=== PATIENT | female | born 1960 | race Caucasian/White ===

== ENCOUNTER 2023-01-21 09:41 | Inpatient (IN) | payer MEDICARE, OTHER ==
[2023-01-21 09:57] LABS: Basophils # (A) 0.1 k/uL (0-0.2); Basophils % (A) 1 %; Eosinophils % (A) 0 %; HCT 31.7 % (34.0-46.0); HGB 10.4 gm/dL (11.4-16.0); Hypochromasia Slight; Lymphocytes # (A) 2.3 k/uL (1.0-4.8); Lymphocytes % (A) 19 %; MCH 31.9 pg (25.0-35.0); MCHC 32.7 g/dL (31.0-37.0); MCV 97.4 fL (80.0-100.0); Monocytes # (A) 0.7 k/uL (0-1.0); Monocytes % (A) 6 %; Neutrophils # (A) 8.5 k/uL (1.3-7.7); Neutrophils % (A) 73 %; Platelet Count 173 k/uL (150-450); RBC 3.26 m/uL (3.80-5.40); RDW 15.5 % (11.5-15.5); WBC 11.7 k/uL (3.8-10.6)
[2023-01-21] MEDS ORDERED: DOPamine DRIP 800 MG in DEXTROSE/WATER 1 250ML.BAG IV ONE (10:02)
[2023-01-21] MEDS: LORazepam 2 MG/ML INJ IV STA ×2 (10:04→10:17)
[2023-01-21 10:14] LABS: ALT 39 U/L (4-34); AST 71 U/L (14-36); African American GFR (CKD) 7 (>60 ml/min/1.73 sqM); Albumin 4.1 g/dL (3.5-5.0); Alkaline Phosphatase 104 U/L (38-126); Anion Gap 11 mmol/L; Blood Urea Nitrogen 54 mg/dL (7-17); Calcium 9.1 mg/dL (8.4-10.2); Carbon Dioxide 29 mmol/L (22-30); Chloride 94 mmol/L (98-107); Glucose 118 mg/dL (74-99); Non-African American GFR(CKD) 6 (>60 ml/min/1.73 sqM); Sodium 134 mmol/L (137-145); Total Bilirubin 0.7 mg/dL (0.2-1.3); Total Protein 6.8 g/dL (6.3-8.2)
[2023-01-21 10:25] LABS: Potassium 7.4 mmol/L (3.5-5.1)
--- NOTE | 2023-01-21 10:32 | ED ---
General Adult HPI - General Chief complaint: Recheck/Abnormal Lab/Rx Stated complaint: bradycardia Time Seen by Provider: 01/21/23 09:45 Source: patient, EMS, RN notes reviewed, old records reviewed Mode of arrival: EMS Limitations: no limitations - History of Present Illness Initial comments: This is a 62-year-old female presents emergency Department from [facility]. Patient is a dialysis patient and she was supposed to go to dialysis today but she was altered and in a little bit of distress. According to the ER doctor at [facility] patient arrived with a pulse of 20 oh pressure was low potassium ended up being over 8. Patient was put on dopamine and given some atropine and then eventually transcutaneously pace. Patient's heart rate when leaving [place] according to the ER doc was 70s and blood pressure was around 100 systolic. Patient was also given insulin and D50 as well as calcium. I asked him to give bicarbonate for the patient before the patient left. Patient is altered and not giving us any further history - Related Data Home Medications Medication Instructions Recorded Confirmed Albuterol Nebulized [Ventolin 2.5 mg INHALATION RT-Q6H PRN 01/21/23 01/21/23 Nebulized] Albuterol Sulfate [Albuterol 1 puff INHALATION RT-Q4H PRN 01/21/23 01/21/23 Sulfate Hfa] Atorvastatin Calcium 20 mg PO DAILY 01/21/23 01/21/23 Azithromycin [Zithromax Z Pack] See Taper PO DIRECTED 01/21/23 01/21/23 Benzonatate [Tessalon Perles] 100 - 200 mg PO TID PRN 01/21/23 01/21/23 Budesonide/Formoterol Fumarate 2 puff INHALATION RT-BID 01/21/23 01/21/23 [Symbicort 160-4.5 Mcg Inhaler] Bumetanide [BUMEX] 4 mg PO TID 01/21/23 01/21/23 Dicyclomine [Bentyl] 10 mg PO TID 01/21/23 01/21/23 Fluticasone Nasal [place] [Flonase 2 spray EA NOSTRIL DAILY 01/21/23 01/21/23 Nasal [place]] Gabapentin [Neurontin] 200 mg PO BID 01/21/23 01/21/23 Isosorbide Mononitrate ER [Imdur] 30 mg PO DAILY 01/21/23 01/21/23 Lidocaine-Prilocaine Cream [Emla 1 applic TOPICAL DIRECTED 01/21/23 01/21/23 Cream 2.5%/2.5%] Loperamide [Imodium] 4 mg PO QID PRN 01/21/23 01/21/23 Metoprolol Succinate (ER) [Toprol 50 mg PO DAILY 01/21/23 01/21/23 Xl] Midodrine HCl 10 mg PO TID 01/21/23 01/21/23 Montelukast [Singulair] 10 mg PO DAILY 01/21/23 01/21/23 Omeprazole [PriLOSEC] 20 mg PO AC-SUPPER 01/21/23 01/21/23 Ondansetron Odt [Zofran Odt] 4 mg PO Q8HR PRN 01/21/23 01/21/23 SILVER sulfADIAZINE Cream 1 applic TOPICAL BID 01/21/23 01/21/23 [Silvadene 1% Cream] Sevelamer Carbonate 1,600 - 2,400 mg PO DIRECTED 01/21/23 01/21/23 amLODIPine [Norvasc] 5 mg PO DAILY 01/21/23 01/21/23 amLODIPine [Norvasc] 10 mg PO DAILY 01/21/23 01/21/23 hydrALAZINE HCL 10 mg PO TID 01/21/23 01/21/23 lisinopriL [Zestril] 10 mg PO DAILY 01/21/23 01/21/23 Allergies Allergy/AdvReac Type Severity Reaction Status Date / Time erythromycin base Allergy Unknown Verified 01/21/23 11:17 Penicillins Allergy Unknown Verified 01/21/23 11:17 Sulfa (Sulfonamide Allergy Unknown Verified 01/21/23 11:17 Antibiotics) sulfacetamide Allergy Unknown Verified 01/21/23 11:17 Review of Systems ROS Statement: Those systems with pertinent positive or pertinent negative responses have been documented in the HPI. ROS Other: All systems not noted in ROS Statement are negative. Past Medical History Past Medical History: Heart Failure, COPD, CVA/TIA, Dialysis, GERD/Reflux, Thyroid Disorder History of Any Multi-Drug Resistant Organisms: Unobtainable Additional Past Surgical History / Comment(s): Dialysis cath placement Past Psychological History: No Psychological Hx Reported Smoking Status: Unknown if ever smoked Past Alcohol Use History: Unable to Obtain Past Drug Use History: Unable to Obtain General Exam - General Exam Comments Initial Comments: GENERAL: Patient is well-developed and well-nourished. Patient is nontoxic and well- hydrated and is in mild distress. Patient is agitated and only answering very basic commands ENT: Neck is soft and supple. No significant lymphadenopathy is noted. Oropharynx is clear. Moist mucous membranes. Neck has full range of motion without eliciting any pain. EYES: The sclera were anicteric and conjunctiva were pink and moist. Extraocular movements were intact and pupils were equal round and reactive to light. Eyelids were unremarkable. PULMONARY: Unlabored respirations. Good breath sounds bilaterally. No audible rales rhonchi or wheezing was noted. CARDIOVASCULAR: Once again off the transcutaneous pacer patient's heart rate was 44 bpm. ABDOMEN: Soft and nontender with normal bowel sounds. SKIN: Skin is clear with no lesions or rashes and otherwise unremarkable. NEUROLOGIC: Patient is alert and oriented 1. Cranial nerves II through XII are grossly intact. Motor and sensory are also intact. Normal speech, volume and content. Symmetrical smile. MUSCULOSKELETAL: Normal extremities with adequate strength and full range of motion. 2+ edema LYMPHATICS: No significant lymphadenopathy is noted PSYCHIATRIC: Unable to evaluate Limitations: no limitations Course Vital Signs 01/21/23 01/21/23 01/21/23 09:44 09:49 10:00 Temperature Pulse Rate 48 L 45 L 58 L Pulse Rate [ Block Engraver ] Respiratory 20 22 20 Rate Blood Pressure 96/76 86/61 Blood Pressure [Right Arm] O2 Sat by Pulse 86 L 86 L 96 Oximetry 01/21/23 01/21/23 01/21/23 10:10 10:20 10:55 Temperature Pulse Rate 80 60 Pulse Rate [ Block Engraver ] Respiratory 22 20 18 Rate Blood Pressure 112/99 93/64 136/60 Blood Pressure [Right Arm] O2 Sat by Pulse 96 94 L 92 L Oximetry 01/21/23 01/21/23 01/21/23 11:05 11:10 11:20 Temperature Pulse Rate 64 65 65 Pulse Rate [ Block Engraver ] Respiratory 18 24 24 Rate Blood Pressure 114/54 93/60 110/76 Blood Pressure [Right Arm] O2 Sat by Pulse 94 L 99 Oximetry 01/21/23 01/21/2301/21/23 11:30 11:42 11:57 Temperature Pulse Rate 65 63 75 Pulse Rate [ Block Engraver ] Respiratory 24 24 24 Rate Blood Pressure 92/54 102/64 109/52 Blood Pressure [Right Arm] O2 Sat by Pulse 98 97 99 Oximetry 01/21/23 01/21/23 01/21/23 12:03 12:08 12:11 Temperature Pulse Rate 66 84 87 Pulse Rate [ Block Engraver ] Respiratory 24 24 Rate Blood Pressure 120/64 96/74 Blood Pressure [Right Arm] O2 Sat by Pulse 100 99 Oximetry 01/21/23 01/21/23 01/21/23 12:19 12:21 12:37 Temperature Pulse Rate 69 68 63 Pulse Rate [ Block Engraver ] Respiratory 24 24 Rate Blood Pressure 99/79 101/53 Blood Pressure [Right Arm] O2 Sat by Pulse 97 97 Oximetry 01/21/23 01/21/23 01/21/23 13:11 13:25 13:42 Temperature 97.9 F Pulse Rate 80 90 Pulse Rate [ 54 L Block Engraver ] Respiratory 17 24 24 Rate Blood Pressure 122/71 131/59 Blood Pressure 116/59 [Right Arm] O2 Sat by Pulse 96 95 93 L Oximetry 01/21/23 01/21/23 01/21/23 13:56 14:17 14:31 Temperature Pulse Rate 73 64 77 Pulse Rate [ Block Engraver ] Respiratory 24 24 24 Rate Blood Pressure 123/77 109/68 132/66 Blood Pressure [Right Arm] O2 Sat by Pulse 97 100 100 Oximetry 01/21/23 01/21/23 01/21/23 15:01 15:21 16:25 Temperature Pulse Rate 70 85 66 Pulse Rate [ Block Engraver ] Respiratory 24 24 24 Rate Blood Pressure 130/65 112/58 119/65 Blood Pressure [Right Arm] O2 Sat by Pulse 100 97 Oximetry 01/21/23 01/21/23 01/21/23 16:31 19:29 19:47 Temperature Pulse Rate 63 61 80 Pulse Rate [ Block Engraver ] Respiratory 24 18 22 Rate Blood Pressure 106/49 117/56 117/56 Blood Pressure [Right Arm] O2 Sat by Pulse 100 98 93 L Oximetry 01/21/23 01/21/23 01/21/23 21:54 23:00 23:30 Temperature Pulse Rate 66 60 65 Pulse Rate [ Block Engraver ] Respiratory 18 18 18 Rate Blood Pressure 109/54 102/57 100/53 Blood Pressure [Right Arm] O2 Sat by Pulse 97 97 94 L Oximetry 01/22/23 01/22/23 01/22/23 00:30 01:37 01:40 Temperature Pulse Rate 60 72 61 Pulse Rate [ Block Engraver ] Respiratory 18 18 18 Rate Blood Pressure 94/53 129/93 120/61 Blood Pressure [Right Arm] O2 Sat by Pulse 93 L 97 96 Oximetry 01/22/23 01/22/23 01/22/23 03:02 04:11 08:03 Temperature Pulse Rate 60 60 86 Pulse Rate [ Block Engraver ] Respiratory 18 18 18 Rate Blood Pressure 122/67 114/53 Blood Pressure [Right Arm] O2 Sat by Pulse 97 92 L Oximetry 01/22/23 01/22/23 01/22/23 08:05 08:15 08:50 Temperature 97.8 F Pulse Rate 84 61 Pulse Rate [ Block Engraver ] Respiratory 18 20 Rate Blood Pressure 113/65 Blood Pressure [Right Arm] O2 Sat by Pulse 93 L 99 Oximetry 01/22/23 01/22/23 01/22/23 10:00 11:16 11:20 Temperature 97 F L 98.2 F Pulse Rate 85 48 L Pulse Rate [ 53 L Block Engraver ] Respiratory 20 14 Rate Blood Pressure 165/85 116/59 Blood Pressure [Right Arm] O2 Sat by Pulse 97 95 Oximetry Medical Decision Making - Medical Decision Making Was pt. sent in by a medical professional or institution (, [facility], GASOLINE LOCOMOTIVE CRANE OPERATOR, urgent care, hospital, or shelter...) When possible be specific @ -Patient was transferred to us from [facility] Did you speak to anyone other than the patient for history (EMS, parent, family, police, friend...)? What history was obtained from this source @ -Spoke with the ER doc to [facility] prior to transfer to get the history and the patient Did you review nursing and triage notes (agree or disagree)? Why? @ -I reviewed and agree with nursing and triage notes Were old charts reviewed (outside hosp., previous admission, EMS record, old EKG, old radiological studies, urgent care reports/EKG's, shelter records)? Report findings @ -I reviewed prior lab work and charts and radiological studies from [facility] Differential Diagnosis (chest pain, altered mental status, abdominal pain women, abdominal pain men, vaginal bleeding, weakness, fever, dyspnea, syncope, headache, dizziness, GI bleed, back pain, seizure, CVA, palpatations, mental health, musculoskeletal)? @ -Differential Altered Mental Status: Hypoglycemia, DKA, hypercapnia, ETOH, overdose, CO poisoning, trauma, myxedema coma, HTN encephalopathy, infection, encephalitis, psychosis, intercranial hemorrhage, hepatic encephalopathy, meningitis, CVA, this is not meant to be an all-inclusive list EKG interpreted by me (3pts min.). @ -As above X-rays interpreted by me (1pt min.). @ -She shows no acute abnormality CT interpreted by me (1pt min.). @ -None done U/S interpreted by me (1pt. min.). @ -None done What testing was considered but not performed or refused? (CT, X-rays, U/S, labs)? Why? @ -None What meds were considered but not given or refused? Why? @ -None Did you discuss the management of the patient with other professionals (professionals i.e. , PA, GASOLINE LOCOMOTIVE CRANE OPERATOR, lab, RT, psych nurse, social service technician, senior systems architect, teacher, antisubmarine weapons officer, outsole caser)? Give summary @ -Spoke with Dr. Armstrong and asked her to set up for dialysis on this patient upon arrival and they were ready to go one patient arrived. I spoke with Dr. villagran he agreed to admit the patient. Dr. Higgins was contacted and he agreed to take the patient in the ICU Was smoking cessation discussed for >3mins.? @ -No Was critical care preformed (if so, how long)? @ -35 minutes Were there social determinants of health that impacted care today? How? (Homelessness, low income, unemployed, alcoholism, drug addiction, transportation, low edu. Level, literacy, decrease access to med. care, usp, rehab)? @ -No Was there de-escalation of care discussed even if they declined (Discuss DNR or withdrawal of care, Hospice)? DNR status @ -No What co-morbidities impacted this encounter? (DM, HTN, Smoking, COPD, CAD, Cancer, CVA, ARF, Chemo, Hep., AIDS, mental health diagnosis, sleep apnea, morbid obesity)? @ -None Was patient admitted / discharged? Hospital course, mention meds given and route, prescriptions, significant lab abnormalities, going to OR and other pertinent info. @ -Patient needed dialysis was hyperkalemic. Patient had dialysis immediately upon arrival. I spoke with Dr. Armstrong she came down and saw the patient. I spoke with Dr. villagran he agreed to admit the patient. I spoke to Dr. Higgins and he will accept the patient in the ICU. Undiagnosed new problem with uncertain prognosis? @ -No Drug Therapy requiring intensive monitoring for toxicity (Heparin, Nitro, Insulin, Cardizem)? @ -No Were any procedures done? @ -No Diagnosis/symptom? @ -Hyperkalemia Acute, or Chronic, or Acute on Chronic? @ -Acute Uncomplicated (without systemic symptoms) or Complicated (systemic symptoms)? @ -Complicated Side effects of treatment? @ -No Exacerbation, Progression, or Severe Exacerbation? @ -No Poses a threat to life or bodily function? How? (Chest pain, [place], NM, pneumonia, PE, COPD, DKA, ARF, appy, cholecystitis, CVA, Diverticulitis, Homicidal, Suicidal, threat to staff... and all critical care pts) @ -Yes this could lead to an arrhythmia and Diagnosis/symptom? @ -Altered mental status Acute, or Chronic, or Acute on Chronic? @ -Acute Uncomplicated (without systemic symptoms) or Complicated (systemic symptoms)? @ -Complicated Side effects of treatment? @ -none Exacerbation, Progression, or Severe Exacerbation] @ -no Poses a threat to life or bodily function? @ -no Diagnosis/symptom? @ -Bradycardia Acute, or Chronic, or Acute on Chronic? @ -Acute Uncomplicated (without systemic symptoms) or Complicated (systemic symptoms)? @ -Complicated Side effects of treatment? @ -none Exacerbation, Progression, or Severe Exacerbation] @ -No Poses a threat to life or bodily function? @ -Yes this could lead to hypoperfusion and ambulatory dysfunction - Lab Data Result diagrams: 01/21/23 09:50 01/22/23 06:29 Lab Results 01/21/23 01/21/23 01/21/23 Range/Units 09:50 09:50 09:50 WBC 11.7 H (3.8-10.6) k/uL RBC 3.26 L (3.80-5.40) m/uL Hgb 10.4 L (11.4-16.0) gm/dL Hct 31.7 L (34.0-46.0) % MCV 97.4 (80.0-100.0) fL MCH 31.9 (25.0-35.0) pg MCHC 32.7 (31.0-37.0) g/dL RDW 15.5 (11.5-15.5) % Plt Count 173 (150-450) k/uL MPV 9.0 Neutrophils % 73 % Lymphocytes % 19 % Monocytes % 6 % Eosinophils % 0 % Basophils % 1 % Neutrophils # 8.5 H (1.3-7.7) k/uL Lymphocytes # 2.3 (1.0-4.8) k/uL Monocytes # 0.7 (0-1.0) k/uL Eosinophils # 0.0 (0-0.7) k/uL Basophils # 0.1 (0-0.2) k/uL Hypochromasia Slight Sample Site ABG pH (7.35-7.45) ABG pCO2 (35-45) mmHg ABG pO2 (83-108) mmHg ABG HCO3 (21-25) mmol/L ABG Total CO2 (19-24) mmol/L ABG O2 Saturation (94-97) % ABG Base Excess mmol/L Vignesh Test FiO2 % Sodium 134 L (137-145) mmol/L Potassium 7.4 H* (3.5-5.1) mmol/L Chloride 94 L (98-107) mmol/L Carbon Dioxide 29 (22-30) mmol/L Anion Gap 11 mmol/L BUN 54 H (7-17) mg/dL Creatinine 7.11 H* (0.52-1.04) mg/dL Est GFR (CKD-EPI)AfAm 7 (>60 ml/min/1.73 sqM) Est GFR (CKD-EPI)NonAf 6 (>60 ml/min/1.73 sqM) Glucose 118 H (74-99) mg/dL Calcium 9.1 (8.4-10.2) mg/dL Magnesium 4.0 H (1.6-2.3) mg/dL Total Bilirubin 0.7 (0.2-1.3) mg/dL AST 71 H (14-36) U/L ALT 39 H (4-34) U/L Alkaline Phosphatase 104 (38-126) U/L Total Protein 6.8 (6.3-8.2) g/dL Albumin 4.1 (3.5-5.0) g/dL Hep Bs Antigen Non-Reactive (Non-Reactive) Hep Bs Antibody Positive (Negative) Hep Bs Antibody, Quant >1000.0 mIU/mL 01/21/23 Range/Units 10:46 WBC (3.8-10.6) k/uL RBC (3.80-5.40) m/uL Hgb (11.4-16.0) gm/dL Hct (34.0-46.0) % MCV (80.0-100.0) fL MCH (25.0-35.0) pg MCHC (31.0-37.0) g/dL RDW (11.5-15.5) % Plt Count (150-450) k/uL MPV Neutrophils % % Lymphocytes % % Monocytes % % Eosinophils % % Basophils % % Neutrophils # (1.3-7.7) k/uL Lymphocytes # (1.0-4.8) k/uL Monocytes # (0-1.0) k/uL Eosinophils # (0-0.7) k/uL Basophils # (0-0.2) k/uL Hypochromasia Sample Site LRAD ABG pH 7.40 (7.35-7.45) ABG pCO2 44 (35-45) mmHg ABG pO2 129 H (83-108) mmHg ABG HCO3 28 H (21-25) mmol/L ABG Total CO2 29 H (19-24) mmol/L ABG O2 Saturation 98.4 H (94-97) % ABG Base Excess 2.9 mmol/L Vignesh Test Yes FiO2 100 % Sodium (137-145) mmol/L Potassium (3.5-5.1) mmol/L Chloride (98-107) mmol/L Carbon Dioxide (22-30) mmol/L Anion Gap mmol/L BUN (7-17) mg/dL Creatinine (0.52-1.04) mg/dL Est GFR (CKD-EPI)AfAm (>60 ml/min/1.73 sqM) Est GFR (CKD-EPI)NonAf (>60 ml/min/1.73 sqM) Glucose (74-99) mg/dL Calcium (8.4-10.2) mg/dL Magnesium (1.6-2.3) mg/dL Total Bilirubin (0.2-1.3) mg/dL AST (14-36) U/L ALT (4-34) U/L Alkaline Phosphatase (38-126) U/L Total Protein (6.3-8.2) g/dL Albumin (3.5-5.0) g/dL Hep Bs Antigen (Non-Reactive) Hep Bs Antibody (Negative) Hep Bs Antibody, Quant mIU/mL Critical Care Time Critical Care Time: Yes Total Critical Care Time: 35 Disposition Clinical Impression: Hyperkalemia, Renal failure, Altered mental status, Bradycardia Disposition: ADMITTED IP TO THIS HOSP
[2023-01-21 10:51] LABS: ABG Base Excess 2.9 mmol/L; ABG HCO3 28 mmol/L (21-25); ABG Oxygen Saturation 98.4 % (94-97); ABG PCO2 44 mmHg (35-45); ABG PO2 129 mmHg (83-108); ABG TCO2 29 mmol/L (19-24); Allen Test Performed? Yes
--- NOTE | 2023-01-21 11:04 | XR ---
EXAMINATION TYPE: XR chest 1V portable DATE OF EXAM: 01/21/2023 COMPARISON: NONE HISTORY: Shortness of breath. TECHNIQUE: Single frontal view of the chest is obtained. FINDINGS: There is a right-sided dual-lumen central venous catheter the catheter tip in the right atrium. The lungs are clear. The cardiac silhouette is moderately enlarged and the pulmonary vessels are within normal limits. IMPRESSION: Cardiomegaly with no acute cardiopulmonary findings otherwise seen.
[2023-01-21] MEDS ORDERED: NALOXONE 0.4 MG/ML 1 ML VIAL IV PRN (11:32)
[2023-01-21] MEDS ORDERED: IPRATROPIUM-ALBUTEROL 3 ML NEB INHALATION STA (11:55)
--- NOTE | 2023-01-21 13:11 | P.CNPUL ---
History of Present Illness Consult date: 01/21/23 Requesting physician: John Gaytan Reason for consult: other (Critical care management) Chief complaint: Altered mental status History of present illness: This is a 62-year-old female patient with a known history of chronic obstructive pulmonary disease, hypothyroidism, gastroesophageal reflux disease, CVA/TIA, congestive heart failure, end-stage renal disease on hemodialysis Saturday. She was on her way to dialysis but became altered and and a little distress and was brought to [facility] instead. In the ER she was found to have a pulse rate in the 20s low blood pressure and high potassium greater than 8. She was placed on dopamine and given some atropine and eventually transcutaneously paced. She was also treated with insulin, D50 on the bicarb and calcium. She was transferred here to our ER for further evaluation and treatment. White count 11.7. Hemoglobin 10.4. Platelets 173. Sodium 134. Potassium 7.4. Chloride 94. Bicarb 29. BUN 54. Creatinine 7.11. Glucose 118. Arterial blood gases on 100% nonrebreather mask revealed a PaO2 of 129, pCO2 44 and a pH of 7.40. She is seen today in consultation in the emergency department. She is somewhat altered. Restless. She is currently receiving urgent hemodialysis. Remains on dopamine at 9 mcg/kg/m. Heart rate in the 60s. Blood pressure 101/53 with a mean of 69. Saturations in the 90s. Chest x-ray reveals cardiomegaly but no acute cardiopulmonary process. Review of Systems ROS unobtainable: due to mental status Past Medical History Past Medical History: Heart Failure, COPD, CVA/TIA, Dialysis, GERD/Reflux, Thyroid Disorder History of Any Multi-Drug Resistant Organisms: Unobtainable Additional Past Surgical History / Comment(s): Dialysis cath placement Past Psychological History: No Psychological Hx Reported Smoking Status: Unknown if ever smoked Past Alcohol Use History: Unable to Obtain Past Drug Use History: Unable to Obtain Medications and Allergies Home Medications Medication Instructions Recorded Confirmed Type Albuterol Nebulized [Ventolin 2.5 mg INHALATION RT-Q6H PRN 01/21/23 01/21/23 History Nebulized] Albuterol Sulfate [Albuterol 1 puff INHALATION RT-Q4H PRN 01/21/23 01/21/23 History Sulfate Hfa] Atorvastatin Calcium 20 mg PO DAILY 01/21/23 01/21/23 History Azithromycin [Zithromax Z Pack] See Taper PO DIRECTED 01/21/23 01/21/23 History Benzonatate [Tessalon Perles] 100 - 200 mg PO TID PRN 01/21/23 01/21/23 History Budesonide/Formoterol Fumarate 2 puff INHALATION RT-BID 01/21/23 01/21/23 History [Symbicort 160-4.5 Mcg Inhaler] Bumetanide [BUMEX] 4 mg PO TID 01/21/23 01/21/23 History Dicyclomine [Bentyl] 10 mg PO TID 01/21/23 01/21/23 History Fluticasone Nasal [place] [Flonase 2 spray EA NOSTRIL DAILY 01/21/23 01/21/23 History Nasal [place]] Gabapentin [Neurontin] 200 mg PO BID 01/21/23 01/21/23 History Isosorbide Mononitrate ER [Imdur] 30 mg PO DAILY 01/21/23 01/21/23 History Lidocaine-Prilocaine Cream [Emla 1 applic TOPICAL DIRECTED 01/21/23 01/21/23 History Cream 2.5%/2.5%] Loperamide [Imodium] 4 mg PO QID PRN 01/21/23 01/21/23 History Metoprolol Succinate (ER) [Toprol 50 mg PO DAILY 01/21/23 01/21/23 History Xl] Midodrine HCl 10 mg PO TID 01/21/23 01/21/23 History Montelukast [Singulair] 10 mg PO DAILY 01/21/23 01/21/23 History Omeprazole [PriLOSEC] 20 mg PO AC-SUPPER 01/21/23 01/21/23 History Ondansetron Odt [Zofran Odt] 4 mg PO Q8HR PRN 01/21/23 01/21/23 History SILVER sulfADIAZINE Cream 1 applic TOPICAL BID 01/21/23 01/21/23 History [Silvadene 1% Cream] Sevelamer Carbonate 1,600 - 2,400 mg PO DIRECTED 01/21/23 01/21/23 History amLODIPine [Norvasc] 5 mg PO DAILY 01/21/23 01/21/23 History amLODIPine [Norvasc] 10 mg PO DAILY 01/21/23 01/21/23 History hydrALAZINE HCL 10 mg PO TID 01/21/23 01/21/23 History lisinopriL [Zestril] 10 mg PO DAILY 01/21/23 01/21/23 History Allergies Allergy/AdvReac Type Severity Reaction Status Date / Time erythromycin base Allergy Unknown Verified 01/21/23 11:17 Penicillins Allergy Unknown Verified 01/21/23 11:17 Sulfa (Sulfonamide Allergy Unknown Verified 01/21/23 11:17 Antibiotics) sulfacetamide Allergy Unknown Verified 01/21/23 11:17 Physical Exam Vitals: Vital Signs Pulse Resp BP Pulse Ox 01/21/23 12:37 63 24 101/53 97 01/21/23 12:21 68 24 99/79 97 01/21/23 12:19 69 01/21/23 12:11 87 24 96/74 99 01/21/23 12:08 84 01/21/23 12:03 66 24 120/64 100 01/21/23 11:57 75 24 109/52 99 01/21/23 11:42 63 24 102/64 97 01/21/23 11:30 65 24 92/54 98 01/21/23 11:20 65 24 110/76 01/21/23 11:10 65 24 93/60 99 01/21/23 11:05 64 18 114/54 94 L 01/21/23 10:55 60 18 136/60 92 L 01/21/23 10:20 80 20 93/64 94 L 01/21/23 10:10 22 112/99 96 01/21/23 10:00 58 L 20 86/61 96 01/21/23 09:49 45 L 22 86 L 01/21/23 09:44 48 L 20 96/76 86 L Intake and Output 01/20/23 01/21/23 01/21/23 22:59 06:59 14:59 Other: Weight 81 kg GENERAL: Patient is well-developed and well-nourished 62-year-old female patient. Patient is well-hydrated and is in mild distress. Patient is agitated and only answering very basic commands ENT: Neck is soft and supple. No significant lymphadenopathy is noted. Oropharynx is clear. Moist mucous membranes. Neck has full range of motion without eliciting any pain. EYES: The sclera were anicteric and conjunctiva were pink and moist. Extra ocular movements were intact and pupils were equal round and reactive to light. Eyelids were unremarkable. PULMONARY: Unlabored respirations. Good breath sounds bilaterally. No audible rales rhonchi or wheezing was noted. CARDIOVASCULAR: Currently off the transcutaneous pacer patient's heart rate was 63 bpm. ABDOMEN: Soft and nontender with normal bowel sounds. SKIN: Skin is clear with no lesions or rashes and otherwise unremarkable. NEUROLOGIC: Patient is alert and oriented 1. Cranial nerves II through XII are grossly intact. Motor and sensory are also intact. Normal speech, volume and content. Symmetrical smile. MUSCULOSKELETAL: Normal extremities with adequate strength and full range of motion. 2+ edema LYMPHATICS:No significant lymphadenopathy is noted PSYCHIATRIC: Unable to evaluate Results - Laboratory Findings CBC and BMP: 01/21/23 09:50 01/21/23 09:50 ABG ABG pH 7.40 (7.35-7.45) 01/21/23 10:46 ABG pCO2 44 mmHg (35-45) 01/21/23 10:46 ABG pO2 129 mmHg (83-108) H 01/21/23 10:46 ABG O2 Saturation 98.4 % (94-97) H 01/21/23 10:46 Abnormal lab findings: Abnormal Labs 01/21/23 01/21/23 01/21/23 09:50 09:50 10:46 WBC 11.7 H RBC 3.26 L Hgb 10.4 L Hct 31.7 L Neutrophils # 8.5 H ABG pO2 129 H ABG HCO3 28 H ABG Total CO2 29 H ABG O2 Saturation 98.4 H Sodium 134 L Potassium 7.4 H* Chloride 94 L BUN 54 H Creatinine 7.11 H* Glucose 118 H Magnesium 4.0 H AST 71 H ALT 39 H - Diagnostic Findings Chest x-ray: image reviewed Assessment and Plan Assessment: Altered mental status secondary to acute on chronic renal failure. Creatinine 7.11 Severe bradycardia secondary to hyperkalemia requiring transcutaneous pacing and dopamine infusion Hypotension secondary to above Hyperkalemia secondary to acute renal failure with potassium of 7.4 Mild transaminitis History of CVA/TIA History of hypertension History of congestive heart failure History of COPD Former smoker Plan: The patient was seen and evaluated Chest x-ray, labs and medications reviewed To be admitted to the intensive care unit Currently receiving urgent hemodialysis Continue to monitor electrolytes closely Titrate the FiO2 as tolerated We will continue to follow and make further recommendations based on her clinical status I have personally seen and examined the patient, performed a documentation and the assessment and plan as written. Number minutes spent on the visit: 20.
[2023-01-21] MEDS ORDERED: ALBUTEROL NEBULIZED 2.5 MG/3 ML INHALATION PRN (18:54)
[2023-01-21] MEDS ORDERED: ALBUTEROL HFA INHALER INHALATION PRN (18:54)
[2023-01-21] MEDS ORDERED: SEVELAMER 800 MG TAB PO PRN (19:04)
--- NOTE | 2023-01-21 19:21 | P.HPIM ---
History of Present Illness This is a pleasant 62 years old female with multiple medical problems Sent from [facility] to the emergency room for altered mental status. Patient was seen well in the emergency room, she was with altered mental status, she does not respond to verbal or tactile stimuli. Does not follow command. There is no asymmetry noted. However examination is limited by patient mental status.. Also got 1 dose of IV Ativan in the emergency room which made her more sleepy Patient is admitted on the stage renal disease on hemodialysis, she preferred with dialysis. Apparently a very saturday, saturday and saturday Admission her creatinine was 7.1, while at [facility] was 5.2, patient also has hyperkalemia with potassium 7.4 on admission. Patient is to get urgent hemodialysis in the emergency room. Blood pressure 112/58, heart rate 85, patient is mildly tachypneic. Marked leukocytosis with a 11.7. Chest x-ray showed pulmonary venous congestion with scattered interstitial edema. Repeat chest x-ray this facility showed cardiomegaly with no acute process. CT of the pressure with no acute intracranial process. Patient also on dopamine drip. Patient is in critical condition is going to be monitored the ICU currently. Review of Systems ROS unobtainable: due to mental status Past Medical History Past Medical History: Heart Failure, COPD, CVA/TIA, Dialysis, GERD/Reflux, Thyroid Disorder History of Any Multi-Drug Resistant Organisms: Unobtainable Additional Past Surgical History / Comment(s): Dialysis cath placement Past Psychological History: No Psychological Hx Reported Smoking Status: Unknown if ever smoked Past Alcohol Use History: Unable to Obtain Past Drug Use History: Unable to Obtain Medications and Allergies Home Medications Medication Instructions Recorded Confirmed Type Albuterol Nebulized [Ventolin 2.5 mg INHALATION RT-Q6H PRN 01/21/23 01/21/23 History Nebulized] Albuterol Sulfate [Albuterol 1 puff INHALATION RT-Q4H PRN 01/21/23 01/21/23 History Sulfate Hfa] Atorvastatin Calcium 20 mg PO DAILY 01/21/23 01/21/23 History Azithromycin [Zithromax Z Pack] See Taper PO DIRECTED 01/21/23 01/21/23 History Benzonatate [Tessalon Perles] 100 - 200 mg PO TID PRN 01/21/23 01/21/23 History Budesonide/Formoterol Fumarate 2 puff INHALATION RT-BID 01/21/23 01/21/23 History [Symbicort 160-4.5 Mcg Inhaler] Bumetanide [BUMEX] 4 mg PO TID 01/21/23 01/21/23 History Dicyclomine [Bentyl] 10 mg PO TID 01/21/23 01/21/23 History Fluticasone Nasal [place] [Flonase 2 spray EA NOSTRIL DAILY 01/21/23 01/21/23 History Nasal [place]] Gabapentin [Neurontin] 200 mg PO BID 01/21/23 01/21/23 History Isosorbide Mononitrate ER [Imdur] 30 mg PO DAILY 01/21/23 01/21/23 History Lidocaine-Prilocaine Cream [Emla 1 applic TOPICAL DIRECTED 01/21/23 01/21/23 History Cream 2.5%/2.5%] Loperamide [Imodium] 4 mg PO QID PRN 01/21/23 01/21/23 History Metoprolol Succinate (ER) [Toprol 50 mg PO DAILY 01/21/23 01/21/23 History Xl] Midodrine HCl 10 mg PO TID 01/21/23 01/21/23 History Montelukast [Singulair] 10 mg PO DAILY 01/21/23 01/21/23 History Omeprazole [PriLOSEC] 20 mg PO AC-SUPPER 01/21/23 01/21/23 History Ondansetron Odt [Zofran Odt] 4 mg PO Q8HR PRN 01/21/23 01/21/23 History SILVER sulfADIAZINE Cream 1 applic TOPICAL BID 01/21/23 01/21/23 History [Silvadene 1% Cream] Sevelamer Carbonate 1,600 - 2,400 mg PO DIRECTED 01/21/23 01/21/23 History amLODIPine [Norvasc] 5 mg PO DAILY 01/21/23 01/21/23 History amLODIPine [Norvasc] 10 mg PO DAILY 01/21/23 01/21/23 History hydrALAZINE HCL 10 mg PO TID 01/21/23 01/21/23 History lisinopriL [Zestril] 10 mg PO DAILY 01/21/23 01/21/23 History Allergies Allergy/AdvReac Type Severity Reaction Status Date / Time erythromycin base Allergy Unknown Verified 01/21/23 11:17 Penicillins Allergy Unknown Verified 01/21/23 11:17 Sulfa (Sulfonamide Allergy Unknown Verified 01/21/23 11:17 Antibiotics) sulfacetamide Allergy Unknown Verified 01/21/23 11:17 Physical Exam Vitals: Vital Signs Temp Pulse Pulse Resp BP BP Pulse Ox 01/21/23 14:17 64 24 109/68 100 01/21/23 13:56 73 24 123/77 97 01/21/23 13:42 90 24 131/59 93 L 01/21/23 13:25 80 24 122/71 95 01/21/23 13:11 96.7 F L 77 20 114/58 01/21/23 12:37 63 24 101/53 97 01/21/23 12:21 68 24 99/79 97 01/21/23 12:19 69 01/21/23 12:11 87 24 96/74 99 01/21/23 12:08 84 01/21/23 12:03 66 24 120/64 100 01/21/23 11:57 75 24 109/52 99 01/21/23 11:42 63 24 102/64 97 01/21/23 11:30 65 24 92/54 98 01/21/23 11:20 65 24 110/76 01/21/23 11:10 65 24 93/60 99 01/21/23 11:05 64 18 114/54 94 L 01/21/23 10:55 60 18 136/60 92 L 01/21/23 10:20 80 20 93/64 94 L 01/21/23 10:10 22 112/99 96 01/21/23 10:00 58 L 20 86/61 96 01/21/23 09:49 45 L 22 86 L 01/21/23 09:44 48 L 20 96/76 86 L Intake and Output 01/20/23 01/21/23 01/21/23 22:59 06:59 14:59 Intake Total 500 Output Total 2600 Balance -2100 Intake: Hemodialysis 500 Output: Hemodialysis 2600 Other: Weight 81 kg GENERAL: The patient is altered mental status, confused and nonverbal, mumbles, does not follow commands.. Obese HEENT: Pupils are round and equally reacting to light. EOMI. No scleral icterus. No conjunctival pallor. Normocephalic, atraumatic. No pharyngeal erythema. No thyromegaly. CARDIOVASCULAR: S1 and S2 present. No murmurs, rubs, or gallops. -PULMONARY: Chest is clear to auscultation, no wheezing , bilateral basilar crackles ABDOMEN: Soft, nontender, nondistended, normoactive bowel sounds. No palpable organomegaly. MUSCULOSKELETAL: No joint swelling or deformity. EXTREMITIES: No cyanosis, clubbing, or pedal edema. NEUROLOGICAL: Gross neurological examination did not reveal any focal deficits. SKIN: No rashes. no petechiae. Results CBC & Chem 7: 01/21/23 09:50 01/21/23 09:50 Labs: Abnormal Lab Results - Last 24 Hours (Table) 01/21/23 01/21/23 01/21/23 Range/Units 09:50 09:50 10:46 WBC 11.7 H (3.8-10.6) k/uL RBC 3.26 L (3.80-5.40) m/uL Hgb 10.4 L (11.4-16.0) gm/dL Hct 31.7 L (34.0-46.0) % Neutrophils # 8.5 H (1.3-7.7) k/uL ABG pO2 129 H (83-108) mmHg ABG HCO3 28 H (21-25) mmol/L ABG Total CO2 29 H (19-24) mmol/L ABG O2 Saturation 98.4 H (94-97) % Sodium 134 L (137-145) mmol/L Potassium 7.4 H* (3.5-5.1) mmol/L Chloride 94 L (98-107) mmol/L BUN 54 H (7-17) mg/dL Creatinine 7.11 H* (0.52-1.04) mg/dL Glucose 118 H (74-99) mg/dL Magnesium 4.0 H (1.6-2.3) mg/dL AST 71 H (14-36) U/L ALT 39 H (4-34) U/L Assessment and Plan Assessment: Altered mental status most likely to metabolic/toxic encephalopathy End-stage renal disease(Saturday and Saturday, presents with worsening creatinine and hyperkalemia Mild leukocytosis COPD, History of CVA/TIA History of hypothyroidism Plan: Patient already with urgent hemodialysis in the emergency room as per nephrology team on the case. Patient already been evaluated and will be monitored in critical care unit. Telemetry monitoring. Neuro check Labs and medication were reviewed.. Continue same treatment. Continue with symptomatic treatment. Resume home medication. Monitor labs and vitals. DVT and GI prophylaxis. Further recommendations as per clinical course of the patient DVT prophylaxis: Mechanical GI Prophylaxis: Pepcid Prognosis is guarded
--- NOTE | 2023-01-21 20:16 | P.NPCON ---
History of Present Illness - Reason for Consult end stage renal disease - History of Present Illness Patient is a 62 yr old female with ESRD, on HD on MWF schedule at [place]. Patient has been transferred from [facility] due to severe hyperkalemia. Patient was noted to have btadycardia and was treated for hyperkalemia with IV medications. Potassium was 8. Patient was started on dopamine infusion. Mentation has deteriorated since initial admission and enroute. S/p ativan for severe restlessness. Patient was emergently started on HD in the ER. Tolerating treatment well. Patient is seen on HD in the ER. No fever noted. CXR shows pulmonary vascular congestion. H/o volume overload and noncompliance with fluid restriction as out patient. Review of Systems as per HPI Past Medical History Past Medical History: Heart Failure, COPD, CVA/TIA, Dialysis, GERD/Reflux, Thyroid Disorder History of Any Multi-Drug Resistant Organisms: Unobtainable Additional Past Surgical History / Comment(s): Dialysis cath placement Past Psychological History: No Psychological Hx Reported Smoking Status: Unknown if ever smoked Past Alcohol Use History: Unable to Obtain Past Drug Use History: Unable to Obtain Medications and Allergies Home Medications Medication Instructions Recorded Confirmed Type Albuterol Nebulized [Ventolin 2.5 mg INHALATION RT-Q6H PRN 01/21/23 01/21/23 History Nebulized] Albuterol Sulfate [Albuterol 1 puff INHALATION RT-Q4H PRN 01/21/23 01/21/23 History Sulfate Hfa] Atorvastatin Calcium 20 mg PO DAILY 01/21/23 01/21/23 History Azithromycin [Zithromax Z Pack] See Taper PO DIRECTED 01/21/23 01/21/23 History Benzonatate [Tessalon Perles] 100 - 200 mg PO TID PRN 01/21/23 01/21/23 History Budesonide/Formoterol Fumarate 2 puff INHALATION RT-BID 01/21/23 01/21/23 History [Symbicort 160-4.5 Mcg Inhaler] Bumetanide [BUMEX] 4 mg PO TID 01/21/23 01/21/23 History Dicyclomine [Bentyl] 10 mg PO TID 01/21/23 01/21/23 History Fluticasone Nasal [place] [Flonase 2 spray EA NOSTRIL DAILY 01/21/23 01/21/23 History Nasal [place]] Gabapentin [Neurontin] 200 mg PO BID 01/21/23 01/21/23 History Isosorbide Mononitrate ER [Imdur] 30 mg PO DAILY 01/21/23 01/21/23 History Lidocaine-Prilocaine Cream [Emla 1 applic TOPICAL DIRECTED 01/21/23 01/21/23 History Cream 2.5%/2.5%] Loperamide [Imodium] 4 mg PO QID PRN 01/21/23 01/21/23 History Metoprolol Succinate (ER) [Toprol 50 mg PO DAILY 01/21/23 01/21/23 History Xl] Midodrine HCl 10 mg PO TID 01/21/23 01/21/23 History Montelukast [Singulair] 10 mg PO DAILY 01/21/23 01/21/23 History Omeprazole [PriLOSEC] 20 mg PO AC-SUPPER 01/21/23 01/21/23 History Ondansetron Odt [Zofran Odt] 4 mg PO Q8HR PRN 01/21/23 01/21/23 History SILVER sulfADIAZINE Cream 1 applic TOPICAL BID 01/21/23 01/21/23 History [Silvadene 1% Cream] Sevelamer Carbonate 1,600 - 2,400 mg PO DIRECTED 01/21/23 01/21/23 History amLODIPine [Norvasc] 5 mg PO DAILY 01/21/23 01/21/23 History amLODIPine [Norvasc] 10 mg PO DAILY 01/21/23 01/21/23 History hydrALAZINE HCL 10 mg PO TID 01/21/23 01/21/23 History lisinopriL [Zestril] 10 mg PO DAILY 01/21/23 01/21/23 History Allergies Allergy/AdvReac Type Severity Reaction Status Date / Time erythromycin base Allergy Unknown Verified 01/21/23 11:17 Penicillins Allergy Unknown Verified 01/21/23 11:17 Sulfa (Sulfonamide Allergy Unknown Verified 01/21/23 11:17 Antibiotics) sulfacetamide Allergy Unknown Verified 01/21/23 11:17 Physical Exam Vitals: Vital Signs Temp Pulse Pulse Resp BP BP Pulse Ox 01/21/23 19:47 80 22 117/56 93 L 01/21/23 19:29 61 18 117/56 98 01/21/23 16:31 63 24 106/49 100 01/21/23 16:25 66 24 119/65 97 01/21/23 15:21 85 24 112/58 01/21/23 15:01 70 24 130/65 100 01/21/23 14:31 77 24 132/66 100 01/21/23 14:17 64 24 109/68 100 01/21/23 13:56 73 24 123/77 97 01/21/23 13:42 90 24 131/59 93 L 01/21/23 13:25 80 24 122/71 95 01/21/23 13:11 96.7 F L 77 20 114/58 01/21/23 12:37 63 24 101/53 97 01/21/23 12:21 68 24 99/79 97 01/21/23 12:19 69 01/21/23 12:11 87 24 96/74 99 01/21/23 12:08 84 01/21/23 12:03 66 24 120/64 100 01/21/23 11:57 75 24 109/52 99 01/21/23 11:42 63 24 102/64 97 01/21/23 11:30 65 24 92/54 98 01/21/23 11:20 65 24 110/76 01/21/23 11:10 65 24 93/60 99 01/21/23 11:05 64 18 114/54 94 L 01/21/23 10:55 60 18 136/60 92 L 01/21/23 10:20 80 20 93/64 94 L 01/21/23 10:10 22 112/99 96 01/21/23 10:00 58 L 20 86/61 96 01/21/23 09:49 45 L 22 86 L 01/21/23 09:44 48 L 20 96/76 86 L Intake and Output 01/21/23 01/21/23 01/21/23 06:59 14:59 22:59 Intake Total 500 Output Total 2600 Balance -2100 Intake: Hemodialysis 500 Output: Hemodialysis 2600 Other: Weight 81 kg Patient is obtunded. Responds to painful stimui CVS S1 and S2 Lungs show decreased breath sounds at bases Abdomen is soft nontender. extremities show edema 2+ and chronic skin changes. [employer] exam shows patient only responding to painful stimuli. Results - Lab Results Most recent lab results ABG pH 7.40 (7.35-7.45) 01/21/23 10:46 ABG pCO2 44 mmHg (35-45) 01/21/23 10:46 ABG pO2 129 mmHg (83-108) H 01/21/23 10:46 ABG HCO3 28 mmol/L (21-25) H 01/21/23 10:46 ABG O2 Saturation 98.4 % (94-97) H 01/21/23 10:46 Calcium 9.1 mg/dL (8.4-10.2) 01/21/23 09:50 Magnesium 4.0 mg/dL (1.6-2.3) H 01/21/23 09:50 01/21/23 09:50 01/21/23 09:50 Assessment and Plan Assessment: 1. ESRD, on HD on MWF schedule. 2. Severe hyperkalemia associated with ESRD. 3. Bradycardia secondary to hyperkalemia. 4. Volume overload. 5. Mental status changes, r/o underlying infection/ sepsis 6. Hypotension associated with bradycardia, r/o sepsis 7. H/o CVA 8. CKD mineral bone disorder. Plan: Urgent HD today and repeat in am Repeat potassium 2 hrs after HD treatment. Repeat labs in am. Admit to ICU. D/c hydralazine. D/c dopamine after HD Thank you for the consultation. We will continue to follow the patient with you.
[2023-01-21] MEDS: SYMBICORT 160-4.5 MCG INHALER INHALATION SCH (20:40)
[2023-01-21] MEDS: DICYCLOMINE 10 MG CAP PO SCH (21:49)
[2023-01-21] MEDS: MIDODRINE 5 MG TAB PO SCH (21:49)
[2023-01-21] MEDS ORDERED: hydrALAZINE HCL 10 MG TAB PO SCH (22:00)
[2023-01-21 22:17] LABS: Hepatitis B Surface Antigen Non-Reactive (Non-Reactive)
[2023-01-22 00:24] LABS: Hepatitis B Surface AB- Quant >1000.0 mIU/mL
[2023-01-22] MEDS: ONDANSETRON ODT 4 MG TAB PO PRN ×3 (01:36→20:18)
[2023-01-22] MEDS ORDERED: ONDANSETRON 4 MG/2 ML VIAL IVP STA ×2 (04:17→04:20)
[2023-01-22 07:35] LABS: African American GFR (CKD) 13 (>60 ml/min/1.73 sqM); Anion Gap 8 mmol/L; Blood Urea Nitrogen 28 mg/dL (7-17); Calcium 8.1 mg/dL (8.4-10.2); Carbon Dioxide 27 mmol/L (22-30); Chloride 100 mmol/L (98-107); Glucose 91 mg/dL (74-99); Non-African American GFR(CKD) 11 (>60 ml/min/1.73 sqM); Sodium 135 mmol/L (137-145)
[2023-01-22 07:37] LABS: Potassium 5.6 mmol/L (3.5-5.1)
[2023-01-22] MEDS: SYMBICORT 160-4.5 MCG INHALER INHALATION SCH ×2 (08:03→19:59)
[2023-01-22 08:06] LABS: Hepatitis B Surface Antibody Positive (Negative)
[2023-01-22] MEDS: MIDODRINE 5 MG TAB PO SCH ×3 (08:56→20:17)
[2023-01-22] MEDS: DICYCLOMINE 10 MG CAP PO SCH ×4 (08:59→20:17)
[2023-01-22] MEDS ORDERED: amLODIPine 5 MG TAB PO SCH (09:00)
[2023-01-22] MEDS: SEVELAMER 800 MG TAB PO SCH ×3 (09:00→16:57)
[2023-01-22] MEDS ORDERED: amLODIPine 10 MG TAB PO SCH (09:00)
[2023-01-22] MEDS: MONTELUKAST 10 MG TAB PO SCH (09:07)
[2023-01-22] MEDS: ATORVASTATIN 20 MG TAB PO SCH (09:07)
[2023-01-22] MEDS: METOPROLOL SUCCINATE (ER) 50 MG TAB.ER.24H PO SCH (09:07)
[2023-01-22] MEDS: ISOSORBIDE MONONITRATE ER 30 MG TAB.ER.24H PO SCH (10:35)
--- NOTE | 2023-01-22 12:03 | P.PN ---
Subjective This is a pleasant 62 years old female with multiple medical problems Sent from [facility] to the emergency room for altered mental status. Patient was seen well in the emergency room, she was with altered mental status, she does not respond to verbal or tactile stimuli. Does not follow command. There is no asymmetry noted. However examination is limited by patient mental status.. Also got 1 dose of IV Ativan in the emergency room which made her more sleepy Patient is admitted on the stage renal disease on hemodialysis, she preferred with dialysis. Apparently a very saturday, saturday and saturday Admission her creatinine was 7.1, while at [facility] was 5.2, patient also has hyperkalemia with potassium 7.4 on admission. Patient is to get urgent hemodialysis in the emergency room. Blood pressure 112/58, heart rate 85, patient is mildly tachypneic. Marked leukocytosis with a 11.7. Chest x-ray showed pulmonary venous congestion with scattered interstitial edema. Repeat chest x-ray this facility showed cardiomegaly with no acute process. CT of the pressure with no acute intracranial process. Patient also on dopamine drip. Patient is in critical condition is going to be monitored the ICU currently. 01/22/2023 patient is awake alert today, she is now she is an [facility] and she knows the daytime and date and the name of the president, she follows commands and has insight She looks a little bit agitated and at bedtime today, she got bothered easily with frequent questioning. She is complaining of from headache described by the patient as 10/10 all over, nonspecific in character associated with vomiting (patient has been vomiting for the last 2-3 days as she describes) and dizziness. She describes dizziness as a room is spinning around her. She denies any other specific symptoms to me. Afebrile, vital signs stable Laps improvement with potassium down to 5.6 and creatinine down to 4.0. WBC 11.7 and hemoglobin 11.4 Chest x-ray showing pulmonary venous congestion with vascular interstitial edema Repeat chest x-ray is pending. I reviewed myself with no significant change from yesterday Objective - Vital Signs Vital signs: Vital Signs Temp 98.2 F 01/22/23 11:16 Pulse 53 L 01/22/23 11:20 Resp 14 01/22/23 11:16 BP 116/59 01/22/23 11:16 Pulse Ox 95 01/22/23 11:16 FiO2 Intake & Output 01/21/23 01/22/23 01/22/23 18:59 06:59 18:59 Intake Total 500 Output Total 2600 Balance -2100 Weight 81 kg Intake: Hemodialysis 500 Output: Hemodialysis 2600 - Exam -GENERAL: The patient is alert and oriented x3, anxious not in any acute distress. Well developed, well nourished. HEENT: Pupils are round and equally reacting to light. EOMI. No scleral icterus. No conjunctival pallor. Normocephalic, atraumatic. No pharyngeal erythema. No thyromegaly. CARDIOVASCULAR: S1 and S2 present. No murmurs, rubs, or gallops. PULMONARY: Chest is clear to auscultation, no wheezing , no crackles. ABDOMEN: Soft, nontender, nondistended, normoactive bowel sounds. No palpable organomegaly. MUSCULOSKELETAL: No joint swelling or deformity. EXTREMITIES: No cyanosis, clubbing, or pedal edema. NEUROLOGICAL: Gross neurological examination did not reveal any focal deficits. SKIN: No rashes. no petechiae. - Labs CBC & Chem 7: 01/21/23 09:50 01/22/23 06:29 Labs: Abnormal Lab Results - Last 24 Hours (Table) 01/22/23 Range/Units 06:29 Sodium 135 L (137-145) mmol/L Potassium 5.6 H (3.5-5.1) mmol/L BUN 28 H (7-17) mg/dL Creatinine 4.08 H (0.52-1.04) mg/dL Calcium 8.1 L (8.4-10.2) mg/dL Assessment and Plan Assessment: Altered mental status most likely to metabolic/toxic encephalopathy, improving headache with vertigo End-stage renal disease(Saturday and Saturday, presents with worsening creatinine and hyperkalemia Mild leukocytosis COPD, History of CVA/TIA History of hypothyroidism Plan: Order CT of the head. Neurology consult Patient is status post urgent hemodialysis in the emergency room as per nephrology team on the case. Creatinine and hyperkalemia improvement Patient was downgraded to select units Pulmonary/critical care team consult already on the case Telemetry monitoring. Neuro check Labs and medication were reviewed.. Continue same treatment. Continue with symptomatic treatment. Resume home medication. Monitor labs and vitals. DVT and GI prophylaxis. Further recommendations as per clinical course of the patient DVT prophylaxis: Mechanical GI Prophylaxis: Pepcid Prognosis is guarded
--- NOTE | 2023-01-22 12:08 | XR ---
EXAMINATION TYPE: XR chest 1V DATE OF EXAM: 01/22/2023 COMPARISON: 01/21/2023 HISTORY: Shortness of breath TECHNIQUE: Single frontal view of the chest is obtained. FINDINGS: There is no focal air space opacity, pleural effusion, or pneumothorax seen. The heart is enlarged and there is a dialysis catheter. Mild interstitial prominence. Surgical clips are seen adj acent to the left humerus. Diffuse osteopenia.. IMPRESSION: 1. Cardiomegaly correlate for chronic interstitial lung disease or mild venous congestion.
--- NOTE | 2023-01-22 12:17 | P.PN ---
Subjective Progress Note Date: 01/22/23 This is a 62-year-old female patient with a known history of chronic obstructive pulmonary disease, hypothyroidism, gastroesophageal reflux disease, CVA/TIA, congestive heart failure, end-stage renal disease on hemodialysis Saturday. She was on her way to dialysis but became altered and and a little distress and was brought to [facility] instead. In the ER she was found to have a pulse rate in the 20s low blood pressure and high potassium greater than 8. She was placed on dopamine and given some atropine and eventually transcutaneously paced. She was also treated with insulin, D50 on the bicarb and calcium. She was transferred here to our ER for further evaluation and treatment. White count 11.7. Hemoglobin 10.4. Platelets 173. Sodium 134. Potassium 7.4. Chloride 94. Bicarb 29. BUN 54. Creatinine 7.11. Glucose 118. Arterial blood gases on 100% nonrebreather mask revealed a PaO2 of 129, pCO2 44 and a pH of 7.40. She is seen today in consultation in the e mergency department. She is somewhat altered. Restless. She is currently receiving urgent hemodialysis. Remains on dopamine at 9 mcg/kg/m. Heart rate in the 60s. Blood pressure 101/53 with a mean of 69. Saturations in the 90s. Chest x-ray reveals cardiomegaly but no acute cardiopulmonary process. The patient is seen today 01/22/2023 in follow-up in the emergency department. She is arousable. She did receive hemodialysis yesterday with 2.6 L removed. Potassium had improved to 4.7. Currently 5.6. Sodium 135. Bicarb 27. BUN 28. Creatinine 4.08. Chest x-ray shows cardiomegaly with chronic interstitial lung disease. Versus mild venous congestion. She is continued on Symbicort, albuterol, Singulair. She remains afebrile. Hemodynamically stable. On oxygen at 2 L/m per nasal cannula. Objective - Vital Signs Vital signs: Vital Signs Temp 98.2 F 01/22/23 11:16 Pulse 53 L 01/22/23 11:20 Resp 14 01/22/23 11:16 BP 116/59 01/22/23 11:16 Pulse Ox 95 01/22/23 11:16 FiO2 Intake & Output 08/01/22/23 01/22/23 18:59 06:59 18:59 Intake Total 500 Output Total 2600 Balance -2100 Weight 81 kg Intake: Hemodialysis 500 Output: Hemodialysis 2600 - Exam GENERAL: This is a 62-year-old female patient. Arousable. On 3 L nasal cannula. ENT: Neck is soft and supple. No significant lymphadenopathy is noted. Oropharynx is clear. Moist mucous membranes. Neck has full range of motion without eliciting any pain. EYES: The sclera were anicteric and conjunctiva were pink and moist. Extraocular movements were intact and pupils were equal round and reactive to light. Eyelids were unremarkable. PULMONARY: Unlabored respirations. Good breath sounds bilaterally. Crackles in the bilateral bases. CARDIOVASCULAR: Regular S1 and S2, no gallops or rubs. ABDOMEN: Soft and nontender with normal bowel sounds. SKIN: Skin is clear with no lesions or rashes and otherwise unremarkable. NEUROLOGIC: Patient is alert and oriented 1. Cranial nerves II through XII are grossly intact. Motor and sensory are also intact. MUSCULOSKELETAL: Normal extremities with adequate strength and full range of motion. 2+ edema LYMPHATICS:No significant lymphadenopathy is noted PSYCHIATRIC: Unable to evaluate - Labs CBC & Chem 7: 01/21/23 09:50 01/22/23 06:29 Labs: Abnormal Lab Results - Last 24 Hours (Table) 01/22/23 Range/Units 06:29 Sodium 135 L (137-145) mmol/L Potassium 5.6 H (3.5-5.1) mmol/L BUN 28 H (7-17) mg/dL Creatinine 4.08 H (0.52-1.04) mg/dL Calcium 8.1 L (8.4-10.2) mg/dL Assessment and Plan Assessment: Altered mental status secondary to acute on chronic renal failure. Creatinine 7.11 status post hemodialysis on 01/21/2023 with 2.6 L removed. Current creatinine 4.08 Severe bradycardia secondary to hyperkalemia requiring transcutaneous pacing and dopamine infusion improved Hypotension secondary to above Hyperkalemia secondary to acute renal failure with potassium of 7.4. Postdialysis potassium improved to 4.7. Currently 5.6. Mild transaminitis History of CVA/TIA History of hypertension History of congestive heart failure History of COPD Former smoker Plan: The patient was seen and evaluated Chest x-ray, labs and medications reviewed Received urgent hemodialysis yesterday Continue to monitor electrolytes closely Titrate the FiO2 as tolerated We will continue to follow I have personally seen and examined the patient, performed a documentation and the assessment and plan as written. Number minutes spent on the visit: 10.
[2023-01-22] MEDS: FLUTICASONE 50MCG/SPRAY NASAL 16GM EA NOSTRIL SCH (12:41)
[2023-01-22] MEDS: ACETAMINOPHEN TAB 325 MG TAB PO PRN ×2 (12:54→20:17)
--- NOTE | 2023-01-22 13:12 | P.PN ---
Subjective Patient is seen for follow-up for end-stage renal disease. She is still in the ER. Patient tolerated hemodialysis well yesterday. UF of 2.6 L. Potassium is at 5.6 today. Patient is complaining of dizziness. She also has a headache. Mentation is back to normal. Patient is scheduled for hemodialysis again today. Objective - Vital Signs Vital signs: Vital Signs Temp 97.8 F 01/22/23 12:22 Pulse 58 L 01/22/23 12:22 Resp 20 01/22/23 12:22 BP 138/67 01/22/23 12:22 Pulse Ox 98 01/22/23 12:22 FiO2 Intake & Output 01/21/23 01/22/23 01/22/23 18:59 06:59 18:59 Intake Total 500 Output Total 2600 Balance -2100 Weight 81 kg Intake: Hemodialysis 500 Output: Hemodialysis 2600 - Exam Patient is awake, comfortable, no acute distress Hematoma on the top of the left side of the head Some bruising on the right side of the face noted which is improving from 2 weeks ago. Examination of the heart S1 and S2 Examination of the lungs bilateral breath sounds are heard Abdomen is soft nontender Examination lower extremity shows edema 2+ bilaterally with chronic skin changes [employer] exam grossly intact - Labs CBC & Chem 7: 01/21/23 09:50 01/22/23 06:29 Labs: Abnormal Lab Results - Last 24 Hours (Table) 01/22/23 Range/Units 06:29 Sodium 135 L (137-145) mmol/L Potassium 5.6 H (3.5-5.1) mmol/L BUN 28 H (7-17) mg/dL Creatinine 4.08 H (0.52-1.04) mg/dL Calcium 8.1 L (8.4-10.2) mg/dL Assessment and Plan Assessment: 1. ESRD, on HD on MWF schedule. 2. Severe hyperkalemia associated with ESRD. 3. Bradycardia secondary to hyperkalemia. 4. Volume overload. 5. Mental status changes, r/o underlying infection/ sepsis. Mentation currently back to normal 6. Hypotension associated with bradycardia, r/o sepsis 7. H/o CVA 8. CKD mineral bone disorder. 9. History of fall about 2 weeks ago with hematoma on the top of the head Plan: Repeat hemodialysis today No anticoagulation with hemodialysis Repeat CT of the brain given complaints of headache and dizziness Repeat labs in a.m. UF about 2 L today. Repeat hemodialysis in a.m. Continue with phosphate binders
--- NOTE | 2023-01-22 17:00 | CT ---
EXAMINATION TYPE: CT brain wo con CT DLP: 1203.4 mGycm, Automated exposure control for dose reduction was used. DATE OF EXAM: 01/22/2023 4:43 PM COMPARISON: None CLINICAL INDICATION:Female, 62 years old with history of has LEBRON Vertigo, ams TECHNIQUE: Brain: Axial CT images of the brain were obtained with coronal and sagittal reformats created and rev iewed. Contrast used: None. Oral contrast used: None. FINDINGS: Brain: Extra-axial spaces: No abnormal extra-axial fluid collections. Ventricular system: Within normal limits Cerebral parenchyma: No acute intraparenchymal hemorrhage or mass effect. The chery-white junction is well differentiated. Cerebellum: Unremarkable. Mass effect: No evidence of midline shift. Intracranial vasculature: unremarkable Soft tissues: Left frontal contusion measuring 2.9 x 3.4 cm. Calvarium/osseous structures: No depressed skull fracture. Paranasal sinuses and mastoid air cells: Mild scattered paranasal sinus disease. Visualized orbits: Orbital contents are intact. IMPRESSION: 1. No acute intracranial process. 2. Left frontal soft tissue contusion. No evidence of fracture.
[2023-01-23] MEDS: SYMBICORT 160-4.5 MCG INHALER INHALATION SCH ×2 (09:16→21:37)
[2023-01-23] MEDS: MIDODRINE 5 MG TAB PO SCH ×3 (09:19→20:17)
[2023-01-23] MEDS: METOPROLOL SUCCINATE (ER) 50 MG TAB.ER.24H PO SCH (09:20)
[2023-01-23] MEDS: ATORVASTATIN 20 MG TAB PO SCH (09:20)
[2023-01-23] MEDS: MONTELUKAST 10 MG TAB PO SCH (09:20)
[2023-01-23] MEDS: DICYCLOMINE 10 MG CAP PO SCH ×3 (09:20→20:16)
[2023-01-23] MEDS: FLUTICASONE 50MCG/SPRAY NASAL 16GM EA NOSTRIL SCH (09:21)
[2023-01-23] MEDS: SEVELAMER 800 MG TAB PO SCH ×4 (09:23→20:16)
--- NOTE | 2023-01-23 11:46 | P.PN ---
Subjective This is a pleasant 62 years old female with multiple medical problems Sent from [facility] to the emergency room for altered mental status. Patient was seen well in the emergency room, she was with altered mental status, she does not respond to verbal or tactile stimuli. Does not follow command. There is no asymmetry noted. However examination is limited by patient mental status.. Also got 1 dose of IV Ativan in the emergency room which made her more sleepy Patient is admitted on the stage renal disease on hemodialysis, she preferred with dialysis. Apparently a very saturday, saturday and saturday Admission her creatinine was 7.1, while at [facility] was 5.2, patient also has hyperkalemia with potassium 7.4 on admission. Patient is to get urgent hemodialysis in the emergency room. Blood pressure 112/58, heart rate 85, patient is mildly tachypneic. Marked leukocytosis with a 11.7. Chest x-ray showed pulmonary venous congestion with scattered interstitial edema. Repeat chest x-ray this facility showed cardiomegaly with no acute process. CT of the pressure with no acute intracranial process. Patient also on dopamine drip. Patient is in critical condition is going to be monitored the ICU currently. 01/22/2023 patient is awake alert today, she is now she is an [facility] and she knows the daytime and date and the name of the president, she follows commands and has insight She looks a little bit agitated and at bedtime today, she got bothered easily with frequent questioning. She is complaining of from headache described by the patient as 10/10 all over, nonspecific in character associated with vomiting (patient has been vomiting for the last 2-3 days as she describes) and dizziness. She describes dizziness as a room is spinning around her. She denies any other specific symptoms to me. Afebrile, vital signs stable Laps improvement with potassium down to 5.6 and creatinine down to 4.0. WBC 11.7 and hemoglobin 11.4 Chest x-ray showing pulmonary venous congestion with vascular interstitial edema Repeat chest x-ray is pending. I reviewed myself with no significant change from yesterday 01/23/2023 awake and alert today somewhat lethargic and somnolent but she keeps her eye opening and she answers questions appropriately and follow commands. She is going for another hemodialysis this morning. She still complaining of from dizziness and she states that the room is [facility] [place]. CT of the brain was negative for acute process. This morning she was bradycardic with heart rate wasn't for these we lowered her metoprolol 50 mg down to 12.5 mg with close monitoring. Patient also not eating well. Objective - Vital Signs Vital signs: Vital Signs Temp 98.4 F 01/23/23 04:00 Pulse 46 L 01/23/23 08:00 Resp 16 01/23/23 08:00 BP 152/76 01/23/23 08:00 Pulse Ox 93 L 01/23/23 04:00 FiO2 Intake & Output 01/22/23 01/23/23 01/23/23 18:59 06:59 18:59 Intake Total 300 120 Output Total 800 Balance -500 120 Weight 83 kg Intake: Oral 0 120 Hemodialysis 300 Output: Hemodialysis 800 Other: Voiding Method Bedside Commode Bedside Commode Bedside Commode # Voids 1 1 - Exam -GENERAL: The patient is alert and oriented x3, anxious not in any acute distress. Well developed, well nourished. HEENT: Pupils are round and equally reacting to light. EOMI. No scleral icterus. No conjunctival pallor. Normocephalic, atraumatic. No pharyngeal erythema. No thyromegaly. CARDIOVASCULAR: S1 and S2 present. No murmurs, rubs, or gallops. PULMONARY: Chest is clear to auscultation, no wheezing , no crackles. ABDOMEN: Soft, nontender, nondistended, normoactive bowel sounds. No palpable organomegaly. MUSCULOSKELETAL: No joint swelling or deformity. EXTREMITIES: No cyanosis, clubbing, or pedal edema. NEUROLOGICAL: Gross neurological examination did not reveal any focal deficits. SKIN: No rashes. no petechiae. - Labs CBC & Chem 7: 01/21/23 09:50 01/22/23 06:29 Assessment and Plan Assessment: Altered mental status most likely to metabolic/toxic encephalopathy, improving headache with vertigo End-stage renal disease(Saturday and Saturday, presents with worsening creatinine and hyperkalemia Mild leukocytosis COPD, History of CVA/TIA History of hypothyroidism Plan: There were dose of metoprolol down to (12.5 mg) monitor of the heart rate Neurology consult Another hemodialysis as per nephrology team on the case. Monitor Creatinine and hyperkalemia improvement Pulmonary/critical care team consult already on the case Telemetry monitoring. Neuro check Labs and medication were reviewed.. Continue same treatment. Continue with symptomatic treatment. Resume home medication. Monitor labs and vitals. DVT and GI prophylaxis. Further recommendations as per clinical course of the patient DVT prophylaxis: Mechanical GI Prophylaxis: Pepcid Prognosis is guarded
--- NOTE | 2023-01-23 11:48 | P.PN ---
Subjective Progress Note Date: 01/23/23 Principal diagnosis: Renal failure, hyperkalemia. This is a 62-year-old female patient with a known history of chronic obstructive pulmonary disease, hypothyroidism, gastroesophageal reflux disease, CVA/TIA, congestive heart failure, end-stage renal disease on hemodialysis Saturday. She was on her way to dialysis but became altered and and a little distress and was brought to [facility] instead. In the ER she was found to have a pulse rate in the 20s low blood pressure and high potassium greater than 8. She was placed on dopamine and given some atropine and eventually transcutaneously paced. She was also treated with insulin, D50 on the bicarb and calcium. She was transferred here to our ER for further evaluation and treatment. White count 11.7. Hemoglobin 10.4. Platelets 173. Sodium 134. Potassium 7.4. Chloride 94. Bicarb 29. BUN 54. Creatinine 7.11. Glucose 118. Arterial blood gases on 100% nonrebreather mask revealed a PaO2 of 129, pCO2 44 and a pH of 7.40. She is seen today in consultation in the emergency department. She is somewhat altered. Restless. She is currently receiving urgent hemodialysis. Remains on dopamine at 9 mcg/kg/m. Heart rate in the 60s. Blood pressure 101/53 with a mean of 69. Saturations in the 90s. Chest x-ray reveals cardiomegaly but no acute cardiopulmonary process. The patient is seen today 01/22/2023 in follow-up in the emergency department. She is arousable. She did receive hemodialysis yesterday with 2.6 L removed. Potassium had improved to 4.7. Currently 5.6. Sodium 135. Bicarb 27. BUN 28. Creatinine 4.08. Chest x-ray shows cardiomegaly with chronic interstitial lung disease. Versus mild venous congestion. She is continued on Symbicort, albuterol, Singulair. She remains afebrile. Hemodynamically stable. On oxygen at 2 L/m per nasal cannula. Progress note dated 01/23/2023. The patient is seen today in room 370. She is currently undergoing hemodialysi s. She's not receiving any IV fluids. She's currently on oxygen at 3 L by nasal cannula. She appears to be much more awake and alert today than she was yesterday. She was initially admitted from an outside hospital, for renal failure, and severe hyperkalemia. Her mental status is been poor, but is much better today. No new labs today as yet. Labs from yesterday show sodium 135, potassium 5.6, chlorides 100, CO2 27, BUN 28, creatinine 4.08. Brain CT showed no acute intracranial process. She does have a left frontal soft tissue contusion. Objective - Vital Signs Vital signs: Vital Signs Temp 98.4 F 01/23/23 04:00 Pulse 46 L 01/23/23 08:00 Resp 16 01/23/23 08:00 BP 152/76 01/23/23 08:00 Pulse Ox 93 L 01/23/23 04:00 FiO2 Intake & Output 01/22/23 01/23/23 01/23/23 18:59 06:59 18:59 Intake Total 300 120 Output Total 800 Balance -500 120 Weight 83 kg Intake: Oral 0 120 Hemodialysis 300 Output: Hemodialysis 800 Other: Voiding Method Bedside Commode Bedside Commode Bedside Commode # Voids 1 1 - Exam No acute distress, lethargic, but less so than the day before, and much more with it. Currently, she is on 3 L of oxygen. HEENT examination is grossly unremarkable. Neck supple. Full range of motion. No adenopathy thyromegaly or neck vein distention. Cardiovascular examination reveals regular rhythm rate. S1-S2 normal. No S3 or S4. No discernible murmur noted. Heart sounds are distant. Heart rate 50 bpm. Lungs reveal mostly clear breath sounds. Scattered rhonchi are noted. No crackles. No wheezes. Breath sounds are equal bilaterally. 3 L saturation is 95%. Abdomen soft bowel sounds are heard. No masses or tenderness. Extremities are intact. No cyanosis clubbing or edema. Skin is without rash or lesion. Neurologic examination is improved. - Labs CBC & Chem 7: 01/21/23 09:50 01/22/23 06:29 Assessment and Plan Assessment: Altered mental status secondary to acute on chronic renal failure. Creatinine 7.1, S/P hemodialysis on 01/21/2023 with 2.6 L removed. Severe bradycardia secondary to hyperkalemia requiring transcutaneous pacing and dopamine infusion improved. Hypotension secondary to above, resolved. Hyperkalemia secondary to acute renal failure with potassium of 7.4. Postdialysis potassium improved to 4.7. Mild transaminitis. History of CVA/TIA. History of hypertension. History of congestive heart failure. History of COPD. Former smoker. Plan: Plan dated 01/23/2023. The patient is currently undergoing hemodialysis. The patient is much more awake and alert. Labs, x-rays, and medications are reviewed. We will continue to follow the patient and make recommendations along the way. She was initially admitted with worsening renal failure, and hyperkalemia, with bradycardia. Most of that has improved. Prognosis is still guarded. Time with Patient: Less than 30
--- NOTE | 2023-01-23 13:03 | P.CNNES ---
History of Present Illness Consult date: 01/23/23 Requesting physician: John E Lucila Reason for Consult: vertigo, headache/vomiting History of Present Illness: A 62-year-old woman with history of end-stage renal disease on dialysis, congestive heart failure, hypothyroidism who is having the dizziness. Patient states that for the past up will days to week she's been having dizziness and she feels the room is spinning she been having vomiting episode but she said her dizziness happens when her blood pressure goes down. She stated that her blood pressure 1 down the side and she had a fall recently and she says she blacks out. She denies any history of seizures. She's been having multiple episode of hypotension according the patient. Currently she denies of any double vision. Any focal weakness. She feels her entire body is weak. She cannot describe the syncopal episode but states again that the CDs happen when her blood pressure goes down as a result she falls and she recently hurt her head. Court the patient nurse her heart rate was as low as 20s during this admission and she required a pacemaker that she is having a heart rate that goes in the 3 0s while she is sleeping. On presentation her blood pressure was 96/76 and the repeat was 86/61 which has improved. Some of the workup during this hospital visit consisted of: Heart rates upon presentation was in the 40s Initial potassium is 7.4 that improved to 4.7. Creatinine 7.11 improved to 4.08. AST 71 ALT of 39. TSH is 1.230 CT of the head is reported as no acute intracranial process. Left frontal soft tissue contusion. No evidence of fracture. I personally reviewed the CT of head and I agree with the report. Review of Systems Review of system: The 12 point system was reviewed and apparent positive and negative per HPI. Past Medical History Past Medical History: Heart Failure, COPD, CVA/TIA, Dialysis, GERD/Reflux, Thyroid Disorder History of Any Multi-Drug Resistant Organisms: Unobtainable Additional Past Surgical History / Comment(s): Dialysis cath placement Past Anesthesia/Blood Transfusion Reactions: No Reported Reaction Past Psychological History: No Psychological Hx Reported Smoking Status: Unknown if ever smoked Past Alcohol Use History: Unable to Obtain Past Drug Use History: Unable to Obtain Medications and Allergies Home Medications Medication Instructions Recorded Confirmed Type Albuterol Nebulized [Ventolin 2.5 mg INHALATION RT-Q6H PRN 01/21/23 01/21/23 History Nebulized] Albuterol Sulfate [Albuterol 1 puff INHALATION RT-Q4H PRN 01/21/23 01/21/23 History Sulfate Hfa] Atorvastatin Calcium 20 mg PO DAILY 01/21/23 01/21/23 History Azithromycin [Zithromax Z Pack] See Taper PO DIRECTED 01/21/23 01/21/23 History Benzonatate [Tessalon Perles] 100 - 200 mg PO TID PRN 01/21/23 01/21/23 History Budesonide/Formoterol Fumarate 2 puff INHALATION RT-BID 01/21/23 01/21/23 History [Symbicort 160-4.5 Mcg Inhaler] Bumetanide [BUMEX] 4 mg PO TID 01/21/23 01/21/23 History Dicyclomine [Bentyl] 10 mg PO TID 01/21/23 01/21/23 History Fluticasone Nasal [place] [Flonase 2 spray EA NOSTRIL DAILY 01/21/23 01/21/23 History Nasal [place]] Gabapentin [Neurontin] 200 mg PO BID 01/21/23 01/21/23 History Isosorbide Mononitrate ER [Imdur] 30 mg PO DAILY 01/21/23 01/21/23 History Lidocaine-Prilocaine Cream [Emla 1 applic TOPICAL DIRECTED 01/21/23 01/21/23 History Cream 2.5%/2.5%] Loperamide [Imodium] 4 mg PO QID PRN 01/21/23 01/21/23 History Metoprolol Succinate (ER) [Toprol 50 mg PO HS 01/21/23 01/22/23 History Xl] Midodrine HCl 10 mg PO TID 01/21/23 01/21/23 History Montelukast [Singulair] 10 mg PO DAILY 01/21/23 01/21/23 History Omeprazole [PriLOSEC] 20 mg PO AC-SUPPER 01/21/23 01/21/23 History Ondansetron Odt [Zofran Odt] 4 mg PO Q8HR PRN 01/21/23 01/21/23 History SILVER sulfADIAZINE Cream 1 applic TOPICAL BID 01/21/23 01/21/23 History [Silvadene 1% Cream] Sevelamer Carbonate 1,600 - 2,400 mg PO DIRECTED 01/21/23 01/21/23 History amLODIPine [Norvasc] 10 mg PO DAILY 01/21/23 01/21/23 History hydrALAZINE HCL 10 mg PO TID 01/21/23 01/21/23 History lisinopriL [Zestril] 10 mg PO DAILY 01/21/23 01/21/23 History Ascorbic Acid [Vitamin C] 500 mg PO DAILY 01/22/23 01/22/23 History Aspirin EC [Ecotrin Low Dose] 81 mg PO DAILY 01/22/23 01/22/23 History Bismuth Subsalicylate 525 - 1,050 mg PO TID PRN 01/22/23 01/22/23 History [Pepto-Bismol Ultra] Cetirizine HCl 10 mg PO DAILY 01/22/23 01/22/23 History Cholecalciferol (Vitamin D3) 125 mcg PO DAILY 01/22/23 01/22/23 History [Vitamin D3] Cranberry 15,000 Mg Tab 15,000 mg PO DAILY 01/22/23 01/22/23 History Magnesium 250 mg PO DAILY 01/22/23 01/22/23 History Melatonin/Pyridoxine HCl (B6) 1 tab PO HS PRN 01/22/23 01/22/23 History [Melatonin-Vit B6 5-10 mg Tab] Multivit-Min/FA/Lycopen/Lutein 1 tab PO DAILY 01/22/23 01/22/23 History [Centrum Silver Tablet] Potassium Gluconate 99 mg PO DAILY 01/22/23 01/22/23 History Propylene Glycol [Systane Complete] 1 drop BOTH EYES HS 01/22/23 01/22/23 History Super B Complex 1 tab PO DAILY 01/22/23 01/22/23 History Vitamin E (Dl,Tocopheryl Acet) 400 unit PO DAILY 01/22/23 01/22/23 History [Vitamin E (400 Iu = 180 mg)] Zinc Gluconate [Zinc] 50 mg PO DAILY 01/22/23 01/22/23 History Allergies Allergy/AdvReac Type Severity Reaction Status Date / Time erythromycin base Allergy Unknown Verified 01/21/23 11:17 Penicillins Allergy Unknown Verified 01/21/23 11:17 Sulfa (Sulfonamide Allergy Unknown Verified 01/21/23 11:17 Antibiotics) sulfacetamide Allergy Unknown Verified 01/21/23 11:17 Physical Examination - Vital Signs Vital Signs: Vital Signs Temp Pulse Resp BP Pulse Ox 01/23/23 12:00 52 L 16 133/67 01/23/23 08:00 46 L 16 152/76 01/23/23 04:00 98.4 F 49 L 16 149/74 93 L 01/23/23 01:18 48 L 16 01/23/23 00:00 98.5 F 48 L 16 144/74 94 L 01/22/23 20:00 60 16 01/22/23 19:30 88 L 01/22/23 16:01 98.6 F 49 L 16 108/48 01/22/23 15:07 97.6 F 51 L 20 93/52 96 01/22/23 14:00 58 L Intake and Output 01/22/23 01/23/23 01/23/23 22:59 06:59 14:59 Intake Total 420 Output Total 800 Balance -380 Intake: Oral 120 Hemodialysis 300 Output: Hemodialysis 800 Other: Voiding Method Bedside Commode Bedside Commode Bedside Commode # Voids 0 1 1 Weight 83 kg GENERAL: The patient is lying in bed and is not in acute distress. CARDIO: Edema in lowers. INTEGUMENTARY: Has erythematous skin rash that is rectangual in magallon region and states happens due to her CHF. NEUROLOGICAL: Higher mental function: The patient is awake, alert, oriented to self, place and time. Patient is following commands. No aphasia and no neglect. Cranial nerves: The pupils are round, equal and reactive to light. Has moderate ptosis of bilateral eye. EOM is limited is looking to right and left but felt slightly was able to do that but was able to look up and down. Facial sensation is normal to touch throughout. No facial weakness. Hearing is normal bilaterally to hand rub. Tongue is midline and moved [id number] without any difficulty. No dysarthria is noted. Shoulder shrug is normal bilaterally. Motor: The strength is limited in assessment individual muscle strength since has generalized pain but lifting all extremities upon lifting extremities and appears symmetrical. Normal tone and bulk. Cerebellum: Normal finger to nose n bilaterally. Sensation: Sensation is normal to touch throughout. Reflexes (right/left): Refused to be assessed. Plantars are mute bilaterally. Results - Laboratory Findings CBC and BMP: 01/21/23 09:50 01/22/23 06:29 Abnormal Lab Findings: Abnormal Labs 01/21/23 01/21/23 01/21/23 09:50 09:50 10:46 WBC 11.7 H RBC 3.26 L Hgb 10.4 L Hct 31.7 L Neutrophils # 8.5 H ABG pO2 129 H ABG HCO3 28 H ABG Total CO2 29 H ABG O2 Saturation 98.4 H Sodium 134 L Potassium 7.4 H* Chloride 94 L BUN 54 H Creatinine 7.11 H* Glucose 118 H Calcium Magnesium 4.0 H AST 71 H ALT 39 H 01/22/23 06:29 WBC RBC Hgb Hct Neutrophils # ABG pO2 ABG HCO3 ABG Total CO2 ABG O2 Saturation Sodium 135 L Potassium 5.6 H Chloride BUN 28 H Creatinine 4.08 H Glucose Calcium 8.1 L Magnesium AST ALT Assessment and Plan Assessment: This is a 62-year-old woman history of end-stage renal disease on dialysis, congestive heart failure who is having syncopal episode at home and she states the her episode happened upon her blood pressure dropping. As a result she had a fall and hit her head. She's complaining of the dizziness as well as was having vomiting and the vomiting is resolved. He is having generalized weakness. Upon presented to our hospital her systolic blood pressure was in the 80s. Acute Vertigo: Seems due to hypotensive episodes and possible bradycardia. Cannot rule out central cause especial on examination she had restriction of movement of lateral movement as well as ptosis. CT of the head is negative for any acute or subacute ischemia. Syncopal episodes likely due to her hypotensive episode. BradyCardia in 40's but per patient's nurse where as low as 20-30's. Hypotensive episodes as well as systolic in the 80s Upper anemia as high as 7.4 --resolved Generalized weakness Congestive heart failure End-stage renal disease on dialysis Plan: I ordered MRI of the brain to rule out any central cause contributing to her restriction of lateral mobility of the eyes as well as the ptosis of the eyes. I also ordered the acetylcholine receptor antibody to rule out any myasthenia gravis contributing to her ptosis. The acetylcholine receptor antibody usually takes a long time to come back For generalized weakness I ordered CPK, vitamin B-12, folate. I ordered orthostatic vitals, 2-D echo, carotid duplex that could be contributing to her syncopal episode. I also ordered a routine EEG and I doubt the syncopal episodes are due to seizure or epileptiform discharges and I feel it's mostly due to her hypotensive episode. PT and OT are consulted Patient was placed on midodrine 10 mg 1 tablet 3 times a day by primary team. Please avoid any further hypotensive episode. We'll defer the rest of the medical management to the primary team and other specialists Plan was discussed with the patient and as well as her nurse. Thank you for the consultation Time with Patient: Greater than 30
--- NOTE | 2023-01-23 13:35 | P.PN ---
Subjective Patient is seen for follow-up for end-stage renal disease. Patient is seen on hemodialysis. Tolerating treatment well. CT of the head was negative for any acute process. Soft tissue contusion on the left side noted. Objective - Vital Signs Vital signs: Vital Signs Temp 98.4 F 01/23/23 04:00 Pulse 52 L 01/23/23 12:00 Resp 16 01/23/23 12:00 BP 133/67 01/23/23 12:00 Pulse Ox 93 L 01/23/23 04:00 FiO2 Intake & Output 01/22/23 01/23/23 01/23/23 18:59 06:59 18:59 Intake Total 300 120 Output Total 800 Balance -500 120 Weight 83 kg Intake: Oral 0 120 Hemodialysis 300 Output: Hemodialysis 800 Other: Voiding Method Bedside Commode Bedside Commode Bedside Commode # Voids 1 1 - Exam Patient is awake, comfortable, no acute distress Soft tissues swelling on the top of the left side of the head Some bruising on the right side of the face noted which is improving from 2 weeks ago. Examination of the heart S1 and S2 Examination of the lungs bilateral breath sounds are heard Abdomen is soft nontender Examination lower extremity shows edema 2+ bilaterally with chronic skin changes LEAD INSTRUCTOR/FLIGHT ATTENDANT exam grossly intact - Labs CBC & Chem 7: 01/21/23 09:50 01/22/23 06:29 Assessment and Plan Assessment: 1. ESRD, on HD on MWF schedule. 2. Severe hyperkalemia associated with ESRD. 3. Bradycardia secondary to hyperkalemia. Potassium has decreased to 5.6 predialysis yesterday but patient remains bradycardic with heart rate at 32 b/m on dialysis. Metoprolol dose has been decreased. 4. Volume overload. 5. Mental status changes, r/o underlying infection/ sepsis. Mentation currently back to normal 6. Hypotension associated with bradycardia, r/o sepsis 7. H/o CVA 8. CKD mineral bone disorder. 9. History of fall about 2 weeks ago with hematoma on the top of the head Plan: Repeat hemodialysis today No anticoagulation with hemodialysis Agree with decreasing dose of metoprolol. I will discontinue it as heart rate was in the 30s during dialysis. Repeat labs in a.m. UF about 2 L today. Repeat hemodialysis in a.m. Continue with phosphate binders
[2023-01-23] MEDS: ISOSORBIDE MONONITRATE ER 30 MG TAB.ER.24H PO SCH (16:31)
[2023-01-23] MEDS: ACETAMINOPHEN TAB 325 MG TAB PO PRN (16:35)
--- NOTE | 2023-01-23 16:50 | EEG ---
ELECTROENCEPHALOGRAM REPORT CLINICAL HISTORY: This is a 62-year-old woman with recurrent syncopal episodes. The video EEG is obtained to evaluate for seizure and epileptiform activity. EEG TYPE: A routine 21-channel EEG with video using the 10/20 electrode placement system. DESCRIPTION: Wakefulness is only obtained. The background consists of [id number] voltage of 7 to 8 Hz activity. There is no physiological sleep architecture seen. There is no focal slowing. There is a generalized high-voltage semi-rhythmic to rhythmic 1.5 to 2.5 Hz delta activity with frontal predominanced lasting between 2 to 5 seconds, (GRDA, formerly known as FIRDA). INTERICTAL AND ICTAL: None. ACTIVATION PROCEDURE: Photic stimulation did not evoke a posterior driving response. There is no abnormality during the photic stimulation. Hyperventilation is not performed. CLINICAL INTERPRETATION: This is an abnormal routine EEG. The background slowing in addition with GRDA with frontal predominance (formerly known as FIRDA), is consisted [id number] encephalopathy, possible due to underlying toxic metabolic derangement versus cerebral dysfunction. There is no focal slowing, epileptiform discharge, or seizure on the EEG. Clinical correlation is recommended. MMODL / IJN: [id number] / MTDPhilip
--- NOTE | 2023-01-23 19:51 | US ---
EXAMINATION TYPE: US carotid duplex BILAT DATE OF EXAM: 01/23/2023 COMPARISON: CT 01/22/2023 CLINICAL INDICATION: Female, 62 years old with history of syncope; Syncope. TECHNIQUE: Carotid duplex ultrasound examination. Indirect Doppler criteria was utilized. FINDINGS: EXAM MEASUREMENTS: RIGHT: Peak Systolic Velocity (PSV) cm/sec ----- Right CCA: 125.9 ----- Right ICA: 219.8 ----- Right ECA: 146.3 ICA/CCA ratio: 1.7 RIGHT: End Diastole cm/sec ----- Right CCA: 29.4 ----- Right ICA: 47.9 ----- Right ECA: 2.6 LEFT: Peak Systolic Velocity (PSV) cm/sec ----- Left CCA: 125.9 ----- Left ICA: 180.5 ----- Left ECA: 117.7 ICA/CCA ratio: 1.4 LEFT: End Diastole cm/sec ----- Left CCA: 25.4 ----- Left ICA: 52.4 ----- Left ECA: 19.2 VERTEBRALS (direction of flow): Right Vertebral: Antegrade Left Vertebral: Antegrade Rhythm: Normal INSURANCE BUSINESS ANALYST NOTES: Plaque seen within bilateral bulbs, greater amount of plaque seen on the right trena e. Large focal plaque is within the carotid bulb on the right. Elevated velocities within right ICA, right ECA, left prox and mid CCA, and left ICA. Incidental finding: Hypoechoic nodule seen within left thyroid lobe at mid with calcifications: 1.1 x 0.8 x 0.8 cm. IMPRESSION: 1. Moderate approaching severe stenosis right internal carotid artery approaching 69%. 2. Moderate narrowing between 50 and 69% left internal carotid artery based on velocities. 3. Incidental note made of a 1 cm nodule in the left lobe thyroid. Consider dedicated thyroid ultraso und workup. Criteria for Assigning % of Stenosis / Diameter reduction (Estimation based on the indirect measurements of the internal carotid artery velocities (ICA PSV). 1. Normal (no stenosis)=ICA PSV < 125 cm/s: ratio < 2.0: ICA EDV<40 cm/s. 2. Less than 50% stenosis=ICA PSV < 125 cm/s: ratio < 2.0: ICA EDV<40 cm/s. 3. 50 to 69% stenosis=ICA PSV of 125 to 230 cm/s: ration 2.0 ? 4.0: ICA EDV 40-100 cm/s. 4. Greater than 70% stenosis to near occlusion= ICA PSV > 230 cm/s: ratio > 4.0: ICA EDV > 100 cm/s. 5. Near occlusion= ICA PSV velocities may be low or undetectable: variable ratio and ICA EDV. 6. Total occlusion=unable to detect flow.
[2023-01-23] MEDS: ONDANSETRON ODT 4 MG TAB PO PRN (20:16)
[2023-01-23] MEDS ORDERED: BUTALB/APAP/CAFF 50-325-40MG TAB PO STA (21:09)
[2023-01-24] MEDS: SYMBICORT 160-4.5 MCG INHALER INHALATION SCH ×2 (08:10→20:45)
[2023-01-24] MEDS: BUTALB/APAP/CAFF 50-325-40MG TAB PO PRN ×2 (08:51→20:24)
[2023-01-24] MEDS: DICYCLOMINE 10 MG CAP PO SCH ×3 (08:52→20:24)
[2023-01-24] MEDS: MIDODRINE 5 MG TAB PO SCH (08:52)
[2023-01-24] MEDS: ATORVASTATIN 20 MG TAB PO SCH (08:52)
[2023-01-24] MEDS: ISOSORBIDE MONONITRATE ER 30 MG TAB.ER.24H PO SCH (08:52)
[2023-01-24] MEDS: MONTELUKAST 10 MG TAB PO SCH (08:52)
[2023-01-24] MEDS: FLUTICASONE 50MCG/SPRAY NASAL 16GM EA NOSTRIL SCH (08:53)
[2023-01-24] MEDS ORDERED: METOPROLOL TARTRATE 12.5 MG TAB PO SCH (09:00)
[2023-01-24] MEDS ORDERED: HYDROcodone/APAP 5-325MG 1 EACH TAB PO STA (10:53)
--- NOTE | 2023-01-24 11:04 | MR ---
EXAMINATION TYPE: MR brain wo con DATE OF EXAM: 01/24/2023 COMPARISON: CT brain 01/22/2023 HISTORY: Vertigo TECHNIQUE: T1-weighted sagittal, T2, FLAIR, and diffusion axial, and T2 coronal coronal views of the brain are submitted. FINDINGS: There is no evidence of acute ischemia. There is mild generalized degenerative change. There is numerous focal areas of abnormal signal throu ghout the white matter bilaterally. There is no mass effect. There is a soft tissue hematoma overlying the left frontal bone. Craniocervical junction maintained. Sella turcica has a normal appearance. Nasal septal deviation. Very mild changes of chronic sinusitis. Orbits are symmetric. No cerebellopon ngoc angle mass. IMPRESSION: 1. No acute intracranial process. 2. Numerous bilateral focal areas of abnormal signal white matter are nonspecific and can be associat ed with hypertension, remote microvascular ischemic white matter disease or demyelinating correlate c linically. 3. Left frontal soft tissue subcutaneous hematoma stable.
[2023-01-24] MEDS: ONDANSETRON ODT 4 MG TAB PO PRN ×2 (11:15→20:24)
[2023-01-24] MEDS: MECLIZINE 25 MG TAB PO PRN ×2 (11:15→20:24)
[2023-01-24] MEDS: SEVELAMER 800 MG TAB PO SCH ×2 (11:16→16:55)
[2023-01-24 12:05] VITALS: BMI 32.1
--- NOTE | 2023-01-24 12:07 | CA ---
Transthoracic Echo Report Name: Lissa Gomez Age: 62 Gender: F : 1960 Exam Date: 01/24/2023 08:16 Exam Location: [facility] Ht (in): 60 Wt (lb): 182 Ordering Physician: Ernie Daniel MD Attending/Referring Phys: Plastic Panel Installer Burton Patricio Procedure CPT: Indications: Syncope Cardiac Hx: Technical Quality: Fair Contrast 1: Total Dose (mL): Contrast 2: Total Dose (mL): MEASUREMENTS (Male / Female) Normal Values 2D ECHO LV Diastolic Diameter PLAX 4.0 cm 4.2 - 5.9 / 3.9 - 5.3 cm LV Systolic Diameter PLAX 2.9 cm IVS Diastolic Thickness 1.0 cm 0.6 - 1.0 / 0.6 - 0.9 cm LVPW Diastolic Thickness 0.8 cm 0.6 - 1.0 / 0.6 - 0.9 cm LV Relative Wall Thickness 0.4 RV Internal Dim ED PLAX 3.0 cm LVOT Diameter 2.0 cm Aortic Root Diameter 2.6 cm LA Systolic Diameter LX 3.4 cm 3.0 - 4.0 / 2.7 - 3.8 cm LV Diastolic Volume MOD BP 59.4 cm??? 67 - 155 / 56 - 104 cm??? LV Systolic Volume MOD BP 27.1 cm??? - 58 / 19 - 49 cm??? LV Ejection Fraction MOD BP 54.3 % >= 55 % LV Cardiac Index MOD BP 810.5 cm???/min???m??? LV Diastolic Volume MOD 4C 60.8 cm??? LV Systolic Volume MOD 4C 30.8 cm??? LV Ejection Fraction MOD 4C 49.3 % LV Cardiac Index MOD 4C 754.4 cm???/min???m??? LV Diastolic Length 4C 7.2 cm LV Systolic Length 4C 6.3 cm LV Diastolic Volume MOD 2C 57.7 cm??? LV Systolic Volume MOD 2C 22.6 cm??? LV Ejection Fraction MOD 2C 60.8 % LV Cardiac Index MOD 2C 881.0 cm???/min???m??? LV Diastolic Length 2C 7.1 cm LV Systolic Length 2C 6.0 cm LA Volume 79.1 cm??? 18 - 58 / 22 - 52 cm??? DOPPLER AV Peak Velocity 202.9 cm/s AV Peak Gradient 16.5 mmHg AV Mean Velocity 135.8 cm/s AV Mean Gradient 8.8 mmHg AV Velocity Time Integral 52.6 cm LVOT Peak Velocity 185.1 cm/s LVOT Peak Gradient 13.7 mmHg AV Area Cont Eq pk 2.9 cm??? MV Peak Velocity 241.7 cm/s MV Peak Gradient 23.4 mmHg MV Mean Velocity 69.0 cm/s MV Mean Gradient 3.4 mmHg MV Velocity Time Integral 75.7 cm MR Peak Velocity 480.1 cm/s MR Peak Gradient 92.2 mmHg Mitral E Point Velocity 161.9 cm/s Mitral A Point Velocity 87.5 cm/s Mitral E to A Ratio 1.9 MV Deceleration Time 337.0 ms MV E' Velocity 9.0 cm/s Mitral E to MV E' Ratio 18.0 TR Peak Velocity 282.8 cm/s TR Peak Gradient 32.0 mmHg Right Ventricular Systolic Press 37.1 mmHg PV Peak Velocity 134.6 cm/s PV Peak Gradient 7.2 mmHg FINDINGS Left Ventricle Normal LV size and wall thickness.left ventricular ejection fraction is estimated at 50-55 %. Right Ventricle Normal right ventricular size. RVSP= 35mmhg. Right Atrium Normal right atrial size. Left Atrium Normal left atrial size. Mitral Valve Structurally normal mitral valve. Moderate MR. Aortic Valve Trileaflet aortic valve. Trace AI. Tricuspid Valve Structurally normal tricuspid valve. Mild TR. Pulmonic Valve Pulmonic valve not well visualized. Trace PI. Pericardium Normal pericardium. Aorta Normal size aortic root and proximal ascending aorta. CONCLUSIONS Normal LV function Moderate mitral regurgitation Previewed by: Dr. Mario Urias MD (Electronically Signed) Final Date: 24 January 2023 12:06
[2023-01-24 13:02] LABS: African American GFR (CKD) 18 (>60 ml/min/1.73 sqM); Anion Gap 6 mmol/L; Blood Urea Nitrogen 15 mg/dL (7-17); Calcium 8.5 mg/dL (8.4-10.2); Carbon Dioxide 29 mmol/L (22-30); Chloride 99 mmol/L (98-107); Glucose 93 mg/dL (74-99); Non-African American GFR(CKD) 16 (>60 ml/min/1.73 sqM); Potassium 3.4 mmol/L (3.5-5.1); Sodium 134 mmol/L (137-145)
--- NOTE | 2023-01-24 13:10 | P.PN ---
Subjective Progress Note Date: 01/24/23 Principal diagnosis: Renal failure, hyperkalemia. This is a 62-year-old female patient with a known history of chronic obstructive pulmonary disease, hypothyroidism, gastroesophageal reflux disease, CVA/TIA, congestive heart failure, end-stage renal disease on hemodialysis Saturday. She was on her way to dialysis but became altered and and a little distress and was brought to [facility] instead. In the ER she was found to have a pulse rate in the 20s low blood pressure and high potassium greater than 8. She was placed on dopamine and given some atropine and eventually transcutaneously paced. She was also treated with insulin, D50 on the bicarb and calcium. She was transferred here to our ER for further evaluation and treatment. White count 11.7. Hemoglobin 10.4. Platelets 173. Sodium 134. Potassium 7.4. Chloride 94. Bicarb 29. BUN 54. Creatinine 7.11. Glucose 118. Arterial blood gases on 100% nonrebreather mask revealed a PaO2 of 129, pCO2 44 and a pH of 7.40. She is seen today in consultation in the emergency department. She is somewhat altered. Restless. She is currently receiving urgent hemodialysis. Remains on dopamine at 9 mcg/kg/m. Heart rate in the 60s. Blood pressure 101/53 with a mean of 69. Saturations in the 90s. Chest x-ray reveals cardiomegaly but no acute cardiopulmonary process. The patient is seen today 01/22/2023 in follow-up in the emergency department. She is arousable. She did receive hemodialysis yesterday with 2.6 L removed. Potassium had improved to 4.7. Currently 5.6. Sodium 135. Bicarb 27. BUN 28. Creatinine 4.08. Chest x-ray shows cardiomegaly with chronic interstitial lung disease. Versus mild venous congestion. She is continued on Symbicort, albuterol, Singulair. She remains afebrile. Hemodynamically stable. On oxygen at 2 L/m per nasal cannula. Progress note dated 01/23/2023. The patient is seen today in room 370. She is currently undergoing hemodialysi s. She's not receiving any IV fluids. She's currently on oxygen at 3 L by nasal cannula. She appears to be much more awake and alert today than she was yesterday. She was initially admitted from an outside hospital, for renal failure, and severe hyperkalemia. Her mental status is been poor, but is much better today. No new labs today as yet. Labs from yesterday show sodium 135, potassium 5.6, chlorides 100, CO2 27, BUN 28, creatinine 4.08. Brain CT showed no acute intracranial process. She does have a left frontal soft tissue contusion. Progress note dated 01/24/2023. The patient is seen today in room 370. She is currently not undergoing hemodialysis. She continues on oxygen at 3 L. No IV fluids. Labs today include a sodium 134, potassium 3.4, chlorides 99, CO2 29, BUN 15, creatinine 3.04. TSH is normal. The patient is a bit more awake today than she has been over the last few days. Her mental status has improved, since she's had hemodialysis. Brain MRI showed no acute intracranial process. Objective - Vital Signs Vital signs: Vital Signs Temp 97.5 F L 01/24/23 04:00 Pulse 40 L 01/24/23 11:21 Resp 16 01/24/23 11:21 BP 172/72 01/24/23 11:21 Pulse Ox 88 L 01/24/23 08:00 FiO2 Intake & Output 01/23/23 01/24/23 01/24/23 18:59 06:59 18:59 Intake Total 500 0 250 Output Total 3075 Balance -2575 0 250 Weight 76.2 kg 76.2 kg Intake: Oral 0 250 Hemodialysis 500 Output: Urine 75 Hemodialysis 3000 Other: Voiding Method Bedside Commode Bedside Commode Bedside Commode # Voids 1 1 # Bowel Movements 1 - Exam No acute distress, lethargic, but less so than the day before, and much more with it. Currently, she is on 3 L of oxygen. HEENT examination is grossly unremarkable. Neck supple. Full range of motion. No adenopathy thyromegaly or neck vein distention. Cardiovascular examination reveals regular rhythm rate. S1-S2 normal. No S3 or S4. No discernible murmur noted. Heart sounds are distant. Heart rate 49 bpm. Lungs reveal mostly clear breath sounds. Scattered rhonchi are noted. No crackles. No wheezes. Breath sounds are equal bilaterally. 3 L saturation is 95%. Abdomen soft bowel sounds are heard. No masses or tenderness. Extremities are intact. No cyanosis clubbing or edema. Skin is without rash or lesion. Neurologic examination is improved. - Labs CBC & Chem 7: 01/21/23 09:50 01/24/23 11:56 Labs: Abnormal Lab Results - Last 24 Hours (Table) 01/23/23 01/24/23 Range/Units 10:36 11:56 Sodium 134 L (137-145) mmol/L Potassium 3.4 L (3.5-5.1) mmol/L Creatinine 3.04 H (0.52-1.04) mg/dL Vitamin B12 1075.0 H (200.0-944.0) pg/mL Assessment and Plan Assessment: Altered mental status secondary to acute on chronic renal failure. Creatinine 7.1, S/P hemodialysis on 01/21/2023 with 2.6 L removed. Severe bradycardia secondary to hyperkalemia requiring transcutaneous pacing and dopamine infusion improved. Hypotension secondary to above, resolved. Hyperkalemia secondary to acute renal failure with potassium of 7.4. Postdialysis potassium improved to 4.7. Mild transaminitis. History of CVA/TIA. History of hypertension. History of congestive heart failure. History of COPD. Former smoker. Plan: Plan dated 01/23/2023. The patient is currently undergoing hemodialysis. The patient is much more awake and alert. Labs, x-rays, and medications are reviewed. We will continue to follow the patient and make recommendations along the way. She was initially admitted with worsening renal failure, and hyperkalemia, with bradycardia. Most of that has improved. Prognosis is still guarded. Plan dated 01/24/2023. Currently, the patient appears to be doing reasonably well. The patient is on a couple liters of oxygen. No IV fluids. Her mental status has seen gradual improvement over the last few days. Labs, x-rays, and medications are reviewed. No additional recommendations are made. Patient overall prognosis remains guarded. She does remain bradycardic. Time with Patient: Less than 30
--- NOTE | 2023-01-24 14:51 | P.PN ---
Subjective Progress Note Date: 01/24/23 The patient seen at bedside and she feels about the same. Denies of any new neurological issues. She continues to have some dizziness. Denies of any focal weakness. She stated that she had old visual issues and had surgery and her eyes used to be crossed and much worse. Objective - Vital Signs Vital signs: Vital Signs Temp 97.5 F L 01/24/23 04:00 Pulse 40 L 01/24/23 13:46 Resp 16 01/24/23 11:21 BP 172/72 01/24/23 11:21 Pulse Ox 88 L 01/24/23 08:00 FiO2 Intake & Output 01/23/23 01/24/23 01/24/23 18:59 06:59 18:59 Intake Total 500 0 250 Output Total 3075 Balance -2575 0 250 Weight 76.2 kg 76.2 kg Intake: Oral 0 250 Hemodialysis 500 Output: Urine 75 Hemodialysis 3000 Other: Voiding Method Bedside Commode Bedside Commode Bedside Commode # Voids 1 1 1 # Bowel Movements 1 - Exam GENERAL: The patient is lying in bed and is not in acute distress. CARDIO: Edema in lowers. INTEGUMENTARY: Has erythematous skin rash that is rectangual in magallon region and states happens due to her CHF. NEUROLOGICAL: Higher mental function: The patient is awake, alert, oriented to self, place and time. Patient is following commands. No aphasia and no neglect. Cranial nerves: The pupils are round, equal and reactive to light. Has moderate ptosis of bilateral eye. EOM is limited with lateral gaze (worse (right lateral than left lateral gaze). No restriction looking up and down. rFacial sensation is normal to touch throughout. No facial weakness. Hearing is normal bilaterally to hand rub. Tongue is midline and moved [id number] without any difficulty. No dysarthria is noted. Shoulder shrug is normal bilaterally. Motor: The strength is limited in assessment individual muscle strength since has generalized pain but lifting all extremities upon lifting extremities and appears symmetrical. Normal tone and bulk. Cerebellum: Normal finger to nose n bilaterally. Sensation: Sensation is normal to touch throughout. Reflexes (right/left): Refused to be assessed. Plantars are mute bilaterally. Some of the workup during this hospital visit consisted of: Heart rates upon presentation was in the 40s Initial potassium is 7.4 that improved to 4.7. Creatinine 7.11 improved to 4.08--3.04 Vital B12 is 1075 TSH is a 1.230 CK levels 113. AST 71 ALT of 39. TSH is 1.230 CT of the head is reported as no acute intracranial process. Left frontal soft tissue contusion. No evidence of fracture. I personally reviewed the CT of head and I agree with the report. MRI of the brain without is reported as no acute intracranial process. Numerous bilateral focal area of abnormal signal white matter are nonspecific and can be an associate with hypertension, remote microvascular ischemic white matter disease or demyelinating the correlate clinically. Left frontal soft tissue purcell bcutaneous hematoma stable. I personally reviewed the MRI and I agree there is no acute or subacute ischemia. Regarding the FLAIR white matter hyperintensities I feel they're not specific Carotid duplex is reported as moderate approaching severe stenosis of right internal carotid artery approaching 69%. Moderate narrowing between 50-69% left ICA to carotid artery based on velocity. Incidental note made on 1 cm nodule in the left lobe thyroid. Consider dedicated thyroid ultrasound workup. - Labs CBC & Chem 7: 01/21/23 09:50 01/24/23 11:56 Labs: Abnormal Lab Results - Last 24 Hours (Table) 01/23/23 01/24/23 Range/Units 10:36 11:56 Sodium 134 L (137-145) mmol/L Potassium 3.4 L (3.5-5.1) mmol/L Creatinine 3.04 H (0.52-1.04) mg/dL Vitamin B12 1075.0 H (200.0-944.0) pg/mL Assessment and Plan Assessment: This is a 62-year-old woman history of end-stage renal disease on dialysis, congestive heart failure who is having syncopal episode at home and she states the her episode happened upon her blood pressure dropping. As a result she had a fall and hit her head. She's complaining of the dizziness as well as was having vomiting and the vomiting is resolved. He is having generalized weakness. Upon presented to our hospital her systolic blood pressure was in the 80s. Acute Vertigo: Seems due to hypotensive episodes and possible bradycardia. On MRI there is no acute or subacute ischemia. Carotid stenosis is right ICA of close to 69% while left is between 50-69% on carotid duplex. I doubt this is the culprit for the patient's vertigo. Syncopal episodes likely due to her hypotensive episode. EEG is negative for any seizure or any epileptiform discharges. Patient has bilateral ptosis as well as restriction movement of eyes on the lateral gaze more restriction look into the right and left and patient stated that she had I correction in the past I doubt this is a central cause and I think this is more ophthalmological related that seems old. BradyCardia in 40's but per patient's nurse where as low as 20-30's. Hypotensive episodes as well as systolic in the 80s hyperkalenia as high as 7.4 --resolved Generalized weakness Congestive heart failure End-stage renal disease on dialysis Plan: Patient has bilateral ptosis as well as restriction movement of eyes on the lateral gaze more restriction look into the right and left and patient stated that she had I correction in the past I doubt this is a central cause and I think this is more ophthalmological related that seems old. Acetylcholine receptor antibody is ordered and is pending. Commended the patient follow up with hot saw operator and neurologist for further evaluation. MRI the brain was negative for any acute or subacute ischemic stroke. Regarding the bilateral carotid stenosis between 50-69% I feel they're asymptomatic but consulted vascular surgery team for further input. Pending orthostatic vitals PT and OT are consulted Patient was placed on midodrine 10 mg 1 tablet 3 times a day by primary team. Please avoid any further hypotensive episode. We'll defer the rest of the medical management to the primary team and other specialists Plan was discussed with the patient. Otherwise no additional neurological workup. Time with Patient: Less than 30
--- NOTE | 2023-01-24 16:09 | P.GSCN ---
History of Present Illness Consult date: 01/24/23 Reason for Consult: Carotid stenosis Requesting physician: Ernie Daniel History of present illness: This is a 62-year-old female who presented to the emergency department for generalized weakness. She has a past medical history of heart failure, COPD, TIA, end-stage renal disease on dialysis, GERD, and thyroid disorder. Patient states she has been weak, having episodes of dizziness where the room is been spinning, she has drops in her blood pressure and heart rate. She states she's had these symptoms for several weeks. She had a fall 3 weeks ago where she hit her head and left frontal contusion. Patient denies any one-sided weakness, states that she did have some visual loss and she hit her head but that returned rather quickly. She denies any difficulty with her speech, no visual changes, or ipsilateral weakness. She states she is just generally weak both upper and lower extremities. She denies any previous history of stroke. Neurology was consulted for vertigo and headache. Carotid duplex was ordered and reported near 69% stenosis of the right ICA and 50-69% stenosis of the left ICA. Vascul ar surgery was consulted for carotid stenosis. Patient currently denies any chest pain, shortness of breath, abdominal pain, fevers or chills. She still states she just feels overall weak. Review of Systems A 14 point review systems was completed all pertinent positives and negatives as stated in the HPI. Past Medical History Past Medical History: Heart Failure, COPD, CVA/TIA, Dialysis, GERD/Reflux, Thyroid Disorder History of Any Multi-Drug Resistant Organisms: Unobtainable Additional Past Surgical History / Comment(s): Dialysis cath placement Past Anesthesia/Blood Transfusion Reactions: No Reported Reaction Past Psychological History: No Psychological Hx Reported Smoking Status: Unknown if ever smoked Past Alcohol Use History: Unable to Obtain Past Drug Use History: Unable to Obtain Medications and Allergies Home Medications Medication Instructions Recorded Confirmed Type Albuterol Nebulized [Ventolin 2.5 mg INHALATION RT-Q6H PRN 01/21/23 01/21/23 History Nebulized] Albuterol Sulfate [Albuterol 1 puff INHALATION RT-Q4H PRN 01/21/23 01/21/23 History Sulfate Hfa] Atorvastatin Calcium 20 mg PO DAILY 01/21/23 01/21/23 History Azithromycin [Zithromax Z Pack] See Taper PO DIRECTED 01/21/23 01/21/23 History Benzonatate [Tessalon Perles] 100 - 200 mg PO TID PRN 01/21/23 01/21/23 History Budesonide/Formoterol Fumarate 2 puff INHALATION RT-BID 01/21/23 01/21/23 History [Symbicort 160-4.5 Mcg Inhaler] Bumetanide [BUMEX] 4 mg PO TID 01/21/23 01/21/23 History Dicyclomine [Bentyl] 10 mg PO TID 01/21/23 01/21/23 History Fluticasone Nasal Winter [Flonase 2 spray EA NOSTRIL DAILY 01/21/23 01/21/23 History Nasal Winter] Gabapentin [Neurontin] 200 mg PO BID 01/21/23 01/21/23 History Isosorbide Mononitrate ER [Imdur] 30 mg PO DAILY 01/21/23 01/21/23 History Lidocaine-Prilocaine Cream [Emla 1 applic TOPICAL DIRECTED 01/21/23 01/21/23 History Cream 2.5%/2.5%] Loperamide [Imodium] 4 mg PO QID PRN 01/21/23 01/21/23 History Metoprolol Succinate (ER) [Toprol 50 mg PO HS 01/21/23 01/22/23 History Xl] Midodrine HCl 10 mg PO TID 01/21/23 01/21/23 History Montelukast [Singulair] 10 mg PO DAILY 01/21/23 01/21/23 History Omeprazole [PriLOSEC] 20 mg PO AC-SUPPER 01/21/23 01/21/23 History Ondansetron Odt [Zofran Odt] 4 mg PO Q8HR PRN 01/21/23 01/21/23 History SILVER sulfADIAZINE Cream 1 applic TOPICAL BID 01/21/23 01/21/23 History [Silvadene 1% Cream] Sevelamer Carbonate 1,600 - 2,400 mg PO DIRECTED 01/21/23 01/21/23 History amLODIPine [Norvasc] 10 mg PO DAILY 01/21/23 01/21/23 History hydrALAZINE HCL 10 mg PO TID 01/21/23 01/21/23 History lisinopriL [Zestril] 10 mg PO DAILY 01/21/23 01/21/23 History Ascorbic Acid [Vitamin C] 500 mg PO DAILY 01/22/23 01/22/23 History Aspirin EC [Ecotrin Low Dose] 81 mg PO DAILY 01/22/23 01/22/23 History Bismuth Subsalicylate 525 - 1,050 mg PO TID PRN 01/22/23 01/22/23 History [Pepto-Bismol Ultra] Cetirizine HCl 10 mg PO DAILY 01/22/23 01/22/23 History Cholecalciferol (Vitamin D3) 125 mcg PO DAILY 01/22/23 01/22/23 History [Vitamin D3] Cranberry 15,000 Mg Tab 15,000 mg PO DAILY 01/22/23 01/22/23 History Magnesium 250 mg PO DAILY 01/22/23 01/22/23 History Melatonin/Pyridoxine HCl (B6) 1 tab PO HS PRN 01/22/23 01/22/23 History [Melatonin-Vit B6 5-10 mg Tab] Multivit-Min/FA/Lycopen/Lutein 1 tab PO DAILY 01/22/23 01/22/23 History [Centrum Silver Tablet] Potassium Gluconate 99 mg PO DAILY 01/22/23 01/22/23 History Propylene Glycol [Systane Complete] 1 drop BOTH EYES HS 01/22/23 01/22/23 History Super B Complex 1 tab PO DAILY 01/22/23 01/22/23 History Vitamin E (Dl,Tocopheryl Acet) 400 unit PO DAILY 01/22/23 01/22/23 History [Vitamin E (400 Iu = 180 mg)] Zinc Gluconate [Zinc] 50 mg PO DAILY 01/22/23 01/22/23 History Allergies Allergy/AdvReac Type Severity Reaction Status Date / Time erythromycin base Allergy Unknown Verified 01/21/23 11:17 Penicillins Allergy Unknown Verified 01/21/23 11:17 Sulfa (Sulfonamide Allergy Unknown Verified 01/21/23 11:17 Antibiotics) sulfacetamide Allergy Unknown Verified 01/21/23 11:17 Surgical - Exam Vital Signs Pulse Resp BP Pulse Ox 48 L 20 96/76 86 L 01/21/23 09:44 01/21/23 09:44 01/21/23 09:44 01/21/23 09:44 General appearance: The patient is alert, oriented, appears in no acute distress. HET: Head is normocephalic and atraumatic. Pupils are equal and reactive. Neck: Supple. Heart: Regular. Lungs: Equal expansion, normal respiratory effort. Abdomen: Soft, nontender, nondistended. Extremities: Normal skin color and turgor. Neurological: Alert and oriented 3. Patient has generalized upper and lower extremity weakness. Patient has no noted focal deficits. Results - Labs 01/21/23 09:50 01/24/23 11:56 Abnormal Lab Results - Last 24 Hours (Table) 01/23/23 01/24/23 Range/Units 10:36 11:56 Sodium 134 L (137-145) mmol/L Potassium 3.4 L (3.5-5.1) mmol/L Creatinine 3.04 H (0.52-1.04) mg/dL Vitamin B12 1075.0 H (200.0-944.0) pg/mL Diabetes panel 01/24/23 Range/Units 11:56 Sodium 134 L (137-145) mmol/L Potassium 3.4 L (3.5-5.1) mmol/L Chloride 99 (98-107) mmol/L Carbon Dioxide 29 (22-30) mmol/L BUN 15 (7-17) mg/dL Creatinine 3.04 H (0.52-1.04) mg/dL Glucose 93 (74-99) mg/dL Calcium 8.5 (8.4-10.2) mg/dL Calcium panel 01/24/23 Range/Units 11:56 Calcium 8.5 (8.4-10.2) mg/dL Pituitary panel 01/24/23 Range/Units 11:56 Sodium 134 L (137-145) mmol/L Potassium 3.4 L (3.5-5.1) mmol/L Chloride 99 (98-107) mmol/L Carbon Dioxide 29 (22-30) mmol/L BUN 15 (7-17) mg/dL Creatinine 3.04 H (0.52-1.04) mg/dL Glucose 93 (74-99) mg/dL Calcium 8.5 (8.4-10.2) mg/dL Adrenal panel 01/24/23 Range/Units 11:56 Sodium 134 L (137-145) mmol/L Potassium 3.4 L (3.5-5.1) mmol/L Chloride 99 (98-107) mmol/L Carbon Dioxide 29 (22-30) mmol/L BUN 15 (7-17) mg/dL Creatinine 3.04 H (0.52-1.04) mg/dL Glucose 93 (74-99) mg/dL Calcium 8.5 (8.4-10.2) mg/dL - Imaging Comments: Carotid Doppler: Moderate approaching severe stenosis right internal carotid artery approaching 69%. Moderate narrowing between 50 and 69% left internal carotid artery based on velocities. Incidental note made of a 1 cm nodule in the left lobe thyroid. Consider dedicated thyroid ultrasound workup. Right ICA PSV 219.8, ICA/CCA ratio 1.7 Left PSV ICA 180.5, ICA/CCA ratio 1.4 Brain MRI No acute intracranial process. Numerous bilateral focal areas of abnormal signal white matter are nonspecific and can be associated with hypertension, remote microvascular ischemic white matter disease or demyelinating correlate clinically. Left frontal soft tissues of cutaneous hematoma stable CT brain without contrast No acute intracranial process. Left frontal soft tissue contusion. No evidence of fracture Echocardiogram Normal LV function. EF 50-55%. Moderate mitral regurgitation. EEG Abnormal routine EEG background slowing in addition with GERD A with frontal predominance formally known as upright JET MAN, consists of mild to moderate encephalopathy, possibly due to underlying toxic metabolic derangement versus ce rebral dysfunction. There is no focal slowing, eliptoform discharge or seizure on the EEG Assessment and Plan Assessment: 1. Asymptomatic carotid bilateral stenosis 2. Vertigo 3. Generalized Weakness 4. Bradycardia 5. Hypotensive events now resolved 6. History of end-stage renal disease on hemodialysis 7. COPD Plan: 1. Continue symptomatic and supportive care 2. Recommend CT angiogram head and neck, this can be done as an outpatient and patient prefers that 3. Continue atorvastatin 4. Recommend outpatient follow-up with vascular surgery for carotid surveillance 5. No indication at this time for vascular surgical intervention 6. Continue with recommendations from neurology Thank you for this consultation, we will sign off at this time. The impression and plan of care has been dictated as directed. I performed a history and examination of this patient, discussed the same with the dictator. I agree with the dictator's note ,documented as a scribe. Any additional findings or plans will be noted.
--- NOTE | 2023-01-24 19:37 | P.PN ---
Subjective This is a pleasant 62 years old female with multiple medical problems Sent from [facility] to the emergency room for altered mental status. Patient was seen well in the emergency room, she was with altered mental status, she does not respond to verbal or tactile stimuli. Does not follow command. There is no asymmetry noted. However examination is limited by patient mental status.. Also got 1 dose of IV Ativan in the emergency room which made her more sleepy Patient is admitted on the stage renal disease on hemodialysis, she preferred with dialysis. Apparently a very saturday, saturday and saturday Admission her creatinine was 7.1, while at [facility] was 5.2, patient also has hyperkalemia with potassium 7.4 on admission. Patient is to get urgent hemodialysis in the emergency room. Blood pressure 112/58, heart rate 85, patient is mildly tachypneic. Marked leukocytosis with a 11.7. Chest x-ray showed pulmonary venous congestion with scattered interstitial edema. Repeat chest x-ray this facility showed cardiomegaly with no acute process. CT of the pressure with no acute intracranial process. Patient also on dopamine drip. Patient is in critical condition is going to be monitored the ICU currently. 01/22/2023 patient is awake alert today, she is now she is an [facility] and she knows the daytime and date and the name of the president, she follows commands and has insight She looks a little bit agitated and at bedtime today, she got bothered easily with frequent questioning. She is complaining of from headache described by the patient as 10/10 all over, nonspecific in character associated with vomiting (patient has been vomiting for the last 2-3 days as she describes) and dizziness. She describes dizziness as a room is spinning around her. She denies any other specific symptoms to me. Afebrile, vital signs stable Laps improvement with potassium down to 5.6 and creatinine down to 4.0. WBC 11.7 and hemoglobin 11.4 Chest x-ray showing pulmonary venous congestion with vascular interstitial edema Repeat chest x-ray is pending. I reviewed myself with no significant change from yesterday 01/23/2023 awake and alert today somewhat lethargic and somnolent but she keeps her eye opening and she answers questions appropriately and follow commands. She is going for another hemodialysis this morning. She still complaining of from dizziness and she states that the room is [facility]. CT of the brain was negative for acute process. This morning she was bradycardic with heart rate wasn't for these we lowered her metoprolol 50 mg down to 12.5 mg with close monitoring. Patient also not eating well. 01/24/2023 She does not look very fatigued or tired although she stays in bed most of the time. She still complaining from vertigo and headache therefore one-time dose of Clio is tried as well as meclizine to assess any improvement. MRI of the brain was negative for acute process (MRI of the brain showing no acute intracranial process but numerous bilateral focal areas of abnormal signal white matter are nonspecific and can be associated with hypertension, remote microvasc ular ischemic white matter disease or demyelinating) She has some evidence of right carotid artery stenosis about 69%, vascular surgery recommended no inpatient surgical intervention but outpatient CTA of the head and neck and the site of the case. Echocardiogram showing ejection fraction of 50-55% and moderate mitral regurgitation however patient remains bradycardic and currently she is not on be ta ira (at home she was on 50 mg at bedtime which was discontinued) we will continue monitor tomorrow and if no improvement in heart rate then may consider further steps. TSH is normal Patient still able to eat well, she still complaining from nausea and vomiting, she complains from vague abdominal pain and generalized tenderness but abdomen soft and symptoms of mild, because she is still not able to eat we will order CT of the abdomen and pelvis without contrast with close monitoring Hemodialysis per Nephrology Active Medications Generic Name Dose Route Start Last Admin Trade Name Freq PRN Reason Stop Dose Admin Acetaminophen/Butalbital/Caffeine 1 each 01/23/23 21:09 01/24/23 08:51 Butalb/Apap/Caff 50-325-40mg Tab PO 1 each Q4HR PRN Administration Headache Albuterol Sulfate 2.5 mg 01/21/23 18:54 01/22/23 08:03 Albuterol Nebulized 2.5 Mg/3 Ml INHALATION 2.5 mg RT-Q6H PRN Administration Shortness Of Breath Atorvastatin Calcium 20 mg 01/22/23 09:00 01/24/23 08:52 Atorvastatin 20 Mg Tab PO 20 mg DAILY MADY Administration Benzonatate 200 mg 01/21/23 18:54 Benzonatate 100 Mg Cap PO TID PRN Cough Budesonide/Formoterol Fumarate 2 puff 01/21/23 20:00 01/24/23 08:10 Symbicort 160-4.5 Mcg Inhaler INHALATION 2 puff RT-BID MADY Administration Dicyclomine HCl 10 mg 01/21/23 22:00 01/24/23 16:54 Dicyclomine 10 Mg Cap PO 10 mg TID MADY Administration Fluticasone Propionate 2 spray 01/22/23 09:00 01/24/23 08:53 Fluticasone 50mcg/Lanagan Nasal 16gm EA NOSTRIL 2 spray DAILY MADY Administration Iopamidol 30 ml 01/24/23 18:04 Iopamidol Contrast (Oral Use) Vial PO 01/25/23 18:[address] Scan Isosorbide Mononitrate 30 mg 01/22/23 09:00 01/24/23 08:52 Isosorbide Mononitrate Er 30 Mg Tab.Er.24h PO 30 mg DAILY MADY Administration Meclizine HCl 25 mg 01/24/23 10:53 01/24/23 11:15 Meclizine 25 Mg Tab PO 25 mg QID PRN Administration Vertigo Montelukast Sodium 10 mg 01/22/23 09:00 01/24/23 08:52 Montelukast 10 Mg Tab PO 10 mg DAILY MADY Administration Naloxone HCl 0.2 mg 01/21/23 11:32 Naloxone 0.4 Mg/Ml 1 Ml Vial IV Q2M PRN Opioid Reversal Ondansetron HCl 4 mg 01/21/23 18:54 01/24/23 11:15 Ondansetron Odt 4 Mg Tab PO 4 mg Q8HR PRN Administration Nausea Sevelamer Carbonate 2,400 mg 01/22/23 07:30 01/24/23 16:55 Sevelamer 800 Mg Tab PO 2,400 mg TID-W/MEALS MADY Administration Sevelamer Carbonate 1,600 mg 01/21/23 19:04 Sevelamer 800 Mg Tab PO TID PRN SNACKS Objective - Vital Signs Vital signs: Vital Signs Temp 97.5 F L 01/24/23 04:00 Pulse 40 L 01/24/23 13:46 Resp 16 01/24/23 11:21 BP 172/72 01/24/23 11:21 Pulse Ox 88 L 01/24/23 08:00 FiO2 Intake & Output 01/23/23 01/24/23 01/24/23 18:59 06:59 18:59 Intake Total 500 0 250 Output Total 3075 Balance -2575 0 250 Weight 76.2 kg 76.2 kg Intake: Oral 0 250 Hemodialysis 500 Output: Urine 75 Hemodialysis 3000 Other: Voiding Method Bedside Commode Bedside Commode Bedside Commode # Voids 1 1 1 # Bowel Movements 1 - Exam -GENERAL: The patient is alert and oriented x3, anxious not in any acute distress. Well developed, well nourished. HEENT: Pupils are round and equally reacting to light. EOMI. No scleral icterus. No conjunctival pallor. Normocephalic, atraumatic. No pharyngeal erythema. No thyromegaly. CARDIOVASCULAR: S1 and S2 present. No murmurs, rubs, or gallops. PULMONARY: Chest is clear to auscultation, no wheezing , no crackles. ABDOMEN: Soft, nontender, nondistended, normoactive bowel sounds. No palpable organomegaly. MUSCULOSKELETAL: No joint swelling or deformity. EXTREMITIES: No cyanosis, clubbing, or pedal edema. NEUROLOGICAL: Gross neurological examination did not reveal any focal deficits. SKIN: No rashes. no petechiae. - Labs CBC & Chem 7: 01/21/23 09:50 01/24/23 11:56 Labs: Abnormal Lab Results - Last 24 Hours (Table) 01/23/23 01/24/23 Range/Units 10:36 11:56 Sodium 134 L (137-145) mmol/L Potassium 3.4 L (3.5-5.1) mmol/L Creatinine 3.04 H (0.52-1.04) mg/dL Vitamin B12 1075.0 H (200.0-944.0) pg/mL Assessment and Plan Assessment: Altered mental status most likely to metabolic/toxic encephalopathy, improving headache with vertigo End-stage renal disease(Saturday and Saturday, presents with worsening creatinine and hyperkalemia Mild leukocytosis COPD, History of CVA/TIA History of hypothyroidism Plan: Monitored heart rate. Metoprolol on hold Neurology consult. MRI of the brain is negative for acute process. Symptomatic treatment of vertigo Continue with hemodialysis as per nephrology team on the case. Monitor Creatinine and hyperkalemia improvement Pulmonary/critical care team consult already on the case Vascular surgery recommend outpatient CTA of the head and neck Telemetry Follow-up CT of the abdomen and pelvis Labs and medication were reviewed.. Continue same treatment. Continue with symptomatic treatment. Resume home medication. Monitor labs and vitals. DVT and GI prophylaxis. Further recommendations as per clinical course of the patient DVT prophylaxis: Mechanical GI Prophylaxis: Pepcid Prognosis is guarded
[2023-01-24] MEDS: IOPAMIDOL CONTRAST (ORAL USE) VIAL PO PRN ×2 (20:24→21:18)
[2023-01-25] MEDS: ONDANSETRON ODT 4 MG TAB PO PRN (04:53)
[2023-01-25] MEDS: SEVELAMER 800 MG TAB PO SCH ×3 (06:32→15:34)
[2023-01-25] MEDS: SYMBICORT 160-4.5 MCG INHALER INHALATION SCH ×2 (08:09→20:47)
[2023-01-25] MEDS: DICYCLOMINE 10 MG CAP PO SCH ×3 (08:35→22:03)
[2023-01-25] MEDS: FLUTICASONE 50MCG/SPRAY NASAL 16GM EA NOSTRIL SCH (08:35)
[2023-01-25] MEDS: ATORVASTATIN 20 MG TAB PO SCH (08:35)
[2023-01-25] MEDS: MONTELUKAST 10 MG TAB PO SCH (08:35)
[2023-01-25] MEDS: BUTALB/APAP/CAFF 50-325-40MG TAB PO PRN ×2 (08:42→15:34)
[2023-01-25] MEDS: MECLIZINE 25 MG TAB PO PRN ×3 (08:43→22:03)
--- NOTE | 2023-01-25 09:34 | CT ---
EXAMINATION TYPE: CT abdomen pelvis wo con DATE OF EXAM: 01/24/2023 COMPARISON: None INDICATION: n/v DLP: 648.6 mGycm, Automated exposure control for dose reduction was used. CONTRAST: 0 mL of Isovue 300. Study performed with Oral Contrast TECHNIQUE: Axial images were obtained from above the diaphragm to the pubic rami in the axial plane a t 5 mm thick sections. Reconstructed images are reviewed on the computer in the coronal plane. FINDINGS: Limited CT sections are obtained the lung bases. Small bilateral pleural effusions are present. Some streak atelectasis at the bilateral lung bases, greater on the left.. CT ABDOMEN: Liver: Normal Spleen: Normal Pancreas: Normal Adrenal glands: The adrenal glands are normal. Gallbladder: Normal Kidneys: No masses are evident. No hydronephrosis is present. Cortical renal cysts on the posterior left kidney measuring 1.1 cm. Small cortical renal cyst is within the posterior superior right kidne y. A larger exophytic cyst in the posterior lateral right mid kidney measuring 1.9 cm. Kidneys appear somewhat small and may be atrophic. No renal stones are evident. Aorta: Vascular calcification is within the aorta. Inferior vena cava: Normal. CT PELVIS: Loops of bowel within the abdomen and pelvis are normal. There are loops of bowel which are incom pletely distended or lack oral contrast limiting their evaluation. Appendix: Not identified. No dilated tubular structure or inflammatory changes evident. Urinary bladder: Normal. Genitourinary structures: Uterus appears normal. Adnexa are within normal limits. There may be a smal l 1.3 cm cyst on the right ovary. This could be followed with ultrasound. Osseous structures: No suspicious lytic or sclerotic lesions. Generative disc changes present L5-S1. Appears be a hemangioma in the left L1 vertebral body. IMPRESSIONS: 1. Small bilateral pleural effusions with mild atelectasis. 2. Small bilateral kidneys. Correlate for renal insufficiency. Cortical renal cysts are present bilat erally. 3. Small 1.3 cm right ovarian cyst. This can be followed with ultrasound.
--- NOTE | 2023-01-25 10:38 | P.PN ---
Subjective Progress Note Date: 01/25/23 Principal diagnosis: Carotid stenosis Patient seen and examined today as a follow-up. We are asked to see patient for asymptomatic carotid stenosis. Patient was L any acute changes. No new focal deficits. Objective - Vital Signs Vital signs: Vital Signs Temp 97.4 F L 01/25/23 03:26 Pulse 71 01/25/23 03:26 Resp 20 01/25/23 03:26 BP 179/81 01/25/23 03:26 Pulse Ox 99 01/25/23 03:26 FiO2 Intake & Output 01/24/23 01/25/23 01/25/23 18:59 06:59 18:59 Intake Total 250 720 Balance 250 720 Weight 76.2 kg 76.4 kg Intake: Oral 250 720 Other: Voiding Method Bedside Commode Bedside Commode # Voids 1 1 # Bowel Movements 1 - Exam General appearance: The patient is alert, oriented, appears in no acute d istress. HET: Head is normocephalic and atraumatic. Pupils are equal and reactive. Neck: Supple. Heart: Regular. Lungs: Equal expansion, normal respiratory effort. Abdomen: Soft, nontender, nondistended. Extremities: Normal skin color and turgor. Neurological: Alert and oriented 3. Patient has generalized upper and lower extremity weakness. Patient has no noted focal deficits. - Labs CBC & Chem 7: 01/21/23 09:50 01/24/23 11:56 Labs: Abnormal Lab Results - Last 24 Hours (Table) 01/24/23 01/24/23 Range/Units 11:56 11:56 Sodium 134 L (137-145) mmol/L Potassium 3.4 L (3.5-5.1) mmol/L Creatinine 3.04 H (0.52-1.04) mg/dL Folate 40.00 H (4.40-31.00) ng/mL Assessment and Plan Assessment: 1. Asymptomatic bilateral carotid stenosis 2. Vertigo 3. Generalized Weakness 4. Bradycardia 5. Hypotensive events now resolved 6. History of end-stage renal disease on hemodialysis 7. COPD Plan: 1. Continue symptomatic and supportive care 2. Recommend CT angiogram head and neck, this can be done as an outpatient and patient prefers that 3. Continue atorvastatin 4. Recommend outpatient follow-up with vascular surgery for carotid surveillance 5. No indication at this time for vascular surgical intervention 6. Continue with recommendations from neurology Thank you for this consultation, we will sign off at this time. The impression and plan of care has been dictated as directed. Dr. Cassidy I performed a history and examination of this patient, discussed the same with the dictator. I agree with the dictator's note ,documented as a scribe. Any additional findings or plans will be noted.
--- NOTE | 2023-01-25 11:50 | P.PN ---
Subjective Progress Note Date: 01/25/23 Principal diagnosis: Renal failure, hyperkalemia. This is a 62-year-old female patient with a known history of chronic obstructive pulmonary disease, hypothyroidism, gastroesophageal reflux disease, CVA/TIA, congestive heart failure, end-stage renal disease on hemodialysis Saturday. She was on her way to dialysis but became altered and and a little distress and was brought to [facility] instead. In the ER she was found to have a pulse rate in the 20s low blood pressure and high potassium greater than 8. She was placed on dopamine and given some atropine and eventually transcutaneously paced. She was also treated with insulin, D50 on the bicarb and calcium. She was transferred here to our ER for further evaluation and treatment. White count 11.7. Hemoglobin 10.4. Platelets 173. Sodium 134. Potassium 7.4. Chloride 94. Bicarb 29. BUN 54. Creatinine 7.11. Glucose 118. Arterial blood gases on 100% nonrebreather mask revealed a PaO2 of 129, pCO2 44 and a pH of 7.40. She is seen today in consultation in the emergency department. She is somewhat altered. Restless. She is currently receiving urgent hemodialysis. Remains on dopamine at 9 mcg/kg/m. Heart rate in the 60s. Blood pressure 101/53 with a mean of 69. Saturations in the 90s. Chest x-ray reveals cardiomegaly but no acute cardiopulmonary process. The patient is seen today 01/22/2023 in follow-up in the emergency department. She is arousable. She did receive hemodialysis yesterday with 2.6 L removed. Potassium had improved to 4.7. Currently 5.6. Sodium 135. Bicarb 27. BUN 28. Creatinine 4.08. Chest x-ray shows cardiomegaly with chronic interstitial lung disease. Versus mild venous congestion. She is continued on Symbicort, albuterol, Singulair. She remains afebrile. Hemodynamically stable. On oxygen at 2 L/m per nasal cannula. Progress note dated 01/23/2023. The patient is seen today in room 370. She is currently undergoing hemodialysi s. She's not receiving any IV fluids. She's currently on oxygen at 3 L by nasal cannula. She appears to be much more awake and alert today than she was yesterday. She was initially admitted from an outside hospital, for renal failure, and severe hyperkalemia. Her mental status is been poor, but is much better today. No new labs today as yet. Labs from yesterday show sodium 135, potassium 5.6, chlorides 100, CO2 27, BUN 28, creatinine 4.08. Brain CT showed no acute intracranial process. She does have a left frontal soft tissue contusion. Progress note dated 01/24/2023. The patient is seen today in room 370. She is currently not undergoing hemodialysis. She continues on oxygen at 3 L. No IV fluids. Labs today include a sodium 134, potassium 3.4, chlorides 99, CO2 29, BUN 15, creatinine 3.04. TSH is normal. The patient is a bit more awake today than she has been over the last few days. Her mental status has improved, since she's had hemodialysis. Brain MRI showed no acute intracranial process. Progress note dated 01/25/2023. 62-year-old female who looks much older than her stated age, is seen today in room 370. She is scheduled to have hemodialysis today. The patient is currently on O2 at 2 L. No IV fluids. She was initially admitted with a diagnosis of hyperkalemia, and bradycardia. No new labs today as yet. Labs from yesterday include a sodium 134, potassium 3.4, chlorides 99, CO2 29, and a BUN and creatinine of 15 and 3.04 respectively. Computed tomography scan of the abdomen and pelvis shows small bilateral pleural effusions, bilateral kidneys, and 1.3 cm right ovarian cyst. Objective - Vital Signs Vital signs: Vital Signs Temp 97.4 F L 01/25/23 03:26 Pulse 58 L 01/25/23 08:00 Resp 16 01/25/23 08:00 BP 167/76 01/25/23 08:00 Pulse Ox 94 L 01/25/23 08:00 FiO2 Intake & Output 01/24/23 01/25/23 01/25/23 18:59 06:59 18:59 Intake Total 250 720 240 Output Total 100 Balance 250 720 140 Weight 76.2 kg 76.4 kg Intake: Oral 250 720 240 Output: Urine 100 Other: Voiding Method Bedside Commode Bedside Commode Bedside Commode # Voids 1 1 # Bowel Movements 1 1 - Exam No acute distress, lethargic, but less so than the day before, and much more with it. Currently, she is on 2 L of oxygen. HEENT examination is grossly unremarkable. Neck supple. Full range of motion. No adenopathy thyromegaly or neck vein distention. Cardiovascular examination reveals regular rhythm rate. S1-S2 normal. No S3 or S4. No discernible murmur noted. Heart sounds are distant. Heart rate 58 bpm. Lungs reveal mostly clear breath sounds. Scattered rhonchi are noted. No crackles. No wheezes. Breath sounds are equal bilaterally. 2 L saturation is 99%. Abdomen soft bowel sounds are heard. No masses or tenderness. Extremities are intact. No cyanosis clubbing or edema. Skin is without rash or lesion. Neurologic examination is improved. - Labs CBC & Chem 7: 01/21/23 09:50 01/24/23 11:56 Labs: Abnormal Lab Results - Last 24 Hours (Table) 01/24/23 01/24/23 Range/Units 11:56 11:56 Sodium 134 L (137-145) mmol/L Potassium 3.4 L (3.5-5.1) mmol/L Creatinine 3.04 H (0.52-1.04) mg/dL Folate 40.00 H (4.40-31.00) ng/mL Assessment and Plan Assessment: Altered mental status secondary to acute on chronic renal failure. Creatinine 7.1, S/P hemodialysis on 01/21/2023 with 2.6 L removed. Severe bradycardia secondary to hyperkalemia requiring transcutaneous pacing and dopamine infusion improved. Hypotension secondary to above, resolved. Hyperkalemia secondary to acute renal failure with potassium of 7.4. Postdialysis potassium improved to 4.7. Mild transaminitis. History of CVA/TIA. History of hypertension. History of congestive heart failure. History of COPD. Former smoker. Plan: Plan dated 01/23/2023. The patient is currently undergoing hemodialysis. The patient is much more awake and alert. Labs, x-rays, and medications are reviewed. We will continue to follow the patient and make recommendations along the way. She was initially admitted with worsening renal failure, and hyperkalemia, with bradycardia. Most of that has improved. Prognosis is still guarded. Plan dated 01/24/2023. Currently, the patient appears to be doing reasonably well. The patient is on a couple liters of oxygen. No IV fluids. Her mental status has seen gradual improvement over the last few days. Labs, x-rays, and medications are reviewed. No additional recommendations are made. Patient overall prognosis remains guarded. She does remain bradycardic. Plan dated 01/25/2023. The patient is seen today in room 370. She is on 2 L. Saturations are excellent. She is having hemodialysis again today. The patient is not receiving any IV fluids. Her potassium is in the normal range. Labs, x-rays, and medications are all reviewed. Prognosis is guarded. We will continue to follow the patient and make recommendations. Time with Patient: Less than 30
[2023-01-25] MEDS: ISOSORBIDE MONONITRATE ER 30 MG TAB.ER.24H PO SCH (12:10)
--- NOTE | 2023-01-25 12:14 | P.PN ---
Subjective This is a pleasant 62 years old female with multiple medical problems Sent from [facility] to the emergency room for altered mental status. Patient was seen well in the emergency room, she was with altered mental status, she does not respond to verbal or tactile stimuli. Does not follow command. There is no asymmetry noted. However examination is limited by patient mental status.. Also got 1 dose of IV Ativan in the emergency room which made her more sleepy Patient is admitted on the stage renal disease on hemodialysis, she preferred with dialysis. Apparently a very saturday, saturday and saturday Admission her creatinine was 7.1, while at [facility] was 5.2, patient also has hyperkalemia with potassium 7.4 on admission. Patient is to get urgent hemodialysis in the emergency room. Blood pressure 112/58, heart rate 85, patient is mildly tachypneic. Marked leukocytosis with a 11.7. Chest x-ray showed pulmonary venous congestion with scattered interstitial edema. Repeat chest x-ray this facility showed cardiomegaly with no acute process. CT of the pressure with no acute intracranial process. Patient also on dopamine drip. Patient is in critical condition is going to be monitored the ICU currently. 01/22/2023 patient is awake alert today, she is now she is an [facility] and she knows the daytime and date and the name of the president, she follows commands and has insight She looks a little bit agitated and at bedtime today, she got bothered easily with frequent questioning. She is complaining of from headache described by the patient as 10/10 all over, nonspecific in character associated with vomiting (patient has been vomiting for the last 2-3 days as she describes) and dizziness. She describes dizziness as a room is spinning around her. She denies any other specific symptoms to me. Afebrile, vital signs stable Laps improvement with potassium down to 5.6 and creatinine down to 4.0. WBC 11.7 and hemoglobin 11.4 Chest x-ray showing pulmonary venous congestion with vascular interstitial edema Repeat chest x-ray is pending. I reviewed myself with no significant change from yesterday 01/23/2023 awake and alert today somewhat lethargic and somnolent but she keeps her eye opening and she answers questions appropriately and follow commands. She is going for another hemodialysis this morning. She still complaining of from dizziness and she states that the room is [facility]. CT of the brain was negative for acute process. This morning she was bradycardic with heart rate wasn't for these we lowered her metoprolol 50 mg down to 12.5 mg with close monitoring. Patient also not eating well. 01/24/2023 She does not look very fatigued or tired although she stays in bed most of the time. She still complaining from vertigo and headache therefore one-time dose of [place] is tried as well as meclizine to assess any improvement. MRI of the brain was negative for acute process (MRI of the brain showing no acute intracranial process but numerous bilateral focal areas of abnormal signal white matter are nonspecific and can be associated with hypertension, remote microvasc ular ischemic white matter disease or demyelinating) She has some evidence of right carotid artery stenosis about 69%, vascular surgery recommended no inpatient surgical intervention but outpatient CTA of the head and neck and the site of the case. Echocardiogram showing ejection fraction of 50-55% and moderate mitral regurgitation however patient remains bradycardic and currently she is not on be [place] (at home she was on 50 mg at bedtime which was discontinued) we will continue monitor tomorrow and if no improvement in heart rate then may consider further steps. TSH is normal Patient still able to eat well, she still complaining from nausea and vomiting, she complains from vague abdominal pain and generalized tenderness but abdomen soft and symptoms of mild, because she is still not able to eat we will order CT of the abdomen and pelvis without contrast with close monitoring Hemodialysis per Nephrology 01/25/2023 Patient initially came in with altered mental status, next a she woke up with headache and vertigo and been complaining for the last few days, today looks better, she did not complain from headache. Besides MRI of the brain came back negative for acute process as above. However patient started having complaining of from abdominal pain and she was not eating well last couple days, we'll obtain CT of the abdomen and pelvis which was negative for acute process, patient today she is able to eat well, she still complaining of from some abdominal discomfort however she saw me this been going on for months. Patient also reports black stool, or donuts check hemoglobin today. She continue with hemodialysis She has evidence of carotid artery stenosis however vascular surgery recommended outpatient CTA and outpatient follow-up with vascular surgery team she was bradycardic with heart rate improved today 71,58 and 66 Objective - Vital Signs Vital signs: Vital Signs Temp 97.4 F L 01/25/23 03:26 Pulse 58 L 01/25/23 08:00 Resp 16 01/25/23 08:00 BP 167/76 01/25/23 08:00 Pulse Ox 94 L 01/25/23 08:00 FiO2 Intake & Output 01/24/23 01/25/23 01/25/23 18:59 06:59 18:59 Intake Total 250 720 240 Output Total 100 Balance 250 720 140 Weight 76.2 kg 76.4 kg Intake: Oral 250 720 240 Output: Urine 100 Other: Voiding Method Bedside Commode Bedside Commode Bedside Commode # Voids 1 1 # Bowel Movements 1 1 - Exam -GENERAL: The patient is alert and oriented x3, anxious not in any acute distress. Well developed, well nourished. HEENT: Pupils are round and equally reacting to light. EOMI. No scleral icterus. No conjunctival pallor. Normocephalic, atraumatic. No pharyngeal erythema. No thyromegaly. CARDIOVASCULAR: S1 and S2 present. No murmurs, rubs, or gallops. PULMONARY: Chest is clear to auscultation, no wheezing , no crackles. ABDOMEN: Soft, nontender, nondistended, normoactive bowel sounds. No palpable organomegaly. MUSCULOSKELETAL: No joint swelling or deformity. EXTREMITIES: No cyanosis, clubbing, or pedal edema. NEUROLOGICAL: Gross neurological examination did not reveal any focal deficits. SKIN: No rashes. no petechiae. - Labs CBC & Chem 7: 01/21/23 09:50 01/24/23 11:56 Labs: Abnormal Lab Results - Last 24 Hours (Table) 01/24/23 01/24/23 Range/Units 11:56 11:56 Sodium 134 L (137-145) mmol/L Potassium 3.4 L (3.5-5.1) mmol/L Creatinine 3.04 H (0.52-1.04) mg/dL Folate 40.00 H (4.40-31.00) ng/mL Assessment and Plan Assessment: Altered mental status most likely to metabolic/toxic encephalopathy, improving headache with vertigo, improving Abdominal pain, chronic. CT of the abdomen and pelvis was unremarkable for acute appendicitis. End-stage renal disease(Saturday and Saturday, presents with worsening creatinine and hyperkalemia Mild leukocytosis COPD, History of CVA/TIA History of hypothyroidism Plan: Monitored heart rate. Metoprolol on hold Neurology consult. MRI of the brain is negative for acute process. Symptomatic treatment of vertigo Continue with hemodialysis as per nephrology team on the case. Monitor Creatinine and hyperkalemia improvement Pulmonary/critical care team consult already on the case Vascular surgery recommend outpatient CTA of the head and neck Telemetry Follow-up CT of the abdomen and pelvis Labs and medication were reviewed.. Continue same treatment. Continue with symptomatic treatment. Resume home medication. Monitor labs and vitals. DVT and GI prophylaxis. Further recommendations as per clinical course of the patient DVT prophylaxis: Mechanical GI Prophylaxis: Pepcid Prognosis is guarded
[2023-01-25 13:45] LABS: HCT 26.9 % (34.0-46.0); MCH 32.5 pg (25.0-35.0); MCHC 33.6 g/dL (31.0-37.0); MCV 96.5 fL (80.0-100.0); Mean Platelet Volume 8.8; Platelet Count 150 k/uL (150-450); RBC 2.79 m/uL (3.80-5.40); RDW 15.4 % (11.5-15.5); WBC 6.3 k/uL (3.8-10.6)
[2023-01-25] MEDS: GABAPENTIN 100 MG CAP PO SCH ×2 (15:35→22:03)
--- NOTE | 2023-01-25 17:39 | P.PN ---
Subjective Progress Note Date: 01/25/23 The patient continues to have diplopia. Objective - Vital Signs Vital signs: Vital Signs Temp 98 F 01/25/23 13:33 Pulse 73 01/25/23 15:38 Resp 16 01/25/23 15:38 BP 179/97 01/25/23 15:38 Pulse Ox 94 L 01/25/23 12:00 FiO2 Intake & Output 01/24/23 01/25/23 01/25/23 18:59 06:59 18:59 Intake Total 250 720 660 Output Total 2400 Balance 250 720 -1740 Weight 76.2 kg 76.4 kg Intake: Oral 250 720 360 Hemodialysis 300 Output: Urine 100 Hemodialysis 2300 Other: Voiding Method Bedside Commode Bedside Commode Bedside Commode # Voids 1 1 # Bowel Movements 1 1 - Exam GENERAL: The patient is lying in bed and is not in acute distress. CARDIO: Edema in lowers. INTEGUMENTARY: Has erythematous skin rash that is rectangual in [place] region and states happens due to her CHF. NEUROLOGICAL: Higher mental function: The patient is awake, alert, oriented to self, place and time. Patient is following commands. No aphasia and no neglect. Cranial nerves: The pupils are round, equal and reactive to light. Has moderate ptosis of bilateral eye. EOM is limited with lateral gaze (worse (right lateral than left lateral gaze). No restriction looking up and down. rFacial sensation is normal to touch throughout. No facial weakness. Hearing is normal bilaterally to hand rub. Tongue is midline and moved [id number] without any difficulty. No dysarthria is noted. Shoulder shrug is normal bilaterally. Motor: The strength is limited in assessment individual muscle strength since has generalized pain but lifting all extremities upon lifting extremities and appears symmetrical. Normal tone and bulk. Cerebellum: Normal finger to nose n bilaterally. Sensation: Sensation is normal to touch throughout. Reflexes (right/left): Refused to be assessed. Plantars are mute bilaterally. Some of the workup during this hospital visit consisted of: Heart rates upon presentation was in the 40s Initial potassium is 7.4 that improved to 4.7. Creatinine 7.11 improved to 4.08--3.04 Vital B12 is 1075 TSH is a 1.230 CK levels 113. AST 71 ALT of 39. TSH is 1.230 CT of the head is reported as no acute intracranial process. Left frontal soft tissue contusion. No evidence of fracture. I personally reviewed the CT of head and I agree with the report. MRI of the brain without is reported as no acute intracranial process. Numerous bilateral focal area of abnormal signal white matter are nonspecific and can be an associate with hypertension, remote microvascular ischemic white matter disease or demyelinating the correlate clinically. Left frontal soft tissue subcutaneous hematoma stable. I personally reviewed the MRI and I agree there is no acute or subacute ischemia. Regarding the FLAIR white matter hyperintensities I feel they're not specific Carotid duplex is reported as moderate approaching severe stenosis of right internal carotid artery approaching 69%. Moderate narrowing between 50-69% left ICA to carotid artery based on velocity. Incidental note made on 1 cm nodule in the left lobe thyroid. Consider dedicated thyroid ultrasound workup. - Labs CBC & Chem 7: 01/25/23 13:25 01/24/23 11:56 Labs: Abnormal Lab Results - Last 24 Hours (Table) 01/25/23 Range/Units 13:25 RBC 2.79 L (3.80-5.40) m/uL Hgb 9.0 L (11.4-16.0) gm/dL Hct 26.9 L (34.0-46.0) % Assessment and Plan Assessment: This is a 62-year-old woman history of end-stage renal disease on dialysis, congestive heart failure who is having syncopal episode at home and she states the her episode happened upon her blood pressure dropping. As a result she had a fall and hit her head. She's complaining of the dizziness as well as was having vomiting and the vomiting is resolved. He is having generalized weakness. Upon presented to our hospital her systolic blood pressure was in the 80s. Acute Vertigo: Seems due to hypotensive episodes and possible bradycardia. On MRI there is no acute or subacute ischemia. Carotid stenosis is right ICA of close to 69% while left is between 50-69% on carotid duplex. I doubt this is the culprit for the patient's vertigo. Syncopal episodes likely due to her hypotensive episode. EEG is negative for any seizure or any epileptiform discharges. Patient has bilateral ptosis as well as restriction movement of eyes on the late ral gaze more restriction look into the right and left and patient stated that she had I correction in the past I doubt this is a central cause and I think this is more ophthalmological related that seems old. Today she does she not recall having surgery of eyes. BradyCardia in 40's but per patient's nurse where as low as 20-30's. Hypotensive episodes as well as systolic in the 80s hyperkalenia as high as 7.4 --resolved Generalized weakness Congestive heart failure End-stage renal disease on dialysis Plan: Patient has bilateral ptosis as well as restriction movement of eyes on the lateral gaze more restriction look into the right and left and patient stated that she had I correction in the past I doubt this is a central cause and I think this is more ophthalmological related that seems old. Acetylcholine receptor antibody is ordered and is pending. Recommend the patient follow up with agriculture instructor and neurologist for further evaluation. MRI the brain was negative for any acute or subacute ischemic stroke. Regarding the bilateral carotid stenosis between 50-69% I feel they're asymptomatic but consulted vascular surgery team for further input. They recommended symptomatic and supportive care, outpatient follow-up. Pending orthostatic vitals PT and OT are consulted Patient was placed on midodrine 10 mg 1 tablet 3 times a day by primary team. Please avoid any further hypotensive episode. We'll defer the rest of the medical management to the primary team and other specialists Plan was discussed with the patient. Dr. Gross will start neurology service tomorrow. Time with Patient: Less than 30
--- NOTE | 2023-01-26 00:27 | P.PN ---
Subjective Patient is seen for follow-up for end-stage renal disease. Patient is seen on hemodialysis. Tolerating treatment well. CT of the head was negative for any acute process. Soft tissue contusion on the left side noted. C/o headache. Objective - Vital Signs Vital signs: Vital Signs Temp 98 F 01/25/23 13:33 Pulse 73 01/25/23 15:38 Resp 16 01/25/23 15:38 BP 179/97 01/25/23 15:38 Pulse Ox 94 L 01/25/23 12:00 FiO2 Intake & Output 01/25/23 01/25/23 01/26/23 06:59 18:59 06:59 Intake Total 720 660 Output Total 2400 Balance 720 -1740 Weight 76.4 kg Intake: Oral 720 360 Hemodialysis 300 Output: Urine 100 Hemodialysis 2300 Other: Voiding Method Bedside Commode Bedside Commode # Voids 1 3 # Bowel Movements 1 1 - Exam Patient is awake, comfortable, no acute distress Soft tissues swelling on the top of the left side of the head Some bruising on the right side of the face noted which is improving from 2 weeks ago. Examination of the heart S1 and S2 Examination of the lungs bilateral breath sounds are heard Abdomen is soft nontender Examination lower extremity shows edema 2+ bilaterally with chronic skin changes GAGGERMAN exam grossly intact - Labs CBC & Chem 7: 01/25/23 13:25 01/24/23 11:56 Labs: Abnormal Lab Results - Last 24 Hours (Table) 01/25/23 Range/Units 13:25 RBC 2.79 L (3.80-5.40) m/uL Hgb 9.0 L (11.4-16.0) gm/dL Hct 26.9 L (34.0-46.0) % Assessment and Plan Assessment: 1. ESRD, on HD on MWF schedule. 2. Severe hyperkalemia associated with ESRD. 3. Bradycardia secondary to hyperkalemia. Improved. Metoprolol dose has been decreased. 4. Volume overload. 5. Mental status changes, r/o underlying infection/ sepsis. Mentation currently back to normal 6. Hypotension associated with bradycardia, r/o sepsis 7. H/o CVA 8. CKD mineral bone disorder. 9. History of fall about 2 weeks ago with hematoma/ contusion on the top of the head Plan: No anticoagulation with hemodialysis Continue off of betablockers. Repeat labs in a.m. Repeat hemodialysis in a.m. Continue with phosphate binders
--- NOTE | 2023-01-26 00:29 | P.PN ---
Subjective Patient is seen for follow-up for end-stage renal disease. Patient is seen on hemodialysis. Tolerating treatment well. CT of the head was negative for any acute process. Soft tissue contusion on the left side noted. C/o headache and left earache. Scheduled for HD today. Objective - Vital Signs Vital signs: Vital Signs Temp 98 F 01/25/23 13:33 Pulse 73 01/25/23 15:38 Resp 16 01/25/23 15:38 BP 179/97 01/25/23 15:38 Pulse Ox 94 L 01/25/23 12:00 FiO2 Intake & Output 01/25/23 01/25/23 01/26/23 06:59 18:59 06:59 Intake Total 720 660 Output Total 2400 Balance 720 -1740 Weight 76.4 kg Intake: Oral 720 360 Hemodialysis 300 Output: Urine 100 Hemodialysis 2300 Other: Voiding Method Bedside Commode Bedside Commode # Voids 1 3 # Bowel Movements 1 1 - Exam Patient is awake, comfortable, no acute distress Soft tissues swelling on the top of the left side of the head Some bruising on the right side of the face noted which is improving from 2 weeks ago. Examination of the heart S1 and S2 Examination of the lungs bilateral breath sounds are heard Abdomen is soft nontender Examination lower extremity shows edema 2+ bilaterally with chronic skin changes TYPE CUTTER exam grossly intact - Labs CBC & Chem 7: 01/25/23 13:25 01/24/23 11:56 Labs: Abnormal Lab Results - Last 24 Hours (Table) 01/25/23 Range/Units 13:25 RBC 2.79 L (3.80-5.40) m/uL Hgb 9.0 L (11.4-16.0) gm/dL Hct 26.9 L (34.0-46.0) % Assessment and Plan Assessment: 1. ESRD, on HD on MWF schedule. 2. Severe hyperkalemia associated with ESRD. 3. Bradycardia secondary to hyperkalemia. Improved. Metoprolol dose has been decreased. 4. Volume overload. 5. Mental status changes, r/o underlying infection/ sepsis. Mentation currently back to normal 6. Hypotension associated with bradycardia, r/o sepsis 7. H/o CVA 8. CKD mineral bone disorder. 9. History of fall about 2 weeks ago with hematoma/ contusion on the top of the head Plan: HD today. Continue off of betablockers. Repeat labs in a.m. UF about 2L today Continue with phosphate binders
[2023-01-26] MEDS: ONDANSETRON ODT 4 MG TAB PO PRN ×3 (02:16→20:17)
[2023-01-26] MEDS: BUTALB/APAP/CAFF 50-325-40MG TAB PO PRN ×3 (04:53→20:16)
[2023-01-26] MEDS: SEVELAMER 800 MG TAB PO SCH ×3 (06:50→17:10)
[2023-01-26] MEDS: DICYCLOMINE 10 MG CAP PO SCH ×3 (08:02→20:17)
[2023-01-26] MEDS: MONTELUKAST 10 MG TAB PO SCH (08:02)
[2023-01-26] MEDS: ATORVASTATIN 20 MG TAB PO SCH (08:02)
[2023-01-26] MEDS: MECLIZINE 25 MG TAB PO PRN ×2 (08:02→20:17)
[2023-01-26] MEDS: ISOSORBIDE MONONITRATE ER 30 MG TAB.ER.24H PO SCH (08:02)
[2023-01-26] MEDS: GABAPENTIN 100 MG CAP PO SCH ×2 (08:02→20:18)
[2023-01-26] MEDS: FLUTICASONE 50MCG/SPRAY NASAL 16GM EA NOSTRIL SCH (08:03)
[2023-01-26] MEDS: SYMBICORT 160-4.5 MCG INHALER INHALATION SCH ×2 (08:30→19:57)
--- NOTE | 2023-01-26 10:07 | P.GSCN ---
History of Present Illness Consult date: 01/26/23 Reason for Consult: Anemia History of present illness: This is a 62-year-old female who was Hospital for multiple medical problems. Patient noted to be anemic. Her he will was 9.0. Patient denies any obvious source of GI bleed. Past Medical History Past Medical History: Heart Failure, COPD, CVA/TIA, Dialysis, GERD/Reflux, Thyroid Disorder History of Any Multi-Drug Resistant Organisms: Unobtainable Additional Past Surgical History / Comment(s): Dialysis cath placement Past Anesthesia/Blood Transfusion Reactions: No Reported Reaction Past Psychological History: No Psychological Hx Reported Smoking Status: Unknown if ever smoked Past Alcohol Use History: Unable to Obtain Past Drug Use History: Unable to Obtain Medications and Allergies Home Medications Medication Instructions Recorded Confirmed Type Albuterol Nebulized [Ventolin 2.5 mg INHALATION RT-Q6H PRN 01/21/23 01/21/23 History Nebulized] Albuterol Sulfate [Albuterol 1 puff INHALATION RT-Q4H PRN 01/21/23 01/21/23 History Sulfate Hfa] Atorvastatin Calcium 20 mg PO DAILY 01/21/23 01/21/23 History Azithromycin [Zithromax Z Pack] See Taper PO DIRECTED 01/21/23 01/21/23 History Benzonatate [Tessalon Perles] 100 - 200 mg PO TID PRN 01/21/23 01/21/23 History Budesonide/Formoterol Fumarate 2 puff INHALATION RT-BID 01/21/23 01/21/23 History [Symbicort 160-4.5 Mcg Inhaler] Bumetanide [BUMEX] 4 mg PO TID 01/21/23 01/21/23 History Dicyclomine [Bentyl] 10 mg PO TID 01/21/23 01/21/23 History Fluticasone Nasal [place] [Flonase 2 spray EA NOSTRIL DAILY 01/21/23 01/21/23 History Nasal [place]] Gabapentin [Neurontin] 200 mg PO BID 01/21/23 01/21/23 History Isosorbide Mononitrate ER [Imdur] 30 mg PO DAILY 01/21/23 01/21/23 History Lidocaine-Prilocaine Cream [Emla 1 applic TOPICAL DIRECTED 01/21/23 01/21/23 History Cream 2.5%/2.5%] Loperamide [Imodium] 4 mg PO QID PRN 01/21/23 01/21/23 History Metoprolol Succinate (ER) [Toprol 50 mg PO HS 01/21/23 01/22/23 History Xl] Midodrine HCl 10 mg PO TID 01/21/23 01/21/23 History Montelukast [Singulair] 10 mg PO DAILY 01/21/23 01/21/23 History Omeprazole [PriLOSEC] 20 mg PO AC-SUPPER 01/21/23 01/21/23 History Ondansetron Odt [Zofran Odt] 4 mg PO Q8HR PRN 01/21/23 01/21/23 History SILVER sulfADIAZINE Cream 1 applic TOPICAL BID 01/21/23 01/21/23 History [Silvadene 1% Cream] Sevelamer Carbonate 1,600 - 2,400 mg PO DIRECTED 01/21/23 01/21/23 History amLODIPine [Norvasc] 10 mg PO DAILY 01/21/23 01/21/23 History hydrALAZINE HCL 10 mg PO TID 01/21/23 01/21/23 History lisinopriL [Zestril] 10 mg PO DAILY 01/21/23 01/21/23 History Ascorbic Acid [Vitamin C] 500 mg PO DAILY 01/22/23 01/22/23 History Aspirin EC [Ecotrin Low Dose] 81 mg PO DAILY 01/22/23 01/22/23 History Bismuth Subsalicylate 525 - 1,050 mg PO TID PRN 01/22/23 01/22/23 History [Pepto-Bismol Ultra] Cetirizine HCl 10 mg PO DAILY 01/22/23 01/22/23 History Cholecalciferol (Vitamin D3) 125 mcg PO DAILY 01/22/23 01/22/23 History [Vitamin D3] Cranberry 15,000 Mg Tab 15,000 mg PO DAILY 01/22/23 01/22/23 History Magnesium 250 mg PO DAILY 01/22/23 01/22/23 History Melatonin/Pyridoxine HCl (B6) 1 tab PO HS PRN 01/22/23 01/22/23 History [Melatonin-Vit B6 5-10 mg Tab] Multivit-Min/FA/Lycopen/Lutein 1 tab PO DAILY 01/22/23 01/22/23 History [Centrum Silver Tablet] Potassium Gluconate 99 mg PO DAILY 01/22/23 01/22/23 History Propylene Glycol [Systane Complete] 1 drop BOTH EYES HS 01/22/23 01/22/23 History Super B Complex 1 tab PO DAILY 01/22/23 01/22/23 History Vitamin E (Dl,Tocopheryl Acet) 400 unit PO DAILY 01/22/23 01/22/23 History [Vitamin E (400 Iu = 180 mg)] Zinc Gluconate [Zinc] 50 mg PO DAILY 01/22/23 01/22/23 History Allergies Allergy/AdvReac Type Severity Reaction Status Date / Time erythromycin base Allergy Unknown Verified 01/21/23 11:17 Penicillins Allergy Unknown Verified 01/21/23 11:17 Sulfa (Sulfonamide Allergy Unknown Verified 01/21/23 11:17 Antibiotics) sulfacetamide Allergy Unknown Verified 01/21/23 11:17 Surgical - Exam Vital Signs Pulse Resp BP Pulse Ox 48 L 20 96/76 86 L 01/21/23 09:44 01/21/23 09:44 01/21/23 09:44 01/21/23 09:44 - General well developed, well nourished, no distress - Eyes PERRL - ENT normal pinna, normal nares - Neck no masses - Respiratory normal expansion - Abdomen Abdomen: soft, non tender Results - Labs 01/25/23 13:25 01/24/23 11:56 Abnormal Lab Results - Last 24 Hours (Table) 01/25/23 Range/Units 13:25 RBC 2.79 L (3.80-5.40) m/uL Hgb 9.0 L (11.4-16.0) gm/dL Hct 26.9 L (34.0-46.0) % Assessment and Plan Assessment: Anemia. Patient will undergo endoscopic evaluation.
[2023-01-26] MEDS ORDERED: PEG 3350 (236 GM/BTL) + LYTES 4,000 ML BOTTLE PO ONE (10:08)
--- NOTE | 2023-01-26 11:27 | P.PN ---
Subjective Progress Note Date: 01/26/23 Principal diagnosis: Renal failure, hyperkalemia. This is a 62-year-old female patient with a known history of chronic obstructive pulmonary disease, hypothyroidism, gastroesophageal reflux disease, CVA/TIA, congestive heart failure, end-stage renal disease on hemodialysis Saturday. She was on her way to dialysis but became altered and and a little distress and was brought to [facility] instead. In the ER she was found to have a pulse rate in the 20s low blood pressure and high potassium greater than 8. She was placed on dopamine and given some atropine and eventually transcutaneously paced. She was also treated with insulin, D50 on the bicarb and calcium. She was transferred here to our ER for further evaluation and treatment. White count 11.7. Hemoglobin 10.4. Platelets 173. Sodium 134. Potassium 7.4. Chloride 94. Bicarb 29. BUN 54. Creatinine 7.11. Glucose 118. Arterial blood gases on 100% nonrebreather mask revealed a PaO2 of 129, pCO2 44 and a pH of 7.40. She is seen today in consultation in the emergency department. She is somewhat altered. Restless. She is currently receiving urgent hemodialysis. Remains on dopamine at 9 mcg/kg/m. Heart rate in the 60s. Blood pressure 101/53 with a mean of 69. Saturations in the 90s. Chest x-ray reveals cardiomegaly but no acute cardiopulmonary process. The patient is seen today 01/22/2023 in follow-up in the emergency department. She is arousable. She did receive hemodialysis yesterday with 2.6 L removed. Potassium had improved to 4.7. Currently 5.6. Sodium 135. Bicarb 27. BUN 28. Creatinine 4.08. Chest x-ray shows cardiomegaly with chronic interstitial lung disease. Versus mild venous congestion. She is continued on Symbicort, albuterol, Singulair. She remains afebrile. Hemodynamically stable. On oxygen at 2 L/m per nasal cannula. Progress note dated 01/23/2023. The patient is seen today in room 370. She is currently undergoing hemodialysi s. She's not receiving any IV fluids. She's currently on oxygen at 3 L by nasal cannula. She appears to be much more awake and alert today than she was yesterday. She was initially admitted from an outside hospital, for renal failure, and severe hyperkalemia. Her mental status is been poor, but is much better today. No new labs today as yet. Labs from yesterday show sodium 135, potassium 5.6, chlorides 100, CO2 27, BUN 28, creatinine 4.08. Brain CT showed no acute intracranial process. She does have a left frontal soft tissue contusion. Progress note dated 01/24/2023. The patient is seen today in room 370. She is currently not undergoing hemodialysis. She continues on oxygen at 3 L. No IV fluids. Labs today include a sodium 134, potassium 3.4, chlorides 99, CO2 29, BUN 15, creatinine 3.04. TSH is normal. The patient is a bit more awake today than she has been over the last few days. Her mental status has improved, since she's had hemodialysis. Brain MRI showed no acute intracranial process. Progress note dated 01/25/2023. 62-year-old female who looks much older than her stated age, is seen today in room 370. She is scheduled to have hemodialysis today. The patient is currently on O2 at 2 L. No IV fluids. She was initially admitted with a diagnosis of hyperkalemia, and bradycardia. No new labs today as yet. Labs from yesterday include a sodium 134, potassium 3.4, chlorides 99, CO2 29, and a BUN and creatinine of 15 and 3.04 respectively. Computed tomography scan of the abdomen and pelvis shows small bilateral pleural effusions, bilateral kidneys, and 1.3 cm right ovarian cyst. Progress note dated 01/26/2023. 62-year-old female seen today in room 370. She is resting comfortably. She's on room air. No IV fluids. Her dialysis days are Saturday/Saturday/Saturday. Clinically, her respiratory status is stable. After today, we will see the pat ient only as needed. She has no complaints today, denies any shortness of breath, or difficulty breathing. She was initially admitted with mental status changes, hyperkalemia, and bradycardia. No new labs today. Objective - Vital Signs Vital signs: Vital Signs Temp 98.2 F 01/26/23 07:54 Pulse 64 01/26/23 11:06 Resp 16 01/26/23 11:06 BP 142/70 01/26/23 11:06 Pulse Ox 95 01/26/23 11:06 FiO2 Intake & Output 01/25/23 01/26/23 01/26/23 18:59 06:59 18:59 Intake Total 660 360 Output Total 2400 Balance -1740 360 Weight 73.6 kg Intake: Oral 360 360 Hemodialysis 300 Output: Urine 100 Hemodialysis 2300 Other: Voiding Method Bedside Commode Bedside Commode Bedside Commode # Voids 3 1 # Bowel Movements 1 - Exam No acute distress, lethargic, but less so than the day before, and much more with it. Currently, on room air. HEENT examination is grossly unremarkable. Neck supple. Full range of motion. No adenopathy thyromegaly or neck vein distention. Cardiovascular examination reveals regular rhythm rate. S1-S2 normal. No S3 or S4. No discernible murmur noted. Heart sounds are distant. Heart rate 64 bpm. Lungs reveal mostly clear breath sounds. Scattered rhonchi are noted. No crackles. No wheezes. Breath sounds are equal bilaterally. Room air saturat ion is 95%. Abdomen soft bowel sounds are heard. No masses or tenderness. Extremities are intact. No cyanosis clubbing or edema. Skin is without rash or lesion. Neurologic examination is improved. - Labs CBC & Chem 7: 01/25/23 13:25 01/24/23 11:56 Labs: Abnormal Lab Results - Last 24 Hours (Table) 01/25/23 Range/Units 13:25 RBC 2.79 L (3.80-5.40) m/uL Hgb 9.0 L (11.4-16.0) gm/dL Hct 26.9 L (34.0-46.0) % Assessment and Plan Assessment: Altered mental status secondary to acute on chronic renal failure. Creatinine 7.1, S/P hemodialysis on 01/21/2023 with 2.6 L removed. Severe bradycardia secondary to hyperkalemia requiring transcutaneous pacing and dopamine infusion improved. Hypotension secondary to above, resolved. Hyperkalemia secondary to acute renal failure with potassium of 7.4. Postdialysis potassium improved to 4.7. Mild transaminitis. History of CVA/TIA. History of hypertension. History of congestive heart failure. History of COPD. Former smoker. Plan: Plan dated 01/23/2023. The patient is currently undergoing hemodialysis. The patient is much more awake and alert. Labs, x-rays, and medications are reviewed. We will continue to follow the patient and make recommendations along the way. She was initially admitted with worsening renal failure, and hyperkalemia, with bradycardia. Most of that has improved. Prognosis is still guarded. Plan dated 01/24/2023. Currently, the patient appears to be doing reasonably well. The patient is on a couple liters of oxygen. No IV fluids. Her mental status has seen gradual improvement over the last few days. Labs, x-rays, and medications are reviewed. No additional recommendations are made. Patient overall prognosis remains guarded. She does remain bradycardic. Plan dated 01/25/2023. The patient is seen today in room 370. She is on 2 L. Saturations are excellent. She is having hemodialysis again today. The patient is not receiving any IV fluids. Her potassium is in the normal range. Labs, x-rays, and medications are all reviewed. Prognosis is guarded. We will continue to follow the patient and make recommendations. Plan dated 01/26/2023. The patient is seen today in room 370. Clinically, she is the best he's been since he been here in the hospital. She's not receiving any IV fluids. Labs, x-rays, medications are reviewed. Her dialysis days are Saturday/Saturday/Saturday. She was initially admitted with mental status changes, hyperkalemia, and bradycardia. Prognosis is guarded. Moving forward, we will see her as needed. Time with Patient: Less than 30
--- NOTE | 2023-01-26 11:42 | P.PN ---
Subjective Patient is seen in follow-up for her incisional disease. She is maintained on hemodialysis on Saturday schedule. No problems with dialysis yesterday. Sitting up in bed. No active complaints. Vital signs are stable. General: No acute distress. HEENT: Head exam is unremarkable. LUNGS: No audible rhonchi or wheezes. HEART: Rate and Rhythm are regular. ABDOMEN: Nontender. EXTREMITITES: No edema. Objective - Vital Signs Vital signs: Vital Signs Temp 98.2 F 01/26/23 07:54 Pulse 64 01/26/23 11:06 Resp 16 01/26/23 11:06 BP 142/70 01/26/23 11:06 Pulse Ox 95 01/26/23 11:06 FiO2 Intake & Output 01/25/23 01/26/23 01/26/23 18:59 06:59 18:59 Intake Total 660 360 Output Total 2400 Balance -1740 360 Weight 73.6 kg Intake: Oral 360 360 Hemodialysis 300 Output: Urine 100 Hemodialysis 2300 Other: Voiding Method Bedside Commode Bedside Commode Bedside Commode # Voids 3 1 # Bowel Movements 1 - Labs CBC & Chem 7: 01/25/23 13:25 01/24/23 11:56 Labs: Abnormal Lab Results - Last 24 Hours (Table) 01/25/23 Range/Units 13:25 RBC 2.79 L (3.80-5.40) m/uL Hgb 9.0 L (11.4-16.0) gm/dL Hct 26.9 L (34.0-46.0) % Assessment and Plan Plan: Assessment: 1. End-stage renal disease maintained on hemodialysis on Saturday schedule. 2. Severe hyperkalemia secondary to end-stage renal disease. Improved postdialysis. 3. Bradycardia secondary to hyperkalemia. Metoprolol discontinued. Improved. 4. Volume overload. Improving ultrafiltration. 5. History of CVA. 6. Chronic kidney disease mineral bone disease maintained on Renvela. 7. Anemia of chronic kidney disease. Rule out iron deficiency. Also being seen by surgery with possible endoscopy this admission. Plan: Hemodialysis Saturday. Check iron studies.
[2023-01-26 11:47] LABS: African American GFR (CKD) 20 (>60 ml/min/1.73 sqM); Anion Gap 9 mmol/L; Blood Urea Nitrogen 14 mg/dL (7-17); Calcium 8.8 mg/dL (8.4-10.2); Carbon Dioxide 29 mmol/L (22-30); Chloride 95 mmol/L (98-107); Glucose 114 mg/dL (74-99); Non-African American GFR(CKD) 17 (>60 ml/min/1.73 sqM); Potassium 3.6 mmol/L (3.5-5.1); Sodium 133 mmol/L (137-145)
[2023-01-26 11:51] LABS: Basophils % (A) 0 %; Eosinophils # (A) 0.3 k/uL (0-0.7); Eosinophils % (A) 5 %; HCT 30.9 % (34.0-46.0); Hypochromasia Slight; Lymphocytes % (A) 19 %; MCH 31.7 pg (25.0-35.0); MCHC 32.2 g/dL (31.0-37.0); MCV 98.2 fL (80.0-100.0); Mean Platelet Volume 10.5; Monocytes # (A) 0.4 k/uL (0-1.0); Monocytes % (A) 8 %; Neutrophils # (A) 3.4 k/uL (1.3-7.7); Neutrophils % (A) 67 %; Platelet Count 166 k/uL (150-450); RBC 3.15 m/uL (3.80-5.40); RDW 15.2 % (11.5-15.5)
--- NOTE | 2023-01-26 15:14 | P.PN ---
Subjective Progress Note Date: 01/26/23 62 years old female with multiple medical problems Sent from [facility] to the emergency room for altered mental status. Patient was seen well in the emergency room, she was with altered mental status, she does not respond to verbal or tactile stimuli. Does not follow command. There is no asymmetry noted. However examination is limited by patient mental status.. Also got 1 dose of IV Ativan in the emergency room which made her more sleepy Patient is admitted on the stage renal disease on hemodialysis, she preferred with dialysis. Apparently a very saturday, saturday and saturday Admission her creatinine was 7.1, while at [facility] was 5.2, patient also has hyperkalemia with potassium 7.4 on admission. Patient is to get urgent hemodialysis in the emergency room. Blood pressure 112/58, heart rate 85, patient is mildly tachypneic. Marked leukocytosis with a 11.7. Chest x-ray showed pulmonary venous congestion with scattered interstitial edema. Repeat chest x-ray this facility showed cardiomegaly with no acute process. CT of the pressure with no acute intracranial process. Patient also on dopamine drip. Patient is in critical condition is going to be monitored the ICU currently. 01/22/2023 patient is awake alert today, she is now she is an [facility] and she knows the daytime and date and the name of the president, she follows commands and has insight She looks a little bit agitated and at bedtime today, she got bothered easily with frequent questioning. She is complaining of from headache described by the patient as 10/10 all over, nonspecific in character associated with vomiting (patient has been vomiting for the last 2-3 days as she describes) and dizziness. She describes dizziness as a room is spinning around her. She denies any other specific symptoms to me. Afebrile, vital signs stable Laps improvement with potassium down to 5.6 and creatinine down to 4.0. WBC 11.7 and hemoglobin 11.4 Chest x-ray showing pulmonary venous congestion with vascular interstitial edema Repeat chest x-ray is pending. I reviewed myself with no significant change from yesterday 01/23/2023 awake and alert today somewhat lethargic and somnolent but she keeps her eye opening and she answers questions appropriately and follow commands. She is going for another hemodialysis this morning. She still complaining of from dizziness and she states that the room is spinning. CT of the brain was negative for acute process. This morning she was bradycardic with heart rate wasn't for these we lowered her metoprolol 50 mg down to 12.5 mg with close monitoring. Patient also not eating well. 01/24/2023 She does not look very fatigued or tired although she stays in bed most of the time. She still complaining from vertigo and headache therefore one-time dose of [place] is tried as well as meclizine to assess any improvement. MRI of the brain was negative for acute process (MRI of the brain showing no acute intracranial process but numerous bilateral focal areas of abnormal signal white matter are nonspecific and can be associated with hypertension, remote microvascular ischemic white matter disease or demyelinating) She has some evidence of right carotid artery stenosis about 69%, vascular surgery recommended no inpatient surgical intervention but outpatient CTA of the head and neck and the site of the case. Echocardiogram showing ejection fraction of 50-55% and moderate mitral regurgitation however patient remains bradycardic and currently she is not on beta ira (at home she was on 50 mg at bedtime which was discontinued) we wi ll continue monitor tomorrow and if no improvement in heart rate then may consider further steps. TSH is normal Patient still able to eat well, she still complaining from nausea and vomiting, she complains from vague abdominal pain and generalized tenderness but abdomen soft and symptoms of mild, because she is still not able to eat we will order CT of the abdomen and pelvis without contrast with close monitoring Hemodialysis per Nephrology 01/25/2023 Patient initially came in with altered mental status, next a she woke up with headache and vertigo and been complaining for the last few days, today looks better, she did not complain from headache. Besides MRI of the brain came back negative for acute process as above. However patient started having complaining of from abdominal pain and she was not eating well last couple days, we'll obtain CT of the abdomen and pelvis which was negative for acute process, patient today she is able to eat well, she still complaining of from some abdominal discomfort however she saw me this been going on for months. Patient also reports black stool, or donuts check hemoglobin today. She continue with hemodialysis She has evidence of carotid artery stenosis however vascular surgery recommended outpatient CTA and outpatient follow-up with vascular surgery team she was bradycardic with heart rate improved today 71,58 and 66 01/26/2023 Patient seen and evaluated bedside. Patient is sleeping easily arousable goes b ack to sleep. Per nursing staff patient has been alert and oriented. She did eat breakfast. Blood work shows improved potassium levels. Blood glucose 114. Stool C. diff negative Objective - Vital Signs Vital signs: Vital Signs Temp 98.2 F 01/26/23 07:54 Pulse 64 01/26/23 13:24 Resp 16 01/26/23 11:06 BP 142/70 01/26/23 11:06 Pulse Ox 95 01/26/23 11:06 FiO2 Intake & Output 01/25/23 01/26/23 01/26/23 18:59 06:59 18:59 Intake Total 660 600 Output Total 2400 Balance -1740 600 Weight 73.6 kg Intake: Oral 360 600 Hemodialysis 300 Output: Urine 100 Hemodialysis 2300 Other: Voiding Method Bedside Commode Bedside Commode Bedside Commode # Voids 3 1 # Bowel Movements 1 - Exam -GENERAL: The patient is sleeping, lethargic easily arousable. HEENT: Pupils are round and equally reacting to light. CARDIOVASCULAR: S1 and S2 present. No murmurs, rubs, or gallops. Dialysis catheter in place, lower extremity edema noted PULMONARY: Chest is clear to auscultation, no wheezing , no crackles. ABDOMEN: Soft, nontender, nondistended, normoactive bowel sounds. No palpable organomegaly. MUSCULOSKELETAL: No joint swelling or deformity. NEUROLOGICAL: Logical exam limited - Labs CBC & Chem 7: 01/26/23 09:04 01/26/23 09:04 Labs: Abnormal Lab Results - Last 24 Hours (Table) 01/26/23 01/26/23 Range/Units 09:04 09:04 RBC 3.15 L (3.80-5.40) m/uL Hgb 10.0 L (11.4-16.0) gm/dL Hct 30.9 L (34.0-46.0) % Sodium 133 L (137-145) mmol/L Chloride 95 L (98-107) mmol/L Creatinine 2.85 H (0.52-1.04) mg/dL Glucose 114 H (74-99) mg/dL Assessment and Plan Assessment: Assessment: Acute metabolic/toxic encephalopathy, improving Severe bradycardia secondary to electrolyte abnormalities requiring transcutaneous pacing and obesity. Effusion headache with vertigo, improving Carotid artery stenosis Abdominal pain, chronic. CT of the abdomen and pelvis was unremarkable for acute appendicitis. End-stage renal disease(Saturday and Saturday, presents with worsening creatinine and hyperkalemia COPD, History of CVA/TIA History of hypothyroidism Plan: * Consult obtained from vascular surgery, general surgery, nephrology, neurology * Neurology consult. MRI of the brain is negative for acute process. Symptomatic treatment of vertigo * Continue with hemodialysis as per nephrology team on the case. Monitor Creatinine and hyperkalemia improvement * Pulmonary/critical care team consult already on the case * Vascular surgery recommend outpatient CTA of the head and neck * Continue to hold metoprolol 60 to bradycardia
--- NOTE | 2023-01-26 17:37 | P.PN ---
Subjective Progress Note Date: 01/26/23 Patient was initially seen by Dr. Ernie aDniel. Please refer to his note for details. Patient is a 62-year-old female with vertigo, ptosis of both eyes. MRI of the brain is negative. She had eye surgery in the past. Patient has generalized weakness. Patient states that every time she turns her head, gets worse. When she is laying down, room spins. She is complaining of sharp pain in the ears bilaterally, left more than right. She states that she has history of ear infections in the past. Telemetry monitoring showing sinus rhythm, with sinus bradycardia, some PVCs and PACs. Some of the workup during this hospital visit consisted of: Heart rates upon presentation was in the 40s Initial potassium is 7.4 that improved to 4.7. Creatinine 7.11 improved to 4.08--3.04 Vital B12 is 1075 TSH is a 1.230 CK levels 113. AST 71 ALT of 39. TSH is 1.230 CT of the head is reported as no acute intracranial process. Left frontal soft tissue contusion. No evidence of fracture. I personally reviewed the CT of head and I agree with the report. MRI of the brain without is reported as no acute intracranial process. Numerous bilateral focal area of abnormal signal white matter are nonspecific and can be an associate with hypertension, remote microvascular ischemic white matter disease or demyelinating the correlate clinically. Left frontal soft tissue subcutaneous hematoma stable. I personally reviewed the MRI and I agree there is no acute or subacute ischemia. Regarding the FLAIR white matter hyperintensities I feel they're not specific Carotid duplex is reported as moderate approaching severe stenosis of right internal carotid artery approaching 69%. Moderate narrowing between 50-69% left ICA to carotid artery based on velocity. Incidental note made on 1 cm nodule in the left lobe thyroid. Consider dedicated thyroid ultrasound workup. Objective - Vital Signs Vital signs: Vital Signs Temp 98.4 F 01/26/23 15:11 Pulse 62 01/26/23 15:11 Resp 16 01/26/23 15:11 BP 163/77 01/26/23 15:11 Pulse Ox 99 01/26/23 15:11 FiO2 Intake & Output 01/25/23 01/26/23 01/26/23 18:59 06:59 18:59 Intake Total 660 600 Output Total 2400 Balance -1740 600 Weight 73.6 kg Intake: Oral 360 600 Hemodialysis 300 Output: Urine 100 Hemodialysis 2300 Other: Voiding Method Bedside Commode Bedside Commode Bedside Commode # Voids 3 1 # Bowel Movements 1 - Exam Patient is alert and awake, in no distress. Speech is completely clear with no aphasia or dysarthria. She knows it is January and the year is 23 and that she is in [facility]. Cranial nerves are significant for significant Exopthalmos bilaterally. Patient appears to have some significant bilateral ophthalmoplegia. Pupils are equal, round and reacting, face is symmetric. On muscle strength testing, patient was giving extremely decreased effort. Her deltoids were 3+4-, biceps 4 to 4-, triceps 4-, hip flexion 4-, ankle dorsiflexion 5-. The strength was fluctuating it appears and was improving with endurance and repeated instructions. It took almost 10 attempts before patient was able to give effort of 5-for the ankles otherwise it was only 3+. Reflexes are 1+ to 2+. Sensations are equal. - Labs CBC & Chem 7: 01/29/23 08:00 01/29/23 08:00 Labs: Abnormal Lab Results - Last 24 Hours (Table) 01/26/23 01/26/23 Range/Units 09:04 09:04 RBC 3.15 L (3.80-5.40) m/uL Hgb 10.0 L (11.4-16.0) gm/dL Hct 30.9 L (34.0-46.0) % Sodium 133 L (137-145) mmol/L Chloride 95 L (98-107) mmol/L Creatinine 2.85 H (0.52-1.04) mg/dL Glucose 114 H (74-99) mg/dL Assessment and Plan Assessment: This is a 62-year-old woman history of end-stage renal disease on dialysis, congestive heart failure who is having syncopal episode at home and she states the her episode happened upon her blood pressure dropping. As a result she had a fall and hit her head. She's complaining of the dizziness as well as was having vomiting and the vomiting is resolved. He is having generalized weakness. Upon presented to our hospital her systolic blood pressure was in the 80s. Acute Vertigo: Seems due to hypotensive episodes and possible bradycardia. On MRI there is no acute or subacute ischemia. Carotid stenosis is right ICA of close to 69% while left is between 50-69% on carotid duplex. I doubt this is the culprit for the patient's vertigo. Syncopal episodes likely due to her hypotensive episode. EEG is negative for any seizure or any epileptiform discharges. Patient has bilateral ptosis as well as restriction movement of eyes on the lateral gaze more restriction look into the right and left and patient stated that she had eye correction in the past, doubt this is a central cause and appears it is more ophthalmological related that seems old. BradyCardia in 40's but per patient's nurse where as low as 20-30's. Hypotensive episodes as well as systolic in the 80s hyperkalenia as high as 7.4 --resolved Generalized weakness Congestive heart failure End-stage renal disease on dialysis Plan: Patient has bilateral exopthalmos, ptosis as well as some ophthalmoparesis. Acetylcholine receptor antibody is ordered and is pending. Recommend the patient follow up with direct support worker and neurologist for further evaluation. Thyroid functions are normal. MRI the brain was negative for any acute or subacute ischemic stroke. Regarding the bilateral carotid stenosis between 50-69%, vascular surgery has seen the patient, recommending symptomatic and supportive care. Recommend CT angiogram of head and neck which can be done as outpatient. Continue Lipitor. They recommended patient to follow up in the office for carotid surveillance. No indication at this time for vascular surgical intervention. Pending orthostatic vitals PT and OT are consulted Patient was placed on midodrine 10 mg 1 tablet 3 times a day by primary team. Please avoid any further hypotensive episode. We'll defer the rest of the medical management to the primary team and other specialists
[2023-01-27] MEDS: BENZONATATE 100 MG CAP PO PRN ×2 (02:46→15:10)
[2023-01-27] MEDS: SEVELAMER 800 MG TAB PO SCH ×3 (06:44→17:12)
[2023-01-27] MEDS: GABAPENTIN 100 MG CAP PO SCH ×2 (07:55→22:31)
[2023-01-27] MEDS: ATORVASTATIN 20 MG TAB PO SCH (07:55)
[2023-01-27] MEDS: FLUTICASONE 50MCG/SPRAY NASAL 16GM EA NOSTRIL SCH (07:55)
[2023-01-27] MEDS: DICYCLOMINE 10 MG CAP PO SCH ×3 (07:55→22:31)
[2023-01-27] MEDS: ISOSORBIDE MONONITRATE ER 30 MG TAB.ER.24H PO SCH (07:55)
[2023-01-27] MEDS: MONTELUKAST 10 MG TAB PO SCH (07:55)
[2023-01-27] MEDS ORDERED: PEG 3350 (236 GM/BTL) + LYTES 4,000 ML BOTTLE PO ONE (08:08)
[2023-01-27 10:01] LABS: Iron 63 UG/DL (50-170); Total Iron Binding Capacity 280 UG/DL (228-460)
--- NOTE | 2023-01-27 10:48 | P.PN ---
Subjective Patient is seen in follow-up for end-stage renal She is maintained on hemodialysis on Saturday schedule. Sitting up in bed. No active complaints. Scheduled for endoscopy tomorrow. Vital signs are stable. General: No acute distress. HEENT: Head exam is unremarkable. LUNGS: No audible rhonchi or wheezes. HEART: Rate and Rhythm are regular. ABDOMEN: Nontender. EXTREMITITES: Trace edema. Objective - Vital Signs Vital signs: Vital Signs Temp 98.0 F 01/27/23 07:52 Pulse 71 01/27/23 07:52 Resp 16 01/27/23 07:52 BP 164/87 01/27/23 07:52 Pulse Ox 98 01/27/23 07:52 FiO2 Intake & Output 01/26/23 01/27/23 01/27/23 18:59 06:59 18:59 Intake Total 960 120 Balance 960 120 Weight 65.4 kg Intake: Oral 960 120 Other: Voiding Method Bedside Commode Bedside Commode Bedside Commode # Voids 1 1 # Bowel Movements 1 - Labs CBC & Chem 7: 01/26/23 09:04 01/26/23 09:04 Labs: Abnormal Lab Results - Last 24 Hours (Table) 01/26/23 01/26/23 Range/Units 09:04 09:04 RBC 3.15 L (3.80-5.40) m/uL Hgb 10.0 L (11.4-16.0) gm/dL Hct 30.9 L (34.0-46.0) % Sodium 133 L (137-145) mmol/L Chloride 95 L (98-107) mmol/L Creatinine 2.85 H (0.52-1.04) mg/dL Glucose 114 H (74-99) mg/dL Transferrin 200.0 L (204.0-354.0) mg/dL Ferritin 1809.0 H (10.0-291.0) ng/mL Assessment and Plan Plan: Assessment: 1. End-stage renal disease maintained on hemodialysis on Saturday schedule. 2. Severe hyperkalemia secondary to end-stage renal disease. Improved postdialysis. 3. Bradycardia secondary to hyperkalemia. Metoprolol discontinued. Improved. 4. Volume overload. Improving ultrafiltration. 5. History of CVA. 6. Chronic kidney disease mineral bone disease maintained on Renvela. 7. Anemia of chronic kidney disease. High ferritin noted. Endoscopy tomorrow. Plan: Hemodialysis Saturday. Add Cheryl.
[2023-01-27] MEDS ORDERED: DARBEPOETIN ALFA 40 MCG/0.4 ML SYRINGE SQ SCH (11:00)
[2023-01-27] MEDS: SYMBICORT 160-4.5 MCG INHALER INHALATION SCH ×2 (11:15→19:53)
[2023-01-27] MEDS: MECLIZINE 25 MG TAB PO PRN (11:40)
[2023-01-27] MEDS: BUTALB/APAP/CAFF 50-325-40MG TAB PO PRN (11:40)
[2023-01-27] MEDS: ONDANSETRON ODT 4 MG TAB PO PRN (11:40)
[2023-01-27] MEDS: hydrALAZINE HCL 50 MG TAB PO SCH ×3 (11:40→22:31)
--- NOTE | 2023-01-27 12:38 | P.PN ---
Subjective Progress Note Date: 01/27/23 62 years old female with multiple medical problems Sent from [facility] to the emergency room for altered mental status. Patient was seen well in the emergency room, she was with altered mental status, she does not respond to verbal or tactile stimuli. Does not follow command. There is no asymmetry noted. However examination is limited by patient mental status.. Also got 1 dose of IV Ativan in the emergency room which made her more sleepy Patient is admitted on the stage renal disease on hemodialysis, she preferred with dialysis. Apparently a very saturday, saturday and saturday Admission her creatinine was 7.1, while at [facility] was 5.2, patient also has hyperkalemia with potassium 7.4 on admission. Patient is to get urgent hemodialysis in the emergency room. Blood pressure 112/58, heart rate 85, patient is mildly tachypneic. Marked leukocytosis with a 11.7. Chest x-ray showed pulmonary venous congestion with scattered interstitial edema. Repeat chest x-ray this facility showed cardiomegaly with no acute process. CT of the pressure with no acute intracranial process. Patient also on dopamine drip. Patient is in critical condition is going to be monitored the ICU currently. 01/22/2023 patient is awake alert today, she is now she is an [facility] and she knows the daytime and date and the name of the president, she follows commands and has insight She looks a little bit agitated and at bedtime today, she got bothered easily with frequent questioning. She is complaining of from headache described by the patient as 10/10 all over, nonspecific in character associated with vomiting (patient has been vomiting for the last 2-3 days as she describes) and dizziness. She describes dizziness as a room is spinning around her. She denies any other specific symptoms to me. Afebrile, vital signs stable Laps improvement with potassium down to 5.6 and creatinine down to 4.0. WBC 11.7 and hemoglobin 11.4 Chest x-ray showing pulmonary venous congestion with vascular interstitial edema Repeat chest x-ray is pending. I reviewed myself with no significant change from yesterday 01/23/2023 awake and alert today somewhat lethargic and somnolent but she keeps her eye opening and she answers questions appropriately and follow commands. She is going for another hemodialysis this morning. She still complaining of from dizziness and she states that the room is spinning. CT of the brain was negative for acute process. This morning she was bradycardic with heart rate wasn't for these we lowered her metoprolol 50 mg down to 12.5 mg with close monitoring. Patient also not eating well. 01/24/2023 She does not look very fatigued or tired although she stays in bed most of the time. She still complaining from vertigo and headache therefore one-time dose of Sod is tried as well as meclizine to assess any improvement. MRI of the brain was negative for acute process (MRI of the brain showing no acute intracranial process but numerous bilateral focal areas of abnormal signal white matter are nonspecific and can be associated with hypertension, remote microvascular ischemic white matter disease or demyelinating) She has some evidence of right carotid artery stenosis about 69%, vascular surgery recommended no inpatient surgical intervention but outpatient CTA of the head and neck and the site of the case. Echocardiogram showing ejection fraction of 50-55% and moderate mitral regurgitation however patient remains bradycardic and currently she is not on beta ira (at home she was on 50 mg at bedtime which was discontinued) we wi ll continue monitor tomorrow and if no improvement in heart rate then may consider further steps. TSH is normal Patient still able to eat well, she still complaining from nausea and vomiting, she complains from vague abdominal pain and generalized tenderness but abdomen soft and symptoms of mild, because she is still not able to eat we will order CT of the abdomen and pelvis without contrast with close monitoring Hemodialysis per Nephrology 01/25/2023 Patient initially came in with altered mental status, next a she woke up with headache and vertigo and been complaining for the last few days, today looks better, she did not complain from headache. Besides MRI of the brain came back negative for acute process as above. However patient started having complaining of from abdominal pain and she was not eating well last couple days, we'll obtain CT of the abdomen and pelvis which was negative for acute process, patient today she is able to eat well, she still complaining of from some abdominal discomfort however she saw me this been going on for months. Patient also reports black stool, or donuts check hemoglobin today. She continue with hemodialysis She has evidence of carotid artery stenosis however vascular surgery recommended outpatient CTA and outpatient follow-up with vascular surgery team she was bradycardic with heart rate improved today 71,58 and 66 01/26/2023 Patient seen and evaluated bedside. Patient is sleeping easily arousable goes back to sleep. Per nursing staff patient has been alert and oriented. She did eat breakfast. Blood work shows improved potassium levels. Blood glucose 114. Stool C. diff negative 01/27/2023 patient seen and evaluated bedside. Mentation has improved. Patient easily arousable. Planning gastrointestinal workup general surgery following Objective - Vital Signs Vital signs: Vital Signs Temp 98.0 F 01/27/23 07:52 Pulse 74 01/27/23 11:31 Resp 16 01/27/23 11:31 BP 174/86 01/27/23 11:31 Pulse Ox 97 01/27/23 11:31 FiO2 Intake & Output 01/26/23 01/27/23 01/27/23 18:59 06:59 18:59 Intake Total 960 120 Balance 960 120 Weight 65.4 kg Intake: Oral 960 120 Other: Voiding Method Bedside Commode Bedside Commode Bedside Commode # Voids 1 1 # Bowel Movements 1 - Exam -GENERAL: The patient is sleeping, easily arousable does follow commands HEENT: Pupils are round and equally reacting to light. CARDIOVASCULAR: S1 and S2 present. No murmurs, rubs, or gallops. Dialysis catheter in place, lower extremity edema noted PULMONARY: Chest is clear to auscultation, no wheezing , no crackles. ABDOMEN: Soft, nontender, nondistended, normoactive bowel sounds. No palpable organomegaly. MUSCULOSKELETAL: No joint swelling or deformity. NEUROLOGICAL: Exam limited secondary to waxing and waning mentation - Labs CBC & Chem 7: 01/26/23 09:04 01/26/23 09:04 Labs: Abnormal Lab Results - Last 24 Hours (Table) 01/26/23 Range/Units 09:04 Transferrin 200.0 L (204.0-354.0) mg/dL Ferritin 1809.0 H (10.0-291.0) ng/mL Assessment and Plan Assessment: Assessment: Acute metabolic/toxic encephalopathy, improving Severe bradycardia secondary to electrolyte abnormalities requiring transcutaneous pacing and obesity. Effusion headache with vertigo, improving Carotid artery stenosis Abdominal pain, chronic. CT of the abdomen and pelvis was unremarkable for acute appendicitis. End-stage renal disease(Saturday and Saturday, presents with worsening creatinine and hyperkalemia Bilateral ptosis COPD, History of CVA/TIA History of hypothyroidism Plan: * Consult obtained from vascular surgery, general surgery, nephrology, neurology * Neurology consult. MRI of the brain is negative for acute process. Symptomatic treatment of vertigo * Continue with hemodialysis as per nephrology team on the case. Monitor for electrolyte abnormality * In regards to bilateral ptosis illicit alcohol or receptor antibody ordered and pending. Patient seen by cardiology recommended ophthalmology follow up outpatient * Pulmonary/critical care team consult already on the case * Vascular surgery recommend outpatient CTA of the head and neck * Continue to hold metoprolol 60 to bradycardia
--- NOTE | 2023-01-27 14:11 | P.PN ---
Progress Note - Text Progress Note Date: 01/27/23 Patient is stable. Her hemoglobin is 10.0. She is currently doing her bowel prep. On exam vital signs are stable. Abdomen soft. Patiently sent for EGD and colonoscopy in the a.m.
[2023-01-27] MEDS ORDERED: LEVOFLOXACIN 500 MG TAB PO SCH (15:00)
[2023-01-27] MEDS: guaiFENesin 600 MG TABLET.ER PO SCH (15:10)
[2023-01-27 16:50] LABS: HCT 29.4 % (34.0-46.0); HGB 9.7 gm/dL (11.4-16.0); Hypochromasia Slight; MCH 32.1 pg (25.0-35.0); MCV 97.2 fL (80.0-100.0); Mean Platelet Volume 8.3; Platelet Count 172 k/uL (150-450); RBC 3.02 m/uL (3.80-5.40); RDW 15.4 % (11.5-15.5); WBC 4.9 k/uL (3.8-10.6)
[2023-01-27 17:57] LABS: African American GFR (CKD) 13 (>60 ml/min/1.73 sqM); Anion Gap 11 mmol/L; Blood Urea Nitrogen 26 mg/dL (7-17); Calcium 8.8 mg/dL (8.4-10.2); Carbon Dioxide 26 mmol/L (22-30); Chloride 94 mmol/L (98-107); Glucose 86 mg/dL (74-99); Magnesium 2.3 mg/dL (1.6-2.3); Non-African American GFR(CKD) 11 (>60 ml/min/1.73 sqM); Potassium 4.8 mmol/L (3.5-5.1); Sodium 131 mmol/L (137-145)
[2023-01-28] MEDS: CARBAMIDE PEROXIDE 6.5% DROPS 15 ML BTL BOTH EARS SCH ×3 (06:13→21:56)
[2023-01-28] MEDS: guaiFENesin 600 MG TABLET.ER PO SCH ×3 (06:13→21:56)
[2023-01-28] MEDS: SEVELAMER 800 MG TAB PO SCH ×3 (06:39→18:37)
[2023-01-28] MEDS: DICYCLOMINE 10 MG CAP PO SCH ×3 (08:12→21:56)
[2023-01-28] MEDS: ATORVASTATIN 20 MG TAB PO SCH (08:12)
[2023-01-28] MEDS: MONTELUKAST 10 MG TAB PO SCH (08:12)
[2023-01-28] MEDS: hydrALAZINE HCL 50 MG TAB PO SCH ×3 (08:13→21:56)
[2023-01-28] MEDS: ISOSORBIDE MONONITRATE ER 30 MG TAB.ER.24H PO SCH (08:13)
[2023-01-28 09:24] LABS: HCT 28.4 % (34.0-46.0); HGB 9.4 gm/dL (11.4-16.0); MCH 32.2 pg (25.0-35.0); MCHC 33.3 g/dL (31.0-37.0); MCV 96.8 fL (80.0-100.0); Mean Platelet Volume 8.6; Platelet Count 139 k/uL (150-450); RBC 2.93 m/uL (3.80-5.40); RDW 15.5 % (11.5-15.5); WBC 4.4 k/uL (3.8-10.6)
[2023-01-28 09:47] LABS: African American GFR (CKD) 12 (>60 ml/min/1.73 sqM); Blood Urea Nitrogen 27 mg/dL (7-17); Carbon Dioxide 25 mmol/L (22-30); Glucose 80 mg/dL (74-99); Non-African American GFR(CKD) 10 (>60 ml/min/1.73 sqM)
[2023-01-28] MEDS: SYMBICORT 160-4.5 MCG INHALER INHALATION SCH ×2 (09:56→20:00)
[2023-01-28 10:03] LABS: Anion Gap 8 mmol/L; Chloride 97 mmol/L (98-107); Potassium 5.5 mmol/L (3.5-5.1); Sodium 130 mmol/L (137-145)
[2023-01-28] MEDS ORDERED: GLUCAGON 1 MG/ML VIAL ONE (10:17)
[2023-01-28] MEDS ORDERED: PROPOFOL 10 MG/ML 20 ML VIAL IV ONE (10:17)
[2023-01-28] MEDS ORDERED: LIDOCAINE 2% INJ 20 MG/ML (2 ML VIAL) ONE (10:17)
[2023-01-28] MEDS ORDERED: IV FLUID CONTINUATION 1,000 ML IV ONE (10:20)
--- NOTE | 2023-01-28 10:43 | P.OP ---
Date of Procedure: 01/28/23 Preoperative Diagnosis: Anemia Postoperative Diagnosis: Antral gastritis Normal colon Procedure(s) Performed: EGD Colonoscopy Anesthesia: MAC Surgeon: Keron Almonte Pathology: other (Antrum) Condition: stable Disposition: PACU Description of Procedure: The patient's placed on the endoscopy table in the lateral position. She received IV sedation. The gastroscope placed oropharynx passed in the esophagus and stomach. Scope was then placed through the pylorus. First and second portion of the duodenum appeared normal. Scope was then brought back the antrum this was mildly inflamed. A biopsies performed. Scope was unretroflexed and remainder the stomach appeared normal. The GE junction was at 47 is. The distal esophagus appeared normal. The proximal esophagus. Scope withdrawn for patient. Next digital rectal exam was performed. This revealed no abnormalities. Flexible colonoscope was then placed patient anus and passed throughout the entire colon. There is a large amount liquid stool the right colon which limited the view of the mucosa. There was no abnormalities seen. The visualized ascending colon, transverse colon appeared normal. The descending and sigmoid colon appeared normal. Scope back the rectum and this appeared normal. Scope withdrawn for patient. There is no evidence of any active GI bleed. Resume the patient may have had bleeding from gastritis.
[2023-01-28] MEDS: GABAPENTIN 100 MG CAP PO SCH ×2 (11:33→21:55)
[2023-01-28] MEDS: FLUTICASONE 50MCG/SPRAY NASAL 16GM EA NOSTRIL SCH (11:33)
--- NOTE | 2023-01-28 13:42 | P.PN ---
Subjective Patient is seen in follow-up for end-stage renal She is maintained on hemodialysis on Saturday schedule. Resting in bed. He underwent EGD and colonoscopy this morning that showed antral gastritis. Vital signs are stable. General: No acute distress. HEENT: Head exam is unremarkable. LUNGS: No audible rhonchi or wheezes. HEART: Rate and Rhythm are regular. ABDOMEN: Nontender. EXTREMITITES: Trace edema. Objective - Vital Signs Vital signs: Vital Signs Temp 98.3 F 01/28/23 11:56 Pulse 71 01/28/23 12:03 Resp 16 01/28/23 12:03 BP 171/90 01/28/23 11:56 Pulse Ox 96 01/28/23 11:56 FiO2 Intake & Output 01/27/23 01/28/23 01/28/23 18:59 06:59 18:59 Intake Total 120 280 Balance 120 280 Weight 71.5 kg Intake: IV 100 Oral 120 180 Other: Voiding Method Bedside Commode Bedside Commode Bedside Commode # Voids 3 # Bowel Movements 6 1 - Labs CBC & Chem 7: 01/28/23 08:37 01/28/23 08:37 Labs: Abnormal Lab Results - Last 24 Hours (Table) 01/27/23 01/27/23 01/28/23 Range/Units 15:44 15:44 08:37 RBC 3.02 L 2.93 L (3.80-5.40) m/uL Hgb 9.7 L 9.4 L (11.4-16.0) gm/dL Hct 29.4 L 28.4 L (34.0-46.0) % Plt Count 139 L (150-450) k/uL Sodium 131 L (137-145) mmol/L Potassium (3.5-5.1) mmol/L Chloride 94 L (98-107) mmol/L BUN 26 H (7-17) mg/dL Creatinine 4.12 H (0.52-1.04) mg/dL 01/28/23 Range/Units 08:37 RBC (3.80-5.40) m/uL Hgb (11.4-16.0) gm/dL Hct (34.0-46.0) % Plt Count (150-450) k/uL Sodium 130 L (137-145) mmol/L Potassium 5.5 H (3.5-5.1) mmol/L Chloride 97 L (98-107) mmol/L BUN 27 H (7-17) mg/dL Creatinine 4.32 H (0.52-1.04) mg/dL Assessment and Plan Plan: Assessment: 1. End-stage renal disease maintained on hemodialysis on Saturday schedule. 2. Severe hyperkalemia secondary to end-stage renal disease. Improved postdialysis. 3. Bradycardia secondary to hyperkalemia. Metoprolol discontinued. Improved. 4. Volume overload. Improving ultrafiltration. 5. History of CVA. 6. Chronic kidney disease mineral bone disease maintained on Renvela. 7. Anemia of chronic kidney disease. High ferritin noted. EGD showed antral gastritis. Colonoscopy normal. On Aranesp. 8. Hyponatremia secondary to chronic kidney disease. Plan: Hemodialysis today. Check phosphorus level.
--- NOTE | 2023-01-28 13:53 | P.PN ---
Subjective Progress Note Date: 01/28/23 CHIEF COMPLAINT: Anemia HISTORY OF PRESENT ILLNESS: Patient status post EGD and colonoscopy that demonstrated antral gastritis and normal colonoscopy. No evidence of active bleeding. Presumed patient may have had bleeding from gastritis. Hgb stable at 9.4 PHYSICAL EXAM: VITAL SIGNS: Reviewed. ABDOMEN: Soft. ASSESSMENT: 1. Gastritis 2. Anemia PLAN: -Continue to observe -Continue diet -Add Protonix daily Physician [employer] note has been reviewed by physician. Signing provider agrees with the documented findings, assessment, and plan of care. Objective - Vital Signs Vital signs: Vital Signs Temp 98.3 F 01/28/23 11:56 Pulse 71 01/28/23 11:56 Resp 16 01/28/23 11:56 BP 171/90 01/28/23 11:56 Pulse Ox 96 01/28/23 11:56 FiO2 Intake & Output 01/27/23 01/28/23 01/28/23 18:59 06:59 18:59 Intake Total 120 100 Balance 120 100 Weight 71.5 kg Intake: IV 100 Oral 120 Other: Voiding Method Bedside Commode Bedside Commode Bedside Commode # Voids 3 # Bowel Movements 6 - Labs CBC & Chem 7: 01/28/23 08:37 01/28/23 08:37 Labs: Abnormal Lab Results - Last 24 Hours (Table) 01/27/23 01/27/23 01/28/23 Range/Units 15:44 15:44 08:37 RBC 3.02 L 2.93 L (3.80-5.40) m/uL Hgb 9.7 L 9.4 L (11.4-16.0) gm/dL Hct 29.4 L 28.4 L (34.0-46.0) % Plt Count 139 L (150-450) k/uL Sodium 131 L (137-145) mmol/L Potassium (3.5-5.1) mmol/L Chloride 94 L (98-107) mmol/L BUN 26 H (7-17) mg/dL Creatinine 4.12 H (0.52-1.04) mg/dL 01/28/23 Range/Units 08:37 RBC (3.80-5.40) m/uL Hgb (11.4-16.0) gm/dL Hct (34.0-46.0) % Plt Count (150-450) k/uL Sodium 130 L (137-145) mmol/L Potassium 5.5 H (3.5-5.1) mmol/L Chloride 97 L (98-107) mmol/L BUN 27 H (7-17) mg/dL Creatinine 4.32 H (0.52-1.04) mg/dL
[2023-01-28] MEDS: PANTOPRAZOLE 40 MG TABLET PO SCH (18:36)
[2023-01-28] MEDS: BUTALB/APAP/CAFF 50-325-40MG TAB PO PRN (18:38)
--- NOTE | 2023-01-28 19:57 | P.PN ---
Progress Note - Text Progress Note Date: 01/28/23 Hospital course: 62 years old female with multiple medical problems Sent from [facility] to the emergency room for altered mental status. Patient was seen well in the emergency room, she was with altered mental status, she does not respond to verbal or tactile stimuli. Does not follow command. There is no asymmetry noted. However examination is limited by patient mental status.. Also got 1 dose of IV Ativan in the emergency room which made her more sleepy Patient is admitted on the stage renal disease on hemodialysis, she preferred with dialysis. Apparently a very saturday, saturday and saturday Admission her creatinine was 7.1, while at [facility] was 5.2, patient al so has hyperkalemia with potassium 7.4 on admission. Patient is to get urgent hemodialysis in the emergency room. Blood pressure 112/58, heart rate 85, patient is mildly tachypneic. Marked leukocytosis with a 11.7. Chest x-ray showed pulmonary venous congestion with scattered interstitial edema. Repeat chest x-ray this facility showed cardiomegaly with no acute process. CT of the pressure with no acute intracranial process. Patient also on dopamine drip. Patient is in critical condition is going to be monitored the ICU currently. 01/22/2023 patient is awake alert today, she is now she is an [facility] and she knows the daytime and date and the name of the president, she follows commands and has insight She looks a little bit agitated and at bedtime today, she got bothered easily with frequent questioning. She is complaining of from headache described by the patient as 10/10 all over, nonspecific in character associated with vomiting (patient has been vomiting for the last 2-3 days as she describes) and dizziness. She describes dizziness as a room is spinning around her. She denies any other specific symptoms to me. Afebrile, vital signs stable Laps improvement with potassium down to 5.6 and creatinine down to 4.0. WBC 11.7 and hemoglobin 11.4 Chest x-ray showing pulmonary venous congestion with vascular interstitial edema Repeat chest x-ray is pending. I reviewed myself with no significant change from yesterday 01/23/2023 awake and alert today somewhat lethargic and somnolent but she keeps her eye opening and she answers questions appropriately and follow commands. She is going for another hemodialysis this morning. She still complaining of from dizziness and she states that the room is spinning. CT of the brain was negative for acute process. This morning she was bradycardic with heart rate wasn't for these we lowered her metoprolol 50 mg down to 12.5 mg with close monitoring. Patient also not eating well. 01/24/2023 She does not look very fatigued or tired although she stays in bed most of the time. She still complaining from vertigo and headache therefore one-time dose of [place] is tried as well as meclizine to assess any improvement. MRI of the brain was negative for acute process (MRI of the brain showing no acute intracranial process but numerous bilateral focal areas of abnormal signal white matter are nonspecific and can be associated with hypertension, remote microvascular ischemic white matter disease or demyelinating) She has some evidence of right carotid artery stenosis about 69%, vascular surgery recommended no inpatient surgical intervention but outpatient CTA of the head and neck and the site of the case. Echocardiogram showing ejection fraction of 50-55% and moderate mitral regurgitation however patient remains bradycardic and currently she is not on beta ira (at home she was on 50 mg at bedtime which was discontinued) we will continue monitor tomorrow and if no improvement in heart rate then may consider further steps. TSH is normal Patient still able to eat well, she still complaining from nausea and vomiting, she complains from vague abdominal pain and generalized tenderness but abdomen soft and symptoms of mild, because she is still not able to eat we will order CT of the abdomen and pelvis without contrast with close monitoring Hemodialysis per Nephrology 01/25/2023 Patient initially came in with altered mental status, next a she woke up with headache and vertigo and been complaining for the last few days, today looks better, she did not complain from headache. Besides MRI of the brain came back negative for acute process as above. However patient started having complaining of from abdominal pain and she was not eating well last couple days, we'll obtain CT of the abdomen and pelvis which was negative for acute process, patient today she is able to eat well, she still complaining of from some abdominal discomfort however she saw me this been going on for months. Patient also reports black stool, or donuts check hemoglobin today. She continue with hemodialysis She has evidence of carotid artery stenosis however vascular surgery recommended outpatient CTA and outpatient follow-up with vascular surgery team she was bradycardic with heart rate improved today 71,58 and 66 01/26/2023 Patient seen and evaluated bedside. Patient is sleeping easily arousable goes back to sleep. Per nursing staff patient has been alert and oriented. She did eat breakfast. Blood work shows improved potassium levels. Blood glucose 114. Stool C. diff negative 01/27/2023 patient seen and evaluated bedside. Mentation has improved. Patient easily arousable. Planning gastrointestinal workup general surgery following 01/28/2023: I assumed care of the patient today. Oral intake good. Hemodialysis today. Has chronic dry wounds on bilateral lower extremity. More localized. Underwent EGD colonoscopy by Dr. Almonte today. Some gastritis. Colonoscopy unremarkable. No evidence of GI bleed. 9 for patient to go to [facility]. Active Medications Acetaminophen/Butalbital/Caffeine (Butalb/Apap/Caff 50-325-40mg Tab) 1 each PO Q4HR PRN PRN Reason: Headache Last Admin: 01/28/23 18:38 Dose: 1 each Albuterol Sulfate (Albuterol Nebulized 2.5 Mg/3 Ml) 2.5 mg INHALATION RT-Q6H PRN PRN Reason: Shortness Of Breath Last Admin: 01/22/23 08:03 Dose: 2.5 mg Atorvastatin Calcium (Atorvastatin 20 Mg Tab) 20 mg PO DAILY [facility] Last Admin: 01/28/23 08:12 Dose: 20 mg Benzonatate (Benzonatate 100 Mg Cap) 200 mg PO TID PRN PRN Reason: Cough Last Admin: 01/27/23 15:10 Dose: 200 mg Budesonide/Formoterol Fumarate (Symbicort 160-4.5 Mcg Inhaler) 2 puff INHALATION RT-BID [facility] Last Admin: 01/28/23 09:56 Dose: Not Given Carbamide Perox/Anhydrous Glycerin (Carbamide Peroxide 6.5% Drops 15 Ml Btl) 5 drops BOTH EARS BID [facility] Last Admin: 01/28/23 11:33 Dose: 5 drops Darbepoetin Ervin (Darbepoetin Ervin 40 Mcg/0.4 Ml Syringe) 40 mcg SQ Q7D [facility] Last Admin: 01/27/23 11:39 Dose: 40 mcg Dicyclomine HCl (Dicyclomine 10 Mg Cap) 10 mg PO TID [facility] Last Admin: 01/28/23 18:36 Dose: 10 mg Fluticasone Propionate (Fluticasone 50mcg/[place] Nasal 16gm) 2 spray EA NOSTRIL DAILY [facility] Last Admin: 01/28/23 11:33 Dose: 2 spray Gabapentin (Gabapentin 100 Mg Cap) 200 mg PO BID [facility] Last Admin: 01/28/23 11:33 Dose: 200 mg Guaifenesin (Guaifenesin 600 Mg Tablet.Er) 600 mg PO Q12HR [facility] Last Admin: 01/28/23 08:12 Dose: 600 mg Hydralazine HCl (Hydralazine Hcl 50 Mg Tab) 50 mg PO TID [facility] Last Admin: 01/28/23 18:36 Dose: 50 mg Isosorbide Mononitrate (Isosorbide Mononitrate Er 30 Mg Tab.Er.24h) 30 mg PO DAILY [facility] Last Admin: 01/28/23 08:13 Dose: 30 mg Levofloxacin (Levofloxacin 250 Mg Tab) 250 mg PO Q48H [facility] Meclizine HCl (Meclizine 25 Mg Tab) 25 mg PO QID PRN PRN Reason: Vertigo Last Admin: 01/27/23 11:40 Dose: 25 mg Montelukast Sodium (Montelukast 10 Mg Tab) 10 mg PO DAILY [facility] Last Admin: 01/28/23 08:12 Dose: 10 mg Naloxone HCl (Naloxone 0.4 Mg/Ml 1 Ml Vial) 0.2 mg IV Q2M PRN PRN Reason: Opioid Reversal Ondansetron HCl (Ondansetron Odt 4 Mg Tab) 4 mg PO Q8HR PRN PRN Reason: Nausea Last Admin: 01/27/23 11:40 Dose: 4 mg Pantoprazole Sodium (Pantoprazole 40 Mg Tablet) 40 mg PO AC-BRKFST [facility] Last Admin: 01/28/23 18:36 Dose: 40 mg Sevelamer Carbonate (Sevelamer 800 Mg Tab) 2,400 mg PO TID-W/MEALS [facility] Last Admin: 01/28/23 18:37 Dose: 2,400 mg Sevelamer Carbonate (Sevelamer 800 Mg Tab) 1,600 mg PO TID PRN PRN Reason: SNACKS On examination: VITAL SIGNS: [88.3, 71, 16, 171/90, 96% room air] GENERAL APPEARANCE: Propped up in bed, eating lunch HEENT: Normal external appearance of nose and ear. Oral cavity normal EYES: Pupils equal. Conjunctiva normal. NECK: JVD not raised. Mass not palpable. RESPIRATORY: Respiratory effort normal. Lungs clear to auscultation. CARDIOVASCULAR: First and second sounds normal. No edema. ABDOMEN: Soft. Liver and spleen not palpable. No tenderness. No mass palpable. PSYCHIATRY: Answering simple questions INVESTIGATIONS, reviewed in the clinical context: January 28: White count 4.4 hemoglobin 9.4 platelets 139 sodium 1:30 potassium 5.5 BUN [address] abdomen pelvis: Small bilateral kidneys. Brain MRI: Numerous bilateral focal areas of abnormal signal white matters nonspecific. Left frontal soft tissue subcutaneous hematoma stable. 2-D echocardiogram: EF 50-55%. Moderate MR. Carotid Doppler: Moderate approaching severe stenosis right internal carotid artery 69%. 50-69% left internal carotid artery. Left thyroid nodule 1 cm. EEG: No epileptiform activity. Evidence of encephalopathy. Assessment and plan: -Acute metabolic/toxic encephalopathy, improved -Acute vertigo initially felt to be from hypotension -Severe bradycardia secondary to electrolyte abnormalities/hyperkalemia requiring transcutaneous pacing and obesity. -Chronic kidney disease minimal bone disease On Renvela -Anemia of chronic kidney disease. EGD showed antral gastritis. Colonoscopy normal. On Aranesp -Gastritis PPI -Carotid artery stenosis: Moderate approaching severe stenosis right internal carotid artery 69%. 50-69% left internal carotid artery. Follow-up with Dr. Cassidy vascular -Abdominal pain, chronic. CT of the abdomen and pelvis was unremarkable -Severe hyperkalemia secondary to renal failure. Improved with dialysis . -End-stage renal disease(Saturday and Saturday, Continue scheduled hemodialysis -Bilateral ptosis as well as distraction movement of the eyes on lateral gaze. More so on the right. Seen by neurology. For outpatient follow-up with neurology and ophthalmology. -COPD, Symbicort. Albuterol when necessary. Soraya Discussed with patient. Hopefully discharge to [facility] tomorrow.
[2023-01-29] MEDS: BENZONATATE 100 MG CAP PO PRN ×2 (00:22→09:03)
[2023-01-29] MEDS: BUTALB/APAP/CAFF 50-325-40MG TAB PO PRN ×2 (00:22→09:03)
[2023-01-29] MEDS: ONDANSETRON ODT 4 MG TAB PO PRN ×2 (00:25→15:00)
[2023-01-29] MEDS: PANTOPRAZOLE 40 MG TABLET PO SCH (06:37)
[2023-01-29] MEDS: SEVELAMER 800 MG TAB PO SCH ×2 (06:37→11:28)
[2023-01-29] MEDS: SYMBICORT 160-4.5 MCG INHALER INHALATION SCH (08:06)
[2023-01-29 08:53] LABS: HCT 31.5 % (34.0-46.0); HGB 10.3 gm/dL (11.4-16.0); MCH 31.5 pg (25.0-35.0); MCHC 32.7 g/dL (31.0-37.0); MCV 96.3 fL (80.0-100.0); Platelet Count 140 k/uL (150-450); RBC 3.27 m/uL (3.80-5.40); RDW 15.6 % (11.5-15.5)
[2023-01-29] MEDS ORDERED: LEVOFLOXACIN 250 MG TAB PO SCH (09:00)
[2023-01-29] MEDS: DICYCLOMINE 10 MG CAP PO SCH ×2 (09:03→15:00)
[2023-01-29] MEDS: ATORVASTATIN 20 MG TAB PO SCH (09:03)
[2023-01-29] MEDS: MONTELUKAST 10 MG TAB PO SCH (09:03)
[2023-01-29] MEDS: GABAPENTIN 100 MG CAP PO SCH (09:03)
[2023-01-29] MEDS: hydrALAZINE HCL 50 MG TAB PO SCH ×2 (09:03→15:00)
[2023-01-29] MEDS: ISOSORBIDE MONONITRATE ER 30 MG TAB.ER.24H PO SCH (09:03)
[2023-01-29] MEDS: guaiFENesin 600 MG TABLET.ER PO SCH (09:03)
[2023-01-29] MEDS: FLUTICASONE 50MCG/SPRAY NASAL 16GM EA NOSTRIL SCH (09:04)
[2023-01-29] MEDS: CARBAMIDE PEROXIDE 6.5% DROPS 15 ML BTL BOTH EARS SCH (09:04)
[2023-01-29 09:05] LABS: African American GFR (CKD) 19 (>60 ml/min/1.73 sqM); Anion Gap 12 mmol/L; Blood Urea Nitrogen 17 mg/dL (7-17); Calcium 9.2 mg/dL (8.4-10.2); Carbon Dioxide 29 mmol/L (22-30); Chloride 90 mmol/L (98-107); Glucose 113 mg/dL (74-99); Non-African American GFR(CKD) 17 (>60 ml/min/1.73 sqM); Potassium 4.2 mmol/L (3.5-5.1); Sodium 131 mmol/L (137-145)
--- NOTE | 2023-01-29 10:21 | P.PN ---
Subjective Progress Note Date: 01/28/23 01/28/2023: Patient was seen for a follow-up. Patient is getting hemodialysis. Patient believes that her vertigo was related to inner ear infection. Patient appears much more alert and awake. She however has more myoclonic twitching of her face. Also myoclonic jerking of outstretched hands. 01/26/2023: Patient was initially seen by Dr. Ernie Daniel. Please refer to his note for details. Patient is a 62-year-old female with vertigo, ptosis of both eyes. MRI of the brain is negative. She had eye surgery in the past. Patient has generalized weakness. Patient states that every time she turns her head, gets worse. When she is laying down, room spins. She is complaining of sharp pain in the ears bilaterally, left more than right. She states that she has history of ear infections in the past. Telemetry monitoring showing sinus rhythm, with sinus bradycardia, some PVCs and PACs. Some of the workup during this hospital visit consisted of: Heart rates upon presentation was in the 40s Initial potassium is 7.4 that improved to 4.7. Creatinine 7.11 improved to 4.08--3.04 Vital B12 is 1075 TSH is a 1.230 CK levels 113. AST 71 ALT of 39. TSH is 1.230 CT of the head is reported as no acute intracranial process. Left frontal soft tissue contusion. No evidence of fracture. I personally reviewed the CT of head and I agree with the report. MRI of the brain without is reported as no acute intracranial process. Numerous bilateral focal area of abnormal signal white matter are nonspecific and can be an associate with hypertension, remote microvascular ischemic white matter disease or demyelinating the correlate clinically. Left frontal soft tissue subcutaneous hematoma stable. I personally reviewed the MRI and I agree there is no acute or subacute ischemia. Regarding the FLAIR white matter hyperintensities I feel they're not specific Carotid duplex is reported as moderate approaching severe stenosis of right internal carotid artery approaching 69%. Moderate narrowing between 50-69% left ICA to carotid artery based on velocity. Incidental note made on 1 cm nodule in the left lobe thyroid. Consider dedicated thyroid ultrasound workup. Objective - Vital Signs Vital signs: Vital Signs Temp 96.7 F L 01/29/23 08:00 Pulse 85 01/29/23 08:00 Resp 16 01/29/23 08:00 BP 174/91 01/29/23 08:00 Pulse Ox 97 01/29/23 08:00 FiO2 Intake & Output 01/28/23 01/29/23 01/29/23 18:59 06:59 18:59 Intake Total 280 1000 Output Total 3000 Balance 280 -2000 Weight 73.5 kg Intake: IV 100 Oral 180 500 Hemodialysis 500 Output: Hemodialysis 3000 Other: Voiding Method Bedside Commode Bedside Commode # Voids 2 1 # Bowel Movements 1 1 - Exam Patient is alert and awake, in no distress. Speech is completely clear with no aphasia or dysarthria. She knows it is January and the year is and that she is in [facility]. Cranial nerves are significant for significant Exopthalmos bilaterally. Patient appears to have some significant bilateral ophthalmoplegia. Pupils are equal, round and reacting, face is symmetric. She has less ptosis today. Patient is having some myoclonic twitching of her facial region. On muscle strength testing, patient was giving extremely decreased effort. Her deltoids were 3+4-, biceps 4 to 4-, triceps 4-, hip flexion 4-, ankle dorsiflexion 5-. The strength was fluctuating it appears and was improving with endurance and repeated instructions. It took almost 10 attempts before patient was able to give effort of 5-for the ankles otherwise it was only 3+. Patient has moderate myoclonic jerks of outstretched hands. Reflexes are 1+ to 2+. Sensations are equal. - Labs CBC & Chem 7: 01/29/23 08:00 01/29/23 08:00 Labs: Abnormal Lab Results - Last 24 Hours (Table) 01/28/23 01/29/23 01/29/23 Range/Units 08:37 08:00 08:00 RBC 3.27 L (3.80-5.40) m/uL Hgb 10.3 L (11.4-16.0) gm/dL Hct 31.5 L (34.0-46.0) % RDW 15.6 H (11.5-15.5) % Plt Count 140 L (150-450) k/uL Sodium 131 L (137-145) mmol/L Chloride 90 L (98-107) mmol/L Creatinine 2.92 H (0.52-1.04) mg/dL Glucose 113 H (74-99) mg/dL Phosphorus 2.4 L (2.5-4.5) mg/dL Assessment and Plan Assessment: This is a 62-year-old woman history of end-stage renal disease on dialysis, congestive heart failure who is having syncopal episode at home and she states the her episode happened upon her blood pressure dropping. As a result she had a fall and hit her head. She's complaining of the dizziness as well as was having vomiting and the vomiting is resolved. He is having generalized weakness. Upon presented to our hospital her systolic blood pressure was in the 80s. Acute Vertigo: Seems due to hypotensive episodes and possible bradycardia. On MRI there is no acute or subacute ischemia. Carotid stenosis is right ICA of close to 69% while left is between 50-69% on carotid duplex. I doubt this is the culprit for the patient's vertigo. Syncopal episodes likely due to her hypotensive episode. EEG is negative for any seizure or any epileptiform discharges. Patient has bilateral ptosis as well as restriction movement of eyes on the lateral gaze more restriction look into the right and left and patient stated that she had eye correction in the past, doubt this is a central cause and appears it is more ophthalmological related that seems old. BradyCardia in 40's but per patient's nurse where as low as 20-30's. Hypotensive episodes as well as systolic in the 80s hyperkalenia as high as 7.4 --resolved Generalized weakness Congestive heart failure End-stage renal disease on dialysis Plan: Patient has bilateral exopthalmos, ptosis as well as some ophthalmoparesis. Acetylcholine receptor antibody is ordered and is pending. Recommend the patient follow up with soup mixer and neurologist for further evaluation. Thyroid functions are normal. Patient appears to have more myoclonic twitching of her facial region and extremities. Patient currently on gabapentin 200 mg twice a day, which is not a very high-dose for renal failure patient. Rule out any other infectious source or metabolic dysfunction leading to increased myoclonic jerks. IM to address. MRI the brain was negative for any acute or subacute ischemic stroke. Regarding the bilateral carotid stenosis between 50-69%, vascular surgery has seen the patient, recommending symptomatic and supportive care. Recommend CT angiogram of head and neck which can be done as outpatient. Continue Lipitor. They recommended patient to follow up in the office for carotid surveillance. No indication at this time for vascular surgical intervention. Pending orthostatic vitals PT and OT are consulted Patient was placed on midodrine 10 mg 1 tablet 3 times a day by primary team. Please avoid any further hypotensive episode. We'll defer the rest of the medical management to the primary team and other specialists
[2023-01-29 12:13] VITALS: BP 119/69; PULSE 68; RESP 17; TEMP 98
--- NOTE | 2023-01-29 12:19 | P.PN ---
Subjective Patient is seen in follow-up for end-stage renal disease. She is maintained on hemodialysis on Saturday schedule. Resting in bed. Underwent EGD and colonoscopy 01/28/2023 that showed antral gastritis. Tolerated 3 L ultrafiltration yesterday. Vital signs are stable. General: No acute distress. HEENT: Head exam is unremarkable. LUNGS: No audible rhonchi or wheezes. HEART: Rate and Rhythm are regular. ABDOMEN: Nontender. EXTREMITITES: Trace edema. Objective - Vital Signs Vital signs: Vital Signs Temp 98 F 01/29/23 12:00 Pulse 68 01/29/23 12:00 Resp 17 01/29/23 12:00 BP 119/69 01/29/23 12:00 Pulse Ox 93 L 01/29/23 12:00 FiO2 Intake & Output 01/28/23 01/29/23 01/29/23 18:59 06:59 18:59 Intake Total 280 1000 240 Output Total 3000 Balance 280 -2000 240 Weight 73.5 kg Intake: IV 100 Oral 180 500 240 Hemodialysis 500 Output: Hemodialysis 3000 Other: Voiding Method Bedside Commode Bedside Commode # Voids 2 1 1 # Bowel Movements 1 1 - Labs CBC & Chem 7: 01/29/23 08:00 01/29/23 08:00 Labs: Abnormal Lab Results - Last 24 Hours (Table) 01/28/23 01/29/23 01/29/23 Range/Units 08:37 08:00 08:00 RBC 3.27 L (3.80-5.40) m/uL Hgb 10.3 L (11.4-16.0) gm/dL Hct 31.5 L (34.0-46.0) % RDW 15.6 H (11.5-15.5) % Plt Count 140 L (150-450) k/uL Sodium 131 L (137-145) mmol/L Chloride 90 L (98-107) mmol/L Creatinine 2.92 H (0.52-1.04) mg/dL Glucose 113 H (74-99) mg/dL Phosphorus 2.4 L (2.5-4.5) mg/dL Assessment and Plan Plan: Assessment: 1. End-stage renal disease maintained on hemodialysis on Saturday schedule. 2. Severe hyperkalemia secondary to end-stage renal disease. Improved postdialysis. 3. Bradycardia secondary to hyperkalemia. Metoprolol discontinued. Improved. 4. Volume overload. Improved with ultrafiltration. 5. History of CVA. 6. Chronic kidney disease mineral bone disease maintained on Renvela. 7. Anemia of chronic kidney disease. High ferritin noted. EGD showed antral gastritis. Colonoscopy normal. On Aranesp. 8. Hyponatremia secondary to chronic kidney disease. Plan: Hemodialysis tomorrow. Stop Renvela as phosphorus was low at 2.4 dated 01/28/2023.
--- NOTE | 2023-01-29 13:21 | P.DS ---
Providers Date of admission: 01/21/23 11:32 Expected date of discharge: 01/29/23 Attending physician: Monroe Morocho Consults: 01/21/23 11:32 Consult Physician Stat Consulting Provider: Michael Daniel Consult Reason/Comments: Hyperkalemia, altered mental status Do you want consulting provider notified?: Yes Consult Physician Urgent Consulting Provider: Elvia Armstrong Consult Reason/Comments: Renal failure Do you want consulting provider notified?: Yes 01/22/23 11:53 Consult Physician Routine Consulting Provider: Ernie Daniel Consult Reason/Comments: vertigo and headache/vomiting Do you want consulting provider notified?: Yes 01/24/23 10:46 Consult Physician Routine Consulting Provider: Delaney Cassidy Consult Reason/Comments: carotid stenosis Do you want consulting provider notified?: Yes 01/25/23 21:53 Consult Physician Routine Consulting Provider: Keron Almonte Consult Reason/Comments: anemia Do you want consulting provider notified?: Yes, Notify in am Primary care physician: Stated None Hospital Course: Hospital course: 62 years old female with multiple medical problems Sent from [facility] to the emergency room for altered mental status. Patient was seen well in the emergency room, she was with altered mental status, she does not respond to verbal or tactile stimuli. Does not follow command. There is no asymmetry noted. However examination is limited by patient mental status.. Also got 1 dose of IV Ativan in the emergency room which made her more sleepy Patient is admitted on the stage renal disease on hemodialysis, she preferred with dialysis. Apparently a very saturday, saturday and saturday Admission her creatinine was 7.1, while at [facility] was 5.2, patient also has hyperkalemia with potassium 7.4 on admission. Patient is to get urgent hemodialysis in the emergency room. Blood pressure 112/58, heart rate 85, patient is mildly tachypneic. Marked leukocytosis with a 11.7. Chest x-ray showed pulmonary venous congestion with scattered interstitial edema. Repeat chest x-ray this facility showed cardiomegaly with no acute process. CT of the pressure with no acute intracranial process. Patient also on dopamine drip. Patient is in critical condition is going to be monitored the ICU currently. 01/22/2023 patient is awake alert today, she is now she is an [facility] and she knows the daytime and date and the name of the president, she follows commands and has insight She looks a little bit agitated and at bedtime today, she got bothered easily with frequent questioning. She is complaining of from headache described by the patient as 10/10 all over, nonspecific in character associated with vomiting (patient has been vomiting for the last 2-3 days as she describes) and dizziness. She describes dizziness as a room is spinning around her. She denies any other specific symptoms to me. Afebrile, vital signs stable Laps improvement with potassium down to 5.6 and creatinine down to 4.0. WBC 11.7 and hemoglobin 11.4 Chest x-ray showing pulmonary venous congestion with vascular interstitial edema Repeat chest x-ray is pending. I reviewed myself with no significant change from yesterday 01/23/2023 awake and alert today somewhat lethargic and somnolent but she keeps her eye opening and she answers questions appropriately and follow commands. She is going for another hemodialysis this morning. She still complaining of from dizziness and she states that the room is spinning. CT of the brain was negative for acute process. This morning she was bradycardic with heart rate wasn't for these we lowered her metoprolol 50 mg down to 12.5 mg with close monitoring. Patient also not eating well. 01/24/2023 She does not look very fatigued or tired although she stays in bed most of the time. She still complaining from vertigo and headache therefore one-time dose of [place] is tried as well as meclizine to assess any improvement. MRI of the brain was negative for acute process (MRI of the brain showing no acute intracranial process but numerous bilateral focal areas of abnormal signal white matter are nonspecific and can be associated with hypertension, remote micro vascular ischemic white matter disease or demyelinating) She has some evidence of right carotid artery stenosis about 69%, vascular surgery recommended no inpatient surgical intervention but outpatient CTA of the head and neck and the site of the case. Echocardiogram showing ejection fraction of 50-55% and moderate mitral regurgitation however patient remains bradycardic and currently she is not on beta ira (at home she was on 50 mg at bedtime which was discontinued) we will continue monitor tomorrow and if no improvement in heart rate then may consider further steps. TSH is normal Patient still able to eat well, she still complaining from nausea and vomiting, she complains from vague abdominal pain and generalized tenderness but abdomen soft and symptoms of mild, because she is still not able to eat we will order CT of the abdomen and pelvis without contrast with close monitoring Hemodialysis per Nephrology 01/25/2023 Patient initially came in with altered mental status, next a she woke up with headache and vertigo and been complaining for the last few days, today looks better, she did not complain from headache. Besides MRI of the brain came back negative for acute process as above. However patient started having complaining of from abdominal pain and she was not eating well last couple days, we'll obtain CT of the abdomen and pelvis which was negative for acute process, patient today she is able to eat well, she still complaining of from some abdominal discomfort however she saw me this been going on for months. Patient also reports black stool, or donuts check hemoglobin today. She continue with hemodialysis She has evidence of carotid artery stenosis however vascular surgery recommended outpatient CTA and outpatient follow-up with vascular surgery team she was bradycardic with heart rate improved today 71,58 and 66 01/26/2023 Patient seen and evaluated bedside. Patient is sleeping easily arousable goes back to sleep. Per nursing staff patient has been alert and oriented. She did eat breakfast. Blood work shows improved potassium levels. Blood glucose 114. Stool C. diff negative 01/27/2023 patient seen and evaluated bedside. Mentation has improved. Patient easily arousable. Planning gastrointestinal workup general surgery following 01/28/2023: I assumed care of the patient today. Oral intake good. Hemodialysis today. Has chronic dry wounds on bilateral lower extremity. More localized. Underwent EGD colonoscopy by Dr. Almonte today. Some gastritis. Colonoscopy unremarkable. No evidence of GI bleed. 9 for patient to go to [facility] bed. January 29: Comfortable. Eating well. Medications reviewed. Discussed with patient. Discussed with nurse and director of social media marketing. Discharged to F. Questions answered Discussion and discharge planning more than 35 minutes On examination: VITAL SIGNS: 98, 68, 17, 11 9 x 69, 93% room air GENERAL APPEARANCE: Propped up in bed, eating HEENT: Normal external appearance of nose and ear. Oral cavity normal EYES: Pupils equal. Conjunctiva normal. NECK: JVD not raised. Mass not palpable. RESPIRATORY: Respiratory effort normal. Lungs clear to auscultation. CARDIOVASCULAR: First and second sounds normal. No edema. ABDOMEN: Soft. Liver and spleen not palpable. No tenderness. No mass palpable. PSYCHIATRY: Answering simple questions INVESTIGATIONS, reviewed in the clinical context: January 29: White count 5 units globin 10.3 potassium 4.2 crit and 2.9 to January 28: White count 4.4 hemoglobin 9.4 platelets 139 sodium 1:30 potassium 5.5 BUN [address] abdomen pelvis: Small bilateral kidneys. Brain MRI: Numerous bilateral focal areas of abnormal signal white matters nonspecific. Left frontal soft tissue subcutaneous hematoma stable. 2-D echocardiogram: EF 50-55%. Moderate MR. Carotid Doppler: Moderate approaching severe stenosis right internal carotid artery 69%. 50-69% left internal carotid artery. Left thyroid nodule 1 cm. EEG: No epileptiform activity. Evidence of encephalopathy. Transferrin 200 ferritin 06/17/2008 TIBC 28T percent saturation 22.5 iron 57 Assessment and plan: -Acute metabolic/toxic encephalopathy, improved -Acute vertigo initially felt to be from hypotension -Severe bradycardia secondary to electrolyte abnormalities/hyperkalemia requiring transcutaneous pacing -Chronic kidney disease minimal bone disease On Renvela -Anemia of chronic kidney disease. EGD showed antral gastritis. Colonoscopy normal. On Aranesp -Gastritis PPI -Carotid artery stenosis: Moderate approaching severe stenosis right internal carotid artery 69%. 50-69% left internal carotid artery. Follow-up with Dr. Cassidy vascular -Abdominal pain, chronic. CT of the abdomen and pelvis was unremarkable Eating well. -Severe hyperkalemia secondary to renal failure. Improved with dialysis . -End-stage renal disease(Saturday and Saturday, Continue scheduled hemodialysis -Bilateral ptosis as well as distraction movement of the eyes on lateral gaze. More so on the right. Seen by neurology. For outpatient follow-up with neurology and ophthalmology. -COPD, Symbicort. Albuterol when necessary. Singulair -Full code Disposition: Rehab at [facility]. Plan - Discharge Summary Discharge Rx Participant: No New Discharge Prescriptions: New hydrALAZINE HCL [Apresoline] 50 mg PO TID tab Continue SILVER sulfADIAZINE Cream [Silvadene 1% Cream] 1 applic TOPICAL BID Montelukast [Singulair] 10 mg PO DAILY Dicyclomine [Bentyl] 10 mg PO TID Atorvastatin Calcium 20 mg PO DAILY Fluticasone Nasal [place] [Flonase Nasal [place]] 2 spray EA NOSTRIL DAILY Loperamide [Imodium] 4 mg PO QID PRN PRN Reason: Diarrhea Budesonide/Formoterol Fumarate [Symbicort 160-4.5 Mcg Inhaler] 2 puff INHALATION RT-BID Ondansetron Odt [Zofran ODT] 4 mg PO Q8HR PRN PRN Reason: Nausea Cholecalciferol (Vitamin D3) [Vitamin D3 (125 MCG = 5,000 IU)] 125 mcg PO DAILY Super B Complex 1 tab PO DAILY Ascorbic Acid [Vitamin C] 500 mg PO DAILY Vitamin E (Dl,Tocopheryl Acet) [Vitamin E (400 Iu = 180 mg)] 400 unit PO DAILY Cranberry 15,000 Mg Tab 15,000 mg PO DAILY Albuterol Nebulized [Ventolin Nebulized] 2.5 mg INHALATION RT-Q6H PRN PRN Reason: Shortness Of Breath Albuterol Sulfate [Albuterol Sulfate Hfa] 1 puff INHALATION RT-Q4H PRN PRN Reason: Shortness Of Breath Omeprazole [PriLOSEC] 20 mg PO AC-SUPPER Isosorbide Mononitrate ER [Imdur] 30 mg PO DAILY Metoprolol Succinate (ER) [Toprol XL] 50 mg PO HS Benzonatate [Tessalon Perles] 100 - 200 mg PO TID PRN PRN Reason: Cough Propylene Glycol [Systane Complete] 1 drop BOTH EYES HS Aspirin EC [Ecotrin Low Dose] 81 mg PO DAILY Bismuth Subsalicylate [Pepto-Bismol Ultra] 525 - 1,050 mg PO TID PRN PRN Reason: Gi Upset Melatonin/Pyridoxine HCl (B6) [Melatonin-Vit B6 5-10 mg Tab] 1 tab PO HS PRN PRN Reason: SLEEP Multivit-Min/FA/Lycopen/Lutein [Centrum Silver Tablet] 1 tab PO DAILY Changed Gabapentin [Neurontin] 100 mg PO BID #6 cap Sevelamer Carbonate 2,400 mg PO TID #0 Discontinued Lidocaine-Prilocaine Cream [Emla Cream 2.5%/2.5%] 1 applic TOPICAL DIRECTED amLODIPine [Norvasc] 10 mg PO DAILY Midodrine HCl 10 mg PO TID Cetirizine HCl 10 mg PO DAILY Zinc Gluconate [Zinc] 50 mg PO DAILY Magnesium 250 mg PO DAILY lisinopriL [Zestril] 10 mg PO DAILY hydrALAZINE HCL 10 mg PO TID Bumetanide [BUMEX] 4 mg PO TID Azithromycin [Zithromax Z Pack] See Taper PO DIRECTED Potassium Gluconate 99 mg PO DAILY Discharge Medication List Albuterol Nebulized [Ventolin Nebulized] 2.5 mg INHALATION RT-Q6H PRN 01/21/23 [History] Albuterol Sulfate [Albuterol Sulfate Hfa] 1 puff INHALATION RT-Q4H PRN 01/21/23 [History] Atorvastatin Calcium 20 mg PO DAILY 01/21/23 [History] Benzonatate [Tessalon Perles] 100 - 200 mg PO TID PRN 01/21/23 [History] Budesonide/Formoterol Fumarate [Symbicort 160-4.5 Mcg Inhaler] 2 puff INHALATION RT-BID 01/21/23 [History] Dicyclomine [Bentyl] 10 mg PO TID 01/21/23 [History] Fluticasone Nasal [place] [Flonase Nasal [place]] 2 spray EA NOSTRIL DAILY 01/21/23 [History] Isosorbide Mononitrate ER [Imdur] 30 mg PO DAILY 01/21/23 [History] Loperamide [Imodium] 4 mg PO QID PRN 01/21/23 [History] Metoprolol Succinate (ER) [Toprol XL] 50 mg PO HS 01/21/23 [History] Montelukast [Singulair] 10 mg PO DAILY 01/21/23 [History] Omeprazole [PriLOSEC] 20 mg PO AC-SUPPER 01/21/23 [History] Ondansetron Odt [Zofran ODT] 4 mg PO Q8HR PRN 01/21/23 [History] SILVER sulfADIAZINE Cream [Silvadene 1% Cream] 1 applic TOPICAL BID 01/21/23 [History] Ascorbic Acid [Vitamin C] 500 mg PO DAILY 01/22/23 [History] Aspirin EC [Ecotrin Low Dose] 81 mg PO DAILY 01/22/23 [History] Bismuth Subsalicylate [Pepto-Bismol Ultra] 525 - 1,050 mg PO TID PRN 01/22/23 [History] Cholecalciferol (Vitamin D3) [Vitamin D3 (125 MCG = 5,000 IU)] 125 mcg PO DAILY 01/22/23 [History] Cranberry 15,000 Mg Tab 15,000 mg PO DAILY 01/22/23 [History] Melatonin/Pyridoxine HCl (B6) [Melatonin-Vit B6 5-10 mg Tab] 1 tab PO HS PRN 01/22/23 [History] Multivit-Min/FA/Lycopen/Lutein [Centrum Silver Tablet] 1 tab PO DAILY 01/22/23 [History] Propylene Glycol [Systane Complete] 1 drop BOTH EYES HS 01/22/23 [History] Super B Complex 1 tab PO DAILY 01/22/23 [History] Vitamin E (Dl,Tocopheryl Acet) [Vitamin E (400 Iu = 180 mg)] 400 unit PO DAILY 01/22/23 [History] Gabapentin [Neurontin] 100 mg PO BID #6 cap 01/29/23 [Rx] Sevelamer Carbonate 2,400 mg PO TID #0 01/29/23 [Rx] hydrALAZINE HCL [Apresoline] 50 mg PO TID tab 01/29/23 [Rx] Follow up Appointment(s)/Referral(s): Eligio Jorge MD [REFERRING] [facility] Delaney Cassidy DO [STAFF PHYSICIAN] - 2 Weeks (We recommend outpatient CT an giogram of the head and neck to assess for carotid and intracranial vascular disease) None,Stated [Primary Care Provider] - 1-2 days Activity/Diet/Wound Care/Special Instructions: Discharge to [facility] Bed for rehab at [facility] on 01/29/23 Wheelchair Van to transport patient at 3:15PM on 01/29/23
--- NOTE | 2023-01-29 13:53 | P.PN ---
Subjective Progress Note Date: 01/29/23 CHIEF COMPLAINT: Anemia HISTORY OF PRESENT ILLNESS: Patient status post EGD and colonoscopy that demonstrated antral gastritis and normal colonoscopy. No evidence of active bleeding. Presumed patient may have had bleeding from gastritis. Patient tolerating diet. She's had no further bleeding. She denies any abdominal pain. She does report loose stools, which is chronic for her. She is on Bentyl. Hemoglobin is up from 9.4-10.3 PHYSICAL EXAM: VITAL SIGNS: Reviewed. ABDOMEN: Soft. ASSESSMENT: 1. Gastritis 2. Anemia status post EGD revealing antral gastritis PLAN: -Patient can be discharged surgical standpoint -Continue Protonix 40 mg daily Physician Butadiene Converter Utility Operator note has been reviewed by physician. Signing provider agrees with the documented findings, assessment, and plan of care. Objective - Vital Signs Vital signs: Vital Signs Temp 98 F 01/29/23 12:00 Pulse 68 01/29/23 12:00 Resp 17 01/29/23 12:00 BP 119/69 01/29/23 12:00 Pulse Ox 93 L 01/29/23 12:00 FiO2 Intake & Output 01/28/23 01/29/23 01/29/23 18:59 06:59 18:59 Intake Total 280 1000 240 Output Total 3000 Balance 280 -2000 240 Weight 73.5 kg Intake: IV 100 Oral 180 500 240 Hemodialysis 500 Output: Hemodialysis 3000 Other: Voiding Method Bedside Commode Bedside Commode # Voids 2 1 1 # Bowel Movements 1 1 - Labs CBC & Chem 7: 01/29/23 08:00 01/29/23 08:00 Labs: Abnormal Lab Results - Last 24 Hours (Table) 01/28/23 01/29/23 01/29/23 Range/Units 08:37 08:00 08:00 RBC 3.27 L (3.80-5.40) m/uL Hgb 10.3 L (11.4-16.0) gm/dL Hct 31.5 L (34.0-46.0) % RDW 15.6 H (11.5-15.5) % Plt Count 140 L (150-450) k/uL Sodium 131 L (137-145) mmol/L Chloride 90 L (98-107) mmol/L Creatinine 2.92 H (0.52-1.04) mg/dL Glucose 113 H (74-99) mg/dL Phosphorus 2.4 L (2.5-4.5) mg/dL
== END 2023-01-29 15:44 | disposition home or self-care (01) | DRG 682 ==
LOC: EC 09:41 → 2SICU 11:32 → 3SCARD 01-22 00:51
PROVIDERS: ADMIT Hospitalist; ATTEND Hospitalist
PROC: 5A1D70Z Performance of Urinary Filtration, Intermittent, Less than 6 Hours Per Day (ICD-10-PCS; principal; 2023-01-21)
PROC: 0DJD8ZZ Inspection of Lower Intestinal Tract, Via Natural or Artificial Opening Endoscopic (ICD-10-PCS; 2023-01-28 08:20)
PROC: 0DB78ZX Excision of Stomach, Pylorus, Via Natural or Artificial Opening Endoscopic, Diagnostic (ICD-10-PCS; 2023-01-28 08:20)
DX: N17.9 Acute kidney failure, unspecified (principal); G92.8 Other toxic encephalopathy; I13.2 Hypertensive heart and chronic kidney disease with heart failure and with stage 5 chronic kidney disease, or end stage renal disease; J84.9 Interstitial pulmonary disease, unspecified; E87.1 Hypo-osmolality and hyponatremia; E87.5 Hyperkalemia; N18.6 End stage renal disease; K21.9 Gastro-esophageal reflux disease without esophagitis; D63.1 Anemia in chronic kidney disease; R45.1 Restlessness and agitation; H02.403 Unspecified ptosis of bilateral eyelids; J44.9 Chronic obstructive pulmonary disease, unspecified; E03.9 Hypothyroidism, unspecified; G25.3 Myoclonus; G89.29 Other chronic pain; I95.9 Hypotension, unspecified; I34.0 Nonrheumatic mitral (valve) insufficiency; I49.3 Ventricular premature depolarization; I50.9 Heart failure, unspecified; I65.23 Occlusion and stenosis of bilateral carotid arteries; Z28.21 Immunization not carried out because of patient refusal; Z99.2 Dependence on renal dialysis; K29.70 Gastritis, unspecified, without bleeding; E83.9 Disorder of mineral metabolism, unspecified; Z91.81 History of falling; Z79.51 Long term (current) use of inhaled steroids; Z79.82 Long term (current) use of aspirin; Z79.899 Other long term (current) drug therapy; Z86.73 Personal history of transient ischemic attack (TIA), and cerebral infarction without residual deficits; Z91.119 Patient's noncompliance with dietary regimen due to unspecified reason; Z88.1 Allergy status to other antibiotic agents; Z88.0 Allergy status to penicillin; Z88.2 Allergy status to sulfonamides
CPT/HCPCS: 36415; 36600; 43239; 45378; 70450; 70551; 71045; 74176; 80048; 80053; 82550; 82607; 82728; 82746; 82805; 83519; 83540; 83550; 83735; 84100; 84132; 84443; 85025; 85027; 86706; 87324; 87340; 88305; 90935; 93005; 93306; 93880; 94640; 94760; 95816; 96365; 96366; 96375; 96376; 99291

== ENCOUNTER 2023-04-01 07:30 | Inpatient (IN) | payer MEDICARE, OTHER ==
--- NOTE | 2023-04-01 07:59 | ED ---
General Adult HPI - General Chief complaint: Syncope Stated complaint: Syncope Time Seen by Provider: 04/01/23 07:32 Source: patient, EMS, RN notes reviewed Mode of arrival: EMS Limitations: no limitations - History of Present Illness Initial comments: Patient is a pleasant 62-year-old female presenting to the emergency Department with near syncopal episode. Episode occurred prior to arrival. Patient was going to dialysis. Patient was tired and fell to the floor. No loss of consciousness. No syncope. Patient is somewhat a poor historian and states nothing is bothering her. Patient denies any injury. - Related Data Home Medications Medication Instructions Recorded Confirmed Albuterol Nebulized [Ventolin 2.5 mg INHALATION RT-Q6H PRN 01/21/23 01/21/23 Nebulized] Albuterol Sulfate [Albuterol 1 puff INHALATION RT-Q4H PRN 01/21/23 01/21/23 Sulfate Hfa] Atorvastatin Calcium 20 mg PO DAILY 01/21/23 01/21/23 Benzonatate [Tessalon Perles] 100 - 200 mg PO TID PRN 01/21/23 01/21/23 Budesonide/Formoterol Fumarate 2 puff INHALATION RT-BID 01/21/23 01/21/23 [Symbicort 160-4.5 Mcg Inhaler] Dicyclomine [Bentyl] 10 mg PO TID 01/21/23 01/21/23 Fluticasone Nasal [place] [Flonase 2 spray EA NOSTRIL DAILY 01/21/23 01/21/23 Nasal [place]] Isosorbide Mononitrate ER [Imdur] 30 mg PO DAILY 01/21/23 01/21/23 Loperamide [Imodium] 4 mg PO QID PRN 01/21/23 01/21/23 Metoprolol Succinate (ER) [Toprol 50 mg PO HS 01/21/23 01/22/23 XL] Montelukast [Singulair] 10 mg PO DAILY 01/21/23 01/21/23 Omeprazole [PriLOSEC] 20 mg PO AC-SUPPER 01/21/23 01/21/23 Ondansetron Odt [Zofran ODT] 4 mg PO Q8HR PRN 01/21/23 01/21/23 SILVER sulfADIAZINE Cream 1 applic TOPICAL BID 01/21/23 01/21/23 [Silvadene 1% Cream] Ascorbic Acid [Vitamin C] 500 mg PO DAILY 01/22/23 01/22/23 Aspirin EC [Ecotrin Low Dose] 81 mg PO DAILY 01/22/23 01/22/23 Bismuth Subsalicylate 525 - 1,050 mg PO TID PRN 01/22/23 01/22/23 [Pepto-Bismol Ultra] Cholecalciferol (Vitamin D3) 125 mcg PO DAILY 01/22/23 01/22/23 [Vitamin D3 (125 MCG = 5,000 IU)] Cranberry 15,000 Mg Tab 15,000 mg PO DAILY 01/22/23 01/22/23 Melatonin/Pyridoxine HCl (B6) 1 tab PO HS PRN 01/22/23 01/22/23 [Melatonin-Vit B6 5-10 mg Tab] Multivit-Min/FA/Lycopen/Lutein 1 tab PO DAILY 01/22/23 01/22/23 [Centrum Silver Tablet] Propylene Glycol [Systane Complete] 1 drop BOTH EYES HS 01/22/23 01/22/23 Super B Complex 1 tab PO DAILY 01/22/23 01/22/23 Vitamin E (Dl,Tocopheryl Acet) 400 unit PO DAILY 01/22/23 01/22/23 [Vitamin E (400 Iu = 180 mg)] Previous Rx's Medication Instructions Recorded Gabapentin [Neurontin] 100 mg PO BID #6 cap 01/29/23 Pantoprazole Sodium [Protonix] 40 mg PO DAILY #30 tab 01/29/23 Sevelamer Carbonate 2,400 mg PO TID #0 01/29/23 hydrALAZINE HCL [Apresoline] 50 mg PO TID tab 01/29/23 Allergies Allergy/AdvReac Type Severity Reaction Status Date / Time erythromycin base Allergy Unknown Verified 04/01/23 10:47 furosemide [From Lasix] Allergy Unknown Verified 04/01/23 10:47 green tea Allergy Unknown Verified 04/01/23 10:47 Penicillins Allergy Unknown Verified 04/01/23 10:47 strawberry Allergy Unknown Verified 04/01/23 10:47 Sulfa (Sulfonamide Allergy Unknown Verified 04/01/23 10:47 Antibiotics) sulfacetamide Allergy Unknown Verified 04/01/23 10:47 Review of Systems ROS Statement: Those systems with pertinent positive or pertinent negative responses have been documented in the HPI. ROS Other: All systems not noted in ROS Statement are negative. Constitutional: Denies: fever Eyes: Denies: eye pain ENT: Denies: ear pain Respiratory: Denies: dyspnea Cardiovascular: Denies: chest pain Gastrointestinal: Denies: abdominal pain Neurological: Denies: headache, weakness, confusion Past Medical History Past Medical History: Heart Failure, COPD, CVA/TIA, Dialysis, GERD/Reflux, Thyroid Disorder History of Any Multi-Drug Resistant Organisms: Unobtainable Additional Past Surgical History / Comment(s): Dialysis cath placement Past Anesthesia/Blood Transfusion Reactions: No Reported Reaction Past Psychological History: No Psychological Hx Reported Smoking Status: Unknown if ever smoked Past Alcohol Use History: Unable to Obtain Past Drug Use History: Unable to Obtain General Exam Limitations: no limitations General appearance: in no apparent distress, other (Drowsy but arousable to voice) Head exam: Present: normocephalic Eye exam: Present: normal appearance, PERRL, EOMI ENT exam: Present: other (Lips appear dry) Neck exam: Present: normal inspection. Absent: tenderness, meningismus Respiratory exam: Present: normal lung sounds bilaterally Cardiovascular Exam: Present: regular rate, normal rhythm GI/Abdominal exam: Present: soft. Absent: tenderness Extremities exam: Present: full ROM, pedal edema. Absent: tenderness Neurological exam: Present: oriented X3, CN II-XII intact. Absent: motor sensory deficit Expanded Neurological exam: Present: protecting the airway Patient oriented to: Present: person, place, time Motor strength exam: RUE: 5, LUE: 5, RLE: 5, LLE: 5 Eye Response: (3) open to voice Motor Response: (6) obeys commands Verbal Response: (5) oriented Psychiatric exam: Present: normal affect, normal mood Skin exam: Present: normal color Course Vital Signs 04/01/23 04/01/23 07:35 09:14 Temperature 97.8 F Pulse Rate 60 52 L Respiratory 16 14 Rate Blood Pressure 129/67 135/61 O2 Sat by Pulse 100 100 Oximetry EKG Findings - EKG Results: EKG: interpreted by ERMD, sinus rhythm, normal axis, normal QRS, normal ST/T EKG shows: bradycardia Medical Decision Making - Medical Decision Making Was pt. sent in by a medical professional or institution (Dr., PA, [employer], urgent care, hospital, or group home...) When possible be specific @ -No Did you speak to anyone other than the patient for history (EMS, parent, family, police, friend...)? What history was obtained from this source @ -No Did you review nursing and triage notes (agree or disagree)? Why? @ -I reviewed and agree with nursing and triage notes Were old charts reviewed (outside hosp., previous admission, EMS record, old EKG, old radiological studies, urgent care reports/EKG's, group home records)? Report findings @ -No old charts were reviewed Differential Diagnosis (chest pain, altered mental status, abdominal pain women, abdominal pain men, vaginal bleeding, weakness, fever, dyspnea, syncope, headache, dizziness, GI bleed, back pain, seizure, CVA, palpatations, mental health, musculoskeletal)? @ -Differential Altered Mental Status: Hypoglycemia, DKA, hypercapnia, ETOH, overdose, CO poisoning, trauma, myxedema coma, HTN encephalopathy, infection, encephalitis, psychosis, intercranial hemorrhage, hepatic encephalopathy, meningitis, CVA, this is not meant to be an all-inclusive list EKG interpreted by me (3pts min.). @ -As above X-rays interpreted by me (1pt min.). @ -Chest x-ray does show some cardiomegaly and fluid retention CT interpreted by me (1pt min.). @ -None done U/S interpreted by me (1pt. min.). @ -None done What testing was considered but not performed or refused? (CT, X-rays, U/S, labs)? Why? @ -None What meds were considered but not given or refused? Why? @ -None Did you discuss the management of the patient with other professionals (kenisha hollandfessionalolman i.e. JUSTYNA Arango, [employer], lab, RT, psych nurse, social media coordinator, paint factory worker, teacher, chief sustainability officer, shelter case manager)? Give summary @ -Case was discussed with Dr. Morocho, who will admit, Dr. Almodovar. Case also discussed with Dr. Armstrong who will consult and have patient undergo dialysis Was smoking cessation discussed for >3mins.? @ -No Was critical care preformed (if so, how long)? @ -33 minutes critical care time Were there social determinants of health that impacted care today? How? (Homelessness, low income, unemployed, alcoholism, drug addiction, transportation, low edu. Level, literacy, decrease access to med. care, longterm, rehab)? @ -No Was there de-escalation of care discussed even if they declined (Discuss DNR or withdrawal of care, Hospice)? DNR status @ -No What co-morbidities impacted this encounter? (DM, HTN, Smoking, COPD, CAD, Cancer, CVA, ARF, Chemo, Hep., AIDS, mental health diagnosis, sleep apnea, morbid obesity)? @ -None Was patient admitted / discharged? Hospital course, mention meds given and route, prescriptions, significant lab abnormalities, going to OR and other pertinent info. @ -Patient reevaluated. Patient updated. Patient presents with fluid overload state. Patient will need urgent dialysis. Patient also with hyperkalemia. Patient given several medications for hyperkalemia. Undiagnosed new problem with uncertain prognosis? @ -No Drug Therapy requiring intensive monitoring for toxicity (Heparin, Nitro, Insulin, Cardizem)? @ -No Were any procedures done? @ -No Diagnosis/symptom? @ -Hyperkalemia, pulmonary edema Acute, or Chronic, or Acute on Chronic? @ -Acute, acute Uncomplicated (without systemic symptoms) or Complicated (systemic symptoms)? @ -default Side effects of treatment? @ -No Exacerbation, Progression, or Severe Exacerbation? @ -No Poses a threat to life or bodily function? How? (Chest pain, [place], [place], pneumonia, PE, COPD, DKA, ARF, appy, cholecystitis, CVA, Diverticulitis, Homicidal, Suicidal, threat to staff... and all critical care pts) @ -Hyperkalemia has high threat potential for life and cardiac function and as well as other. - Lab Data Result diagrams: 04/01/23 09:54 04/01/23 08:03 Lab Results 04/01/23 04/01/23 04/01/23 Range/Units 08:03 08:03 08:03 WBC (3.8-10.6) k/uL RBC (3.80-5.40) m/uL Hgb (11.4-16.0) gm/dL Hct (34.0-46.0) % MCV (80.0-100.0) fL MCH (25.0-35.0) pg MCHC (31.0-37.0) g/dL RDW (11.5-15.5) % Plt Count (150-450) k/uL MPV Neutrophils % % Lymphocytes % % Monocytes % % Eosinophils % % Basophils % % Neutrophils # (1.3-7.7) k/uL Lymphocytes # (1.0-4.8) k/uL Monocytes # (0-1.0) k/uL Eosinophils # (0-0.7) k/uL Basophils # (0-0.2) k/uL Hypochromasia Poikilocytosis Anisocytosis Macrocytosis PT 12.5 (10.0-12.5) sec INR 1.2 H (<1.2) APTT 22.8 (22.0-30.0) sec Sodium 131 L (137-145) mmol/L Potassium 7.3 H* (3.5-5.1) mmol/L Chloride 92 L (98-107) mmol/L Carbon Dioxide 22 (22-30) mmol/L Anion Gap 17 mmol/L BUN 43 H (7-17) mg/dL Creatinine 6.41 H (0.52-1.04) mg/dL Est GFR (CKD-EPI)AfAm 7 (>60 ml/min/1.73 sqM) Est GFR (CKD-EPI)NonAf 6 (>60 ml/min/1.73 sqM) Glucose 83 (74-99) mg/dL Calcium 9.0 (8.4-10.2) mg/dL Magnesium 3.2 H (1.6-2.3) mg/dL Total Bilirubin 0.8 (0.2-1.3) mg/dL AST 25 (14-36) U/L ALT 19 (4-34) U/L Alkaline Phosphatase 105 (38-126) U/L Troponin I <0.012 (0.000-0.034) ng/mL NT-Pro-B Natriuret Pep pg/mL Total Protein 5.9 L (6.3-8.2) g/dL Albumin 4.0 (3.5-5.0) g/dL TSH 1.050 (0.465-4.680) mIU/L Free T4 1.20 (0.78-2.19) ng/dL Free T3 pg/mL 3.7 (2.8-5.3) pg/ml 04/01/23 04/01/23 Range/Units 08:03 09:54 WBC 13.2 H (3.8-10.6) k/uL RBC 3.28 L (3.80-5.40) m/uL Hgb 10.5 L (11.4-16.0) gm/dL Hct 31.6 L (34.0-46.0) % MCV 96.3 (80.0-100.0) fL MCH 32.1 (25.0-35.0) pg MCHC 33.3 (31.0-37.0) g/dL RDW 17.2 H (11.5-15.5) % Plt Count 111 L (150-450) k/uL MPV 10.2 Neutrophils % 84 % Lymphocytes % 9 % Monocytes % 4 % Eosinophils % 2 % Basophils % 0 % Neutrophils # 11.1 H (1.3-7.7) k/uL Lymphocytes # 1.2 (1.0-4.8) k/uL Monocytes # 0.6 (0-1.0) k/uL Eosinophils # 0.2 (0-0.7) k/uL Basophils # 0.0 (0-0.2) k/uL Hypochromasia Slight Poikilocytosis Slight Anisocytosis Slight Macrocytosis Slight PT (10.0-12.5) sec INR (<1.2) APTT (22.0-30.0) sec Sodium (137-145) mmol/L Potassium (3.5-5.1) mmol/L Chloride (98-107) mmol/L Carbon Dioxide (22-30) mmol/L Anion Gap mmol/L BUN (7-17) mg/dL Creatinine (0.52-1.04) mg/dL Est GFR (CKD-EPI)AfAm (>60 ml/min/1.73 sqM) Est GFR (CKD-EPI)NonAf (>60 ml/min/1.73 sqM) Glucose (74-99) mg/dL Calcium (8.4-10.2) mg/dL Magnesium (1.6-2.3) mg/dL Total Bilirubin (0.2-1.3) mg/dL AST (14-36) U/L ALT (4-34) U/L Alkaline Phosphatase (38-126) U/L Troponin I (0.000-0.034) ng/mL NT-Pro-B Natriuret Pep 2360 pg/mL Total Protein (6.3-8.2) g/dL Albumin (3.5-5.0) g/dL TSH (0.465-4.680) mIU/L Free T4 (0.78-2.19) ng/dL Free T3 pg/mL (2.8-5.3) pg/ml Critical Care Time Critical Care Time: Yes Total Critical Care Time: 33 Disposition Clinical Impression: Hyperkalemia, Pulmonary edema Disposition: ADMITTED IP TO THIS [facility] Condition: Serious Is patient prescribed a controlled substance at d/c from ED?: No Referrals: Andrez Almodovar MD [Primary Care Provider] - 1-2 days Time of Disposition: 11:20
--- NOTE | 2023-04-01 09:42 | CT ---
EXAMINATION TYPE: CT brain wo con CT DLP: 1130.1 mGycm, Automated exposure control for dose reduction was used. DATE OF EXAM: 04/01/2023 9:35 AM COMPARISON: Prior CT Brain from 01/22/2023 . CLINICAL INDICATION:Female, 62 years old with history of syncope, ams, syncope TECHNIQUE: Brain: Multiple axial CT images of the brain were obtained without IV contrast. Coronal and sagittal reformats reviewed. FINDINGS: Motion degraded examination. Brain: Extra-axial spaces: No abnormal extra-axial fluid collections. Ventricular system: Within normal limits Cerebral parenchyma: Cerebral atrophy. No acute intraparenchymal hemorrhage or mass effect. The chery -white junction is well differentiated. Scattered hypoattenuating areas are seen within the white mat ter. Cerebellum: Unremarkable. Mass effect: No evidence of midline shift. Intracranial vasculature: Atherosclerotic calcifications of the intracranial vessels. Soft tissues: Normal. Calvarium/osseous structures: No depressed skull fracture. Paranasal sinuses and mastoid air cells: Clear Visualized orbits: Orbital contents are intact. IMPRESSION: 1. No acute intracranial process. 2. Nonspecific white matter changes, likely secondary to chronic small vessel ischemic disease.
[2023-04-01 09:51] LABS: ALT 19 U/L (4-34); AST 25 U/L (14-36); African American GFR (CKD) 7 (>60 ml/min/1.73 sqM); Alkaline Phosphatase 105 U/L (38-126); Anion Gap 17 mmol/L; Blood Urea Nitrogen 43 mg/dL (7-17); Carbon Dioxide 22 mmol/L (22-30); Chloride 92 mmol/L (98-107); Glucose 83 mg/dL (74-99); Magnesium 3.2 mg/dL (1.6-2.3); Non-African American GFR(CKD) 6 (>60 ml/min/1.73 sqM); Sodium 131 mmol/L (137-145); Total Bilirubin 0.8 mg/dL (0.2-1.3); Total Protein 5.9 g/dL (6.3-8.2)
--- NOTE | 2023-04-01 09:52 | XR ---
EXAMINATION TYPE: XR chest 2V DATE OF EXAM: 04/01/2023 9:41 AM COMPARISON: Chest radiographs from 01/22/2023 TECHNIQUE: XR chest 2V Frontal and lateral views of the chest. CLINICAL INDICATION:Female, 62 years old with history of syncope; FINDINGS: Patient is rotated which was evaluation. Lungs/Pleura: There is no evidence of pleural effusion, focal consolidation, or pneumothorax. Pulmonary vascularity: Mild pulmonary vascular congestion. Heart/mediastinum: Cardiomediastinal silhouette is enlarged and stable. Musculoskeletal: No acute osseous pathology. Degenerative changes of the thoracic spine with increase d thoracic kyphosis. Other findings: None Lines/Tubes: Right IJ dialysis catheter with distal tip terminating in the right atrium. IMPRESSION: Cardiomegaly and mild pulmonary vascular congestion. Correlate for congestive heart failure/volume ov erload.
[2023-04-01 10:16] LABS: Potassium 7.3 mmol/L (3.5-5.1)
[2023-04-01 10:28] LABS: INR 1.2 (<1.2); Partial Thromboplastin Time 22.8 sec (22.0-30.0); Prothrombin Time 12.5 sec (10.0-12.5)
[2023-04-01 10:32] LABS: Anisocytosis Slight; Basophils % (A) 0 %; Eosinophils # (A) 0.2 k/uL (0-0.7); Eosinophils % (A) 2 %; HCT 31.6 % (34.0-46.0); HGB 10.5 gm/dL (11.4-16.0); Hypochromasia Slight; Lymphocytes # (A) 1.2 k/uL (1.0-4.8); Lymphocytes % (A) 9 %; MCH 32.1 pg (25.0-35.0); MCHC 33.3 g/dL (31.0-37.0); MCV 96.3 fL (80.0-100.0); Macrocytosis Slight; Mean Platelet Volume 10.2; Monocytes # (A) 0.6 k/uL (0-1.0); Monocytes % (A) 4 %; Neutrophils # (A) 11.1 k/uL (1.3-7.7); Neutrophils % (A) 84 %; Platelet Count 111 k/uL (150-450); Poikilocytosis Slight; RBC 3.28 m/uL (3.80-5.40); RDW 17.2 % (11.5-15.5); WBC 13.2 k/uL (3.8-10.6)
[2023-04-01] MEDS ORDERED: ALBUTEROL NEB (CONC) 2.5 MG/0.5 ML INHALATION ONE (10:41)
[2023-04-01] MEDS ORDERED: INSULIN REGULAR 100 UNIT/ML VIAL (IV) IV ONE (10:41)
[2023-04-01] MEDS ORDERED: CALCIUM GLUCONATE IN NACL 1 GM in SALINE 1 100ML.BAG IVPB ONE (10:41)
[2023-04-01] MEDS ORDERED: SODIUM BICARB 8.4% 50 ML SYR (1 MEQ/ML) IV ONE (10:41)
[2023-04-01] MEDS ORDERED: DEXTROSE 50% SYRINGE 50 ML IVP ONE (10:41)
[2023-04-01] MEDS ORDERED: SODIUM ZIRCONIUM CYCLOSILICATE 10 GM PACKET PO ONE (10:41)
[2023-04-01] MEDS ORDERED: NALOXONE 0.4 MG/ML 1 ML VIAL IV PRN (11:21)
[2023-04-01] MEDS ORDERED: ONDANSETRON ODT 4 MG TAB PO PRN (13:28)
[2023-04-01] MEDS ORDERED: [UNRECOGNIZED DRUG - OTHER] PO PRN (13:28)
[2023-04-01] MEDS ORDERED: LOPERAMIDE 2 MG CAP PO PRN (13:28)
[2023-04-01] MEDS ORDERED: PYRIDOXINE PO PRN (13:28)
[2023-04-01] MEDS ORDERED: MELATONIN PO PRN (13:28)
--- NOTE | 2023-04-01 14:42 | P.HPIM ---
History of Present Illness H&P Date: 04/01/23 Chief Complaint: Near-syncope 62-year-old patient, follows with Dr. Almodovar. Patient has known end-stage kidney disease on hemodialysis Saturday and Saturday. Patient is rather lethargic. Unable to give a full history. Presented to the ER with near-syncopal episode. This happened while patient is going to dialysis. Patient felt tired and fell to the floor. Patient keeps dozing off while giving the history. Review of systems cannot be obtained as patient lethargic Past medical history to include: Chronic kidney disease minimal bone disease, anemia of chronic kidney disease, gastritis, carotid artery stenosis, on hemodialysis Saturday rest and Saturday COPD Social history: Patient lethargic unable to obtain Physical examination: VITAL SIGNS: 97.8, 62, 18, 122/53, 100% room air GENERAL: BMI 35, laying in bed lethargic does open her eyes then dozes off. EYES: [Pupils equal. Conjunctiva pale l. HEENT: External appearance of nose and ears normal, oral cavity grossly normal. NECK: JVD unable to assess; masses not palpable. HEART: First and second heart sounds are normal; no edema. LUNGS: Respiratory rate normal; decreased breath sounds. ABDOMEN: Soft, nontender, liver spleen not palpable, no masses palpable. PSYCH: [Lethargic. Able to answer questions l. MUSCULOSKELETAL:No Clubbing/cyanosis;muscles-grossly intact NEUROLOGICAL: Cranial nerves grossly intact; no facial asymmetry, does move all limbs. Pathology report arousable. LYMPHATICS: No lymph nodes palpable in the axilla and neck INVESTIGATIONS, reviewed in the clinical context: April 01: White count 13.2 hemoglobin 10.5 platelets 111 sodium 131 potassium 7.3 BUN 43 creatinine 6.41. Potassium 5.9 TSH 1.0 EKG tracing personally reviewed by me-normal sinus rhythm. Peak T waves. CT brain: Chronic changes Recent investigations [January 2023] CT abdomen pelvis: Small bilateral kidneys. Brain MRI: Numerous bilateral focal areas of abnormal signal white matters nonspecific. Left frontal soft tissue subcutaneous hematoma stable. 2-D echocardiogram: EF 50-55%. Moderate MR. Carotid Doppler: Moderate approaching severe stenosis right internal carotid artery 69%. 50-69% left internal carotid artery. Left thyroid nodule 1 cm. EEG: No epileptiform activity. Evidence of encephalopathy. Transferrin 200 ferritin 06/17/2008 TIBC 28T percent saturation 22.5 iron 57 Assessment and plan: -Acute metabolic encephalopathy with delirium, probably multifactorial. Patient is due for dialysis today. Also on Neurontin the setting of renal failure. For now we'll hold off Bentyl, Neurontin, Claritin,-which could all be contributing. -Chronic kidney disease minimal bone disease On Renvela -Anemia of chronic kidney disease. -Gastritis PPI -Carotid artery stenosis: Moderate approaching severe stenosis right internal carotid artery 69%. 50-69% left internal carotid artery. Follow-up with Dr. Ange gaitan -Severe hyperkalemia secondary to renal failure. Received cocktail for the same. For dialysis today. . -End-stage renal disease(Saturday and Saturday, Nephrology consulted for hemodialysis today. . -COPD, Symbicort. Albuterol when necessary. Singulair -Full code For hemodialysis today. Telemetry. Hold Bentyl Neurontin Claritin. Other medications resumed. Nephrology consulted. Past Medical History Past Medical History: Heart Failure, COPD, CVA/TIA, Dialysis, GERD/Reflux, Thyroid Disorder History of Any Multi-Drug Resistant Organisms: Unobtainable Additional Past Surgical History / Comment(s): Dialysis cath placement Past Anesthesia/Blood Transfusion Reactions: No Reported Reaction Past Psychological History: No Psychological Hx Reported Smoking Status: Unknown if ever smoked Past Alcohol Use History: Unable to Obtain Past Drug Use History: Unable to Obtain Medications and Allergies Home Medications Medication Instructions Recorded Confirmed Type Albuterol Sulfate [Albuterol 1 puff INHALATION RT-Q4H PRN 01/21/23 04/01/23 History Sulfate Hfa] Atorvastatin Calcium 20 mg PO DAILY 01/21/23 04/01/23 History Benzonatate [Tessalon Perles] 100 - 200 mg PO TID PRN 01/21/23 04/01/23 History Budesonide/Formoterol Fumarate 2 puff INHALATION RT-BID 01/21/23 04/01/23 History [Symbicort 160-4.5 Mcg Inhaler] Dicyclomine [Bentyl] 10 mg PO TID 01/21/23 04/01/23 History Fluticasone Nasal [place] [Flonase 2 spray EA NOSTRIL DAILY 01/21/23 04/01/23 History Nasal [place]] Isosorbide Mononitrate ER [Imdur] 30 mg PO DAILY 01/21/23 04/01/23 History Loperamide [Imodium] 4 mg PO QID PRN 01/21/23 04/01/23 History Metoprolol Succinate (ER) [Toprol 50 mg PO HS 01/21/23 04/01/23 History XL] Montelukast [Singulair] 10 mg PO DAILY 01/21/23 04/01/23 History Omeprazole [PriLOSEC] 20 mg PO AC-SUPPER 01/21/23 04/01/23 History Ondansetron Odt [Zofran ODT] 4 mg PO Q8HR PRN 01/21/23 04/01/23 History SILVER sulfADIAZINE Cream 1 applic TOPICAL BID 01/21/23 04/01/23 History [Silvadene 1% Cream] Ascorbic Acid [Vitamin C] 500 mg PO DAILY 01/22/23 04/01/23 History Aspirin EC [Ecotrin Low Dose] 81 mg PO DAILY 01/22/23 04/01/23 History Bismuth Subsalicylate 525 - 1,050 mg PO TID PRN 01/22/23 04/01/23 History [Pepto-Bismol Ultra] Cholecalciferol (Vitamin D3) 125 mcg PO DAILY 01/22/23 04/01/23 History [Vitamin D3 (125 MCG = 5,000 IU)] Cranberry 15,000 Mg Tab 15,000 mg PO DAILY 01/22/23 04/01/23 History Melatonin/Pyridoxine HCl (B6) 1 tab PO HS PRN 01/22/23 04/01/23 History [Melatonin-Vit B6 5-10 mg Tab] Multivit-Min/FA/Lycopen/Lutein 1 tab PO DAILY 01/22/23 04/01/23 History [Centrum Silver Tablet] Propylene Glycol [Systane Complete] 1 drop BOTH EYES HS 01/22/23 04/01/23 History Super B Complex 1 tab PO DAILY 01/22/23 04/01/23 History Vitamin E (Dl,Tocopheryl Acet) 400 unit PO DAILY 01/22/23 04/01/23 History [Vitamin E (400 Iu = 180 mg)] Bumetanide [BUMEX] 4 mg PO BID 04/01/23 04/01/23 History Gabapentin [Neurontin] 200 mg PO BID 04/01/23 04/01/23 History Loratadine [Claritin] 10 mg PO DAILY 04/01/23 04/01/23 History Midodrine [ProAmatine] 10 mg PO DIRECTED PRN 04/01/23 04/01/23 History Patiromer Calcium Sorbitex 1 packet PO DAILY 04/01/23 04/01/23 History [Velt[place]] Sevelamer Carbonate 1,600 mg PO QID 04/01/23 04/01/23 History amLODIPine [Norvasc] 10 mg PO DAILY 04/01/23 04/01/23 History hydrALAZINE HCL [Apresoline] 50 mg PO DIRECTED 04/01/23 04/01/23 History Allergies Allergy/AdvReac Type Severity Reaction Status Date / Time erythromycin base Allergy Unknown Verified 04/01/23 10:47 furosemide [From Lasix] Allergy Unknown Verified 04/01/23 10:47 green tea Allergy Unknown Verified 04/01/23 10:47 Penicillins Allergy Unknown Verified 04/01/23 10:47 strawberry Allergy Unknown Verified 04/01/23 10:47 Sulfa (Sulfonamide Allergy Unknown Verified 04/01/23 10:47 Antibiotics) sulfacetamide Allergy Unknown Verified 04/01/23 10:47 Physical Exam Vitals: Vital Signs Temp Pulse Resp BP Pulse Ox 04/01/23 11:44 61 04/01/23 11:27 62 18 122/53 100 04/01/23 11:21 62 04/01/23 09:14 52 L 14 135/61 100 04/01/23 07:35 97.8 F 60 16 129/67 100 Intake and Output 03/31/23 04/01/23 04/01/23 22:59 06:59 14:59 Other: Weight 83.915 kg Results CBC & Chem 7: 04/01/23 09:54 04/01/23 13:22 Labs: Abnormal Lab Results - Last 24 Hours (Table) 04/01/23 04/01/23 04/01/23 Range/Units 08:03 08:03 09:54 WBC 13.2 H (3.8-10.6) k/uL RBC 3.28 L (3.80-5.40) m/uL Hgb 10.5 L (11.4-16.0) gm/dL Hct 31.6 L (34.0-46.0) % RDW 17.2 H (11.5-15.5) % Plt Count 111 L (150-450) k/uL Neutrophils # 11.1 H (1.3-7.7) k/uL INR 1.2 H (<1.2) Sodium 131 L (137-145) mmol/L Potassium 7.3 H* (3.5-5.1) mmol/L Chloride 92 L (98-107) mmol/L BUN 43 H (7-17) mg/dL Creatinine 6.41 H (0.52-1.04) mg/dL Magnesium 3.2 H (1.6-2.3) mg/dL Total Protein 5.9 L (6.3-8.2) g/dL 04/01/23 Range/Units 13:22 WBC (3.8-10.6) k/uL RBC (3.80-5.40) m/uL Hgb (11.4-16.0) gm/dL Hct (34.0-46.0) % RDW (11.5-15.5) % Plt Count (150-450) k/uL Neutrophils # (1.3-7.7) k/uL INR (<1.2) Sodium (137-145) mmol/L Potassium 5.9 H (3.5-5.1) mmol/L Chloride (98-107) mmol/L BUN (7-17) mg/dL Creatinine (0.52-1.04) mg/dL Magnesium (1.6-2.3) mg/dL Total Protein (6.3-8.2) g/dL
[2023-04-01] MEDS: BUMETANIDE 1 MG TAB PO SCH ×2 (15:23→20:42)
[2023-04-01] MEDS: NON FORMULARY DRUG (Patiromer Calcium Sorbitex [Veltassa] 8.4 GM Packet) PO SCH (15:23)
[2023-04-01] MEDS: ISOSORBIDE MONONITRATE ER 30 MG TAB.ER.24H PO SCH (17:00)
[2023-04-01] MEDS: PANTOPRAZOLE 40 MG TABLET PO SCH (17:00)
[2023-04-01] MEDS: ATORVASTATIN 20 MG TAB PO SCH (17:00)
[2023-04-01] MEDS: SEVELAMER 800 MG TAB PO SCH (17:00)
[2023-04-01] MEDS: amLODIPine 10 MG TAB PO SCH (17:00)
[2023-04-01] MEDS: ASPIRIN 81 MG PO SCH (17:00)
[2023-04-01] MEDS: ARTIFICIAL TEARS-HYPROMELLOSE DROPS 15 ML BTL BOTH EYES SCH (20:42)
[2023-04-01] MEDS: METOPROLOL SUCCINATE (ER) 50 MG TAB.ER.24H PO SCH (20:43)
[2023-04-01] MEDS: SYMBICORT 160-4.5 MCG INHALER INHALATION SCH (21:39)
[2023-04-01] MEDS: ALBUTEROL HFA INHALER INHALATION PRN (21:41)
[2023-04-01 23:33] LABS: Hepatitis B Surface Antigen Nonreactive
[2023-04-02] MEDS: SEVELAMER 800 MG TAB PO SCH ×3 (08:06→16:51)
[2023-04-02 09:32] LABS: Anisocytosis Slight; Basophils % (A) 0 %; Eosinophils # (A) 0.2 k/uL (0-0.7); Eosinophils % (A) 2 %; HCT 30.4 % (34.0-46.0); Lymphocytes # (A) 1.2 k/uL (1.0-4.8); Lymphocytes % (A) 13 %; MCH 31.9 pg (25.0-35.0); MCHC 32.8 g/dL (31.0-37.0); MCV 97.2 fL (80.0-100.0); Macrocytosis Slight; Mean Platelet Volume 9.5; Monocytes # (A) 0.7 k/uL (0-1.0); Monocytes % (A) 7 %; Neutrophils # (A) 6.9 k/uL (1.3-7.7); Neutrophils % (A) 76 %; Platelet Count 129 k/uL (150-450); RBC 3.12 m/uL (3.80-5.40); RDW 16.4 % (11.5-15.5); WBC 9.1 k/uL (3.8-10.6)
[2023-04-02 09:39] LABS: ALT 15 U/L (4-34); AST 22 U/L (14-36); African American GFR (CKD) 11 (>60 ml/min/1.73 sqM); Albumin 3.3 g/dL (3.5-5.0); Alkaline Phosphatase 87 U/L (38-126); Anion Gap 11 mmol/L; Blood Urea Nitrogen 29 mg/dL (7-17); Calcium 8.5 mg/dL (8.4-10.2); Carbon Dioxide 26 mmol/L (22-30); Chloride 98 mmol/L (98-107); Glucose 89 mg/dL (74-99); Magnesium 2.5 mg/dL (1.6-2.3); Non-African American GFR(CKD) 10 (>60 ml/min/1.73 sqM); Phosphorus 4.8 mg/dL (2.5-4.5); Potassium 5.3 mmol/L (3.5-5.1); Sodium 135 mmol/L (137-145); Total Bilirubin 0.6 mg/dL (0.2-1.3); Total Protein 5.5 g/dL (6.3-8.2)
[2023-04-02] MEDS: ASCORBIC ACID 500 MG TAB PO SCH ×2 (10:16→10:22)
[2023-04-02] MEDS: ASPIRIN 81 MG PO SCH ×2 (10:19→10:24)
[2023-04-02] MEDS: MONTELUKAST 10 MG TAB PO SCH ×2 (10:20→10:21)
[2023-04-02] MEDS: amLODIPine 10 MG TAB PO SCH (10:20)
[2023-04-02] MEDS: ISOSORBIDE MONONITRATE ER 30 MG TAB.ER.24H PO SCH (10:22)
[2023-04-02] MEDS: BUMETANIDE 1 MG TAB PO SCH ×2 (10:25→20:23)
[2023-04-02] MEDS: SYMBICORT 160-4.5 MCG INHALER INHALATION SCH ×2 (10:37→21:06)
[2023-04-02] MEDS: ACETAMINOPHEN TAB 500 MG TAB PO PRN ×2 (10:42→22:15)
[2023-04-02] MEDS: NON FORMULARY DRUG (Patiromer Calcium Sorbitex [Veltassa] 8.4 GM Packet) PO SCH (10:47)
[2023-04-02] MEDS: ATORVASTATIN 20 MG TAB PO SCH (10:54)
--- NOTE | 2023-04-02 11:38 | P.NPCON ---
History of Present Illness - Reason for Consult end stage renal disease - History of Present Illness Patient is a 62-year-old female with end-stage renal disease on hemodialysis on a Saturday schedule. Patient was admitted to the hospital yesterday after she fell at home while coming to hemodialysis. Patient stated that she felt weak. It is unclear as to what her blood pressure was at that time. No hypotension documented in the hospital records here. Potassium was elevated at 7.3 and chest x-ray showed volume overload. Patient was dialyzed yesterday with UF of 3L. Patient states she is feeling better. Complaining of pain in the legs. No history of fever chills nausea vomiting or abdominal pain or diarrhea. Review of Systems As per HPI Past Medical History Past Medical History: Heart Failure, COPD, CVA/TIA, Dialysis, GERD/Reflux, Thyroid Disorder Additional Past Medical History / Comment(s): CKD, endometriosis, History of Any Multi-Drug Resistant Organisms: Unobtainable Additional Past Surgical History / Comment(s): Dialysis cath placement Past Anesthesia/Blood Transfusion Reactions: No Reported Reaction Past Psychological History: No Psychological Hx Reported Smoking Status: Unknown if ever smoked Past Alcohol Use History: Unable to Obtain Past Drug Use History: Unable to Obtain Medications and Allergies Home Medications Medication Instructions Recorded Confirmed Type Albuterol Sulfate [Albuterol 1 puff INHALATION RT-Q4H PRN 01/21/23 04/01/23 History Sulfate Hfa] Atorvastatin Calcium 20 mg PO DAILY 01/21/23 04/01/23 History Benzonatate [Tessalon Perles] 100 - 200 mg PO TID PRN 01/21/23 04/01/23 History Budesonide/Formoterol Fumarate 2 puff INHALATION RT-BID 01/21/23 04/01/23 History [Symbicort 160-4.5 Mcg Inhaler] Dicyclomine [Bentyl] 10 mg PO TID 01/21/23 04/01/23 History Fluticasone Nasal [place] [Flonase 2 spray EA NOSTRIL DAILY 01/21/23 04/01/23 History Nasal [place]] Isosorbide Mononitrate ER [Imdur] 30 mg PO DAILY 01/21/23 04/01/23 History Loperamide [Imodium] 4 mg PO QID PRN 01/21/23 04/01/23 History Metoprolol Succinate (ER) [Toprol 50 mg PO HS 01/21/23 04/01/23 History XL] Montelukast [Singulair] 10 mg PO DAILY 01/21/23 04/01/23 History Omeprazole [PriLOSEC] 20 mg PO AC-SUPPER 01/21/23 04/01/23 History Ondansetron Odt [Zofran ODT] 4 mg PO Q8HR PRN 01/21/23 04/01/23 History SILVER sulfADIAZINE Cream 1 applic TOPICAL BID 01/21/23 04/01/23 History [Silvadene 1% Cream] Ascorbic Acid [Vitamin C] 500 mg PO DAILY 01/22/23 04/01/23 History Aspirin EC [Ecotrin Low Dose] 81 mg PO DAILY 01/22/23 04/01/23 History Bismuth Subsalicylate 525 - 1,050 mg PO TID PRN 01/22/23 04/01/23 History [Pepto-Bismol Ultra] Cholecalciferol (Vitamin D3) 125 mcg PO DAILY 01/22/23 04/01/23 History [Vitamin D3 (125 MCG = 5,000 IU)] Cranberry 15,000 Mg Tab 15,000 mg PO DAILY 01/22/23 04/01/23 History Melatonin/Pyridoxine HCl (B6) 1 tab PO HS PRN 01/22/23 04/01/23 History [Melatonin-Vit B6 5-10 mg Tab] Multivit-Min/FA/Lycopen/Lutein 1 tab PO DAILY 01/22/23 04/01/23 History [Centrum Silver Tablet] Propylene Glycol [Systane Complete] 1 drop BOTH EYES HS 01/22/23 04/01/23 History Super B Complex 1 tab PO DAILY 01/22/23 04/01/23 History Vitamin E (Dl,Tocopheryl Acet) 400 unit PO DAILY 01/22/23 04/01/23 History [Vitamin E (400 Iu = 180 mg)] Bumetanide [BUMEX] 4 mg PO BID 04/01/23 04/01/23 History Gabapentin [Neurontin] 200 mg PO BID 04/01/23 04/01/23 History Loratadine [Claritin] 10 mg PO DAILY 04/01/23 04/01/23 History Midodrine [ProAmatine] 10 mg PO DIRECTED PRN 04/01/23 04/01/23 History Patiromer Calcium Sorbitex 1 packet PO DAILY 04/01/23 04/01/23 History [Veltassa] Sevelamer Carbonate 1,600 mg PO QID 04/01/23 04/01/23 History amLODIPine [Norvasc] 10 mg PO DAILY 04/01/23 04/01/23 History hydrALAZINE HCL [Apresoline] 50 mg PO DIRECTED 04/01/23 04/01/23 History Allergies Allergy/AdvReac Type Severity Reaction Status Date / Time erythromycin base Allergy Unknown Verified 04/01/23 10:47 furosemide [From Lasix] Allergy Unknown Verified 04/01/23 10:47 green tea Allergy Unknown Verified 04/01/23 10:47 Penicillins Allergy Unknown Verified 04/01/23 10:47 strawberry Allergy Unknown Verified 04/01/23 10:47 Sulfa (Sulfonamide Allergy Unknown Verified 04/01/23 10:47 Antibiotics) sulfacetamide Allergy Unknown Verified 04/01/23 10:47 Physical Exam Vitals: Vital Signs Temp Pulse Pulse Resp BP BP Pulse Ox 04/02/23 11:30 98.2 F 65 18 99/59 94 L 04/02/23 08:00 98.3 F 72 17 119/65 94 L 04/02/23 04:00 98.3 F 67 17 102/66 97 04/01/23 23:09 98.4 F 71 17 100/64 98 04/01/23 20:20 98.4 F 79 18 119/71 98 04/01/23 18:36 98.3 F 67 17 127/67 97 04/01/23 18:26 98.3 F 67 18 127/67 97 04/01/23 17:57 97.6 F 75 20 110/55 97 04/01/23 17:12 97.1 F L 58 L 16 138/90 04/01/23 16:59 63 18 138/83 95 04/01/23 15:09 50 L 18 116/60 04/01/23 11:44 61 Intake and Output 04/01/23 04/02/23 04/02/23 22:59 06:59 14:59 Intake Total 410 118 Output Total 3400 100 500 Balance -2990 -100 -382 Intake: IV 10 0.9 10 Oral 118 Hemodialysis 400 Output: Urine 400 100 500 Hemodialysis 3000 Other: Voiding Method Toilet # Voids 1 1 # Bowel Movements 1 1 Weight 74.5 kg 78.5 kg Patient is awake, comfortable, alert oriented 3 No acute distress Examination of the heart S1 and S2 Examination of the lungs bilateral breath sounds are heard Abdomen is soft nontender Examination of lower extremities shows 1+ edema bilaterally LUMBER BUYER exam grossly intact Results - Lab Results Most recent lab results Calcium 8.5 mg/dL (8.4-10.2) 04/02/23 08:40 Phosphorus 4.8 mg/dL (2.5-4.5) H 04/02/23 08:40 Magnesium 2.5 mg/dL (1.6-2.3) H 04/02/23 08:40 04/02/23 08:40 04/02/23 08:40 Assessment and Plan Assessment: 1. End-stage renal disease on hemodialysis on a Saturday schedule 2. Volume overload currently improved 3. Hyperkalemia with history of chronic hyperkalemia maintained on Veltassa as outpatient 4. CK D mineral bone disorder 5. Status post fall, near syncope Plan: Hemodialysis in a.m. May need to restart Neurontin at a lower dose as patient is complaining of significant pain in the legs Continue with veltassa as outpatient
[2023-04-02] MEDS: GABAPENTIN 100 MG CAP PO SCH ×2 (12:13→20:23)
--- NOTE | 2023-04-02 13:17 | P.PN ---
Progress Note - Text Progress Note Date: 04/02/23 Chief Complaint: Near-syncope 62-year-old patient, follows with Dr. Almodovar. Patient has known end-stage kidney disease on hemodialysis Saturday and Saturday. Patient is rather lethargic. Unable to give a full history. Presented to the ER with near-syncopal episode. This happened while patient is going to dialysis. Patient felt tired and fell to the floor. Patient keeps dozing off while giving the history. April 02: Patient tired but not delirious anymore. Was hemodialyzed yesterday. Complaining of lower extremity pain. We'll start Neurontin at half the dose at 100 mg twice a day. John wrap lower extremity. Patient will be dialyzed tomorrow. We'll see how patient does at least for 24 hours. Being followed by nephrology. Eating well. Active Medications Acetaminophen (Acetaminophen Tab 500 Mg Tab) 500 mg PO Q6HR PRN PRN Reason: Fever and/ or Pain Last Admin: 04/02/23 10:42 Dose: 500 mg Albuterol Sulfate (Albuterol Hfa Inhaler) 1 puff INHALATION RT-Q4H PRN PRN Reason: Shortness Of Breath Last Admin: 04/01/23 21:41 Dose: 1 puff Amlodipine Besylate (Amlodipine 10 Mg Tab) 10 mg PO DAILY [facility] Last Admin: 04/02/23 10:20 Dose: 10 mg Artificial Tears (Artificial Tears-Hypromellose Drops 15 Ml Btl) 1 drops BOTH EYES HS [facility] Last Admin: 04/01/23 20:42 Dose: 1 drops Ascorbic Acid (Ascorbic Acid 500 Mg Tab) 500 mg PO DAILY [facility] Last Admin: 04/02/23 10:22 Dose: 500 mg Aspirin (Aspirin 81 Mg) 81 mg PO DAILY [facility] Last Admin: 04/02/23 10:24 Dose: 81 mg Atorvastatin Calcium (Atorvastatin 20 Mg Tab) 20 mg PO DAILY [facility] Last Admin: 04/02/23 10:54 Dose: Not Given Budesonide/Formoterol Fumarate (Symbicort 160-4.5 Mcg Inhaler) 2 puff INHALATION RT-BID [facility] Last Admin: 04/02/23 10:37 Dose: Not Given Bumetanide (Bumetanide 1 Mg Tab) 4 mg PO BID [facility] Last Admin: 04/02/23 10:25 Dose: 4 mg Gabapentin (Gabapentin 100 Mg Cap) 100 mg PO BID [facility] Last Admin: 04/02/23 12:13 Dose: 100 mg Isosorbide Mononitrate (Isosorbide Mononitrate Er 30 Mg Tab.Er.24h) 30 mg PO DAILY [facility] Last Admin: 04/02/23 10:22 Dose: 30 mg Loperamide HCl (Loperamide 2 Mg Cap) 4 mg PO QID PRN PRN Reason: Diarrhea Metoprolol Succinate (Metoprolol Succinate (Er) 50 Mg Tab.Er.24h) 50 mg PO HS [facility] Last Admin: 04/01/23 20:43 Dose: 50 mg Montelukast Sodium (Montelukast 10 Mg Tab) 10 mg PO DAILY [facility] Last Admin: 04/02/23 10:21 Dose: 10 mg Naloxone HCl (Naloxone 0.4 Mg/Ml 1 Ml Vial) 0.2 mg IV Q2M PRN PRN Reason: Opioid Reversal Non-Formulary Medication (Melatonin/Pyridoxine Hcl (B6) [Melatonin-Vit B6 5-10 Mg Tab]) 1 tab PO HS PRN PRN Reason: SLEEP Non-Formulary Medication (Patiromer Calcium Sorbitex [Veltassa]) 1 packet PO DAILY [facility] Last Admin: 04/02/23 10:47 Dose: Not Given Ondansetron HCl (Ondansetron Odt 4 Mg Tab) 4 mg PO Q8HR PRN PRN Reason: Nausea Pantoprazole Sodium (Pantoprazole 40 Mg Tablet) 40 mg PO AC-SUPPER [facility] Last Admin: 04/01/23 17:00 Dose: 40 mg Sevelamer Carbonate (Sevelamer 800 Mg Tab) 1,600 mg PO TID-W/MEALS [facility] Last Admin: 04/02/23 12:13 Dose: 1,600 mg Silver Sulfadiazine (Silver Sulfadiazine 1% Cream 25 Gm Tube) 1 applic TOPICAL BID [facility] Last Admin: 04/02/23 10:49 Dose: 1 applic Past medical history to include: Chronic kidney disease minimal bone disease, anemia of chronic kidney disease, gastritis, carotid artery stenosis, on hemodialysis Saturday rest and Saturday COPD Social history: Patient lethargic unable to obtain Physical examination: VITAL SIGNS: 98.2, 65, 18, 99/59, 95% room air GENERAL: Laying in bed, tired but able to answer questions EYES: [Pupils equal. Conjunctiva pale . HEENT: External appearance of nose and ears normal, oral cavity grossly normal. NECK: JVD unable to assess; masses not palpable. HEART: First and second heart sounds are normal; no edema. LUNGS: Respiratory rate normal; decreased breath sounds. ABDOMEN: Soft, nontender, liver spleen not palpable, no masses palpable. PSYCH: Answering questions appropriately. MUSCULOSKELETAL:No Clubbing/cyanosis;muscles-grossly intact NEUROLOGICAL: Cranial nerves grossly intact; no facial asymmetry, moving all 4 limbs INVESTIGATIONS, reviewed in the clinical context: Hepatitis B surface antigen: Nonreactive hepatitis B surface antibody A. Quantitative 1000 April 02: White count 9.1 hemoglobin 10 platelets 1295.3 BUN 29 creatinine 4.46 magnesium 2.5 April 01: White count 13.2 hemoglobin 10.5 platelets 111 sodium 131 potassium 7.3 BUN 43 creatinine 6.41. Potassium 5.9 TSH 1.0 EKG tracing personally reviewed by me-normal sinus rhythm. Peak T waves. CT brain: Chronic changes Recent investigations [January 2023] CT abdomen pelvis: Small bilateral kidneys. Brain MRI: Numerous bilateral focal areas of abnormal signal white matters nonspecific. Left frontal soft tissue subcutaneous hematoma stable. 2-D echocardiogram: EF 50-55%. Moderate MR. Carotid Doppler: Moderate approaching severe stenosis right internal carotid artery 69%. 50-69% left internal carotid artery. Left thyroid nodule 1 cm. EEG: No epileptiform activity. Evidence of encephalopathy. Transferrin 200 ferritin 06/17/2008 TIBC 28T percent saturation 22.5 iron 57 Assessment and plan: -Acute metabolic encephalopathy with delirium, probably multifactorial.: Better Better with dialysis For now we'll hold off Bentyl, , Claritin,-which could all be contributing. Neurontin to be resumed at a smaller dose -Chronic kidney disease minimal bone disease On Renvela -Anemia of chronic kidney disease. -Gastritis PPI -Carotid artery stenosis: Moderate approaching severe stenosis right internal carotid artery 69%. 50-69% left internal carotid artery. Follow-up with Dr. Ange gaitan -Severe hyperkalemia secondary to renal failure. Received cocktail for the same. For dialysis today. . -End-stage renal disease(Saturday and Saturday, Nephrology consulted for hemodialysis today. -Peripheral neuropathy Because of renal failure started Neurontin on half the dose. 100 mg twice a day . -COPD, Symbicort. Albuterol when necessary. Singulair -Full code We'll see how patient does today. Neurontin being treated resumed at half the dose. John wrap lower extremity. Hemodialysis tomorrow. Probably discharge if doing well.
--- NOTE | 2023-04-02 15:13 | US ---
EXAMINATION TYPE: US venous doppler duplex LE DATE OF EXAM: 04/02/2023 2:17 PM COMPARISON: NONE CLINICAL INDICATION: Female, 62 years old with history of Pain in L. leg, erythema; Pain SIDE PERFORMED: Bilateral TECHNIQUE: The lower extremity deep venous system is examined utilizing real time linear array sonog davis with graded compression, doppler sonography and color-flow sonography. VESSELS IMAGED: Common Femoral Vein Deep Femoral Vein Greater Saphenous Vein * Femoral Vein Popliteal Vein Small Saphenous Vein * Proximal Calf Veins (* superficial vessels) Right Leg: Negative for DVT Left Leg: Negative for DVT IMPRESSION: Grayscale, color doppler, spectral doppler imaging performed of the deep veins of the lo wer extremities. There is normal flow, compressibility, vascular waveforms.
[2023-04-02] MEDS: PANTOPRAZOLE 40 MG TABLET PO SCH (16:51)
[2023-04-02] MEDS: METOPROLOL SUCCINATE (ER) 50 MG TAB.ER.24H PO SCH (20:23)
[2023-04-02] MEDS: ALBUTEROL HFA INHALER INHALATION PRN (21:06)
[2023-04-02] MEDS: ARTIFICIAL TEARS-HYPROMELLOSE DROPS 15 ML BTL BOTH EYES SCH (21:11)
[2023-04-03] MEDS: SEVELAMER 800 MG TAB PO SCH ×2 (06:46→12:20)
[2023-04-03] MEDS: BUMETANIDE 1 MG TAB PO SCH (07:50)
[2023-04-03] MEDS: ISOSORBIDE MONONITRATE ER 30 MG TAB.ER.24H PO SCH (07:51)
[2023-04-03] MEDS: ATORVASTATIN 20 MG TAB PO SCH (07:51)
[2023-04-03] MEDS: amLODIPine 10 MG TAB PO SCH (07:51)
[2023-04-03] MEDS: GABAPENTIN 100 MG CAP PO SCH (07:51)
[2023-04-03] MEDS: SYMBICORT 160-4.5 MCG INHALER INHALATION SCH (09:23)
[2023-04-03] MEDS: ALBUTEROL HFA INHALER INHALATION PRN (09:23)
[2023-04-03] MEDS: NON FORMULARY DRUG (Patiromer Calcium Sorbitex [Veltassa] 8.4 GM Packet) PO SCH (11:08)
[2023-04-03 11:24] VITALS: PULSE 63
[2023-04-03 12:26] VITALS: BP 156/74; RESP 18; TEMP 98
--- NOTE | 2023-04-03 20:22 | P.DS ---
Providers Date of admission: 04/01/23 11:21 Expected date of discharge: 04/03/23 Attending physician: Monroe Morocho Consults: 04/01/23 11:21 Consult Physician Urgent Consulting Provider: Elvia Armstrong Consult Reason/Comments: Hyperkalemia, CRF Do you want consulting provider notified?: Already Contacted Primary care physician: Andrez Almodovar [facility] Course: Chief Complaint: Near-syncope 62-year-old patient, follows with Dr. Almodovar. Patient has known end-stage kidney disease on hemodialysis Saturday and Saturday. Patient is rather lethargic. Unable to give a full history. Presented to the ER with near-syncopal episode. This happened while patient is going to dialysis. Patient felt tired and fell to the floor. Patient keeps dozing off while giving the history. April 02: Patient tired but not delirious anymore. Was hemodialyzed yesterday. Complaining of lower extremity pain. We'll start Neurontin at half the dose at 100 mg twice a day. John wrap lower extremity. Patient will be dialyzed tomorrow. We'll see how patient does at least for 24 hours. Being followed by nephrology. Eating well. April 03: Doing well. On extreme pain well controlled. Getting dialyzed today. Discussed with patient. Past medical history to include: Chronic kidney disease minimal bone disease, anemia of chronic kidney disease, gastritis, carotid artery stenosis, on hemodialysis Saturday rest and Saturday COPD Social history: Patient lethargic unable to obtain Physical examination: VITAL SIGNS: 98, 63, 16, 1:30/70, 98% room air GENERAL: Laying in bed, comfortable EYES: [Pupils equal. Conjunctiva pale . HEENT: External appearance of nose and ears normal, oral cavity grossly normal. NECK: JVD unable to assess; masses not palpable. HEART: First and second heart sounds are normal; no edema. LUNGS: Respiratory rate normal; decreased breath sounds. ABDOMEN: Soft, nontender, liver spleen not palpable, no masses palpable. PSYCH: AO 3, mood affect normal MUSCULOSKELETAL:No Clubbing/cyanosis;muscles-grossly intact NEUROLOGICAL: Cranial nerves grossly intact; no facial asymmetry, moving all 4 limbs INVESTIGATIONS, reviewed in the clinical context: Hepatitis B surface antigen: Nonreactive hepatitis B surface antibody A. Quantitative 1000 April 02: White count 9.1 hemoglobin 10 platelets 1295.3 BUN 29 creatinine 4.46 magnesium 2.5 April 01: White count 13.2 hemoglobin 10.5 platelets 111 sodium 131 potassium 7.3 BUN 43 creatinine 6.41. Potassium 5.9 TSH 1.0 EKG tracing personally reviewed by me-normal sinus rhythm. Peak T waves. CT brain: Chronic changes Recent investigations [January 2023] CT abdomen pelvis: Small bilateral kidneys. Brain MRI: Numerous bilateral focal areas of abnormal signal white matters nonspecific. Left frontal soft tissue subcutaneous hematoma stable. 2-D echocardiogram: EF 50-55%. Moderate MR. Carotid Doppler: Moderate approaching severe stenosis right internal carotid a rtery 69%. 50-69% left internal carotid artery. Left thyroid nodule 1 cm. EEG: No epileptiform activity. Evidence of encephalopathy. Transferrin 200 ferritin 06/17/2008 TIBC 28T percent saturation 22.5 iron 57 Assessment and plan: -Acute metabolic encephalopathy with delirium, probably multifactorial.: Improved Better with dialysis Bentyl changed to when necessary. Claritin discontinued. Neurontin to be resumed at a half to dose -Chronic kidney disease minimal bone disease On Renvela -Anemia of chronic kidney disease. -Gastritis PPI -Carotid artery stenosis: Moderate approaching severe stenosis right internal carotid artery 69%. 50-69% left internal carotid artery. Follow-up with Dr. Ange gaitan -Severe hyperkalemia secondary to renal failure. Received cocktail for the same. For dialysis today. . -End-stage renal disease(Saturday and Saturday, Nephrology following -Peripheral neuropathy Because of renal failure started Neurontin on half the dose. 100 mg twice a day . -COPD, Symbicort. Albuterol when necessary. Singulair -Full code Disposition: Home Plan - Discharge Summary New Discharge Prescriptions: Continue SILVER sulfADIAZINE Cream [Silvadene 1% Cream] 1 applic TOPICAL BID Montelukast [Singulair] 10 mg PO DAILY Atorvastatin Calcium 20 mg PO DAILY Fluticasone Nasal [place] [Flonase Nasal [place]] 2 spray EA NOSTRIL DAILY Loperamide [Imodium] 4 mg PO QID PRN PRN Reason: Diarrhea Budesonide/Formoterol Fumarate [Symbicort 160-4.5 Mcg Inhaler] 2 puff INHALATION RT-BID Ondansetron Odt [Zofran ODT] 4 mg PO Q8HR PRN PRN Reason: Nausea Cholecalciferol (Vitamin D3) [Vitamin D3 (125 MCG = 5,000 IU)] 125 mcg PO DAILY Super B Complex 1 tab PO DAILY Ascorbic Acid [Vitamin C] 500 mg PO DAILY Vitamin E (Dl,Tocopheryl Acet) [Vitamin E (400 Iu = 180 mg)] 400 unit PO DAILY Cranberry 15,000 Mg Tab 15,000 mg PO DAILY Midodrine [ProAmatine] 10 mg PO DIRECTED PRN PRN Reason: during dialysis amLODIPine [Norvasc] 10 mg PO DAILY Sevelamer Carbonate 1,600 mg PO QID Albuterol Sulfate [Albuterol Sulfate Hfa] 1 puff INHALATION RT-Q4H PRN PRN Reason: Shortness Of Breath Omeprazole [PriLOSEC] 20 mg PO AC-SUPPER Isosorbide Mononitrate ER [Imdur] 30 mg PO DAILY Metoprolol Succinate (ER) [Toprol XL] 50 mg PO HS Benzonatate [Tessalon Perles] 100 - 200 mg PO TID PRN PRN Reason: Cough Propylene Glycol [Systane Complete] 1 drop BOTH EYES HS Aspirin EC [Ecotrin Low Dose] 81 mg PO DAILY Bismuth Subsalicylate [Pepto-Bismol Ultra] 525 - 1,050 mg PO TID PRN PRN Reason: Gi Upset Melatonin/Pyridoxine HCl (B6) [Melatonin-Vit B6 5-10 mg Tab] 1 tab PO HS PRN PRN Reason: SLEEP Multivit-Min/FA/Lycopen/Lutein [Centrum Silver Tablet] 1 tab PO DAILY Bumetanide [BUMEX] 4 mg PO BID Patiromer Calcium Sorbitex [Veltassa] 1 packet PO DAILY hydrALAZINE HCL [Apresoline] 50 mg PO DIRECTED Changed Gabapentin [Neurontin] 200 mg PO HS #0 Dicyclomine [Bentyl] 10 mg PO TID PRN #0 PRN Reason: Spasms Discontinued Loratadine [Claritin] 10 mg PO DAILY Discharge Medication List Albuterol Sulfate [Albuterol Sulfate Hfa] 1 puff INHALATION RT-Q4H PRN 01/21/23 [History] Atorvastatin Calcium 20 mg PO DAILY 01/21/23 [History] Benzonatate [Tessalon Perles] 100 - 200 mg PO TID PRN 01/21/23 [History] Budesonide/Formoterol Fumarate [Symbicort 160-4.5 Mcg Inhaler] 2 puff INHALATION RT-BID 01/21/23 [History] Fluticasone Nasal [place] [Flonase Nasal [place]] 2 spray EA NOSTRIL DAILY 01/21/23 [History] Isosorbide Mononitrate ER [Imdur] 30 mg PO DAILY 01/21/23 [History] Loperamide [Imodium] 4 mg PO QID PRN 01/21/23 [History] Metoprolol Succinate (ER) [Toprol XL] 50 mg PO HS 01/21/23 [History] Montelukast [Singulair] 10 mg PO DAILY 01/21/23 [History] Omeprazole [PriLOSEC] 20 mg PO AC-SUPPER 01/21/23 [History] Ondansetron Odt [Zofran ODT] 4 mg PO Q8HR PRN 01/21/23 [History] SILVER sulfADIAZINE Cream [Silvadene 1% Cream] 1 applic TOPICAL BID 01/21/23 [History] Ascorbic Acid [Vitamin C] 500 mg PO DAILY 01/22/23 [History] Aspirin EC [Ecotrin Low Dose] 81 mg PO DAILY 01/22/23 [History] Bismuth Subsalicylate [Pepto-Bismol Ultra] 525 - 1,050 mg PO TID PRN 01/22/23 [History] Cholecalciferol (Vitamin D3) [Vitamin D3 (125 MCG = 5,000 IU)] 125 mcg PO DAILY 01/22/23 [History] Cranberry 15,000 Mg Tab 15,000 mg PO DAILY 01/22/23 [History] Melatonin/Pyridoxine HCl (B6) [Melatonin-Vit B6 5-10 mg Tab] 1 tab PO HS PRN 01/22/23 [History] Multivit-Min/FA/Lycopen/Lutein [Centrum Silver Tablet] 1 tab PO DAILY 01/22/23 [History] Propylene Glycol [Systane Complete] 1 drop BOTH EYES HS 01/22/23 [History] Super B Complex 1 tab PO DAILY 01/22/23 [History] Vitamin E (Dl,Tocopheryl Acet) [Vitamin E (400 Iu = 180 mg)] 400 unit PO DAILY 01/22/23 [History] Bumetanide [BUMEX] 4 mg PO BID 04/01/23 [History] Midodrine [ProAmatine] 10 mg PO DIRECTED PRN 04/01/23 [History] Patiromer Calcium Sorbitex [Veltassa] 1 packet PO DAILY 04/01/23 [History] Sevelamer Carbonate 1,600 mg PO QID 04/01/23 [History] amLODIPine [Norvasc] 10 mg PO DAILY 04/01/23 [History] hydrALAZINE HCL [Apresoline] 50 mg PO DIRECTED 04/01/23 [History] Dicyclomine [Bentyl] 10 mg PO TID PRN #0 04/03/23 [Rx] Gabapentin [Neurontin] 200 mg PO HS #0 04/03/23 [Rx] Follow up Appointment(s)/Referral(s): [facility] [NON-STAFF] - Andrez Almodovar MD [Primary Care Provider] - 1-2 days (Unable to get through at this time. Please call to schedule appointment) Patient Instructions/Handouts: Hyperkalemia (DC) Activity/Diet/Wound Care/Special Instructions: no new prescriptions Discharge Disposition: TRANSFER TO SNF/ECF
--- NOTE | 2023-04-03 21:13 | P.PN ---
Subjective Patient is seen for f/u for ESRD. Currently seen on HD. Tolerating treatment well. Objective - Vital Signs Vital signs: Vital Signs Temp 98.0 F 04/03/23 12:06 Pulse 63 04/03/23 11:17 Resp 18 04/03/23 12:06 BP 156/74 04/03/23 12:06 Pulse Ox 98 04/03/23 11:17 FiO2 21 04/03/23 09:24 Intake & Output 04/03/23 04/03/23 04/04/23 06:59 18:59 06:59 Intake Total 540 Output Total 1150 4050 Balance -1150 -3510 Weight 75.3 kg Intake: Oral 240 Hemodialysis 300 Output: Urine 1150 550 Hemodialysis 3500 Other: Voiding Method Toilet Toilet # Voids 1 - Exam Awke, comfortable alert and oriented x3 No edema noted. ASSURANCE ENGINEER xam grossly intact - Labs CBC & Chem 7: 04/02/23 08:40 04/02/23 08:40 Assessment and Plan Assessment: 1. End-stage renal disease on hemodialysis on a Saturday schedule 2. Volume overload currently improved 3. Hyperkalemia with history of chronic hyperkalemia maintained on Veltassa as outpatient 4. CK D mineral bone disorder 5. Status post fall, near syncope Plan: OK to discharge patient post discharge. Continue with veltassa as outpatient
== END 2023-04-03 14:26 | disposition home health service (06) | DRG 70 ==
LOC: EC 07:30 → 3SCARD 11:21
PROVIDERS: ADMIT Hospitalist; ATTEND Hospitalist
PROC: 5A1D70Z Performance of Urinary Filtration, Intermittent, Less than 6 Hours Per Day (ICD-10-PCS; principal; 2023-04-01)
DX: G93.41 Metabolic encephalopathy (principal); N18.6 End stage renal disease; I13.2 Hypertensive heart and chronic kidney disease with heart failure and with stage 5 chronic kidney disease, or end stage renal disease; F05 Delirium due to known physiological condition; E83.9 Disorder of mineral metabolism, unspecified; D63.1 Anemia in chronic kidney disease; I50.9 Heart failure, unspecified; J44.9 Chronic obstructive pulmonary disease, unspecified; Z99.2 Dependence on renal dialysis; I65.21 Occlusion and stenosis of right carotid artery; E87.5 Hyperkalemia; G62.9 Polyneuropathy, unspecified; K29.70 Gastritis, unspecified, without bleeding; K21.9 Gastro-esophageal reflux disease without esophagitis; Z79.82 Long term (current) use of aspirin; Z79.51 Long term (current) use of inhaled steroids; Z79.899 Other long term (current) drug therapy; Z88.1 Allergy status to other antibiotic agents; Z88.0 Allergy status to penicillin; Z88.2 Allergy status to sulfonamides; Z88.8 Allergy status to other drugs, medicaments and biological substances; W18.30XA Fall on same level, unspecified, initial encounter; Y92.009 Unspecified place in unspecified non-institutional (private) residence as the place of occurrence of the external cause
CPT/HCPCS: 36415; 70450; 71046; 80053; 83735; 83880; 84100; 84132; 84439; 84443; 84481; 84484; 85025; 85610; 85730; 86706; 87340; 90935; 93005; 93970; 94640; 94760; 96365; 96375; 99291

== ENCOUNTER 2024-03-18 14:15 | Inpatient (IN) | payer MEDICARE, OTHER ==
[2024-03-18] MEDS ORDERED: NALOXONE 0.4 MG/ML 1 ML VIAL IV PRN (15:14)
--- NOTE | 2024-03-18 15:14 | ED ---
General Adult HPI - General Chief complaint: Recheck/Abnormal Lab/Rx Stated complaint: lethargy Time Seen by Provider: 03/18/24 14:23 Source: patient, RN notes reviewed, old records reviewed Mode of arrival: EMS - History of Present Illness Initial comments: 63-year-old female presenting from [facility] for altered mental status, concern for UTI. Patient was given antibiotics and transferred for further evaluation and treatment. Patient is lethargic but arousable and able to answer simple questions. She denies headache. Denies chest or abdominal pain. Denies fever. Denies nausea. Patient is on dialysis but continues to make urine and was diagnosed with urinary tract infection. - Related Data Home Medications Medication Instructions Recorded Confirmed Albuterol Sulfate [Albuterol 1 puff INHALATION RT-Q4H PRN 01/21/23 04/01/23 Sulfate Hfa] Atorvastatin Calcium 20 mg PO DAILY 01/21/23 04/01/23 Benzonatate [Tessalon Perles] 100 - 200 mg PO TID PRN 01/21/23 04/01/23 Budesonide/Formoterol Fumarate 2 puff INHALATION RT-BID 01/21/23 04/01/23 [Symbicort 160-4.5 Mcg Inhaler] Fluticasone Nasal [place] [Flonase 2 spray EA NOSTRIL DAILY 01/21/23 04/01/23 Nasal [place]] Isosorbide Mononitrate ER [Imdur] 30 mg PO DAILY 01/21/23 04/01/23 Loperamide [Imodium] 4 mg PO QID PRN 01/21/23 04/01/23 Metoprolol Succinate (ER) [Toprol 50 mg PO HS 01/21/23 04/01/23 XL] Montelukast [Singulair] 10 mg PO DAILY 01/21/23 04/01/23 Omeprazole [PriLOSEC] 20 mg PO AC-SUPPER 01/21/23 04/01/23 Ondansetron Odt [Zofran ODT] 4 mg PO Q8HR PRN 01/21/23 04/01/23 SILVER sulfADIAZINE Cream 1 applic TOPICAL BID 01/21/23 04/01/23 [Silvadene 1% Cream] Ascorbic Acid [Vitamin C] 500 mg PO DAILY 01/22/23 04/01/23 Aspirin EC [Ecotrin Low Dose] 81 mg PO DAILY 01/22/23 04/01/23 Bismuth Subsalicylate 525 - 1,050 mg PO TID PRN 01/22/23 04/01/23 [Pepto-Bismol Ultra] Cholecalciferol (Vitamin D3) 125 mcg PO DAILY 01/22/23 04/01/23 [Vitamin D3 (125 MCG = 5,000 IU)] Cranberry 15,000 Mg Tab 15,000 mg PO DAILY 01/22/23 04/01/23 Melatonin/Pyridoxine HCl (B6) 1 tab PO HS PRN 01/22/23 04/01/23 [Melatonin-Vit B6 5-10 mg Tab] Multivit-Min/FA/Lycopen/Lutein 1 tab PO DAILY 01/22/23 04/01/23 [Centrum Silver Tablet] Propylene Glycol [Systane Complete] 1 drop BOTH EYES HS 01/22/23 04/01/23 Super B Complex 1 tab PO DAILY 01/22/23 04/01/23 Vitamin E (Dl,Tocopheryl Acet) 400 unit PO DAILY 01/22/23 04/01/23 [Vitamin E (400 Iu = 180 mg)] Bumetanide [BUMEX] 4 mg PO BID 04/01/23 04/01/23 Midodrine [ProAmatine] 10 mg PO DIRECTED PRN 04/01/23 04/01/23 Patiromer Calcium Sorbitex 1 packet PO DAILY 04/01/23 04/01/23 [Veltassa] Sevelamer Carbonate 1,600 mg PO QID 04/01/23 04/01/23 amLODIPine [Norvasc] 10 mg PO DAILY 04/01/23 04/01/23 hydrALAZINE HCL [Apresoline] 50 mg PO DIRECTED 04/01/23 04/01/23 Previous Rx's Medication Instructions Recorded Dicyclomine [Bentyl] 10 mg PO TID PRN #0 04/03/23 Gabapentin [Neurontin] 200 mg PO HS #0 04/03/23 Allergies Allergy/AdvReac Type Severity Reaction Status Date / Time erythromycin base Allergy Unknown Verified 03/18/24 14:33 furosemide [From Lasix] Allergy Unknown Verified 03/18/24 14:33 green tea Allergy Unknown Verified 03/18/24 14:33 Penicillins Allergy Unknown Verified 03/18/24 14:33 Sulfa (Sulfonamide Allergy Unknown Verified 03/18/24 14:33 Antibiotics) sulfacetamide Allergy Unknown Verified 03/18/24 14:33 Review of Systems ROS Statement: Those systems with pertinent positive or pertinent negative responses have been documented in the HPI. ROS Other: All systems not noted in ROS Statement are negative. Past Medical History Past Medical History: Heart Failure, COPD, CVA/TIA, Dialysis, GERD/Reflux, Thyr oid Disorder Additional Past Medical History / Comment(s): CKD, endometriosis, History of Any Multi-Drug Resistant Organisms: Unobtainable Additional Past Surgical History / Comment(s): Dialysis cath placement Past Anesthesia/Blood Transfusion Reactions: No Reported Reaction Past Psychological History: No Psychological Hx Reported Smoking Status: Unknown if ever smoked Past Alcohol Use History: Unable to Obtain Past Drug Use History: Unable to Obtain General Exam General appearance: in no apparent distress, lethargic Head exam: Present: atraumatic, normocephalic Eye exam: Present: normal appearance, PERRL Respiratory exam: Present: decreased breath sounds. Absent: respiratory distress Cardiovascular Exam: Present: regular rate, normal rhythm GI/Abdominal exam: Present: soft. Absent: distended, tenderness, guarding Extremities exam: Present: pedal edema, other ( bilateral lower extremity cellulitis) Neurological exam: Present: alert. Absent: motor sensory deficit Skin exam: Present: warm, dry, intact Course Vital Signs 03/18/24 14:21 Temperature 97.6 F Pulse Rate 84 Respiratory 20 Rate Blood Pressure 112/60 O2 Sat by Pulse 93 L Oximetry Medical Decision Making - Medical Decision Making Was pt. sent in by a medical professional or institution (, PA, RIG BUILDER HELPER, urgent care, hospital, or detention...) When possible be specific @ -[Transfer from [facility] Did you speak to anyone other than the patient for history (EMS, parent, family, police, friend...)? What history was obtained from this source @ -No Did you review nursing and triage notes (agree or disagree)? Why? @ -I reviewed and agree with nursing and triage notes Were old charts reviewed (outside hosp., previous admission, EMS record, old EKG, old radiological studies, urgent care reports/EKG's, detention records)? Report findings @ -No old charts were reviewed Differential Weakness: Hypoglycemia, shock, sepsis, hyponatremia, anemia, infection, KS, ETOH, adverse medicine reaction, overdose, stroke, this is not meant to be an all-inclusive list. EKG interpreted by me (3pts min.). @ -As above X-rays interpreted by me (1pt min.). @ -None done CT interpreted by me (1pt min.). @ -None done U/S interpreted by me (1pt. min.). @ -None done What testing was considered but not performed or refused? (CT, X-rays, U/S, labs)? Why? @ -None What meds were considered but not given or refused? Why? @ -None Did you discuss the management of the patient with other professionals (professionals i.e. , PA, RIG BUILDER HELPER, lab, RT, psych nurse, mental health social worker, a r collections rep, teacher, aoc plans intelligence officer, corrections caseworker)? Give summary @ -[Dr. Morocho Was smoking cessation discussed for >3mins.? @ -No Was critical care preformed (if so, how long)? @ -No Were there social determinants of health that impacted care today? How? (Homelessness, low income, unemployed, alcoholism, drug addiction, transportation, low edu. Level, literacy, decrease access to med. care, fci, rehab)? @ -No Was there de-escalation of care discussed even if they declined (Discuss DNR or withdrawal of care, Hospice)? DNR status @ -No What co-morbidities impacted this encounter? (DM, HTN, Smoking, COPD, CAD, Cancer, CVA, ARF, Chemo, Hep., AIDS, mental health diagnosis, sleep apnea, morbid obesity)? @ -End-stage renal disease Was patient admitted / discharged? Hospital course, mention meds given and route, prescriptions, significant lab abnormalities, going to OR and other pertinent info. @ -63-year-old female transfer from [facility] end-stage renal disease, UTI, lethargy. Patient received chest x-ray, CT brain, laboratory testing. Patient is lethargic but arousable. Vital signs are stable. Repeat laboratory testing including CBC, CMP and venous blood gas have been ordered these results are pending. The patient will be admitted to Dr. Morocho who is aware with nephrology on consult. Antibiotics will be continued Undiagnosed new problem with uncertain prognosis? @ -No Drug Therapy requiring intensive monitoring for toxicity (Heparin, Nitro, Insu dejah, Cardizem)? @ -No Were any procedures done? @ -No Diagnosis/symptom? @ -Altered Mental status, UTI, end-stage renal disease Acute, or Chronic, or Acute on Chronic? @ -acute Uncomplicated (without systemic symptoms) or Complicated (systemic symptoms)? @ -Default Side effects of treatment? @ -No Exacerbation, Progression, or Severe Exacerbation? @ -No Poses a threat to life or bodily function? How? (Chest pain, [place], KS, pneumonia, PE, COPD, DKA, ARF, appy, cholecystitis, CVA, Diverticulitis, Homicidal, Suicidal, threat to staff... and all critical care pts) @ -yes, delirium, sepsis Disposition Clinical Impression: Altered mental status, Renal failure, UTI (urinary tract infection) Disposition: ADMITTED IP TO THIS [facility] Condition: Stable Is patient prescribed a controlled substance at d/c from ED?: No Referrals: Andrez Almodovar MD [Primary Care Provider] - 1-2 days Time of Disposition: 15:19
[2024-03-18 15:32] LABS: VBG PH 7.59 (7.31-7.41)
[2024-03-18 15:48] LABS: Anisocytosis Slight; Basophils % (A) 0 %; Eosinophils # (A) 0.1 k/uL (0-0.7); Eosinophils % (A) 1 %; HCT 25.3 % (34.0-46.0); HGB 8.1 gm/dL (11.4-16.0); Lymphocytes # (A) 0.6 k/uL (1.0-4.8); Lymphocytes % (A) 5 %; MCH 29.8 pg (25.0-35.0); MCV 92.9 fL (80.0-100.0); Mean Platelet Volume 7.7; Monocytes # (A) 0.7 k/uL (0-1.0); Monocytes % (A) 5 %; Neutrophils % (A) 87 %; Platelet Count 166 k/uL (150-450); RBC 2.72 m/uL (3.80-5.40); RDW 17.7 % (11.5-15.5); WBC 12.7 k/uL (3.8-10.6)
[2024-03-18 16:09] LABS: ALT 17 U/L (4-34); AST 22 U/L (14-36); African American GFR (CKD) 18 (>60 ml/min/1.73 sqM); Albumin 3.7 g/dL (3.5-5.0); Alkaline Phosphatase 120 U/L (38-126); Anion Gap 5 mmol/L; Blood Urea Nitrogen 24 mg/dL (7-17); Calcium 8.8 mg/dL (8.4-10.2); Carbon Dioxide 31 mmol/L (22-30); Chloride 100 mmol/L (98-107); Glucose 91 mg/dL (74-99); Non-African American GFR(CKD) 16 (>60 ml/min/1.73 sqM); Sodium 136 mmol/L (137-145); Total Bilirubin 0.7 mg/dL (0.2-1.3); Total Protein 5.8 g/dL (6.3-8.2)
[2024-03-18] MEDS ORDERED: ALBUTEROL NEBULIZED 2.5 MG/3 ML INHALATION PRN (18:00)
[2024-03-18] MEDS ORDERED: LOPERAMIDE 2 MG CAP PO PRN (18:00)
[2024-03-18] MEDS ORDERED: MIDODRINE 5 MG TAB PO SCH (18:00)
[2024-03-18] MEDS ORDERED: BUMETANIDE 1 MG TAB PO PRN (18:00)
[2024-03-18] MEDS: GABAPENTIN 100 MG CAP PO SCH (18:47)
[2024-03-18 19:42] LABS: Appearance,Urine Turbid (Clear); Bilirubin,Urine Negative (Negative); Blood,Urine Moderate (Negative); Color,Urine Yellow; Glucose,Urine (UA) Negative (Negative); Ketones,Urine Negative (Negative); Leukocyte Esterase,Urine Large (Negative); Nitrite,Urine Negative (Negative); PH, Urine 7.5 (5.0-8.0); Protein,Urine 2+ (Negative); RBC,Urine >182 /hpf (0-5); Squamous Epithelial Cell,Urine 6 /hpf (0-4); Urobilinogen,Urine <2.0 mg/dL (<2.0); WBC,Urine >182 /hpf (0-5)
[2024-03-18] MEDS: ACETAMINOPHEN TAB 325 MG TAB PO PRN (20:52)
[2024-03-18] MEDS: METOPROLOL SUCCINATE (ER) 25 MG TAB.ER.24H PO SCH (20:53)
[2024-03-18] MEDS: amLODIPine 5 MG TAB PO SCH (20:53)
[2024-03-18] MEDS: DICYCLOMINE 10 MG CAP PO SCH (20:54)
[2024-03-18] MEDS: ARTIFICIAL TEARS-HYPROMELLOSE DROPS 15 ML BTL BOTH EYES SCH (20:54)
[2024-03-18] MEDS ORDERED: MELATONIN 5 MG TABLET PO PRN (21:00)
--- NOTE | 2024-03-18 21:10 | P.HPIM ---
History of Present Illness H&P Date: 03/18/24 Chief Complaint: Lethargic Pleasant 63-year-old patient, follows with Dr. Calvin Gamze known end-stage kidney disease on hemodialysis Saturday and Saturday. Chronic medical conditions include mineral bone disease, anemia of chronic kidney disease, severe osteoarthritis with chronic pain, uses a walker Patient went for a scheduled dialysis. She was found to be somewhat lethargic but alert self. Sent down to [facility]. Patient is found to have severe UTI. Patient is complaining of fever and chills for few days. Also dysuria urinary frequency and urgency. Did receive a dose of ceftriaxone there. Then transferred here because of hemodialysis. Review of systems: GEN.: Fever chills EYES: [None] HEENT: [None] NECK: [None] RESPIRATORY: [None] CARDIOVASCULAR: [None] GASTROINTESTINAL: [None] GENITOURINARY: [Urinary symptoms] MUSCULOSKELETAL: [Multiple joint pains] LYMPHATICS: [None] HEMATOLOGICAL: [None] PSYCHIATRY: [None] NEUROLOGICAL: [Uses a walker] Past medical history to include: Chronic kidney disease minimal bone disease, anemia of chronic kidney disease, gastritis, carotid artery stenosis, end-stage kidney disease on hemodialysis Saturday t and Saturday COPD, osteoarthritis Social history: Lives alone. Uses a walker. Denies alcohol and smoking. Physical examination: VITAL SIGNS: 97.6, 84, 20, 112 x 60, 93% on 2 L GENERAL: BMI 32.9, reclining in the bed lethargic but able to answer questions. Right upper chest wall dialysis catheter EYES: [Pupils equal. Conjunctiva pale . HEENT: External appearance of nose and ears normal, oral cavity grossly normal. NECK: JVD unable to assess; masses not palpable. HEART: First and second heart sounds are normal; no edema. LUNGS: Respiratory rate normal; decreased breath sounds. ABDOMEN: Soft, nontender, liver spleen not palpable, no masses palpable. PSYCH: A bit lethargic but able to answer questions. To slowly. MUSCULOSKELETAL:No Clubbing/cyanosis;muscles-grossly intact. OA NEUROLOGICAL: Cranial nerves grossly intact; no facial asymmetry, moving all 4 limbs INVESTIGATIONS, reviewed in the clinical context: March 18, 2024: White count 12.7 hemoglobin 8.1 platelets 166 sodium 136 potassium 4 BUN 24 creatinine 2.99 Lab work from [facility]: EKG tracing personally reviewed by me-normal sinus rhythm Chest x-ray film-mild pulmonary edema reported CT scan of the brain: Negative UA: Urine leukoesterase positive White count 15.5 hemoglobin 9.5 platelets 165 sodium 138 BUN 19.5 creatinine 2.87 Assessment and plan: -Acute metabolic encephalopathy with delirium, from underlying UTI with cystitis Received 1 dose of ceftriaxone at [facility]. Continue with the same -Acute UTI with cystitis IV ceftriaxone. Culture pending -Chronic kidney disease minimal bone disease Sevelamer -Anemia of chronic kidney disease. Follow labs -Gastritis PPI -Essential hypertension with end-stage kidney disease Amlodipine 5 mg twice daily, Toprol XL -Hyperlipidemia Lipitor -Carotid artery stenosis: Moderate approaching severe stenosis right internal carotid artery 69%. 50-69% left internal carotid artery. Follow-up with Dr. Cassidy vascular Aspirin. Lipitor. . -End-stage renal disease(Saturday and Saturday, Right subclavian-dialysis access -Peripheral neuropathy Neurontin -Primary osteoarthritis, multiple joints Pain medications as needed . -COPD, Symbicort. Albuterol when necessary. Singulair -Chronic hypoxic respiratory failure underlying COPD Has home oxygen -Full code Consult nephrology. Discussed with patient. Given the complexity and severity of patient's condition expect the patient to be in the hospital at least for 2 overnights Past Medical History Past Medical History: Heart Failure, COPD, CVA/TIA, Dialysis, GERD/Reflux, Hyperlipidemia, Hypertension, Osteoarthritis (OA), Skin Disorder, Syncope, Thyroid Disorder Additional Past Medical History / Comment(s): CKD, endometriosis, gastritis, carotid artery stenosis, Hemodialysis for 7.5 years, shingles-recurrent History of Any Multi-Drug Resistant Organisms: MRSA Date of last positivie culture/infection: unk MDRO Source:: left arm Past Surgical History: Uterine Ablation Additional Past Surgical History / Comment(s): Dialysis cath placement right subclavian, old fistula left arm- not in use, Past Anesthesia/Blood Transfusion Reactions: No Reported Reaction Past Psychological History: No Psychological Hx Reported Smoking Status: Unknown if ever smoked Past Alcohol Use History: None Reported Past Drug Use History: None Reported - Past Family History Father Family Medical History: Diabetes Mellitus Mother Family Medical History: Cancer, Congestive Heart Failure (CHF) Additional Family Medical History / Comment(s): thyroid CA, Medications and Allergies Home Medications Medication Instructions Recorded Confirmed Type Albuterol Sulfate [Albuterol 1 puff INHALATION RT-Q4H PRN 01/21/23 03/18/24 History Sulfate Hfa] Atorvastatin Calcium 20 mg PO DAILY 01/21/23 03/18/24 History Fluticasone Nasal [place] [Flonase 2 spray EA NOSTRIL DAILY 01/21/23 03/18/24 History Nasal [place]] Isosorbide Mononitrate ER [Imdur] 30 mg PO DAILY 01/21/23 03/18/24 History Loperamide [Imodium] 4 mg PO QID PRN 01/21/23 03/18/24 History Metoprolol Succinate (ER) [Toprol 25 mg PO BID 01/21/23 03/18/24 History XL] Montelukast [Singulair] 10 mg PO DAILY 01/21/23 03/18/24 History Omeprazole [PriLOSEC] 20 mg PO AC-SUPPER 01/21/23 03/18/24 History Ascorbic Acid [Vitamin C] 500 mg PO DAILY 01/22/23 03/18/24 History Aspirin EC [Ecotrin Low Dose] 81 mg PO DAILY 01/22/23 03/18/24 History Bismuth Subsalicylate 525 - 1,050 mg PO TID PRN 01/22/23 03/18/24 History [Pepto-Bismol Ultra] Cholecalciferol (Vitamin D3) 125 mcg PO DAILY 01/22/23 03/18/24 History [Vitamin D3 (125 MCG = 5,000 IU)] Cranberry 15,000 Mg Tab 15,000 mg PO DAILY 01/22/23 03/18/24 History Multivit-Min/FA/Lycopen/Lutein 1 tab PO DAILY 01/22/23 03/18/24 History [Centrum Silver Tablet] Propylene Glycol [Systane Complete] 1 drop BOTH EYES HS 01/22/23 03/18/24 History Super B Complex 1 tab PO DAILY 01/22/23 03/18/24 History Vitamin E (Dl,Tocopheryl Acet) 400 unit PO DAILY 01/22/23 03/18/24 History [Vitamin E (400 Iu = 180 mg)] Bumetanide [BUMEX] 2 mg PO Q4H PRN 04/01/23 03/18/24 History Midodrine [ProAmatine] 1 dose PO DIRECTED 04/01/23 04/01/23 History Sevelamer Carbonate 1 dose PO DIRECTED 04/01/23 04/01/23 History amLODIPine [Norvasc] 5 mg PO BID 04/01/23 03/18/24 History Cephalexin [Keflex] 500 mg PO Q12HR 03/18/24 03/18/24 History Cinacalcet [Sensipar] 30 mg PO DIRECTED 03/18/24 03/18/24 History DULoxetine HCL [Cymbalta] 30 mg PO DAILY 03/18/24 03/18/24 History Dicyclomine [Bentyl] 10 mg PO TID 03/18/24 03/18/24 History Gabapentin [Neurontin] 100 mg PO QID 03/18/24 03/18/24 History Ketoconazole 2% Shampoo [Nizoral] 1 applic TOPICAL WEEKLY 03/18/24 03/18/24 History Melatonin [Melatonin ER] 5 - 10 mg PO HS PRN 03/18/24 03/18/24 History Metoprolol Succinate (ER) [Toprol 50 mg PO DAILY 03/18/24 03/18/24 History XL] Allergies Allergy/AdvReac Type Severity Reaction Status Date / Time erythromycin base Allergy Rash/Hives Verified 03/18/24 16:53 furosemide [From Lasix] Allergy Unknown Verified 03/18/24 16:53 green tea Allergy Unknown Verified 03/18/24 16:53 Penicillins Allergy Rash/Hives Verified 03/18/24 16:53 Sulfa (Sulfonamide Allergy Anaphylaxis Verified 03/18/24 16:53 Antibiotics) sulfacetamide Allergy Unknown Verified 03/18/24 16:53 Physical Exam Vitals: Vital Signs Temp Pulse Pulse Resp BP BP Pulse Ox 03/18/24 18:30 99.3 F 91 18 116/69 97 03/18/24 16:09 88 18 110/68 95 03/18/24 14:21 97.6 F 84 20 112/60 93 L Intake and Output 03/18/24 03/18/24 03/18/24 06:59 14:59 22:59 Output Total 25 Balance -25 Output: Stool 25 Other: Weight 77.111 kg 79 kg Results CBC & Chem 7: 03/18/24 15:23 03/18/24 15:23 Labs: Abnormal Lab Results - Last 24 Hours (Table) 03/18/24 03/18/24 03/18/24 Range/Units 15:23 15:23 15:23 WBC 12.7 H (3.8-10.6) k/uL RBC 2.72 L (3.80-5.40) m/uL Hgb 8.1 L (11.4-16.0) gm/dL Hct 25.3 L (34.0-46.0) % RDW 17.7 H (11.5-15.5) % Neutrophils # 11.0 H (1.3-7.7) k/uL Lymphocytes # 0.6 L (1.0-4.8) k/uL VBG pH 7.59 H (7.31-7.41) VBG pCO2 31 L (37-51) mmHg VBG HCO3 29 H (24-28) mmol/L Sodium 136 L (137-145) mmol/L Carbon Dioxide 31 H (22-30) mmol/L BUN 24 H (7-17) mg/dL Creatinine 2.99 H (0.52-1.04) mg/dL Total Protein 5.8 L (6.3-8.2) g/dL Urine Appearance (Clear) Urine Protein (Negative) Urine Blood (Negative) Ur Leukocyte Esterase (Negative) Urine RBC (0-5) /hpf Urine WBC (0-5) /hpf Ur Squamous Epith Cells (0-4) /hpf 03/18/24 Range/Units 19:05 WBC (3.8-10.6) k/uL RBC (3.80-5.40) m/uL Hgb (11.4-16.0) gm/dL Hct (34.0-46.0) % RDW (11.5-15.5) % Neutrophils # (1.3-7.7) k/uL Lymphocytes # (1.0-4.8) k/uL VBG pH (7.31-7.41) VBG pCO2 (37-51) mmHg VBG HCO3 (24-28) mmol/L Sodium (137-145) mmol/L Carbon Dioxide (22-30) mmol/L BUN (7-17) mg/dL Creatinine (0.52-1.04) mg/dL Total Protein (6.3-8.2) g/dL Urine Appearance Turbid H (Clear) Urine Protein 2+ H (Negative) Urine Blood Moderate H (Negative) Ur Leukocyte Esterase Large H (Negative) Urine RBC >182 H (0-5) /hpf Urine WBC >182 H (0-5) /hpf Ur Squamous Epith Cells 6 H (0-4) /hpf Thrombosis Risk Factor Assmnt - Choose All That Apply Each Factor Represents 1 point: Abnormal pulmonary function (COPD), Obesity (BMI >25), Swollen legs (current) Each Risk Factor Represents 2 Points: Age 61-74 years Thrombosis Risk Factor Assessment Total Risk Factor Score: 5 Thrombosis Risk Factor Assessment Level: High Risk
[2024-03-18] MEDS: ENOXAPARIN 40 MG/0.4 ML SYRINGE SQ SCH (23:35)
[2024-03-19] MEDS: MONTELUKAST 10 MG TAB PO SCH (08:44)
[2024-03-19] MEDS: CHOLECALCIFEROL 125 MCG (5000 IU) TABLET PO SCH (08:44)
[2024-03-19] MEDS: ISOSORBIDE MONONITRATE ER 30 MG TAB.ER.24H PO SCH (08:44)
[2024-03-19] MEDS: MULTIVITAMINS, THERA 1 EACH TAB PO SCH (08:44)
[2024-03-19] MEDS: VITAMIN E (DL,TOCOPHERYL ACET) 400 UNIT (180 MG) CAP PO SCH (08:44)
[2024-03-19] MEDS: ASCORBIC ACID 500 MG TAB PO SCH (08:44)
[2024-03-19] MEDS: DULoxetine HCL 30 MG CAPSULE.DR PO SCH (08:44)
[2024-03-19] MEDS: ATORVASTATIN 20 MG TAB PO SCH (08:44)
[2024-03-19] MEDS: ASPIRIN 81 MG PO SCH (08:44)
[2024-03-19] MEDS: CINACALCET 30 MG TAB PO SCH (08:44)
[2024-03-19] MEDS: FLUTICASONE NASAL 50MCG/SPRAY 16GM BTL EA NOSTRIL SCH (08:45)
[2024-03-19] MEDS ORDERED: NON FORMULARY DRUG (Super B Complex 1 TAB) PO SCH (09:00)
--- NOTE | 2024-03-19 10:55 | P.NPCON ---
History of Present Illness - Reason for Consult end stage renal disease - History of Present Illness Reason for consultation: End-stage renal disease History of present illness: Patient is a 63-year-old female seen in renal consultation for end-stage renal disease. She is maintained on hemodialysis on Saturday schedule. Patient came to the hospital yesterday from the dialysis unit due to somnolence. Patient was noted to be more lethargic and was sent to the hospital. Patient is currently awake and alert. She does admit to a cough with yellow phlegm. She has a permacath for her dialysis access. Denies any fever or chills. Patient states she does make little urine. Denies history of diabetes. She is also noted to have a UTI and is currently receiving IV antibiotics. Denies vomiting or diarrhea. Echocardiogram from January 2023 showed moderate mitral regurgitation. Vital signs are stable. General: No acute distress. HEENT: Head exam is unremarkable. On nasal cannula. LUNGS: No audible rhonchi or wheezes. HEART: Rate and Rhythm are regular. ABDOMEN: Nontender. EXTREMITITES: 1+ edema. Lower extremities tender to touch. Past Medical History Past Medical History: Heart Failure, COPD, CVA/TIA, Dialysis, GERD/Reflux, Hyperlipidemia, Hypertension, Osteoarthritis (OA), Skin Disorder, Syncope, Thyroid Disorder Additional Past Medical History / Comment(s): CKD, endometriosis, gastritis, carotid artery stenosis, Hemodialysis for 7.5 years, shingles-recurrent History of Any Multi-Drug Resistant Organisms: MRSA Date of last positivie culture/infection: unk MDRO Source:: left arm Past Surgical History: Uterine Ablation Additional Past Surgical History / Comment(s): Dialysis cath placement right subclavian, old fistula left arm- not in use, Past Anesthesia/Blood Transfusion Reactions: No Reported Reaction Past Psychological History: No Psychological Hx Reported Smoking Status: Unknown if ever smoked Past Alcohol Use History: None Reported Past Drug Use History: None Reported - Past Family History Father Family Medical History: Diabetes Mellitus Mother Family Medical History: Cancer, Congestive Heart Failure (CHF) Additional Family Medical History / Comment(s): thyroid CA, Medications and Allergies Home Medications Medication Instructions Recorded Confirmed Type Albuterol Sulfate [Albuterol 1 puff INHALATION RT-Q4H PRN 01/21/23 03/18/24 History Sulfate Hfa] Atorvastatin Calcium 20 mg PO DAILY 01/21/23 03/18/24 History Fluticasone Nasal [place] [Flonase 2 spray EA NOSTRIL DAILY 01/21/23 03/18/24 History Nasal [place]] Isosorbide Mononitrate ER [Imdur] 30 mg PO DAILY 01/21/23 03/18/24 History Loperamide [Imodium] 4 mg PO QID PRN 01/21/23 03/18/24 History Metoprolol Succinate (ER) [Toprol 25 mg PO BID 01/21/23 03/18/24 History XL] Montelukast [Singulair] 10 mg PO DAILY 01/21/23 03/18/24 History Omeprazole [PriLOSEC] 20 mg PO AC-SUPPER 01/21/23 03/18/24 History Ascorbic Acid [Vitamin C] 500 mg PO DAILY 01/22/23 03/18/24 History Aspirin EC [Ecotrin Low Dose] 81 mg PO DAILY 01/22/23 03/18/24 History Bismuth Subsalicylate 525 - 1,050 mg PO TID PRN 01/22/23 03/18/24 History [Pepto-Bismol Ultra] Cholecalciferol (Vitamin D3) 125 mcg PO DAILY 01/22/23 03/18/24 History [Vitamin D3 (125 MCG = 5,000 IU)] Cranberry 15,000 Mg Tab 15,000 mg PO DAILY 01/22/23 03/18/24 History Multivit-Min/FA/Lycopen/Lutein 1 tab PO DAILY 01/22/23 03/18/24 History [Centrum Silver Tablet] Propylene Glycol [Systane Complete] 1 drop BOTH EYES HS 01/22/23 03/18/24 History Super B Complex 1 tab PO DAILY 01/22/23 03/18/24 History Vitamin E (Dl,Tocopheryl Acet) 400 unit PO DAILY 01/22/23 03/18/24 History [Vitamin E (400 Iu = 180 mg)] Bumetanide [BUMEX] 2 mg PO Q4H PRN 04/01/23 03/18/24 History Midodrine [ProAmatine] 5 mg PO TID 04/01/23 03/19/24 History Sevelamer Carbonate 1,600 mg PO TID-W/MEALS 04/01/23 03/19/24 History amLODIPine [Norvasc] 5 mg PO BID 04/01/23 03/18/24 History Cephalexin [Keflex] 500 mg PO Q12HR 03/18/24 03/18/24 History Cinacalcet [Sensipar] 30 mg PO DIRECTED 03/18/24 03/18/24 History DULoxetine HCL [Cymbalta] 30 mg PO DAILY 03/18/24 03/18/24 History Dicyclomine [Bentyl] 10 mg PO TID 03/18/24 03/18/24 History Gabapentin [Neurontin] 100 mg PO QID 03/18/24 03/18/24 History Ketoconazole 2% Shampoo [Nizoral] 1 applic TOPICAL WEEKLY 03/18/24 03/18/24 History Melatonin [Melatonin ER] 5 - 10 mg PO HS PRN 03/18/24 03/18/24 History Metoprolol Succinate (ER) [Toprol 50 mg PO DAILY 03/18/24 03/18/24 History XL] Sevelamer [Renvela] 1,600 mg PO DAILY PRN 03/19/24 03/19/24 History Allergies Allergy/AdvReac Type Severity Reaction Status Date / Time erythromycin base Allergy Rash/Hives Verified 03/18/24 16:53 furosemide [From Lasix] Allergy Unknown Verified 03/18/24 16:53 green tea Allergy Unknown Verified 03/18/24 16:53 Penicillins Allergy Rash/Hives Verified 03/18/24 16:53 Sulfa (Sulfonamide Allergy Anaphylaxis Verified 03/18/24 16:53 Antibiotics) sulfacetamide Allergy Unknown Verified 03/18/24 16:53 Physical Exam Vitals: Vital Signs Temp Pulse Pulse Pulse Resp BP BP 03/19/24 07:16 97.7 F 64 16 111/68 03/18/24 20:00 98.9 F 84 16 102/65 03/18/24 18:30 99.3 F 91 18 116/69 03/18/24 16:09 88 18 110/68 03/18/24 14:21 97.6 F 84 20 112/60 Pulse Ox 03/19/24 07:16 95 03/18/24 20:00 97 03/18/24 18:30 97 03/18/24 16:09 95 03/18/24 14:21 93 L Intake and Output 03/18/24 03/19/24 03/19/24 22:59 06:59 14:59 Intake Total 240 Output Total 25 0 Balance -25 0 240 Intake: Oral 240 Output: Urine 0 Stool 25 Other: Weight 79 kg Results - Lab Results Most recent lab results Calcium 8.8 mg/dL (8.4-10.2) 03/18/24 15:23 03/18/24 15:23 03/18/24 15:23 Assessment and Plan Plan: Assessment: 1. End-stage renal disease maintained on hemodialysis on Saturday schedule via permacath. 2. UTI on antibiotics. 3. Chronic diastolic CHF and moderate mitral regurgitation. 4. Chronic kidney disease mineral bone disease maintained on Renvela and Sensipar. 5. Volume overload. 6. Anemia of chronic kidney disease. Rule out iron deficiency. Plan: Extra treatment of hemodialysis today mostly for ultrafiltration. Another treatment tomorrow per her outpatient schedule. Maintain Bumex. Check iron studies. Hold amlodipine for systolic blood pressure less than 120. Thank you for the consultation. I will continue to follow the patient with you during her hospital stay.
[2024-03-19] MEDS: METOCLOPRAMIDE 10 MG TAB PO SCH (15:40)
--- NOTE | 2024-03-19 17:23 | P.PN ---
Progress Note - Text Progress Note Date: 03/19/24 Chief Complaint: Lethargic Pleasant 63-year-old patient, follows with Dr. Calvin Gamez known end-stage kidney disease on hemodialysis Saturday and Saturday. Chronic medical conditions include mineral bone disease, anemia of chronic kidney disease, severe osteoarthritis with chronic pain, uses a walker Patient went for a scheduled dialysis. She was found to be somewhat lethargic but alert self. Sent down to [facility]. Patient is found to have sever e UTI. Patient is complaining of fever and chills for few days. Also dysuria urinary frequency and urgency. Did receive a dose of ceftriaxone there. Then transferred here because of hemodialysis. March 19, 2024: Seen this morning. Edema. Laying in bed. Looking better. Has some epistaxis. Local packing. Told patient not to scratch. No fever. Feeling tired. Had 100% breakfast. Patient get extra ultrafiltration treatment today for fluid overload. And scheduled for her regular dialysis tomorrow. Active Medications Acetaminophen (Acetaminophen Tab 325 Mg Tab) 650 mg PO Q6HR PRN PRN Reason: Mild Pain or Fever > 100.5 Last Admin: 03/19/24 12:43 Dose: 650 mg Albuterol Sulfate (Albuterol Nebulized 2.5 Mg/3 Ml) 2.5 mg INHALATION RT-Q4H PRN PRN Reason: Shortness Of Breath Amlodipine Besylate (Amlodipine 5 Mg Tab) 5 mg PO BID [facility] Last Admin: 03/19/24 08:44 Dose: 5 mg Artificial Tears (Artificial Tears-Hypromellose Drops 15 Ml Btl) 1 drops BOTH EYES HS [facility] Last Admin: 03/18/24 20:54 Dose: 1 drops Ascorbic Acid (Ascorbic Acid 500 Mg Tab) 500 mg PO DAILY [facility] Last Admin: 03/19/24 08:44 Dose: 500 mg Aspirin (Aspirin 81 Mg) 81 mg PO DAILY [facility] Last Admin: 03/19/24 08:44 Dose: 81 mg Atorvastatin Calcium (Atorvastatin 20 Mg Tab) 20 mg PO DAILY [facility] Last Admin: 03/19/24 08:44 Dose: 20 mg Cholecalciferol (Cholecalciferol 125 Mcg (5000 Iu) Tablet) 125 mcg PO DAILY [facility] Last Admin: 03/19/24 08:44 Dose: 125 mcg Cinacalcet (Cinacalcet 30 Mg Tab) 30 mg PO MoTh [facility] Last Admin: 03/19/24 08:44 Dose: 30 mg Dicyclomine HCl (Dicyclomine 10 Mg Cap) 10 mg PO TID [facility] Last Admin: 03/19/24 15:41 Dose: 10 mg Duloxetine HCl (Duloxetine Hcl 30 Mg Capsule.Dr) 30 mg PO DAILY [facility] Last Admin: 03/19/24 08:44 Dose: 30 mg Enoxaparin Sodium (Enoxaparin 30 Mg/0.3 Ml Syringe) 30 mg SQ DAILY [facility] Fluticasone Propionate (Fluticasone Nasal 50mcg/[place] 16gm Btl) 2 spray EA NOSTRIL DAILY [facility] Last Admin: 03/19/24 08:45 Dose: 2 spray Gabapentin (Gabapentin 100 Mg Cap) 100 mg PO QID [facility] Last Admin: 03/19/24 12:45 Dose: 100 mg Ceftriaxone Sodium 1 gm/ (Sodium Chloride) 50 mls @ 100 mls/hr IVPB Q24HR [facility]; Protocol Last Admin: 03/19/24 08:44 Dose: 100 mls/hr Isosorbide Mononitrate (Isosorbide Mononitrate Er 30 Mg Tab.Er.24h) 30 mg PO DAILY [facility] Last Admin: 03/19/24 08:44 Dose: 30 mg Loperamide HCl (Loperamide 2 Mg Cap) 4 mg PO QID PRN PRN Reason: Diarrhea Melatonin (Melatonin 5 Mg Tablet) 5 mg PO HS PRN PRN Reason: Insomnia Metoclopramide HCl (Metoclopramide 10 Mg Tab) 10 mg PO AC-TID [facility] Last Admin: 03/19/24 17:13 Dose: Not Given Metoprolol Succinate (Metoprolol Succinate (Er) 25 Mg Tab.Er.24h) 25 mg PO BID [facility] Last Admin: 03/19/24 08:44 Dose: 25 mg Midodrine (Midodrine 5 Mg Tab) 5 mg PO AC-TID [facility] Montelukast Sodium (Montelukast 10 Mg Tab) 10 mg PO DAILY [facility] Last Admin: 03/19/24 08:44 Dose: 10 mg Multivitamins (Multivitamins, Thera 1 Each Tab) 1 each PO DAILY [facility] Last Admin: 03/19/24 08:44 Dose: 1 each Naloxone HCl (Naloxone 0.4 Mg/Ml 1 Ml Vial) 0.2 mg IV Q2M PRN PRN Reason: Opioid Reversal Pantoprazole Sodium (Pantoprazole 40 Mg Tablet) 40 mg PO AC-SUPPER [facility] Sevelamer Carbonate (Sevelamer 800 Mg Tab) 1,600 mg PO TID-W/MEALS [facility] Vitamin E (Vitamin E (Dl,Tocopheryl Acet) 400 Unit (180 Mg) Cap) 400 unit PO DAILY [facility] Last Admin: 03/19/24 08:44 Dose: 400 unit Past medical history to include: Chronic kidney disease minimal bone disease, anemia of chronic kidney disease, gastritis, carotid artery stenosis, end-stage kidney disease on hemodialysis Saturday and Saturday COPD, osteoarthritis Social history: Lives alone. Uses a walker. Denies alcohol and smoking. Physical examination: VITAL SIGNS: 98.4, 72, 20, 124 x 74, 100% on 2 L GENERAL: BMI 32.9, reclining in the bed, more awake today. Right upper chest wall dialysis catheter EYES: [Pupils equal. Conjunctiva pale . HEENT: External appearance of nose and ears normal, oral cavity grossly normal. Some bleeding at right naris NECK: JVD unable to assess; masses not palpable. HEART: First and second heart sounds are normal; edema present. LUNGS: Respiratory rate normal; decreased breath sounds. ABDOMEN: Soft, nontender, liver spleen not palpable, no masses palpable. PSYCH: More awake, answering questions appropriately MUSCULOSKELETAL:No Clubbing/cyanosis;muscles-grossly intact. OA NEUROLOGICAL: Cranial nerves grossly intact; no facial asymmetry, moving all 4 limbs INVESTIGATIONS, reviewed in the clinical context: March 18, 2024: White count 12.7 hemoglobin 8.1 platelets 166 sodium 136 potassium 4 BUN 24 creatinine 2.99 Lab work from [facility]: EKG tracing personally reviewed by me-normal sinus rhythm Chest x-ray film-mild pulmonary edema reported CT scan of the brain: Negative UA: Urine leukoesterase positive White count 15.5 hemoglobin 9.5 platelets 165 sodium 138 BUN 19.5 creatinine 2.87 Assessment and plan: -Acute metabolic encephalopathy with delirium, from underlying UTI with cystitis: Improving Received 1 dose of ceftriaxone at [facility]. Continue with the same -Acute UTI with cystitis IV ceftriaxone. Culture pending -Fluid overload Will get extra dose of hemodialysis/ultrafiltration today. Has scheduled dialysis tomorrow. -Chronic kidney disease minimal bone disease Sevelamer -Anemia of chronic kidney disease. Follow labs -Gastritis PPI -Essential hypertension with end-stage kidney disease Amlodipine 5 mg twice daily, Toprol XL -Hyperlipidemia Lipitor -Carotid artery stenosis: Moderate approaching severe stenosis right internal carotid artery 69%. 50-69% left internal carotid artery. Follow-up with Dr. Cassidy vascular Aspirin. Lipitor. . -End-stage renal disease(Saturday and Saturday, Right subclavian-dialysis access -Peripheral neuropathy Neurontin -Primary osteoarthritis, multiple joints Pain medications as needed . -COPD, Symbicort. Albuterol when necessary. Singulair -Chronic hypoxic respiratory failure underlying COPD Has home oxygen -Full code Extra ultrafiltration today. Has scheduled dialysis tomorrow. IV ceftriaxone to continue. Discussed with patient. Past Medical History Past Medical History: Heart Failure, COPD, CVA/TIA, Dialysis, GERD/Reflux, Hyperlipidemia, Hypertension, Osteoarthritis (OA), Skin Disorder, Syncope, Thyroid Disorder Additional Past Medical History / Comment(s): CKD, endometriosis, gastritis, carotid artery stenosis, Hemodialysis for 7.5 years, shingles-recurrent History of Any Multi-Drug Resistant Organisms: MRSA Date of last positivie culture/infection: unk MDRO Source:: left arm Past Surgical History: Uterine Ablation Additional Past Surgical History / Comment(s): Dialysis cath placement right subclavian, old fistula left arm- not in use, Past Anesthesia/Blood Transfusion Reactions: No Reported Reaction Past Psychological History: No Psychological Hx Reported Smoking Status: Unknown if ever smoked Past Alcohol Use History: None Reported Past Drug Use History: None Reported
[2024-03-19] MEDS: SEVELAMER 800 MG TAB PO SCH (17:25)
[2024-03-19] MEDS: PANTOPRAZOLE 40 MG TABLET PO SCH (17:26)
[2024-03-19] MEDS: MIDODRINE 5 MG TAB PO SCH (17:29)
[2024-03-19 20:59] LABS: % Iron Saturation 32.42 (12.00-45.00)
[2024-03-20] MEDS: ENOXAPARIN 30 MG/0.3 ML SYRINGE SQ SCH (09:14)
--- NOTE | 2024-03-20 10:57 | P.PN ---
Subjective Patient is seen in follow-up for end-stage renal disease. She is maintained on hemodialysis on Saturday schedule. Received extra treatment of hemodialysis today. Currently tolerating the treatment well. Vital signs are stable. General: No acute distress. HEENT: Head exam is unremarkable. On nasal cannula. LUNGS: No audible rhonchi or wheezes. HEART: Rate and Rhythm are regular. ABDOMEN: Nontender. EXTREMITITES: Lower extremities tender to touch. 1+ edema. Objective - Vital Signs Vital signs: Vital Signs Temp 97.7 F 03/20/24 10:41 Pulse 58 L 03/20/24 10:41 Resp 16 03/20/24 10:41 BP 102/57 03/20/24 10:41 Pulse Ox 100 03/20/24 08:00 FiO2 Intake & Output 03/19/24 03/20/24 03/20/24 18:59 06:59 18:59 Intake Total 640 400 Output Total 4402 5400 Balance -3762 -5000 Intake: Oral 240 Hemodialysis 400 400 Output: Emesis 2 Hemodialysis 2400 2900 Hemodialysis Net Amount 2000 2500 Other: # Voids 1 3 - Labs CBC & Chem 7: 03/18/24 15:23 03/18/24 15:23 Labs: Abnormal Lab Results - Last 24 Hours (Table) 03/18/24 Range/Units 15:23 Transferrin 183.0 L (204.0-354.0) mg/dL Ferritin 2224.0 H (10.0-291.0) ng/mL Microbiology - Last 24 Hours (Table) 03/18/24 19:05 Urine Culture - Final Urine,Voided Assessment and Plan Plan: Assessment: 1. End-stage renal disease maintained on hemodialysis on Saturday schedule via permacat. 2. UTI on antibiotics. 3. Chronic diastolic CHF and moderate mitral regurgitation. 4. Chronic kidney disease mineral bone disease maintained on Renvela and Sensipar. 5. Volume overload. Better with ultrafiltration. 6. Anemia of chronic kidney disease. Iron replete. Plan: Currently seen while undergoing hemodialysis. Next treatment Saturday. Maintain Bumex. Add Aranesp. Hold amlodipine for systolic blood pressure less than 120.
[2024-03-20] MEDS: DARBEPOETIN ALFA 40 MCG/0.4 ML SYRINGE SQ SCH (13:26)
--- NOTE | 2024-03-20 14:09 | P.PN ---
Subjective Progress Note Date: 03/20/24 63-year-old patient, follows with Dr. Calvin Gaemz known end-stage kidney disease on hemodialysis Saturday and Saturday. Chronic medical conditions include mineral bone disease, anemia of chronic ki dney disease, severe osteoarthritis with chronic pain, uses a walker Patient went for a scheduled dialysis. She was found to be somewhat lethargic but alert self. Sent down to [facility]. Patient is found to have severe UTI. Patient is complaining of fever and chills for few days. Also d ysuria urinary frequency and urgency. Did receive a dose of ceftriaxone there. Then transferred here because of hemodialysis. --Patient remains somewhat slow to respond; unclear if patient is back to baseline -- Remains on IV Rocephin; given elevated white blood count, positive UA and mental status change, plan to continue with IV Rocephin and make further recommendations once urine culture results are available Objective - Vital Signs Vital signs: Vital Signs Temp 97.7 F 03/20/24 10:41 Pulse 58 L 03/20/24 10:41 Resp 16 03/20/24 10:41 BP 102/57 03/20/24 10:41 Pulse Ox 100 03/20/24 08:00 FiO2 Intake & Output 03/19/24 03/20/24 03/20/24 18:59 06:59 18:59 Intake Total 640 400 Output Total 4402 5400 Balance -3762 -5000 Intake: Oral 240 Hemodialysis 400 400 Output: Emesis 2 Hemodialysis 2400 2900 Hemodialysis Net Amount 2000 2500 Other: # Voids 1 3 - Exam GENERAL: BMI 32.9, reclining in the bed, more awake today. Right upper chest wall dialysis catheter EYES: [Pupils equal. Conjunctiva pale . HEENT: External appearance of nose and ears normal, oral cavity grossly normal. Some bleeding at right naris NECK: JVD unable to assess; masses not palpable. HEART: First and second heart sounds are normal; edema present. LUNGS: Respiratory rate normal; decreased breath sounds. ABDOMEN: Soft, nontender, liver spleen not palpable, no masses palpable. PSYCH: More awake, answering questions appropriately MUSCULOSKELETAL:No Clubbing/cyanosis;muscles-grossly intact. OA NEUROLOGICAL: Cranial nerves grossly intact; no facial asymmetry, moving all 4 limbs - Labs CBC & Chem 7: 03/18/24 15:23 03/18/24 15:23 Labs: Abnormal Lab Results - Last 24 Hours (Table) 03/18/24 Range/Units 15:23 Transferrin 183.0 L (204.0-354.0) mg/dL Ferritin 2224.0 H (10.0-291.0) ng/mL Microbiology - Last 24 Hours (Table) 03/18/24 19:05 Urine Culture - Final Urine,Voided Assessment and Plan Assessment: -Acute metabolic encephalopathy with delirium, from underlying UTI with cystitis: Improving Received 1 dose of ceftriaxone at [facility]. Continue with the same -Acute UTI with cystitis IV ceftriaxone. Culture pending -Fluid overload Will get extra dose of hemodialysis/ultrafiltration today. Has scheduled dialysis tomorrow. -Chronic kidney disease minimal bone disease Sevelamer -Anemia of chronic kidney disease. Follow labs -Gastritis PPI -Essential hypertension with end-stage kidney disease Amlodipine 5 mg twice daily, Toprol XL -Hyperlipidemia Lipitor -Carotid artery stenosis: Moderate approaching severe stenosis right internal carotid artery 69%. 50-69% left internal carotid artery. Follow-up with Dr. Cassidy vascular Aspirin. Lipitor. . -End-stage renal disease(Saturday and Saturday, Right subclavian-dialysis access -Peripheral neuropathy Neurontin -Primary osteoarthritis, multiple joints Pain medications as needed . -COPD, Symbicort. Albuterol when necessary. Singulair -Chronic hypoxic respiratory failure underlying COPD Has home oxygen -Full code
--- NOTE | 2024-03-21 12:57 | P.PN ---
Subjective Progress Note Date: 03/21/24 Patient is seen in follow-up for end-stage renal disease. She is maintained on hemodialysis on Saturday schedule. Vital signs are stable. General: No acute distress. HEENT: Head exam is unremarkable. On nasal cannula. LUNGS: No audible rhonchi or wheezes. HEART: Rate and Rhythm are regular. ABDOMEN: Nontender. EXTREMITITES: Lower extremities tender to touch. 1+ edema. Objective - Vital Signs Vital signs: Vital Signs Temp 98.2 F 03/21/24 07:45 Pulse 66 03/21/24 07:45 Resp 14 03/21/24 07:45 BP 121/70 03/21/24 07:45 Pulse Ox 99 03/21/24 07:45 FiO2 Intake & Output 03/20/24 03/21/24 03/21/24 18:59 06:59 18:59 Intake Total 400 590 Output Total 5400 Balance -5000 590 Intake: Oral 590 Hemodialysis 400 Output: Hemodialysis 2900 Hemodialysis Net Amount 2500 Other: Voiding Method Bedside Commode # Voids 1 2 # Bowel Movements 1 - Labs CBC & Chem 7: 03/18/24 15:23 03/18/24 15:23 Assessment and Plan Assessment: 1. End-stage renal disease maintained on hemodialysis on Saturday schedule via permacath. 2. UTI on antibiotics. 3. Chronic diastolic CHF and moderate mitral regurgitation. 4. Chronic kidney disease mineral bone disease maintained on Renvela and Sensipar. 5. Volume overload. Better with ultrafiltration. 6. Anemia of chronic kidney disease. Iron replete. Plan: Next HD treatment Saturday. Maintain Bumex. Aranesp. Hold amlodipine for systolic blood pressure less than 120.
--- NOTE | 2024-03-21 14:02 | P.PN ---
Subjective Progress Note Date: 03/21/24 63-year-old patient, follows with Dr. Calvin Gamez known end-stage kidney disease on hemodialysis Saturday and Saturday. Chronic medical conditions include mineral bone disease, anemia of chronic ki dney disease, severe osteoarthritis with chronic pain, uses a walker Patient went for a scheduled dialysis. She was found to be somewhat lethargic but alert self. Sent down to [facility]. Patient is found to have severe UTI. Patient is complaining of fever and chills for few days. Also d ysuria urinary frequency and urgency. Did receive a dose of ceftriaxone there. Then transferred here because of hemodialysis. --Patient remains somewhat slow to respond; unclear if patient is back to baseline -- Remains on IV Rocephin; given elevated white blood count, positive UA and mental status change, plan to continue with IV Rocephin and make further recommendations once urine culture results are available 03/21. Patient seen and examined. Patient stated she does not feel the best to day. Complaining of lethargic and weakness REVIEW OF SYSTEMS: CONSTITUTIONAL: No fever, no malaise,. CARDIOVASCULAR: No chest pain, no palpitations, no syncope. PULMONARY: No shortness of breath, no cough, GASTROINTESTINAL: No diarrhea, no nausea, no vomiting, no abdominal pain. NEUROLOGICAL: No headaches, no weakness, PHYSICAL EXAMINATION: GENERAL: The patient is alert and oriented x3, ill looking HEENT: Pupils are round and equally reacting to light. EOMI. No scleral icterus. No conjunctival pallor. Normocephalic, atraumatic. No pharyngeal erythema. No thyromegaly. CARDIOVASCULAR: S1 and S2 present. No murmurs, rubs, or gallops. PULMONARY: Chest is clear to auscultation, no wheezing or crackles. ABDOMEN: Soft, nontender, nondistended, normoactive bowel sounds. No palpable o rganomegaly. MUSCULOSKELETAL: No joint swelling or deformity. EXTREMITIES: No cyanosis, clubbing, or pedal edema. NEUROLOGICAL: Gross neurological examination did not reveal any focal deficits. SKIN: No rashes. Assessment and plan -Acute metabolic encephalopathy with delirium, from underlying UTI with cystitis: -Acute UTI with cystitis Monitor vital signs Monitor CBC Monitor CMP Follow-up on urine culture IV ceftriaxone. ID consulted -Fluid overload -Chronic kidney disease minimal bone disease Continue dialysis per nephrology Continue sevelamer -Anemia of chronic kidney disease. Monitor CBC -Gastritis PPI -Essential hypertension with end-stage kidney disease Amlodipine 5 mg twice daily, Toprol XL -Hyperlipidemia Lipitor -Carotid artery stenosis: Moderate approaching severe stenosis right internal carotid artery 69%. 50-69% left internal carotid artery. Follow-up with Dr. Cassidy vascular Aspirin. Lipitor. . -End-stage renal disease(Saturday and Saturday, Right subclavian-dialysis access -Peripheral neuropathy Neurontin -Primary osteoarthritis, multiple joints Pain medications as needed . -COPD, Symbicort. Albuterol when necessary. Singulair -Chronic hypoxic respiratory failure underlying COPD Has home oxygen Labs and medication were reviewed.. Continue same treatment. Continue with symptomatic treatment. Resume home medication. Monitor labs and vitals. DVT and GI prophylaxis. Further recommendations as per clinical course of the patient Dictation was produced using [employer] dictation software. please excuse any gramma tical, word or spelling errors. Objective - Vital Signs Vital signs: Vital Signs Temp 98.2 F 03/21/24 07:45 Pulse 66 03/21/24 07:45 Resp 14 03/21/24 07:45 BP 121/70 03/21/24 07:45 Pulse Ox 99 03/21/24 07:45 FiO2 Intake & Output 03/20/24 03/21/24 03/21/24 18:59 06:59 18:59 Intake Total 400 590 Output Total 5400 Balance -5000 590 Intake: Oral 590 Hemodialysis 400 Output: Hemodialysis 2900 Hemodialysis Net Amount 2500 Other: Voiding Method Bedside Commode # Voids 1 2 # Bowel Movements 1 - Labs CBC & Chem 7: 03/18/24 15:23 03/18/24 15:23
--- NOTE | 2024-03-21 23:10 | P.CONS ---
History of Present Illness - Reason for Consult Consult date: 03/21/24 UTI Requesting physician: Eagle Busch - Chief Complaint Mental status changes x few days - History of Present Illness Patient is a 63-year-old female with a past medical history significant for COPD CVA TIA hypertension hyperlipidemia end-stage renal disease on hemodialysis patient presenting to the hospital 4 days ago for evaluation of mental status changes in this patient with initial presentation to [facility] with the patient was diagnosed with a UTI and subsequently transferred to [facility] for further evaluation patient was lethargic but arousable and denied any headache chest pain or abdominal pain no fever to the ER physician patient on presentation to the hospital has been afebrile except for low-grade fever of 99.3 degrees warm right patient was not tachycardic hypotensive or hypoxic and no need for supplemental oxygen patient did have a white count of 12.7 with a left shift and BUN and creatinine has been elevated urine has been positive cultures came back negative patient has been treated with ceftriaxone infectious disease was consulted today for further management of antibiotic therapy patient at time my evaluation was lethargic sleepy and did not answer any question by the nursing staff this has been her baseline there is no clear history of any nausea vomiting and nursing staff specifically denied any diarrhea has not medicated the patient makes any urine or not or if he has any urinary symptoms Review of Systems Positive points has been mentioned in HPI complete review could not be obtained because of his underlying mental status Past Medical History Past Medical History: Heart Failure, COPD, CVA/TIA, Dialysis, GERD/Reflux, Hyperlipidemia, Hypertension, Osteoarthritis (OA), Skin Disorder, Syncope, Thyroid Disorder Additional Past Medical History / Comment(s): CKD, endometriosis, gastritis, carotid artery stenosis, Hemodialysis for 7.5 years, shingles-recurrent History of Any Multi-Drug Resistant Organisms: MRSA Year Discovered:: unk MDRO Source:: left arm Past Surgical History: Uterine Ablation Additional Past Surgical History / Comment(s): Dialysis cath placement right subclavian, old fistula left arm- not in use, Past Anesthesia/Blood Transfusion Reactions: No Reported Reaction Past Psychological History: No Psychological Hx Reported Smoking Status: Unknown if ever smoked Past Alcohol Use History: None Reported Past Drug Use History: None Reported - Past Family History Father Family Medical History: Diabetes Mellitus Mother Family Medical History: Cancer, Congestive Heart Failure (CHF) Additional Family Medical History / Comment(s): thyroid CA, Medications and Allergies Home Medications Medication Instructions Recorded Confirmed Type Albuterol Sulfate [Albuterol 1 puff INHALATION RT-Q4H PRN 01/21/23 03/18/24 History Sulfate Hfa] Atorvastatin Calcium 20 mg PO DAILY 01/21/23 03/18/24 History Fluticasone Nasal [place] [Flonase 2 spray EA NOSTRIL DAILY 01/21/23 03/18/24 History Nasal [place]] Isosorbide Mononitrate ER [Imdur] 30 mg PO DAILY 01/21/23 03/18/24 History Loperamide [Imodium] 4 mg PO QID PRN 01/21/23 03/18/24 History Metoprolol Succinate (ER) [Toprol 25 mg PO BID 01/21/23 03/18/24 History XL] Montelukast [Singulair] 10 mg PO DAILY 01/21/23 03/18/24 History Omeprazole [PriLOSEC] 20 mg PO AC-SUPPER 01/21/23 03/18/24 History Ascorbic Acid [Vitamin C] 500 mg PO DAILY 01/22/23 03/18/24 History Aspirin EC [Ecotrin Low Dose] 81 mg PO DAILY 01/22/23 03/18/24 History Bismuth Subsalicylate 525 - 1,050 mg PO TID PRN 01/22/23 03/18/24 History [Pepto-Bismol Ultra] Cholecalciferol (Vitamin D3) 125 mcg PO DAILY 01/22/23 03/18/24 History [Vitamin D3 (125 MCG = 5,000 IU)] Cranberry 15,000 Mg Tab 15,000 mg PO DAILY 01/22/23 03/18/24 History Multivit-Min/FA/Lycopen/Lutein 1 tab PO DAILY 01/22/23 03/18/24 History [Centrum Silver Tablet] Propylene Glycol [Systane Complete] 1 drop BOTH EYES HS 01/22/23 03/18/24 History Super B Complex 1 tab PO DAILY 01/22/23 03/18/24 History Vitamin E (Dl,Tocopheryl Acet) 400 unit PO DAILY 01/22/23 03/18/24 History [Vitamin E (400 Iu = 180 mg)] Bumetanide [BUMEX] 2 mg PO Q4H PRN 04/01/23 03/18/24 History Midodrine [ProAmatine] 5 mg PO TID 04/01/23 03/19/24 History Sevelamer Carbonate 1,600 mg PO TID-W/MEALS 04/01/23 03/19/24 History amLODIPine [Norvasc] 5 mg PO BID 04/01/23 03/18/24 History Cephalexin [Keflex] 500 mg PO Q12HR 03/18/24 03/18/24 History Cinacalcet [Sensipar] 30 mg PO DIRECTED 03/18/24 03/18/24 History DULoxetine HCL [Cymbalta] 30 mg PO DAILY 03/18/24 03/18/24 History Dicyclomine [Bentyl] 10 mg PO TID 03/18/24 03/18/24 History Gabapentin [Neurontin] 100 mg PO QID 03/18/24 03/18/24 History Ketoconazole 2% Shampoo [Nizoral] 1 applic TOPICAL WEEKLY 03/18/24 03/18/24 History Melatonin [Melatonin ER] 5 - 10 mg PO HS PRN 03/18/24 03/18/24 History Metoprolol Succinate (ER) [Toprol 50 mg PO DAILY 03/18/24 03/18/24 History XL] Sevelamer [Renvela] 1,600 mg PO DAILY PRN 03/19/24 03/19/24 History Allergies Allergy/AdvReac Type Severity Reaction Status Date / Time erythromycin base Allergy Rash/Hives Verified 03/18/24 16:53 furosemide [From Lasix] Allergy Unknown Verified 03/18/24 16:53 green tea Allergy Unknown Verified 03/18/24 16:53 Penicillins Allergy Rash/Hives Verified 03/18/24 16:53 Sulfa (Sulfonamide Allergy Anaphylaxis Verified 03/18/24 16:53 Antibiotics) sulfacetamide Allergy Unknown Verified 03/18/24 16:53 Physical Exam Vitals: Vital Signs Temp Pulse Resp BP Pulse Ox 03/21/24 14:06 98.1 F 72 16 122/70 100 03/21/24 07:45 98.2 F 66 14 121/70 99 03/21/24 01:37 97.9 F 70 16 100/63 97 03/20/24 20:00 98.2 F 64 16 108/67 96 Intake and Output 10/12/24 10/12/24 10/12/24 06:59 14:59 22:59 Intake Total 590 Balance 590 Intake: Oral 590 Other: Voiding Method Bedside Commode # Voids 2 GENERAL DESCRIPTION: Middle-aged female lying in bed, no distress. No tachypnea or accessory muscle of respiration use. HEENT: Shows Pallor , no scleral icterus. Oral mucous membrane is dry. NECK: Trachea central, no thyromegaly. LUNGS: Unlabored breathing. Clear to auscultation anteriorly. No wheeze or crackle. HEART: S1, S2, regular rate and rhythm. No loud murmur ABDOMEN: Soft, no tenderness , guarding or rigidity, no organomegaly EXTREMITIES: No edema of feet. SKIN: No rash, no masses palpable. NEUROLOGICAL: The patient is slightly lethargic orientation could not be determined Results CBC & Chem 7: 03/18/24 15:23 03/18/24 15:23 Assessment and Plan (1) Allergy to multiple antibiotics Current Visit: Yes Status: Acute Code(s): Z88.1 - ALLERGY STATUS TO OTHER ANTIBIOTIC AGENTS SNOMED Code(s): 651695015 (2) Altered mental status Current Visit: Yes Status: Acute Code(s): R41.82 - ALTERED MENTAL STATUS, UNSPECIFIED SNOMED Code(s): 269505939 (3) UTI (urinary tract infection) Current Visit: Yes Status: Acute Code(s): N39.0 - URINARY TRACT INFECTION, SITE NOT SPECIFIED SNOMED Code(s): 67576384 Plan: 1patient presenting to the hospital mental status changes and this patient also have elevated white count and noted to have significantly positive UA concerning for urinary source patient at time my evaluation is sleepy lethargic and cannot provide any history as for his urinary symptoms patient did not have any fever except low-grade on admission no vomiting or diarrhea has been reported by the nursing staff or any issues with her dialysis access site 2-patient with multiple antibiotic ALLERGIES that would limit the number of antibiotic safe to use 3-we will check her CBC and a CRP with a.m. lab 4-for now continue with Rocephin while waiting for the workup to be completed We will follow on clinical condition and cultures to further adjust medication if needed Thank you for this consultation we will follow the patient along with you Dictation was produced using [employer] dictation software. please excuse any grammatical, word or spelling errors. Time with Patient: Greater than 30
[2024-03-22 09:59] LABS: Basophils # (A) 0.06 X 10*3/uL (0.00-0.10); Basophils % (A) 0.9 %; Eosinophils # (A) 0.43 X 10*3/uL (0.04-0.35); Eosinophils % (A) 6.3 %; HCT 24.7 % (37.2-46.3); HGB 7.9 g/dL (12.0-15.0); Lymphocytes # (A) 1.77 X 10*3/uL (0.90-5.00); Lymphocytes % (A) 26.1 %; MCH 29.7 pg (27.0-32.0); MCV 92.9 FL (80.0-97.0); Mean Platelet Volume 10.7 FL (9.5-12.2); Monocytes # (A) 0.73 X 10*3/uL (0.20-1.00); Monocytes % (A) 10.8 %; NRBC Per 100 WBC 0 X 10*3/uL (0.00-0.01); Platelet Count 246 X 10*3/uL (140-440); RBC 2.66 X 10*6/uL (4.10-5.20); RDW 17.2 % (11.5-14.5); WBC 6.79 X 10*3/uL (4.50-10.00)
[2024-03-22 10:12] LABS: ALT 18 U/L (8-44); AST 18 U/L (13-35); Albumin 3.7 g/dL (3.8-4.9); Albumin/Globulin Ratio 1.85 Ratio (1.60-3.17); Alkaline Phosphatase 137 U/L (41-126); BUN/Creat Ratio 9.76 Ratio (12.00-20.00); Blood Urea Nitrogen 52.7 mg/dL (9.0-27.0); Calcium 8.5 mg/dL (8.7-10.3); Carbon Dioxide 24.6 mmol/L (21.6-31.8); Chloride 95 mmol/L (96-109); Glucose 89 mg/dL (70-110); Potassium 5.3 mmol/L (3.5-5.5); Sodium 135 mmol/L (135-145); Total Bilirubin <0.2 mg/dL (0.3-1.2); Total Protein 5.7 g/dL (6.2-8.2)
--- NOTE | 2024-03-22 11:35 | P.PN ---
Subjective Progress Note Date: 03/22/24 Patient is seen in follow-up for end-stage renal disease. She is maintained on hemodialysis on Saturday schedule. Vital signs are stable. General: No acute distress. HEENT: Head exam is unremarkable. On nasal cannula. LUNGS: No audible rhonchi or wheezes. HEART: Rate and Rhythm are regular. ABDOMEN: Nontender. EXTREMITITES: Lower extremities tender to touch. 1+ edema. Objective - Vital Signs Vital signs: Vital Signs Temp 97.5 F L 03/22/24 07:48 Pulse 59 L 03/22/24 07:48 Resp 17 03/22/24 07:48 BP 118/72 03/22/24 07:48 Pulse Ox 92 L 03/22/24 07:48 FiO2 Intake & Output 03/21/24 03/22/24 03/22/24 18:59 06:59 18:59 Intake Total 590 Balance 590 Intake: Oral 590 Other: Voiding Method Bedside Commode Bedside Commode # Voids 2 2 # Bowel Movements 1 - Labs CBC & Chem 7: 03/22/24 06:50 03/22/24 06:50 Labs: Abnormal Lab Results - Last 24 Hours (Table) 03/22/24 03/22/24 Range/Units 06:50 06:50 RBC 2.66 L (4.10-5.20) X 10*6/uL Hgb 7.9 L (12.0-15.0) g/dL Hct 24.7 L (37.2-46.3) % RDW 17.2 H (11.5-14.5) % Immature Gran # 0.20 H (0.00-0.04) X 10*3/uL Eosinophils # 0.43 H (0.04-0.35) X 10*3/uL Chloride 95 L (96-109) mmol/L Anion Gap 15.40 H (4.00-12.00) mmol/L BUN 52.7 H (9.0-27.0) mg/dL Creatinine 5.4 H (0.6-1.5) mg/dL Est GFR (CKD-EPI) 8 L (>=60) BUN/Creatinine Ratio 9.76 L (12.00-20.00) Ratio Calcium 8.5 L (8.7-10.3) mg/dL Total Bilirubin <0.2 L (0.3-1.2) mg/dL Alkaline Phosphatase 137 H (41-126) U/L C-Reactive Protein 7.30 H (0.00-0.80) mg/dL Total Protein 5.7 L (6.2-8.2) g/dL Albumin 3.7 L (3.8-4.9) g/dL Assessment and Plan Assessment: 1. End-stage renal disease maintained on hemodialysis on Saturday schedule via permacath. 2. UTI on antibiotics. 3. Chronic diastolic CHF and moderate mitral regurgitation. 4. Chronic kidney disease mineral bone disease maintained on Renvela and Sensipar. 5. Volume overload. Better with ultrafiltration. 6. Anemia of chronic kidney disease. Iron replete. Plan: Next HD treatment Saturday. Maintain Bumex. Aranesp. Hold amlodipine for systolic blood pressure less than 120.
--- NOTE | 2024-03-22 13:56 | P.PN ---
Subjective Progress Note Date: 03/22/24 63-year-old patient, follows with Dr. Calvin Gamez known end-stage kidney disease on hemodialysis Saturday and Saturday. Chronic medical conditions include mineral bone disease, anemia of chronic ki dney disease, severe osteoarthritis with chronic pain, uses a walker Patient went for a scheduled dialysis. She was found to be somewhat lethargic but alert self. Sent down to [facility]. Patient is found to have severe UTI. Patient is complaining of fever and chills for few days. Also d ysuria urinary frequency and urgency. Did receive a dose of ceftriaxone there. Then transferred here because of hemodialysis. --Patient remains somewhat slow to respond; unclear if patient is back to baseline -- Remains on IV Rocephin; given elevated white blood count, positive UA and mental status change, plan to continue with IV Rocephin and make further recommendations once urine culture results are available 03/21. Patient seen and examined. Patient stated she does not feel the best to day. Complaining of lethargic and weakness 03/22. Patient seen and examined. No acute issues overnight. Patient is afebrile REVIEW OF SYSTEMS: CONSTITUTIONAL: No fever, no malaise,. CARDIOVASCULAR: No chest pain, no palpitations, no syncope. PULMONARY: No shortness of breath, no cough, GASTROINTESTINAL: No diarrhea, no nausea, no vomiting, no abdominal pain. NEUROLOGICAL: No headaches, no weakness, PHYSICAL EXAMINATION: GENERAL: The patient is alert and oriented x3, ill looking HEENT: Pupils are round and equally reacting to light. EOMI. No scleral icterus. No conjunctival pallor. Normocephalic, atraumatic. No pharyngeal erythema. No thyromegaly. CARDIOVASCULAR: S1 and S2 present. No murmurs, rubs, or gallops. PULMONARY: Chest is clear to auscultation, no wheezing or crackles. ABDOMEN: Soft, nontender, nondistended, normoactive bowel sounds. No palpable organomegaly. MUSCULOSKELETAL: No joint swelling or deformity. EXTREMITIES: No cyanosis, clubbing, or pedal edema. NEUROLOGICAL: Gross neurological examination did not reveal any focal deficits. SKIN: No rashes. Assessment and plan -Acute metabolic encephalopathy with delirium, from underlying UTI with cystitis: -Acute UTI with cystitis Monitor vital signs Monitor CBC Monitor CMP Follow-up on urine culture IV ceftriaxone. ID following -Fluid overload -Chronic kidney disease minimal bone disease Continue dialysis per nephrology Continue sevelamer -Anemia of chronic kidney disease. Monitor CBC -Gastritis PPI -Essential hypertension with end-stage kidney disease Amlodipine 5 mg twice daily, Toprol XL -Hyperlipidemia Lipitor -Carotid artery stenosis: Moderate approaching severe stenosis right internal carotid artery 69%. 50-69% left internal carotid artery. Follow-up with Dr. Cassidy vascular Aspirin. Lipitor. . -End-stage renal disease(Saturday and Saturday, Right subclavian-dialysis access -Peripheral neuropathy Neurontin -Primary osteoarthritis, multiple joints Pain medications as needed . -COPD, Symbicort. Albuterol when necessary. Singulair -Chronic hypoxic respiratory failure underlying COPD Has home oxygen Labs and medication were reviewed.. Continue same treatment. Continue with symptomatic treatment. Resume home medication. Monitor labs and vitals. DVT and GI prophylaxis. Further recommendations as per clinical course of the patient Dictation was produced using [employer] dictation software. please excuse any grammatical, word or spelling errors. Objective - Vital Signs Vital signs: Vital Signs Temp 97.6 F 03/22/24 13:18 Pulse 56 L 03/22/24 13:18 Resp 16 03/22/24 13:18 BP 134/80 03/22/24 13:18 Pulse Ox 96 03/22/24 13:18 FiO2 Intake & Output 03/21/24 03/22/24 03/22/24 18:59 06:59 18:59 Intake Total 590 Balance 590 Intake: Oral 590 Other: Voiding Method Bedside Commode Bedside Commode # Voids 2 2 # Bowel Movements 1 - Labs CBC & Chem 7: 03/22/24 06:50 03/22/24 06:50 Labs: Abnormal Lab Results - Last 24 Hours (Table) 03/22/24 03/22/24 Range/Units 06:50 06:50 RBC 2.66 L (4.10-5.20) X 10*6/uL Hgb 7.9 L (12.0-15.0) g/dL Hct 24.7 L (37.2-46.3) % RDW 17.2 H (11.5-14.5) % Immature Gran # 0.20 H (0.00-0.04) X 10*3/uL Eosinophils # 0.43 H (0.04-0.35) X 10*3/uL Chloride 95 L (96-109) mmol/L Anion Gap 15.40 H (4.00-12.00) mmol/L BUN 52.7 H (9.0-27.0) mg/dL Creatinine 5.4 H (0.6-1.5) mg/dL Est GFR (CKD-EPI) 8 L (>=60) BUN/Creatinine Ratio 9.76 L (12.00-20.00) Ratio Calcium 8.5 L (8.7-10.3) mg/dL Total Bilirubin <0.2 L (0.3-1.2) mg/dL Alkaline Phosphatase 137 H (41-126) U/L C-Reactive Protein 7.30 H (0.00-0.80) mg/dL Total Protein 5.7 L (6.2-8.2) g/dL Albumin 3.7 L (3.8-4.9) g/dL
--- NOTE | 2024-03-22 15:51 | P.PN ---
Subjective Progress Note Date: 03/22/24 Principal diagnosis: Reason for consultation is a urinary tract infection Patient is a 63-year-old female with a past medical history significant for COPD CVA TIA hypertension hyperlipidemia end-stage renal disease on hemodialysis patient presenting to the hospital for evaluation of mental status changes with initial evaluation at outside facility concerning for UTI head this patient still make some urine and was complaining of some burning urine and did have elevated white count admission. On today's evaluation that is 03/22/2024,the patient remains to be afebrile, patient is more awake alert today, on room air not requiring supplemental oxygen and denies any shortness of breath no chest pain or cough.Patient denies having any nausea or vomiting, no abdominal pain and no diarrhea has been reported. Patient white normalized to 6.79, creatinine is 5.4 liver isms are normal Objective - Vital Signs Vital signs: Vital Signs Temp 97.6 F 03/22/24 13:18 Pulse 56 L 03/22/24 13:18 Resp 16 03/22/24 13:18 BP 134/80 03/22/24 13:18 Pulse Ox 96 03/22/24 13:18 FiO2 Intake & Output 03/21/24 03/22/24 03/22/24 18:59 06:59 18:59 Intake Total 590 Balance 590 Intake: Oral 590 Other: Voiding Method Bedside Commode Bedside Commode # Voids 2 2 # Bowel Movements 1 - Exam GENERAL DESCRIPTION: Middle-age female lying in bed in no distress RESPIRATORY SYSTEM: Unlabored breathing , decreased breath sounds at bases HEART: S1 S2 regular rate and rhythm , ABDOMEN: Soft , no tenderness EXTREMITIES: No edema feet - Labs CBC & Chem 7: 03/22/24 06:50 03/22/24 06:50 Labs: Abnormal Lab Results - Last 24 Hours (Table) 03/22/24 03/22/24 Range/Units 06:50 06:50 RBC 2.66 L (4.10-5.20) X 10*6/uL Hgb 7.9 L (12.0-15.0) g/dL Hct 24.7 L (37.2-46.3) % RDW 17.2 H (11.5-14.5) % Immature Gran # 0.20 H (0.00-0.04) X 10*3/uL Eosinophils # 0.43 H (0.04-0.35) X 10*3/uL Chloride 95 L (96-109) mmol/L Anion Gap 15.40 H (4.00-12.00) mmol/L BUN 52.7 H (9.0-27.0) mg/dL Creatinine 5.4 H (0.6-1.5) mg/dL Est GFR (CKD-EPI) 8 L (>=60) BUN/Creatinine Ratio 9.76 L (12.00-20.00) Ratio Calcium 8.5 L (8.7-10.3) mg/dL Total Bilirubin <0.2 L (0.3-1.2) mg/dL Alkaline Phosphatase 137 H (41-126) U/L C-Reactive Protein 7.30 H (0.00-0.80) mg/dL Total Protein 5.7 L (6.2-8.2) g/dL Albumin 3.7 L (3.8-4.9) g/dL Assessment and Plan (1) Allergy to multiple antibiotics Current Visit: Yes Status: Acute Code(s): Z88.1 - ALLERGY STATUS TO OTHER ANTIBIOTIC AGENTS SNOMED Code(s): 976611874 (2) Altered mental status Current Visit: Yes Status: Acute Code(s): R41.82 - ALTERED MENTAL STATUS, UNSPECIFIED SNOMED Code(s): 352880247 (3) UTI (urinary tract infection) Current Visit: Yes Status: Acute Code(s): N39.0 - URINARY TRACT INFECTION, SITE NOT SPECIFIED SNOMED Code(s): 23412190 Plan: 1patient presenting to the hospital mental status changes and this patient also have elevated white count and noted to have significantly positive UA concerning for urinary source patient at time my evaluation is sleepy lethargic and cannot provide any history as for his urinary symptoms patient did not have any fever except low-grade on admission no vomiting or diarrhea has been reported by the nursing staff or any issues with her dialysis access site 2-patient with multiple antibiotic ALLERGIES that would limit the number of ant ibiotic safe to use 3-patient did have normalization of the white count on Rocephin to continue will transition to short course of oral Ceftin on discharge Dictation was produced using [employer] dictation software. please excuse any grammatical, word or spelling errors. Time with Patient: Less than 30
--- NOTE | 2024-03-23 19:16 | P.PN ---
Subjective Patient is seen for follow-up for end-stage renal disease. Seen on dialysis. Tolerating treatment well. No significant complaints. Objective - Vital Signs Vital signs: Vital Signs Temp 97.6 F 03/23/24 12:57 Pulse 66 03/23/24 12:57 Resp 16 03/23/24 12:57 BP 145/77 03/23/24 12:57 Pulse Ox 94 L 03/23/24 12:57 FiO2 Intake & Output 03/23/24 03/23/24 03/24/24 06:59 18:59 06:59 Intake Total 780 6240 Output Total 4800 Balance 780 1440 Intake: Oral 780 1440 Hemodialysis 4800 Output: Hemodialysis 800 Hemodialysis Net Amount 4000 Other: Voiding Method Bedside Commode Bedside Commode # Voids 1 # Bowel Movements 1 - Exam Patient is awake, comfortable, no acute distress. Examination of the heart S1 and S2 Examination of the lungs decreased breath sounds at the bases Abdomen is soft nontender Examination of lower extremity shows edema 1+ bilaterally. Chronic skin changes noted. - Labs CBC & Chem 7: 03/22/24 06:50 03/22/24 06:50 Assessment and Plan Assessment: 1. End-stage renal disease maintained on hemodialysis on Saturday schedule via permacath. 2. UTI on antibiotics. 3. Chronic diastolic CHF and moderate mitral regurgitation. 4. Chronic kidney disease mineral bone disease maintained on Renvela and Sensipar. 5. Volume overload. Better with ultrafiltration. 6. Anemia of chronic kidney disease. Iron replete. Plan: Continue with hemodialysis on Saturday schedule. Continue Bumex
--- NOTE | 2024-03-24 00:46 | PN ---
PROGRESS NOTE DATE OF SERVICE: 03/23/2024 SUBJECTIVE: This is a 63-year-old woman, who was admitted with fluid overload and metabolic encephalopathy, is being closely monitored. No chest pain. No palpitation. OBJECTIVE: VITAL SIGNS: Pulse is 66, blood pressure 140/70, respirations 16. CHEST: Clear to auscultation. CARDIOVASCULAR: S1, S2. ABDOMEN: Soft. NERVOUS SYSTEM: Nonfocal. LABORATORY DATA: Hemoglobin 7.9. ASSESSMENT: 1. Acute urinary tract infection with cystitis present on admission. 2. Fluid overload. 3. Anemia, chronic. 4. History of renal failure, on hemodialysis. 5. Multiple complex medical issues. RECOMMENDATIONS: Recommend to continue current management and continue symptomatic treatment. Otherwise, monitor closely. Repeat labs in the morning. Possible home with home care. MMODL / IJN: [id number] /
[2024-03-24 08:22] VITALS: BP 144/75; PULSE 61; RESP 18; TEMP 98
[2024-03-24 09:31] LABS: BUN/Creat Ratio 8.15 Ratio (12.00-20.00); Blood Urea Nitrogen 32.6 mg/dL (9.0-27.0); Calcium 8.7 mg/dL (8.7-10.3); Carbon Dioxide 27.5 mmol/L (21.6-31.8); Chloride 95 mmol/L (96-109); Glucose 85 mg/dL (70-110); Potassium 5.3 mmol/L (3.5-5.5); Sodium 137 mmol/L (135-145)
[2024-03-24 09:32] LABS: HCT 27.7 % (37.2-46.3); HGB 8.7 g/dL (12.0-15.0); MCH 29.5 pg (27.0-32.0); MCHC 31.4 g/dL (32.0-37.0); MCV 93.9 FL (80.0-97.0); Mean Platelet Volume 10.6 FL (9.5-12.2); NRBC Per 100 WBC 0 X 10*3/uL (0.00-0.01); Platelet Count 254 X 10*3/uL (140-440); RBC 2.95 X 10*6/uL (4.10-5.20); RDW 17.2 % (11.5-14.5); WBC 8.17 X 10*3/uL (4.50-10.00)
--- NOTE | 2024-03-24 10:37 | P.DS ---
Providers Date of admission: 03/18/24 15:14 Expected date of discharge: 03/23/24 Attending physician: Monroe Morocho Consults: 03/18/24 15:14 Consult Physician Routine Consulting Provider: Elvia Armstrong Consult Reason/Comments: ESRD Do you want consulting provider notified?: Yes 03/21/24 10:06 Consult Physician Routine Consulting Provider: Jr Urbano Consult Reason/Comments: UTI Do you want consulting provider notified?: Yes Primary care physician: Calvin Gamez MD Hospital Course: Final diagnosis Acute urinary tract infection with cystitis, present on admission Fluid overload and missed dialysis History of anemia, chronic History of renal failure on hemodialysis 3 days a week History of heart failure History of COPD, not in exacerbation History of CVA/TIA GERD Hyperlipidemia Hypertension History of osteoarthritis GI prophylaxis Obesity with a BMI of 32.9 DVT prophylaxis Full code Discharge disposition Patient is being discharged in a stable condition with guarded prognosis to home with continued home care. Patient will follow-up with Dr. Vera Simpson in the outpatient setting upon discharge. Patient is to continue with hemodialysis as scheduled. Continue a course of Ceftin 500 mg twice daily for the next few days to complete the course. Total time taken is greater than 35 minutes. Hospital course This is a 63-year-old female who was recently admitted with volume overload missing dialysis and not feeling well. Patient also with acute urinary tract infection being monitored with infectious disease following. Patient maintained on ceftriaxone and will continue oral Ceftin for short course on discharge as cultures finalized showing some normal genital chantel and patient's clinical symptoms have improved. Patient being followed by nephrology underwent hemodialysis today and will continue current regimen. Patient is cleared and will be returning home with home care. Patient has been instructed to follow-up with primary care provider on discharge. Please refer to other consultation notes for further HPI. Currently no reports of chest pain, shortness of breath, or palpitations. Patient is afebrile. No reports of nausea or vomiting and patient is tolerating diet. Patient will be discharged home today. Guarded prognosis and high risk for readmissions given significant comorbidities. Physical exam: Gen: This is a 63-year-old female who is awake, alert and oriented x 3, well- developed, elderly appearing, ill-appearing, obese HEENT: Head is atraumatic, normocephalic. Pupils equal, round. Sclerae is anicteric. NECK: Supple. No JVD. No lymphadenopathy. No thyromegaly. LUNGS: Diminished breath sounds bilaterally with a few scattered rhonchi noted. No intercostal retractions. HEART: S1, S2 are muffled ABDOMEN: Soft. Obese. Bowel sounds are present. No masses. No tenderness. EXTREMITIES: No pedal edema. No calf tenderness. NEUROLOGICAL: Patient is awake, alert and oriented x3. Cranial nerves 2 through 12 are grossly intact. Diffusely weak Please refer to medication reconciliation sheet for a list of medications. The impression and plan of care has been dictated by Kenia Montano Nurse Pr actitioner as directed. Dr. Manoj MD I have performed a history and examination and MDM of this patient, discussed the same with the dictator, and agree with the dictator's assessment and plan as written ,documented as a scribe. Based on total visit time, I have performed more than 50% of the visit. Patient Condition at Discharge: Fair Plan - Discharge Summary Discharge Rx Participant: No New Discharge Prescriptions: New cefUROXime axetiL [Ceftin] 500 mg PO BID 5 Days #10 tab Darbepoetin Ervin [Aranesp] 40 mcg SQ Q7D 30 Days #4 each Metoclopramide [Reglan] 10 mg PO AC-TID PRN #20 tab PRN Reason: Nausea Acetaminophen Tab [Tylenol] 650 mg PO Q6HR PRN tab PRN Reason: Mild Pain Or Fever > 100.5 Continue Montelukast [Singulair] 10 mg PO DAILY Atorvastatin Calcium 20 mg PO DAILY Fluticasone Nasal Abrams [Flonase Nasal Abrams] 2 spray EA NOSTRIL DAILY Loperamide [Imodium] 4 mg PO QID PRN PRN Reason: Diarrhea Cholecalciferol (Vitamin D3) [Vitamin D3 (125 MCG = 5,000 IU)] 125 mcg PO DAILY Super B Complex 1 tab PO DAILY Ascorbic Acid [Vitamin C] 500 mg PO DAILY Vitamin E (Dl,Tocopheryl Acet) [Vitamin E (400 Iu = 180 mg)] 400 unit PO DAILY Cranberry 15,000 Mg Tab 15,000 mg PO DAILY Midodrine [ProAmatine] 5 mg PO TID amLODIPine [Norvasc] 5 mg PO BID Sevelamer Carbonate 1,600 mg PO TID-W/MEALS Cinacalcet [Sensipar] 30 mg PO DIRECTED DULoxetine HCL [Cymbalta] 30 mg PO DAILY Ketoconazole 2% Shampoo [Nizoral] 1 applic TOPICAL WEEKLY Sevelamer [Renvela] 1,600 mg PO DAILY PRN PRN Reason: with snacks Albuterol Sulfate [Albuterol Sulfate Hfa] 1 puff INHALATION RT-Q4H PRN PRN Reason: Shortness Of Breath Omeprazole [PriLOSEC] 20 mg PO AC-SUPPER Isosorbide Mononitrate ER [Imdur] 30 mg PO DAILY Metoprolol Succinate (ER) [Toprol XL] 25 mg PO BID Propylene Glycol [Systane Complete] 1 drop BOTH EYES HS Aspirin EC [Ecotrin Low Dose] 81 mg PO DAILY Bismuth Subsalicylate [Pepto-Bismol Ultra] 525 - 1,050 mg PO TID PRN PRN Reason: Gi Upset Multivit-Min/FA/Lycopen/Lutein [Centrum Silver Tablet] 1 tab PO DAILY Bumetanide [BUMEX] 2 mg PO Q4H PRN PRN Reason: Edema Dicyclomine [Bentyl] 10 mg PO TID Gabapentin [Neurontin] 100 mg PO QID Melatonin [Melatonin ER] 5 - 10 mg PO HS PRN PRN Reason: Insomnia Metoprolol Succinate (ER) [Toprol XL] 50 mg PO DAILY Discontinued Cephalexin [Keflex] 500 mg PO Q12HR Discharge Medication List Albuterol Sulfate [Albuterol Sulfate Hfa] 1 puff INHALATION RT-Q4H PRN 01/21/23 [History] Atorvastatin Calcium 20 mg PO DAILY 01/21/23 [History] Fluticasone Nasal Abrams [Flonase Nasal Abrams] 2 spray EA NOSTRIL DAILY 01/21/23 [History] Isosorbide Mononitrate ER [Imdur] 30 mg PO DAILY 01/21/23 [History] Loperamide [Imodium] 4 mg PO QID PRN 01/21/23 [History] Metoprolol Succinate (ER) [Toprol XL] 25 mg PO BID 01/21/23 [History] Montelukast [Singulair] 10 mg PO DAILY 01/21/23 [History] Omeprazole [PriLOSEC] 20 mg PO AC-SUPPER 01/21/23 [History] Ascorbic Acid [Vitamin C] 500 mg PO DAILY 01/22/23 [History] Aspirin EC [Ecotrin Low Dose] 81 mg PO DAILY 01/22/23 [History] Bismuth Subsalicylate [Pepto-Bismol Ultra] 525 - 1,050 mg PO TID PRN 01/22/23 [History] Cholecalciferol (Vitamin D3) [Vitamin D3 (125 MCG = 5,000 IU)] 125 mcg PO DAILY 01/22/23 [History] Cranberry 15,000 Mg Tab 15,000 mg PO DAILY 01/22/23 [History] Multivit-Min/FA/Lycopen/Lutein [Centrum Silver Tablet] 1 tab PO DAILY 01/22/23 [History] Propylene Glycol [Systane Complete] 1 drop BOTH EYES HS 01/22/23 [History] Super B Complex 1 tab PO DAILY 01/22/23 [History] Vitamin E (Dl,Tocopheryl Acet) [Vitamin E (400 Iu = 180 mg)] 400 unit PO DAILY 01/22/23 [History] Bumetanide [BUMEX] 2 mg PO Q4H PRN 04/01/23 [History] Midodrine [ProAmatine] 5 mg PO TID 04/01/23 [History] Sevelamer Carbonate 1,600 mg PO TID-W/MEALS 04/01/23 [History] amLODIPine [Norvasc] 5 mg PO BID 04/01/23 [History] Cinacalcet [Sensipar] 30 mg PO DIRECTED 03/18/24 [History] DULoxetine HCL [Cymbalta] 30 mg PO DAILY 03/18/24 [History] Dicyclomine [Bentyl] 10 mg PO TID 03/18/24 [History] Gabapentin [Neurontin] 100 mg PO QID 03/18/24 [History] Ketoconazole 2% Shampoo [Nizoral] 1 applic TOPICAL WEEKLY 03/18/24 [History] Melatonin [Melatonin ER] 5 - 10 mg PO HS PRN 03/18/24 [History] Metoprolol Succinate (ER) [Toprol XL] 50 mg PO DAILY 03/18/24 [History] Sevelamer [Renvela] 1,600 mg PO DAILY PRN 03/19/24 [History] Acetaminophen Tab [Tylenol] 650 mg PO Q6HR PRN tab 03/23/24 [Rx] Darbepoetin Ervin [Aranesp] 40 mcg SQ Q7D 30 Days #4 each 03/23/24 [Rx] Metoclopramide [Reglan] 10 mg PO AC-TID PRN #20 tab 03/23/24 [Rx] cefUROXime axetiL [Ceftin] 500 mg PO BID 5 Days #10 tab 03/23/24 [Rx] Follow up Appointment(s)/Referral(s): [facility] [NON-STAFF] - 1 Week David Chappell MD [REFERRING] - 04/06/24 2:00 pm (previously scheduled appt. scheduled as a new patient.) Jonas Brice DO [STAFF PHYSICIAN] - 1 Week (per the office, follow up at the dialysis center. Dialysis Saturday/Saturday/Saturday per scheduled chair time. ) Patient Instructions/Handouts: Cefuroxime (By mouth), Metoclopramide (By mouth), Darbepoetin Ervin (By injection), Urinary Tract Infection in Women (DC) Activity/Diet/Wound Care/Special Instructions: Activity limited until follow-up Follow-up with primary care provider on discharge Follow-up with nephrology and continue with your dialysis sessions as scheduled Continue taking antibiotics for the next 5 days to complete the course Discharge Disposition: HOME WITH HOME HEALTH SERVICES
[2024-03-24 11:27] LABS: Basophils # (M) 0.16 X 10*3/uL (0.00-0.10); Eosinophils # (M) 0.33 X 10*3/uL (0.04-0.35); Lymphocytes # (M) 1.63 X 10*3/uL (0.90-5.00); Monocytes # (M) 0.33 X 10*3/uL (0.20-1.00); Myelocytes % 3 % (0-0); Neutrophils # (M) 5.47 X 10*3/uL (1.80-7.70); Neutrophils % (M) 67 %
--- NOTE | 2024-03-24 16:20 | P.PN ---
Subjective Progress Note Date: 03/23/24 Principal diagnosis: Reason for consultation is a urinary tract infection Patient is a 63-year-old female with a past medical history significant for COPD CVA TIA hypertension hyperlipidemia end-stage renal disease on hemodialysis patient presenting to the hospital for evaluation of mental status changes with initial evaluation at outside facility concerning for UTI head this patient still make some urine and was complaining of some burning urine and did have elevated white count admission. On today's evaluation that is03/23/2024, the patient continues to be afebrile, the patient is on room air and breathing comfortably, the Pt denies having any chest pain or cough, the patient denies having any abdominal pain no vomiting or any diarrhea has been reported by the nursing staff. The patient white count is 8.17, creatinine 4.0 Objective - Vital Signs Vital signs: Vital Signs Temp 97.7 F 03/23/24 07:26 Pulse 54 L 03/23/24 07:26 Resp 16 03/23/24 07:26 BP 122/65 03/23/24 07:26 Pulse Ox 93 L 03/23/24 07:26 FiO2 Intake & Output 03/22/24 03/23/24 03/23/24 18:59 06:59 18:59 Intake Total 780 780 480 Balance 780 780 480 Intake: Oral 780 780 480 Other: Voiding Method Bedside Commode Bedside Commode - Exam GENERAL DESCRIPTION: Middle-age female lying in bed in no distress RESPIRATORY SYSTEM: Unlabored breathing , decreased breath sounds at bases HEART: S1 S2 regular rate and rhythm , ABDOMEN: Soft , no tenderness EXTREMITIES: No edema feet - Labs CBC & Chem 7: 03/24/24 04:41 03/24/24 04:41 Assessment and Plan (1) Allergy to multiple antibiotics Status: Acute Code(s): Z88.1 - ALLERGY STATUS TO OTHER ANTIBIOTIC AGENTS SNOMED Code(s): 621877379 (2) Altered mental status Status: Acute Code(s): R41.82 - ALTERED MENTAL STATUS, UNSPECIFIED SNOMED Code(s): 084246550 (3) UTI (urinary tract infection) Status: Acute Code(s): N39.0 - URINARY TRACT INFECTION, SITE NOT SPECIFIED SNOMED Code(s): 80586530 Plan: 1patient presenting to the hospital mental status changes and this patient also have elevated white count and noted to have significantly positive UA concerning for urinary source patient at time my evaluation is sleepy lethargic and cannot provide any history as for his urinary symptoms patient did not have any fever except low-grade on admission no vomiting or diarrhea has been reported by the nursing staff or any issues with her dialysis access site 2-patient with multiple antibiotic ALLERGIES that would limit the number of antibiotic safe to use 3-patient did have normalization of the white count and improvement in her symptoms to continue with Rocephin while inpatient and will transition to short course of oral Ceftin on discharge Dictation was produced using [employer] dictation software. please excuse any grammatical, word or spelling errors. Time with Patient: Less than 30
== END 2024-03-24 11:45 | disposition home health service (06) | DRG 689 ==
LOC: EC 14:15 → 5NMEDONC 15:14
PROVIDERS: ADMIT Hospitalist; ATTEND Hospitalist
PROC: 5A1D70Z Performance of Urinary Filtration, Intermittent, Less than 6 Hours Per Day (ICD-10-PCS; principal; 2024-03-19)
DX: N30.90 Cystitis, unspecified without hematuria (principal); G93.41 Metabolic encephalopathy; N18.6 End stage renal disease; J96.11 Chronic respiratory failure with hypoxia; F05 Delirium due to known physiological condition; I13.2 Hypertensive heart and chronic kidney disease with heart failure and with stage 5 chronic kidney disease, or end stage renal disease; I50.32 Chronic diastolic (congestive) heart failure; K29.70 Gastritis, unspecified, without bleeding; D63.1 Anemia in chronic kidney disease; E78.5 Hyperlipidemia, unspecified; G62.9 Polyneuropathy, unspecified; I34.0 Nonrheumatic mitral (valve) insufficiency; M19.91 Primary osteoarthritis, unspecified site; M89.8X9 Other specified disorders of bone, unspecified site; Z99.2 Dependence on renal dialysis; G89.29 Other chronic pain; E66.9 Obesity, unspecified; R39.15 Urgency of urination; R35.0 Frequency of micturition; I65.21 Occlusion and stenosis of right carotid artery; R00.0 Tachycardia, unspecified; J44.9 Chronic obstructive pulmonary disease, unspecified; R04.0 Epistaxis; K21.9 Gastro-esophageal reflux disease without esophagitis; Z68.32 Body mass index [BMI] 32.0-32.9, adult; Z79.51 Long term (current) use of inhaled steroids; Z79.82 Long term (current) use of aspirin; Z79.899 Other long term (current) drug therapy; Z82.49 Family history of ischemic heart disease and other diseases of the circulatory system; Z86.73 Personal history of transient ischemic attack (TIA), and cerebral infarction without residual deficits; Z88.1 Allergy status to other antibiotic agents; Z88.0 Allergy status to penicillin; Z88.2 Allergy status to sulfonamides; Z86.14 Personal history of Methicillin resistant Staphylococcus aureus infection
CPT/HCPCS: 36415; 80048; 80053; 81001; 82728; 82803; 83540; 83550; 85025; 86140; 87086; 90935; 99285

== ENCOUNTER 2024-04-27 13:25 | Inpatient (IN) | payer MEDICARE, OTHER ==
--- NOTE | 2024-04-27 13:58 | ED ---
General Adult HPI - General Chief complaint: Recheck/Abnormal Lab/Rx Stated complaint: CHF Time Seen by Provider: 04/27/24 13:32 Source: patient, EMS, RN notes reviewed Mode of arrival: EMS Limitations: no limitations - History of Present Illness Initial comments: Patient is a 63-year-old female presenting to the emergency department needing dialysis. Patient was transferred from [facility]. Patient states she feels fine and does not have complaints. Patient was at dialysis this morning family discontinued dialysis secondary to low blood pressures. Workup at [place] have concern for fluid overload and wanted transfer for patient to have dialysis. Patient states she has not ate or drink today other than a small piece of toast. Patient denies feeling weakness or short of breath. Patient states she had a urinary tract infection last week and her doctor treated for this - Related Data Home Medications Medication Instructions Recorded Confirmed Albuterol Sulfate [Albuterol 1 puff INHALATION RT-Q4H PRN 01/21/23 03/18/24 Sulfate Hfa] Atorvastatin Calcium 20 mg PO DAILY 01/21/23 03/18/24 Fluticasone Nasal Roland [Flonase 2 spray EA NOSTRIL DAILY 01/21/23 03/18/24 Nasal Roland] Isosorbide Mononitrate ER [Imdur] 30 mg PO DAILY 01/21/23 03/18/24 Loperamide [Imodium] 4 mg PO QID PRN 01/21/23 03/18/24 Metoprolol Succinate (ER) [Toprol 25 mg PO BID 01/21/23 03/18/24 XL] Montelukast [Singulair] 10 mg PO DAILY 01/21/23 03/18/24 Omeprazole [PriLOSEC] 20 mg PO AC-SUPPER 01/21/23 03/18/24 Ascorbic Acid [Vitamin C] 500 mg PO DAILY 01/22/23 03/18/24 Aspirin EC [Ecotrin Low Dose] 81 mg PO DAILY 01/22/23 03/18/24 Bismuth Subsalicylate 525 - 1,050 mg PO TID PRN 01/22/23 03/18/24 [Pepto-Bismol Ultra] Cholecalciferol (Vitamin D3) 125 mcg PO DAILY 01/22/23 03/18/24 [Vitamin D3 (125 MCG = 5,000 IU)] Cranberry 15,000 Mg Tab 15,000 mg PO DAILY 01/22/23 03/18/24 Multivit-Min/FA/Lycopen/Lutein 1 tab PO DAILY 01/22/23 03/18/24 [Centrum Silver Tablet] Propylene Glycol [Systane Complete] 1 drop BOTH EYES HS 01/22/23 03/18/24 Super B Complex 1 tab PO DAILY 01/22/23 03/18/24 Vitamin E (Dl,Tocopheryl Acet) 400 unit PO DAILY 01/22/23 03/18/24 [Vitamin E (400 Iu = 180 mg)] Bumetanide [BUMEX] 2 mg PO Q4H PRN 04/01/23 03/18/24 Midodrine [ProAmatine] 5 mg PO TID 04/01/23 03/19/24 Sevelamer Carbonate 1,600 mg PO TID-W/MEALS 04/01/23 03/19/24 amLODIPine [Norvasc] 5 mg PO BID 04/01/23 03/18/24 Cinacalcet [Sensipar] 30 mg PO DIRECTED 03/18/24 03/18/24 DULoxetine HCL [Cymbalta] 30 mg PO DAILY 03/18/24 03/18/24 Dicyclomine [Bentyl] 10 mg PO TID 03/18/24 03/18/24 Gabapentin [Neurontin] 100 mg PO QID 03/18/24 03/18/24 Ketoconazole 2% Shampoo [Nizoral] 1 applic TOPICAL WEEKLY 03/18/24 03/18/24 Melatonin [Melatonin Tr] 5 - 10 mg PO HS PRN 03/18/24 03/18/24 Metoprolol Succinate (ER) [Toprol 50 mg PO DAILY 03/18/24 03/18/24 XL] Sevelamer [Renvela] 1,600 mg PO DAILY PRN 03/19/24 03/19/24 Previous Rx's Medication Instructions Recorded Acetaminophen Tab [Tylenol] 650 mg PO Q6HR PRN tab 03/23/24 Darbepoetin Ervin [Aranesp] 40 mcg SQ Q7D 30 Days #4 each 03/23/24 Metoclopramide [Reglan] 10 mg PO AC-TID PRN #20 tab 03/23/24 cefuroxime axetiL [Ceftin] 500 mg PO BID 5 Days #10 tab 03/23/24 Allergies Allergy/AdvReac Type Severity Reaction Status Date / Time erythromycin base Allergy Rash/Hives Verified 04/27/24 13:36 furosemide [From Lasix] Allergy Unknown Verified 04/27/24 13:36 green tea Allergy Unknown Verified 03/18/24 16:53 Penicillins Allergy Rash/Hives Verified 04/27/24 13:36 Sulfa (Sulfonamide Allergy Anaphylaxis Verified 04/27/24 13:36 Antibiotics) sulfacetamide Allergy Unknown Verified 04/27/24 13:36 Review of Systems ROS Statement: Those systems with pertinent positive or pertinent negative responses have been documented in the HPI. ROS Other: All systems not noted in ROS Statement are negative. Constitutional: Denies: fever Eyes: Denies: eye pain ENT: Denies: ear pain Respiratory: Denies: cough, dyspnea Cardiovascular: Denies: chest pain Endocrine: Denies: fatigue Gastrointestinal: Denies: abdominal pain Past Medical History Past Medical History: Heart Failure, COPD, CVA/TIA, Dialysis, GERD/Reflux, Hyperlipidemia, Hypertension, Osteoarthritis (OA), Skin Disorder, Syncope, Thyroid Disorder Additional Past Medical History / Comment(s): CKD, endometriosis, gastritis, carotid artery stenosis, Hemodialysis for 7.5 years, shingles-recurrent History of Any Multi-Drug Resistant Organisms: MRSA Date of last positivie culture/infection: unk MDRO Source:: left arm Past Surgical History: Uterine Ablation Additional Past Surgical History / Comment(s): Dialysis cath placement right subclavian, old fistula left arm- not in use, Past Anesthesia/Blood Transfusion Reactions: No Reported Reaction Past Psychological History: No Psychological Hx Reported Smoking Status: Unknown if ever smoked Past Alcohol Use History: None Reported Past Drug Use History: None Reported - Past Family History Father Family Medical History: Diabetes Mellitus Mother Family Medical History: Cancer, Congestive Heart Failure (CHF) Additional Family Medical History / Comment(s): thyroid CA, General Exam Limitations: no limitations General appearance: alert, in no apparent distress Head exam: Present: normocephalic Eye exam: Present: normal appearance, PERRL, EOMI ENT exam: Present: normal oropharynx Respiratory exam: Present: normal lung sounds bilaterally Cardiovascular Exam: Present: regular rate, normal rhythm GI/Abdominal exam: Present: soft. Absent: tenderness Extremities exam: Present: normal inspection Neurological exam: Present: alert Psychiatric exam: Present: normal affect, normal mood Skin exam: Present: normal color Course Vital Signs 04/27/24 13:32 Temperature 98.3 F Pulse Rate 79 Respiratory 18 Rate Blood Pressure 110/66 O2 Sat by Pulse 98 Oximetry Medical Decision Making - Medical Decision Making Was pt. sent in by a medical professional or institution (, [employer], SENIOR JAVA J2EE DEVELOPER, urgent care, hospital, or [place] health care facility...) When possible be specific @ -Patient was sent from [facility] Did you speak to anyone other than the patient for history (EMS, parent, family, police, friend...)? What history was obtained from this source @ -No Did you review nursing and triage notes (agree or disagree)? Why? @ -I reviewed and agree with nursing and triage notes Were old charts reviewed (outside hosp., previous admission, EMS record, old EKG, old radiological studies, urgent care reports/EKG's, [place] health care facility records)? Report findings @ -Chart reviewed from [facility] Differential Diagnosis (chest pain, altered mental status, abdominal pain women, abdominal pain men, vaginal bleeding, weakness, fever, dyspnea, syncope, headache, dizziness, GI bleed, back pain, seizure, CVA, palpatations, mental health, musculoskeletal)? @ -Differential Dyspnea: Coronary syndrome, arrhythmia, tamponade, asthma, COPD, pulmonary embolism, pneumonia, pneumothorax, pulmonary effusion, anaphylaxis, diabetic ketoacidosis, flailed chest, pulmonary contusion, diaphragmatic rupture, anemia, neuromuscular, this is not meant to be an all-inclusive list. EKG interpreted by me (3pts min.). @ -As above X-rays interpreted by me (1pt min.). @ -None done CT interpreted by me (1pt min.). @ -None done U/S interpreted by me (1pt. min.). @ -None done What testing was considered but not performed or refused? (CT, X-rays, U/S, labs)? Why? @ -None What meds were considered but not given or refused? Why? @ -None Did you discuss the management of the patient with other professionals (professionals i.e. , [employer], SENIOR JAVA J2EE DEVELOPER, lab, RT, psych nurse, social services analyst, assembler insulator, teacher, staff electronic warfare officer, director case management)? Give summary @ -Case discussed with Dr. Soni who will admit covering Dr. Morocho, who admits for Dr. Almodovar Was smoking cessation discussed for >3mins.? @ -No Was critical care preformed (if so, how long)? @ -No Were there social determinants of health that impacted care today? How? (Homelessness, low income, unemployed, alcoholism, drug addiction, transportat ion, low edu. Level, literacy, decrease access to med. care, nursing home, rehab)? @ -No Was there de-escalation of care discussed even if they declined (Discuss DNR or withdrawal of care, Hospice)? DNR status @ -No What co-morbidities impacted this encounter? (DM, HTN, Smoking, COPD, CAD, Cancer, CVA, ARF, Chemo, Hep., AIDS, mental health diagnosis, sleep apnea, morbid obesity)? @ -Stage renal disease on hemodialysis Was patient admitted / discharged? Hospital course, mention meds given and route, prescriptions, significant lab abnormalities, going to OR and other pertinent info. @ -Patient presents as a transfer for dialysis. Patient reportedly was hypotensive at dialysis however not in the emergency department here. Patient will be admitted for dialysis and nephrology consult, admission orders written. Patient updated. Undiagnosed new problem with uncertain prognosis? @ -No Drug Therapy requiring intensive monitoring for toxicity (Heparin, Nitro, Insulin, Cardizem)? @ -No Were any procedures done? @ -No Diagnosis/symptom? @ -Pulmonary edema, end-stage renal disease on hemodialysis Acute, or Chronic, or Acute on Chronic? @ -Acute, chronic Uncomplicated (without systemic symptoms) or Complicated (systemic symptoms)? @ -Default Side effects of treatment? @ -No Exacerbation, Progression, or Severe Exacerbation? @ -No Poses a threat to life or bodily function? How? (Chest pain, [place], [place], pneumonia, PE, COPD, DKA, ARF, appy, cholecystitis, CVA, Diverticulitis, Homicidal, Suicidal, threat to staff... and all critical care pts) @ -Threat to renal and pulmonary function Disposition Clinical Impression: Pulmonary edema Disposition: ADMITTED IP TO THIS HOSP Is patient prescribed a controlled substance at d/c from ED?: No Referrals: Andrez Almodovar MD [Primary Care Provider] - 1-2 days Time of Disposition: 14:24
[2024-04-27] MEDS ORDERED: NALOXONE 0.4 MG/ML 1 ML VIAL IV PRN (14:24)
--- NOTE | 2024-04-27 16:29 | XR ---
EXAMINATION TYPE: XR chest 1V portable DATE OF EXAM: 04/27/2024 COMPARISON: 04/27/2024 HISTORY: CHF TECHNIQUE: Single frontal view of the chest is obtained. FINDINGS: There is a dialysis catheter tip in the right atrium. The lungs are clear. There is no pleural effusion or pneumothorax. The heart and pulmonary vasculatur e are normal for the technique. The osseous structures are intact IMPRESSION: No acute process. [facility], , 04/27/2024 4:26 PM
[2024-04-27 16:58] LABS: Basophils % (A) 0 %; Eosinophils # (A) 0.1 k/uL (0-0.7); Eosinophils % (A) 0 %; HCT 30.2 % (34.0-46.0); HGB 9.5 gm/dL (11.4-16.0); Hypochromasia Slight; Lymphocytes % (A) 10 %; MCH 30.5 pg (25.0-35.0); MCHC 31.4 g/dL (31.0-37.0); Mean Platelet Volume 8.5; Monocytes # (A) 0.6 k/uL (0-1.0); Monocytes % (A) 6 %; Neutrophils # (A) 8.8 k/uL (1.3-7.7); Neutrophils % (A) 82 %; Platelet Count 146 k/uL (150-450); RBC 3.11 m/uL (3.80-5.40); RDW 15.9 % (11.5-15.5); WBC 10.8 k/uL (3.8-10.6)
[2024-04-27 17:05] LABS: ALT 12 U/L (4-34); AST 18 U/L (14-36); African American GFR (CKD) 14 (>60 ml/min/1.73 sqM); Albumin 3.4 g/dL (3.5-5.0); Albumin/Globulin Ratio 1.4; Alkaline Phosphatase 113 U/L (38-126); Anion Gap 7 mmol/L; Blood Urea Nitrogen 22 mg/dL (7-17); Calcium 8.1 mg/dL (8.4-10.2); Carbon Dioxide 30 mmol/L (22-30); Chloride 98 mmol/L (98-107); Globulin 2.4 g/dL; Glucose 85 mg/dL (74-99); Non-African American GFR(CKD) 12 (>60 ml/min/1.73 sqM); Potassium 5.1 mmol/L (3.5-5.1); Sodium 135 mmol/L (137-145); Total Bilirubin 0.8 mg/dL (0.2-1.3); Total Protein 5.8 g/dL (6.3-8.2)
--- NOTE | 2024-04-28 02:20 | HP ---
HISTORY AND PHYSICAL CHIEF COMPLAINT: Hypotension. HISTORY OF PRESENT ILLNESS: This is a 63-year-old woman with a past medical history of multiple medical problems including end-stage renal disease, getting hemodialysis from [facility]. Dialysis could not be given because of hypotension. There is no history of any fever, rigors, or chills. No history of headache, loss of consciousness, or seizures at this time. PAST MEDICAL HISTORY: Reviewed include CHF, COPD, end-stage renal disease. Rest of the history and rest of the chart is also reviewed. HOME MEDICATIONS: Reviewed include Ceftin, dose and rest of medications reviewed. ALLERGIES: Erythromycin base. FAMILY HISTORY: History of diabetes mellitus. SOCIAL HISTORY: No history of smoking or alcohol. REVIEW OF SYSTEMS: Fourteen-point review is negative except as mentioned earlier. PHYSICAL EXAMINATION: VITAL SIGNS: Pulse is 79, blood pressure 120/64, respirations 18. HEENT: Conjunctivae normal. NECK: No JVD. CARDIOVASCULAR: S1, S2. RESPIRATIONS: Breath sounds diminished at the bases. A few rhonchi. ABDOMEN: Soft. LEGS: Minimal edema. NERVOUS SYSTEM: Nonfocal. LABORATORY DATA: Not available. ASSESSMENT: 1. Hypotension, possibly multifactorial. 2. End-stage renal disease, on hemodialysis. 3. History of congestive heart failure. 4. Chronic obstructive pulmonary disease. 5. Cerebrovascular accident, transient ischemic attack. 6. Gastroesophageal reflux disease. 7. History of hypertension. 8. Hyperlipidemia. RECOMMENDATIONS AND DISCUSSION: I recommend to continue current medications, continue symptomatic treatment. Otherwise, at this time, the blood pressure appears to be improving at this time, I recommend to continue current medications. Hold off all the blood pressure medications. Nephrology consultation, possible dialysis. Repeat labs. Guarded prognosis because of multiple complex medical issues. Further recommendations to follow. MMODL / IJN: [id number] /
[2024-04-28 09:11] LABS: ALT 10 U/L (8-44); AST 16 U/L (13-35); Albumin 3.3 g/dL (3.8-4.9); Albumin/Globulin Ratio 1.57 Ratio (1.60-3.17); Alkaline Phosphatase 113 U/L (41-126); BUN/Creat Ratio 6.35 Ratio (12.00-20.00); Blood Urea Nitrogen 30.5 mg/dL (9.0-27.0); Calcium 8.2 mg/dL (8.7-10.3); Carbon Dioxide 24.9 mmol/L (21.6-31.8); Chloride 97 mmol/L (96-109); Globulin 2.1 g/dL (1.6-3.3); Glucose 79 mg/dL (70-110); Magnesium 2.6 mg/dL (1.5-2.4); Phosphorus 6.1 mg/dL (2.4-5.1); Potassium 4.6 mmol/L (3.5-5.5); Sodium 138 mmol/L (135-145); Total Bilirubin <0.2 mg/dL (0.3-1.2); Total Protein 5.4 g/dL (6.2-8.2)
--- NOTE | 2024-04-28 10:41 | P.NPCON ---
History of Present Illness - Reason for Consult end stage renal disease - History of Present Illness Reason for consultation: End-stage renal disease History of present illness: Patient is a 63-year-old female seen in renal consultation for end-stage renal disease. She is maintained on hemodialysis on Saturday schedule. Patient completed majority of her treatment yesterday and was subsequently sent to [facility] due to hypotension. She was then transferred from [facility] to this facility for further workup. Patient denies history of diabetes or coronary artery disease. Denies syncopal episode. Patient states she was being treated with Keflex for UTI which she was taking prior to this admission. Denies vomiting or diarrhea. Patient states she makes little urine. Currently has a Cassidy catheter. Hemodynamically stable. On 2 L nasal cannula. Chest x-ray showed no acute process. Currently patient has no active complaints and wants to go home. Vital signs are stable. General: No acute distress. HEENT: Head exam is unremarkable. LUNGS: No audible rhonchi or wheezes. HEART: Rate and Rhythm are regular. ABDOMEN: Nontender. EXTREMITITES: No edema. Past Medical History Past Medical History: Heart Failure, COPD, CVA/TIA, Dialysis, GERD/Reflux, Hyperlipidemia, Hypertension, Osteoarthritis (OA), Skin Disorder, Syncope, Thyroid Disorder Additional Past Medical History / Comment(s): CKD, endometriosis, gastritis, carotid artery stenosis, Hemodialysis for 7.5 years, shingles-recurrent, graves disease, History of Any Multi-Drug Resistant Organisms: MRSA Date of last positivie culture/infection: unk MDRO Source:: left arm Past Surgical History: Uterine Ablation Additional Past Surgical History / Comment(s): Dialysis cath placement right subclavian, old fistula left arm- not in use, Past Anesthesia/Blood Transfusion Reactions: No Reported Reaction Past Psychological History: No Psychological Hx Reported Smoking Status: Never smoker Past Alcohol Use History: None Reported Past Drug Use History: None Reported - Past Family History Father Family Medical History: Diabetes Mellitus Mother Family Medical History: Cancer, Congestive Heart Failure (CHF) Additional Family Medical History / Comment(s): thyroid CA, Medications and Allergies Home Medications Medication Instructions Recorded Confirmed Type Albuterol Sulfate [Albuterol 1 puff INHALATION RT-Q4H PRN 01/21/23 04/27/24 History Sulfate Hfa] Atorvastatin Calcium 20 mg PO DAILY 01/21/23 04/27/24 History Fluticasone Nasal [place] [Flonase 2 spray EA NOSTRIL DAILY 01/21/23 04/27/24 History Nasal [place]] Isosorbide Mononitrate ER [Imdur] 30 mg PO DAILY 01/21/23 04/27/24 History Loperamide [Imodium] 4 mg PO QID PRN 01/21/23 04/27/24 History Metoprolol Succinate (ER) [Toprol 25 mg PO BID 01/21/23 04/27/24 History XL] Montelukast [Singulair] 10 mg PO DAILY 01/21/23 04/27/24 History Omeprazole [PriLOSEC] 20 mg PO AC-SUPPER 01/21/23 04/27/24 History Ascorbic Acid [Vitamin C] 500 mg PO DAILY 01/22/23 04/27/24 History Aspirin EC [Ecotrin Low Dose] 81 mg PO DAILY 01/22/23 04/27/24 History Cholecalciferol (Vitamin D3) 125 mcg PO DAILY 01/22/23 04/27/24 History [Vitamin D3 (125 MCG = 5,000 IU)] Cranberry 15,000 Mg Tab 15,000 mg PO DAILY 01/22/23 04/27/24 History Multivit-Min/FA/Lycopen/Lutein 1 tab PO DAILY 01/22/23 04/27/24 History [Centrum Silver Tablet] Propylene Glycol [Systane Complete] 1 drop BOTH EYES HS 01/22/23 04/27/24 History Vitamin E (Dl,Tocopheryl Acet) 400 unit PO DAILY 01/22/23 04/27/24 History [Vitamin E (400 Iu = 180 mg)] Bumetanide [BUMEX] 2 mg PO Q4H PRN 04/01/23 04/27/24 History Midodrine [ProAmatine] 5 mg PO TID 04/01/23 04/27/24 History Sevelamer Carbonate 1,600 mg PO TID-W/MEALS 04/01/23 04/27/24 History amLODIPine [Norvasc] 5 mg PO BID 04/01/23 04/27/24 History Cinacalcet [Sensipar] 30 mg PO DIRECTED 03/18/24 04/27/24 History DULoxetine HCL [Cymbalta] 30 mg PO DAILY 03/18/24 04/27/24 History Dicyclomine [Bentyl] 10 mg PO TID 03/18/24 04/27/24 History Gabapentin [Neurontin] 100 mg PO QID 03/18/24 04/27/24 History Ketoconazole 2% Shampoo [Nizoral] 1 applic TOPICAL WEEKLY 03/18/24 04/27/24 History Melatonin [Melatonin Tr] 5 - 10 mg PO HS PRN 03/18/24 04/27/24 History Metoprolol Succinate (ER) [Toprol 50 mg PO DAILY 03/18/24 04/27/24 History XL] Sevelamer [Renvela] 1,600 mg PO DAILY PRN 03/19/24 04/27/24 History Acetaminophen Tab [Tylenol] 650 mg PO Q6HR PRN tab 03/23/24 04/27/24 Rx Darbepoetin Ervin [Aranesp] 40 mcg SQ Q7D 30 Days #4 each 03/23/24 04/27/24 Rx Bismuth Subsalicylate 525mg/30ml 525 mg PO TID PRN 04/27/24 04/27/24 History Sodium Polystyrene Sulfonate 15 gm PO DAILY 04/27/24 04/27/24 History [Kayexalate] Vitamin B Complex W/Vitamin B-12 1 tab PO DAILY 04/27/24 04/27/24 History Allergies Allergy/AdvReac Type Severity Reaction Status Date / Time erythromycin base Allergy Rash/Hives Verified 04/27/24 15:37 furosemide [From Lasix] Allergy Unknown Verified 04/27/24 15:37 green tea Allergy Unknown Verified 04/27/24 15:37 Penicillins Allergy Rash/Hives Verified 04/27/24 15:37 Sulfa (Sulfonamide Allergy Anaphylaxis Verified 04/27/24 15:37 Antibiotics) sulfacetamide Allergy Unknown Verified 04/27/24 15:37 Physical Exam Vitals: Vital Signs Temp Pulse Pulse Resp BP BP Pulse Ox 04/28/24 07:48 98 04/28/24 07:31 98.0 F 75 16 112/64 98 04/28/24 00:44 98.5 F 71 17 106/67 97 04/27/24 19:49 98.4 F 71 18 109/70 100 04/27/24 19:31 97.8 F 73 18 95/61 96 04/27/24 18:49 73 16 111/71 97 04/27/24 13:32 98.3 F 79 18 110/66 98 Intake and Output 04/27/24 04/28/24 04/28/24 22:59 06:59 14:59 Output Total 150 Balance -150 Output: Urine 150 Uretheral (Cassidy) 150 Other: Voiding Method Indwelling Catheter Indwelling Catheter Weight 63.503 kg Results - Lab Results Most recent lab results Calcium 8.2 mg/dL (8.7-10.3) L 04/28/24 03:31 Phosphorus 6.1 mg/dL (2.4-5.1) H 04/28/24 03:31 Magnesium 2.6 mg/dL (1.5-2.4) H 04/28/24 03:31 04/27/24 16:34 04/28/24 03:31 Assessment and Plan Plan: Assessment: 1. End-stage renal disease maintained on hemodialysis on Saturday schedule. 2. Hypotension during dialysis. Currently not on any antihypertensives. 3. Chronic kidney disease mineral bone disease. Phosphorus level 6.1. 4. Anemia of chronic kidney disease. 5. UTI maintained on antibiotics prior to admission. Plan: Hemodialysis tomorrow. Continue to hold antihypertensives. Resume Renvela. Dry weight will be adjusted outpatient. DC Cassidy catheter. Check iron studies. Thank you for the consultation. I will continue to follow the patient with you during her hospital stay.
[2024-04-28 10:47] LABS: Basophils # (A) 0.04 X 10*3/uL (0.00-0.10); Basophils % (A) 0.5 %; Eosinophils # (A) 0.17 X 10*3/uL (0.04-0.35); Eosinophils % (A) 2.3 %; HCT 29.3 % (37.2-46.3); HGB 8.8 g/dL (12.0-15.0); Lymphocytes # (A) 1.16 X 10*3/uL (0.90-5.00); Lymphocytes % (A) 15.5 %; MCH 30.4 pg (27.0-32.0); MCV 101.4 FL (80.0-97.0); Mean Platelet Volume 12.2 FL (9.5-12.2); Monocytes # (A) 0.99 X 10*3/uL (0.20-1.00); Monocytes % (A) 13.2 %; NRBC Per 100 WBC 0 X 10*3/uL (0.00-0.01); Neutrophils # (A) 5.07 X 10*3/uL (1.80-7.70); Neutrophils % (A) 67.8 %; Platelet Count 154 X 10*3/uL (140-440); RBC 2.89 X 10*6/uL (4.10-5.20); RDW 15.5 % (11.5-14.5); WBC 7.48 X 10*3/uL (4.50-10.00)
[2024-04-28 11:54] LABS: Glucose,Whole Blood 104 mg/dL (70-110)
[2024-04-28] MEDS: SEVELAMER 800 MG TAB PO SCH (12:00)
[2024-04-28] MEDS ORDERED: BUMETANIDE 1 MG TAB PO PRN (12:19)
[2024-04-28 13:08] LABS: % Iron Saturation 15.2 (12.00-45.00)
[2024-04-28] MEDS: MIDODRINE 5 MG TAB PO SCH (13:45)
[2024-04-28] MEDS: DICYCLOMINE 10 MG CAP PO SCH (13:57)
[2024-04-28] MEDS: amLODIPine 5 MG TAB PO SCH (13:58)
[2024-04-28] MEDS: ATORVASTATIN 20 MG TAB PO SCH (14:05)
[2024-04-28] MEDS: ASCORBIC ACID 500 MG TAB PO SCH (14:05)
[2024-04-28] MEDS: ASPIRIN 81 MG PO SCH (14:05)
[2024-04-28] MEDS: MULTIVITAMINS, THERA 1 EACH TAB PO SCH (14:05)
[2024-04-28] MEDS: GABAPENTIN 100 MG CAP PO SCH (14:06)
[2024-04-28] MEDS: CHOLECALCIFEROL 125 MCG (5000 IU) TABLET PO SCH (14:06)
[2024-04-28] MEDS: ISOSORBIDE MONONITRATE ER 30 MG TAB.ER.24H PO SCH (14:06)
[2024-04-28] MEDS: MONTELUKAST 10 MG TAB PO SCH (14:06)
[2024-04-28] MEDS: DULoxetine HCL 30 MG CAPSULE.DR PO SCH (14:06)
[2024-04-28] MEDS: METOPROLOL SUCCINATE (ER) 50 MG TAB.ER.24H PO SCH (14:06)
[2024-04-28] MEDS: VITAMIN E (DL,TOCOPHERYL ACET) 400 UNIT (180 MG) CAP PO SCH (14:07)
[2024-04-28] MEDS: FLUTICASONE NASAL 50MCG/SPRAY 16GM BTL EA NOSTRIL SCH (14:07)
[2024-04-28] MEDS: SODIUM POLYSTYRENE SULFONATE 15 GM/60 ML BOTTLE PO SCH (14:08)
[2024-04-28] MEDS: ACETAMINOPHEN TAB 325 MG TAB PO PRN (14:15)
[2024-04-28] MEDS: VITAMIN B12 PO SCH (14:21)
[2024-04-28] MEDS: CRANBERRY 15000 MG PO SCH (14:21)
[2024-04-28] MEDS: VITAMIN B COMPLEX PO SCH (14:21)
[2024-04-28] MEDS: BISMUTH SUBSALICYLATE 4,192 MG/240 ML BOTTLE PO PRN (14:31)
[2024-04-28] MEDS: ONDANSETRON 4 MG/2 ML VIAL IVP PRN (16:10)
[2024-04-28] MEDS: PANTOPRAZOLE 40 MG TABLET PO SCH (17:38)
--- NOTE | 2024-04-28 20:22 | P.PN ---
Progress Note - Text Progress Note Date: 04/28/24 Pleasant 63-year-old patient, follows with Dr. Calvin Gamez known end-stage kidney disease on hemodialysis Saturday and Saturday. Chronic medical conditions include mineral bone disease, anemia of chronic kidney disease, severe osteoarthritis with chronic pain, uses a walker Transferred to [facility] due to hypotension. Then she was transferred to [facility] for further workup. Patient had had 1 day of antibiotic for a UTI. Last dialysis was yesterday.. April 28: Sitting up in a chair. Breathing stable. Tolerating a lunch. Requesting her home antibiotic to be resumed. He said that is being started. Denies any edema. No fever no chills. Nephrology consulted. Due for dialysis tomorrow. Active Medications Acetaminophen (Acetaminophen Tab 325 Mg Tab) 650 mg PO Q6HR PRN PRN Reason: Mild Pain or Fever > 100.5 Last Admin: 04/28/24 14:15 Dose: 650 mg Albuterol Sulfate (Albuterol Nebulized 2.5 Mg/3 Ml) 2.5 mg INHALATION RT-Q4H PRN PRN Reason: Shortness Of Breath Amlodipine Besylate (Amlodipine 5 Mg Tab) 5 mg PO BID [facility] Last Admin: 04/28/24 13:58 Dose: Not Given Artificial Tears (Artificial Tears-Hypromellose Drops 15 Ml Btl) 1 drops BOTH EYES [facility] Ascorbic Acid (Ascorbic Acid 500 Mg Tab) 500 mg PO DAILY [facility] Last Admin: 04/28/24 14:05 Dose: 500 mg Aspirin (Aspirin 81 Mg) 81 mg PO DAILY [facility] Last Admin: 04/28/24 14:05 Dose: 81 mg Atorvastatin Calcium (Atorvastatin 20 Mg Tab) 20 mg PO DAILY [facility] Last Admin: 04/28/24 14:05 Dose: 20 mg Bismuth Subsalicylate (Bismuth Subsalicylate 4,192 Mg/240 Ml Bottle) 524 mg PO TID PRN PRN Reason: GI Upset Last Admin: 04/28/24 14:31 Dose: 524 mg Bumetanide (Bumetanide 1 Mg Tab) 2 mg PO Q4H PRN PRN Reason: Edema Cefdinir (Cefdinir 300 Mg Cap) 300 mg PO DAILY [facility]; Protocol Cholecalciferol (Cholecalciferol 125 Mcg (5000 Iu) Tablet) 125 mcg PO DAILY [facility] Last Admin: 04/28/24 14:06 Dose: 125 mcg Cinacalcet (Cinacalcet 30 Mg Tab) 30 mg PO WeSa@0900 [facility] Dicyclomine HCl (Dicyclomine 10 Mg Cap) 10 mg PO TID [facility] Last Admin: 04/28/24 15:08 Dose: 10 mg Duloxetine HCl (Duloxetine Hcl 30 Mg Capsule.Dr) 30 mg PO DAILY [facility] Last Admin: 04/28/24 14:06 Dose: 30 mg Fluticasone Propionate (Fluticasone Nasal 50mcg/[place] 16gm Btl) 2 spray EA NOSTRIL DAILY [facility] Last Admin: 04/28/24 14:07 Dose: 2 spray Gabapentin (Gabapentin 100 Mg Cap) 100 mg PO QID [facility] Last Admin: 04/28/24 17:40 Dose: 100 mg Isosorbide Mononitrate (Isosorbide Mononitrate Er 30 Mg Tab.Er.24h) 30 mg PO DAILY [facility] Last Admin: 04/28/24 14:06 Dose: 30 mg Metoprolol Succinate (Metoprolol Succinate (Er) 50 Mg Tab.Er.24h) 50 mg PO DAILY [facility] Last Admin: 04/28/24 14:06 Dose: 50 mg Midodrine (Midodrine 5 Mg Tab) 5 mg PO AC-TID [facility] Last Admin: 04/28/24 17:43 Dose: Not Given Montelukast Sodium (Montelukast 10 Mg Tab) 10 mg PO DAILY [facility] Last Admin: 04/28/24 14:06 Dose: 10 mg Multivitamins (Multivitamins, Thera 1 Each Tab) 1 each PO DAILY [facility] Last Admin: 04/28/24 14:05 Dose: 1 each Naloxone HCl (Naloxone 0.4 Mg/Ml 1 Ml Vial) 0.2 mg IV Q2M PRN PRN Reason: Opioid Reversal Ondansetron HCl (Ondansetron 4 Mg/2 Ml Vial) 4 mg IVP Q8HR PRN PRN Reason: Nausea And Vomiting Last Admin: 04/28/24 16:10 Dose: 4 mg Pantoprazole Sodium (Pantoprazole 40 Mg Tablet) 40 mg PO AC-SUPPER [facility] Last Admin: 04/28/24 17:38 Dose: 40 mg Sevelamer Carbonate (Sevelamer 800 Mg Tab) 1,600 mg PO TID-W/MEALS [facility] Last Admin: 04/28/24 17:38 Dose: 1,600 mg Sodium Polystyrene Sulfonate (Sodium Polystyrene Sulfonate 15 Gm/60 Ml Bottle) 15 gm PO DAILY [facility] Last Admin: 04/28/24 14:08 Dose: 15 gm Vitamin E (Vitamin E (Dl,Tocopheryl Acet) 400 Unit (180 Mg) Cap) 400 unit PO DAILY [facility] Last Admin: 04/28/24 14:07 Dose: 400 unit Past medical history to include: Chronic kidney disease minimal bone disease, anemia of chronic kidney disease, gastritis, carotid artery stenosis, end-stage kidney disease on hemodialysis Saturday t and Saturday COPD, osteoarthritis Social history: Lives alone. Uses a walker. Denies alcohol and smoking. Physical examination: VITAL SIGNS: 98.2, 86, 16, 145/88, 96% room air GENERAL: Sitting up in a recliner. Right upper chest wall dialysis catheter EYES: [Pupils equal. Conjunctiva pale . HEENT: External appearance of nose and ears normal, oral cavity grossly normal. Some bleeding at right naris NECK: JVD unable to assess; masses not palpable. HEART: First and second heart sounds are normal; no edema LUNGS: Respiratory rate normal; decreased breath sounds. ABDOMEN: Soft, nontender, liver spleen not palpable, no masses palpable. PSYCH: More awake, answering questions appropriately MUSCULOSKELETAL:No Clubbing/cyanosis;muscles-grossly intact. OA INVESTIGATIONS, reviewed in the clinical context: April 28: White count 7.4 hemoglobin 8.8 platelets 154 potassium 4.6 creatinine 4.8 phosphorus 6.1 magnesium 2.6 iron 31 TIBC 204% saturation 15.2 transferrin 146 ferritin 1549 [id number] Assessment and plan: -Hypotension. Patient had a dialysis done yesterday and blood pressures found to be low. Sent to [facility]. Patient's blood pressure is better. Will be followed closely. -Acute UTI with cystitis Patient started on Omnicef outpatient and received 1 dose yesterday. This will be resumed here today. -Chronic kidney disease minimal bone disease Sevelamer -Anemia of chronic kidney disease. Follow labs -Gastritis PPI -Essential hypertension with end-stage kidney disease Amlodipine 5 mg twice daily, Toprol XL -Hyperlipidemia Lipitor -Carotid artery stenosis: Moderate approaching severe stenosis right internal carotid artery 69%. 50-69% left internal carotid artery. Follows with Dr. Cassidy Aspirin. Lipitor. . -End-stage renal disease(Saturday and Saturday, Right subclavian-dialysis access -Peripheral neuropathy Neurontin -Primary osteoarthritis, multiple joints Pain medications as needed . -COPD, Symbicort. Albuterol when necessary. Singulair -Chronic hypoxic respiratory failure underlying COPD Has home oxygen -Full code Patient is Omnicef being resumed. For dialysis tomorrow. Then hopefully can be discharged after that. Discussed with patient. Past Medical History Past Medical History: Heart Failure, COPD, CVA/TIA, Dialysis, GERD/Reflux, Hyperlipidemia, Hypertension, Osteoarthritis (OA), Skin Disorder, Syncope, Thyroid Disorder Additional Past Medical History / Comment(s): CKD, endometriosis, gastritis, carotid artery stenosis, Hemodialysis for 7.5 years, shingles-recurrent History of Any Multi-Drug Resistant Organisms: MRSA Date of last positivie culture/infection: unk MDRO Source:: left arm Past Surgical History: Uterine Ablation Additional Past Surgical History / Comment(s): Dialysis cath placement right subclavian, old fistula left arm- not in use, Past Anesthesia/Blood Transfusion Reactions: No Reported Reaction Past Psychological History: No Psychological Hx Reported Smoking Status: Unknown if ever smoked Past Alcohol Use History: None Reported Past Drug Use History: None Reported
[2024-04-28] MEDS: CEFDINIR 300 MG CAP PO SCH (22:41)
[2024-04-28] MEDS: ARTIFICIAL TEARS-HYPROMELLOSE DROPS 15 ML BTL BOTH EYES SCH (22:43)
[2024-04-29] MEDS ORDERED: VANCOMYCIN IV PER PHARMACY 1 EACH MISC MISCELLANE PRN (08:34)
[2024-04-29] MEDS: ALBUTEROL NEBULIZED 2.5 MG/3 ML INHALATION PRN (09:39)
--- NOTE | 2024-04-29 10:46 | P.PN ---
Subjective Patient is seen in follow-up for end-stage renal disease. She is maintained on hemodialysis on Saturday schedule. Blood cultures from [facility] positive for gram-positive cocci. Scheduled for dialysis today. Wants to go home. Vital signs are stable. General: No acute distress. HEENT: Head exam is unremarkable. LUNGS: No audible rhonchi or wheezes. HEART: Rate and Rhythm are regular. ABDOMEN: Nontender. EXTREMITITES: No edema. Objective - Vital Signs Vital signs: Vital Signs Temp 97.7 F 04/29/24 07:10 Pulse 65 04/29/24 09:42 Resp 16 04/29/24 09:42 BP 129/76 04/29/24 07:10 Pulse Ox 100 04/29/24 09:42 FiO2 Intake & Output 04/28/24 04/29/24 04/29/24 18:59 06:59 18:59 Output Total 150 Balance -150 Output: Urine 150 Uretheral (Cassidy) 150 Other: Voiding Method Indwelling Catheter Toilet Toilet # Voids 1 2 # Bowel Movements 1 - Labs CBC & Chem 7: 04/28/24 03:31 04/28/24 03:31 Labs: Abnormal Lab Results - Last 24 Hours (Table) 04/28/24 04/28/24 Range/Units 03:31 03:31 RBC 2.89 L (4.10-5.20) X 10*6/uL Hgb 8.8 L (12.0-15.0) g/dL Hct 29.3 L (37.2-46.3) % MCV 101.4 H (80.0-97.0) FL MCHC 30.0 L (32.0-37.0) g/dL RDW 15.5 H (11.5-14.5) % Immature Gran # 0.05 H (0.00-0.04) X 10*3/uL Iron 31 L (50-170) UG/DL TIBC 204 L (228-460) UG/DL Transferrin 146.0 L (204.0-354.0) mg/dL Ferritin 1549.0 H (10.0-291.0) ng/mL Assessment and Plan Plan: Assessment: 1. End-stage renal disease maintained on hemodialysis on Fritz Wednesday Alex schedule. 2. Hypotension during dialysis. Currently not on any antihypertensives. Blood pressure stable. 3. Chronic kidney disease mineral bone disease. Phosphorus level 6.1. On Renvela and Sensipar. 4. Anemia of chronic kidney disease. High ferritin noted. 5. UTI maintained on antibiotics prior to admission. 6. Gram-positive bacteremia. Questionable source. Possibly permacath. Plan: Hemodialysis today. Continue to hold antihypertensives. Dry weight will be adjusted outpatient. Add Aranesp. Consult ID. Check cultures from the catheter. Will discuss with ID if permacath needs to be removed. Monitor vancomycin levels. Dose to be adjusted for renal function.
--- NOTE | 2024-04-29 15:43 | P.PN ---
Progress Note - Text Progress Note Date: 04/29/24 Pleasant 63-year-old patient, follows with Dr. Calvin Gamez known end-stage kidney disease on hemodialysis Saturday and Saturday. Chronic medical conditions include mineral bone disease, anemia of chronic kidney disease, severe osteoarthritis with chronic pain, uses a walker Transferred to [facility] due to hypotension. Then she was transferred to [facility] for further workup. Patient had had 1 day of antibiotic for a UTI. Last dialysis was yesterday.. April 28: Sitting up in a chair. Breathing stable. Tolerating a lunch. Requesting her home antibiotic to be resumed. He said that is being started. Denies any edema. No fever no chills. Nephrology consulted. Due for dialysis tomorrow. April 29: Nurse called me this morning that [facility] showing gram- positive cocci in clusters. Vancomycin ordered per pharmacy. Repeat blood cultures ordered. Patient is somewhat tired. The Active Medications Acetaminophen (Acetaminophen Tab 325 Mg Tab) 650 mg PO Q6HR PRN PRN Reason: Mild Pain or Fever > 100.5 Last Admin: 04/29/24 06:11 Dose: 650 mg Albuterol Sulfate (Albuterol Nebulized 2.5 Mg/3 Ml) 2.5 mg INHALATION RT-Q4H PRN PRN Reason: Shortness Of Breath Last Admin: 04/29/24 09:39 Dose: 2.5 mg Amlodipine Besylate (Amlodipine 5 Mg Tab) 5 mg PO BID [facility] Last Admin: 04/28/24 22:42 Dose: 5 mg Artificial Tears (Artificial Tears-Hypromellose Drops 15 Ml Btl) 1 drops BOTH EYES HS [facility] Last Admin: 04/28/24 22:43 Dose: 1 drops Ascorbic Acid (Ascorbic Acid 500 Mg Tab) 500 mg PO DAILY [facility] Last Admin: 04/29/24 09:09 Dose: 500 mg Aspirin (Aspirin 81 Mg) 81 mg PO DAILY [facility] Last Admin: 04/28/24 14:05 Dose: 81 mg Atorvastatin Calcium (Atorvastatin 20 Mg Tab) 20 mg PO DAILY [facility] Last Admin: 04/28/24 14:05 Dose: 20 mg Bismuth Subsalicylate (Bismuth Subsalicylate 4,192 Mg/240 Ml Bottle) 524 mg PO TID PRN PRN Reason: GI Upset Last Admin: 04/29/24 06:12 Dose: 524 mg Bumetanide (Bumetanide 1 Mg Tab) 2 mg PO Q4H PRN PRN Reason: Edema Cefdinir (Cefdinir 300 Mg Cap) 300 mg PO DAILY [facility]; Protocol Last Admin: 04/28/24 22:41 Dose: 300 mg Cholecalciferol (Cholecalciferol 125 Mcg (5000 Iu) Tablet) 125 mcg PO DAILY [facility] Last Admin: 04/28/24 14:06 Dose: 125 mcg Cinacalcet (Cinacalcet 30 Mg Tab) 30 mg PO WeSa@0900 [facility] Darbepoetin Ervin (Darbepoetin Ervin 40 Mcg/0.4 Ml Syringe) 40 mcg SQ Q7D [facility] Dicyclomine HCl (Dicyclomine 10 Mg Cap) 10 mg PO TID [facility] Last Admin: 04/28/24 22:42 Dose: 10 mg Duloxetine HCl (Duloxetine Hcl 30 Mg Capsule.Dr) 30 mg PO DAILY [facility] Last Admin: 04/28/24 14:06 Dose: 30 mg Fluticasone Propionate (Fluticasone Nasal 50mcg/[place] 16gm Btl) 2 spray EA NOSTRIL DAILY [facility] Last Admin: 04/29/24 11:03 Dose: 2 spray Gabapentin (Gabapentin 100 Mg Cap) 100 mg PO QID [facility] Last Admin: 04/29/24 15:30 Dose: Not Given Vancomycin HCl 1,250 mg/ (Sodium Chloride) 250 mls @ 125 mls/hr IVPB ONCE ONE Stop: 04/30/24 10:59 Isosorbide Mononitrate (Isosorbide Mononitrate Er 30 Mg Tab.Er.24h) 30 mg PO DAILY [facility] Last Admin: 04/28/24 14:06 Dose: 30 mg Metoprolol Succinate (Metoprolol Succinate (Er) 50 Mg Tab.Er.24h) 50 mg PO DAILY [facility] Last Admin: 04/28/24 14:06 Dose: 50 mg Midodrine (Midodrine 5 Mg Tab) 5 mg PO AC-TID [facility] Last Admin: 04/29/24 13:28 Dose: 5 mg Miscellaneous Information (Vancomycin Iv Per Pharmacy 1 Each Misc) 1 each MISCELLANE DIRECTED PRN; Protocol PRN Reason: Per Protocol Montelukast Sodium (Montelukast 10 Mg Tab) 10 mg PO DAILY [facility] Last Admin: 04/28/24 14:06 Dose: 10 mg Multivitamins (Multivitamins, Thera 1 Each Tab) 1 each PO DAILY [facility] Last Admin: 04/29/24 09:09 Dose: 1 each Naloxone HCl (Naloxone 0.4 Mg/Ml 1 Ml Vial) 0.2 mg IV Q2M PRN PRN Reason: Opioid Reversal Ondansetron HCl (Ondansetron 4 Mg/2 Ml Vial) 4 mg IVP Q8HR PRN PRN Reason: Nausea And Vomiting Last Admin: 04/29/24 03:00 Dose: 4 mg Pantoprazole Sodium (Pantoprazole 40 Mg Tablet) 40 mg PO AC-SUPPER [facility] Last Admin: 04/28/24 17:38 Dose: 40 mg Sevelamer Carbonate (Sevelamer 800 Mg Tab) 1,600 mg PO TID-W/MEALS [facility] Last Admin: 04/29/24 13:28 Dose: Not Given Vitamin E (Vitamin E (Dl,Tocopheryl Acet) 400 Unit (180 Mg) Cap) 400 unit PO DAILY [facility] Last Admin: 04/29/24 09:09 Dose: 400 unit Past medical history to include: Chronic kidney disease minimal bone disease, anemia of chronic kidney disease, gastritis, carotid artery stenosis, end-stage kidney disease on hemodialysis Saturday t and Saturday COPD, osteoarthritis Social history: Lives alone. Uses a walker. Denies alcohol and smoking. Physical examination: VITAL SIGNS: 98.3, 65, 16, 141 x 75, 95% room air GENERAL: In bed rather sleepy right upper chest wall dialysis catheter EYES: [Pupils equal. Conjunctiva pale . HEENT: External appearance of nose and ears normal, oral cavity grossly normal. Some bleeding at right naris NECK: JVD unable to assess; masses not palpable. HEART: First and second heart sounds are normal; no edema LUNGS: Respiratory rate normal; decreased breath sounds. ABDOMEN: Soft, nontender, liver spleen not palpable, no masses palpable. PSYCH: Rather sleepy MUSCULOSKELETAL:No Clubbing/cyanosis;muscles-grossly intact. OA INVESTIGATIONS, reviewed in the clinical context: Blood cultures from [[facility]] reported gram-positive cocci in clusters April 28: White count 7.4 hemoglobin 8.8 platelets 154 potassium 4.6 creatinine 4.8 phosphorus 6.1 magnesium 2.6 iron 31 TIBC 204% saturation 15.2 transferrin 146 ferritin 1549 [id number] Assessment and plan: -Probable sepsis with gram-positive cocci in clusters reported from [facility]. Final report pending. Blood cultures ordered. Started vancomycin Consult ID -Hypotension. Patient had a dialysis done yesterday and blood pressures found to be low. Sent to [facility]. Patient's blood pressure is better. Will be followed closely. -Acute UTI with cystitis Patient started on Omnicef outpatient and received 1 dose yesterday. This will be resumed here today. -Chronic kidney disease minimal bone disease Sevelamer -Anemia of chronic kidney disease. Follow labs -Gastritis PPI -Essential hypertension with end-stage kidney disease Amlodipine 5 mg twice daily, Toprol XL -Hyperlipidemia Lipitor -Carotid artery stenosis: Moderate approaching severe stenosis right internal carotid artery 69%. 50-69% left internal carotid artery. Follows with Dr. Cassidy Aspirin. Lipitor. . -End-stage renal disease(Saturday and Saturday, Right subclavian-dialysis access -Peripheral neuropathy Neurontin -Primary osteoarthritis, multiple joints Pain medications as needed . -COPD, Symbicort. Albuterol when necessary. Singulair -Chronic hypoxic respiratory failure underlying COPD Has home oxygen -Full code Vancomycin. Repeat blood culture. Consult ID. Other medication to continue. Past Medical History Past Medical History: Heart Failure, COPD, CVA/TIA, Dialysis, GERD/Reflux, Hyperlipidemia, Hypertension, Osteoarthritis (OA), Skin Disorder, Syncope, Thyroid Disorder Additional Past Medical History / Comment(s): CKD, endometriosis, gastritis, carotid artery stenosis, Hemodialysis for 7.5 years, shingles-recurrent History of Any Multi-Drug Resistant Organisms: MRSA Date of last positivie culture/infection: unk MDRO Source:: left arm Past Surgical History: Uterine Ablation Additional Past Surgical History / Comment(s): Dialysis cath placement right subclavian, old fistula left arm- not in use, Past Anesthesia/Blood Transfusion Reactions: No Reported Reaction Past Psychological History: No Psychological Hx Reported Smoking Status: Unknown if ever smoked Past Alcohol Use History: None Reported Past Drug Use History: None Reported
[2024-04-29] MEDS: DARBEPOETIN ALFA 40 MCG/0.4 ML SYRINGE SQ SCH (15:47)
[2024-04-29] MEDS: CINACALCET 30 MG TAB PO SCH (17:35)
[2024-04-29] MEDS: VANCOMYCIN 1,250 MG in SODIUM CHLORIDE 0.9% 250 ML IVPB ONE (17:40)
--- NOTE | 2024-04-29 22:00 | P.CONS ---
History of Present Illness - Reason for Consult Consult date: 04/29/24 Bacteremia Requesting physician: Jonas Brice - Chief Complaint Weakness low blood pressure x 1 day - History of Present Illness Patient is a 63-year-old female with a past medical history significant for hypertension hyperlipidemia reflux osteoarthritis syncope COPD end-stage renal disease on dialysis through the right subclavian permacatheter patient was noted to be hypotensive at the end of her dialysis treatment the day before presentation to the hospital patient was evaluated in the outside facility with the patient was diagnosed with possible UTI started on Keflex and subsequently has been transferred to [facility] for further evaluation, patient had been complaining of not eating or drinking the day before her symptoms started patient denies having any fever or any chills and no fever have recorded on presentation the hospital no headache or URI symptoms no chest pain shortness with or cough no abdominal pain or any diarrhea patient did have white count of 10.8 with a left shift BUN and creatinine has been elevated liver enzymes are normal blood culture done at [facility] came back positive with gram-positive cocci patient was started on vancomycin infectious disease was consulted for further management patient did have a chest x-ray that was reported negative for acute infiltrate Review of Systems Positive point and negatives has been mentioned in the HPI, complete review of systems was performed and all other systems are negative Past Medical History Past Medical History: Heart Failure, COPD, CVA/TIA, Dialysis, GERD/Reflux, Hyperlipidemia, Hypertension, Osteoarthritis (OA), Skin Disorder, Syncope, Thyroid Disorder Additional Past Medical History / Comment(s): CKD, endometriosis, gastritis, carotid artery stenosis, Hemodialysis for 7.5 years, shingles-recurrent, graves disease, History of Any Multi-Drug Resistant Organisms: MRSA Year Discovered:: unk MDRO Source:: left arm Past Surgical History: Uterine Ablation Additional Past Surgical History / Comment(s): Dialysis cath placement right subclavian, old fistula left arm- not in use, Past Anesthesia/Blood Transfusion Reactions: No Reported Reaction Past Psychological History: No Psychological Hx Reported Smoking Status: Never smoker Past Alcohol Use History: None Reported Past Drug Use History: None Reported - Past Family History Father Family Medical History: Diabetes Mellitus Mother Family Medical History: Cancer, Congestive Heart Failure (CHF) Additional Family Medical History / Comment(s): thyroid CA, Medications and Allergies Home Medications Medication Instructions Recorded Confirmed Type Albuterol Sulfate [Albuterol 1 puff INHALATION RT-Q4H PRN 01/21/23 04/27/24 History Sulfate Hfa] Atorvastatin Calcium 20 mg PO DAILY 01/21/23 04/27/24 History Fluticasone Nasal [place] [Flonase 2 spray EA NOSTRIL DAILY 01/21/23 04/27/24 History Nasal [place]] Isosorbide Mononitrate ER [Imdur] 30 mg PO DAILY 01/21/23 04/27/24 History Loperamide [Imodium] 4 mg PO QID PRN 01/21/23 04/27/24 History Metoprolol Succinate (ER) [Toprol 25 mg PO BID 01/21/23 04/27/24 History XL] Montelukast [Singulair] 10 mg PO DAILY 01/21/23 04/27/24 History Omeprazole [PriLOSEC] 20 mg PO AC-SUPPER 01/21/23 04/27/24 History Ascorbic Acid [Vitamin C] 500 mg PO DAILY 01/22/23 04/27/24 History Aspirin EC [Ecotrin Low Dose] 81 mg PO DAILY 01/22/23 04/27/24 History Cholecalciferol (Vitamin D3) 125 mcg PO DAILY 01/22/23 04/27/24 History [Vitamin D3 (125 MCG = 5,000 IU)] Cranberry 15,000 Mg Tab 15,000 mg PO DAILY 01/22/23 04/27/24 History Multivit-Min/FA/Lycopen/Lutein 1 tab PO DAILY 01/22/23 04/27/24 History [Centrum Silver Tablet] Propylene Glycol [Systane Complete] 1 drop BOTH EYES HS 01/22/23 04/27/24 History Vitamin E (Dl,Tocopheryl Acet) 400 unit PO DAILY 01/22/23 04/27/24 History [Vitamin E (400 Iu = 180 mg)] Bumetanide [BUMEX] 2 mg PO Q4H PRN 04/01/23 04/27/24 History Midodrine [ProAmatine] 5 mg PO TID 04/01/23 04/27/24 History Sevelamer Carbonate 1,600 mg PO TID-W/MEALS 04/01/23 04/27/24 History amLODIPine [Norvasc] 5 mg PO BID 04/01/23 04/27/24 History Cinacalcet [Sensipar] 30 mg PO DIRECTED 03/18/24 04/27/24 History DULoxetine HCL [Cymbalta] 30 mg PO DAILY 03/18/24 04/27/24 History Dicyclomine [Bentyl] 10 mg PO TID 03/18/24 04/27/24 History Gabapentin [Neurontin] 100 mg PO QID 03/18/24 04/27/24 History Ketoconazole 2% Shampoo [Nizoral] 1 applic TOPICAL WEEKLY 03/18/24 04/27/24 History Melatonin [Melatonin Tr] 5 - 10 mg PO HS PRN 03/18/24 04/27/24 History Metoprolol Succinate (ER) [Toprol 50 mg PO DAILY 03/18/24 04/27/24 History XL] Sevelamer [Renvela] 1,600 mg PO DAILY PRN 03/19/24 04/27/24 History Acetaminophen Tab [Tylenol] 650 mg PO Q6HR PRN tab 03/23/24 04/27/24 Rx Darbepoetin Ervin [Aranesp] 40 mcg SQ Q7D 30 Days #4 each 03/23/24 04/27/24 Rx Bismuth Subsalicylate 525mg/30ml 525 mg PO TID PRN 04/27/24 04/27/24 History Sodium Polystyrene Sulfonate 15 gm PO DAILY 04/27/24 04/27/24 History [Kayexalate] Vitamin B Complex W/Vitamin B-12 1 tab PO DAILY 04/27/24 04/27/24 History Allergies Allergy/AdvReac Type Severity Reaction Status Date / Time erythromycin base Allergy Rash/Hives Verified 04/27/24 15:37 furosemide [From Lasix] Allergy Unknown Verified 04/27/24 15:37 green tea Allergy Unknown Verified 04/27/24 15:37 Penicillins Allergy Rash/Hives Verified 04/27/24 15:37 Sulfa (Sulfonamide Allergy Anaphylaxis Verified 04/27/24 15:37 Antibiotics) sulfacetamide Allergy Unknown Verified 04/27/24 15:37 Physical Exam Vitals: Vital Signs Temp Pulse Pulse Resp BP Pulse Ox 04/29/24 09:42 65 16 100 04/29/24 07:10 97.7 F 63 17 129/76 95 04/29/24 03:05 97.9 F 93 18 125/56 97 04/28/24 20:00 99 17 04/28/24 19:29 98.4 F 99 17 129/56 97 04/28/24 17:36 68 124/72 98 04/28/24 14:00 98.2 F 86 16 145/88 96 Intake and Output 04/28/24 04/29/24 04/29/24 22:59 06:59 14:59 Other: Voiding Method Toilet Toilet # Voids 1 2 # Bowel Movements 1 GENERAL DESCRIPTION: Middle-aged female lying in bed, no distress. No tachypnea or accessory muscle of respiration use. HEENT: Shows Pallor , no scleral icterus. Oral mucous membrane is dry. No pharyngeal erythema or thrush NECK: Trachea central, no thyromegaly. LUNGS: Unlabored breathing. Clear to auscultation anteriorly. No wheeze or crackle. HEART: S1, S2, regular rate and rhythm. No loud murmur ABDOMEN: Soft, no tenderness , guarding or rigidity, no organomegaly EXTREMITIES: No edema of feet. SKIN: No rash, no masses palpable. NEUROLOGICAL: The patient is awake, alert, oriented x3, mood and affect normal. Results CBC & Chem 7: 04/28/24 03:31 04/28/24 03:31 Labs: Abnormal Lab Results - Last 24 Hours (Table) 04/28/24 04/28/24 Range/Units 03:31 03:31 RBC 2.89 L (4.10-5.20) X 10*6/uL Hgb 8.8 L (12.0-15.0) g/dL Hct 29.3 L (37.2-46.3) % MCV 101.4 H (80.0-97.0) FL MCHC 30.0 L (32.0-37.0) g/dL RDW 15.5 H (11.5-14.5) % Immature Gran # 0.05 H (0.00-0.04) X 10*3/uL Iron 31 L (50-170) UG/DL TIBC 204 L (228-460) UG/DL Transferrin 146.0 L (204.0-354.0) mg/dL Ferritin 1549.0 H (10.0-291.0) ng/mL Assessment and Plan (1) Bacteremia Current Visit: Yes Status: Acute Code(s): R78.81 - BACTEREMIA SNOMED Code(s): 4499523 Plan: 1patient with presentation to the hospital with weakness and hypotension did have mild elevated white count and now with evidence of positive blood culture with gram-positive cocci high clinical suspicious for possible dialysis catheter infection as currently no evidence of any cellulitis chest x-ray was reported negative abdomen was soft medical examination 2-blood cultures will be repeated from the dialysis catheter today and await finalization of the blood culture that was done in the outside facility if finalized as MRSA we will recommend discontinuation of the dialysis catheter however if it is not resolved to be coagulase-negative staph we may be able to save the current dialysis catheter 3vancomycin pharmacy to dose with a target trough of 15 We will follow on clinical condition and cultures to further adjust medication if needed Thank you for this consultation we will follow the patient along with you Dictation was produced using [employer] dictation software. please excuse any grammatical, word or spelling errors. Time with Patient: Greater than 30
[2024-04-29] MEDS: NAPROXEN 250 MG TAB PO ONE (22:27)
[2024-04-30 03:06] LABS: Basophils % (A) 1 %; Eosinophils # (A) 0.2 k/uL (0-0.7); Eosinophils % (A) 3 %; HCT 28.9 % (34.0-46.0); HGB 8.9 gm/dL (11.4-16.0); Hypochromasia Slight; Lymphocytes # (A) 0.9 k/uL (1.0-4.8); Lymphocytes % (A) 16 %; MCH 30.5 pg (25.0-35.0); MCV 98.4 fL (80.0-100.0); Monocytes # (A) 0.4 k/uL (0-1.0); Monocytes % (A) 7 %; Neutrophils # (A) 3.9 k/uL (1.3-7.7); Neutrophils % (A) 70 %; Platelet Count 234 k/uL (150-450); RBC 2.94 m/uL (3.80-5.40); RDW 15.5 % (11.5-15.5); WBC 5.5 k/uL (3.8-10.6)
--- NOTE | 2024-04-30 11:39 | P.PN ---
Subjective Patient is seen in follow-up for end-stage renal disease. She is maintained on hemodialysis on Saturday schedule. Blood cultures from [facility] positive for gram-positive cocci. No problems with dialysis yesterday. Vital signs are stable. General: No acute distress. HEENT: Head exam is unremarkable. LUNGS: No audible rhonchi or wheezes. HEART: Rate and Rhythm are regular. ABDOMEN: Nontender. EXTREMITITES: No edema. Objective - Vital Signs Vital signs: Vital Signs Temp 97.9 F 04/30/24 07:11 Pulse 64 04/30/24 07:51 Resp 16 04/30/24 07:11 BP 139/85 04/30/24 07:11 Pulse Ox 96 04/30/24 07:11 FiO2 Intake & Output 04/29/24 04/30/24 04/30/24 18:59 06:59 18:59 Intake Total 500 700 Output Total 2500 Balance -2000 700 Intake: Oral 700 Hemodialysis 500 Output: Hemodialysis 1500 Hemodialysis Net Amount 1000 Other: Voiding Method Toilet Toilet Toilet # Voids 2 1 # Bowel Movements 1 1 - Labs CBC & Chem 7: 04/30/24 02:41 04/28/24 03:31 Labs: Abnormal Lab Results - Last 24 Hours (Table) 04/30/24 Range/Units 02:41 RBC 2.94 L (3.80-5.40) m/uL Hgb 8.9 L (11.4-16.0) gm/dL Hct 28.9 L (34.0-46.0) % Lymphocytes # 0.9 L (1.0-4.8) k/uL Assessment and Plan Plan: Assessment: 1. End-stage renal disease maintained on hemodialysis on Saturday schedule. 2. Hypotension during dialysis. Resolved. 3. Chronic kidney disease mineral bone disease. Phosphorus level 6.1. On Renvela and Sensipar. 4. Anemia of chronic kidney disease. High ferritin noted. On Aranesp. 5. UTI maintained on antibiotics prior to admission. 6. Gram-positive bacteremia. Questionable source. Possibly permacath. Plan: Hemodialysis tomorrow. Follow-up cultures. Monitor vancomycin levels. Dose to be adjusted for renal function. Hold amlodipine for systolic blood pressure less than 120. Hold midodrine for systolic blood pressure greater than 110.
--- NOTE | 2024-04-30 12:46 | P.PN ---
Subjective Progress Note Date: 04/30/24 Principal diagnosis: Reason for follow-up is a positive blood culture Patient is a 63-year-old female with a past medical history significant for hypertension hyperlipidemia reflux osteoarthritis syncope COPD end-stage renal disease on dialysis through the right subclavian permacatheter sent to the ER and patient was noticed to be hypotensive at the end of dialysis subsequently blood culture done at [place] came back positive with gram- positive cocci prompting this consultation. On today's evaluation that is 04/30/2024, Patient is afebrile this morning patient denies having any chest pain shortness of breath or cough, the patient is currently on room air, patient denies any abdominal pain no diarrhea no nausea no vomiting. Patient white count is 5.5 blood cultures done yesterday are currently pending Objective - Vital Signs Vital signs: Vital Signs Temp 97.9 F 04/30/24 07:11 Pulse 64 04/30/24 07:51 Resp 16 04/30/24 07:11 BP 139/85 04/30/24 07:11 Pulse Ox 96 04/30/24 07:11 FiO2 Intake & Output 04/29/24 04/30/24 04/30/24 18:59 06:59 18:59 Intake Total 500 700 Output Total 2500 Balance -2000 700 Intake: Oral 700 Hemodialysis 500 Output: Hemodialysis 1500 Hemodialysis Net Amount 1000 Other: Voiding Method Toilet Toilet Toilet # Voids 2 1 # Bowel Movements 1 1 - Exam GENERAL DESCRIPTION: Middle-age female up in the chair in no distress RESPIRATORY SYSTEM: Unlabored breathing , decreased breath sounds at bases HEART: S1 S2 regular rate and rhythm , ABDOMEN: Soft , no tenderness EXTREMITIES: No edema feet - Labs CBC & Chem 7: 04/30/24 02:41 04/28/24 03:31 Labs: Abnormal Lab Results - Last 24 Hours (Table) 04/30/24 Range/Units 02:41 RBC 2.94 L (3.80-5.40) m/uL Hgb 8.9 L (11.4-16.0) gm/dL Hct 28.9 L (34.0-46.0) % Lymphocytes # 0.9 L (1.0-4.8) k/uL Assessment and Plan (1) Bacteremia Current Visit: Yes Status: Acute Code(s): R78.81 - BACTEREMIA SNOMED Code(s): 7898194 Plan: 1patient with presentation to the hospital with weakness and hypotension did have mild elevated white count and now with evidence of positive blood culture with gram-positive cocci high clinical suspicious for possible dialysis catheter infection as currently no evidence of any cellulitis chest x-ray was reported negative abdomen was soft medical examination 2-blood cultures has been repeated from dialysis catheter which are pending blood culture from [place] still not finalized 3we will continue with the vancomycin while waiting for the culture to finalize Dictation was produced using [employer] dictation software. please excuse any grammatical, word or spelling errors. Time with Patient: Less than 30
[2024-04-30] MEDS: VANCOMYCIN 1,250 MG in SODIUM CHLORIDE 0.9% 250 ML IVPB ONE (17:02)
--- NOTE | 2024-05-01 07:15 | P.PN ---
Subjective Progress Note Date: 04/30/24 Pleasant 63-year-old patient, follows with Dr. Calvin Gamez known end-stage kidney disease on hemodialysis Saturday and Saturday. Chronic medical conditions include mineral bone disease, anemia of chronic kidney disease, severe osteoarthritis with chronic pain, uses a walker Transferred to [facility] due to hypotension. Then she was transferred to [facility] for further workup. Patient had had 1 day of antibiotic for a UTI. Last dialysis was yesterday.. April 28: Sitting up in a chair. Breathing stable. Tolerating a lunch. Requesting her home antibiotic to be resumed. He said that is being started. Denies any edema. No fever no chills. Nephrology consulted. Due for dialysis tomorrow. April 29: Nurse called me this morning that [facility] showing gram- positive cocci in clusters. Vancomycin ordered per pharmacy. Repeat blood cultures ordered. Patient is somewhat tired. 04/30/2024 Assumed care of the patient today from Dr. Morocho. Blood cultures have been repeating here, preliminary negative so far. On IV vancomycin, with ID following. Patient reports feeling fatigued was also having dark and malodorous urine at home per patient. White blood cell count normalized to 5.5. Review of Systems Constitutional: Denied any fatigue denied any fever. Cardio vascular: denied any chest pain, palpitations Gastrointestinal: denied any nausea, vomiting, diarrhea Pulmonary: Denied any shortness of breath cough Neurologic denied any new focal deficits All inpatient medications were reviewed and appropriate changes in these medications as dictated in the interval history and assessment and plan. PHYSICAL EXAMINATION: GENERAL: The patient is alert and oriented x3, not in any acute distress. Well developed, well nourished. HEENT: Pupils are round and equally reacting to light. EOMI. No scleral icterus. No conjunctival pallor. Normocephalic, atraumatic. No pharyngeal erythema. No thyromegaly. CARDIOVASCULAR: S1 and S2 present. No murmurs, rubs, or gallops. PULMONARY: Chest is clear to auscultation, no wheezing or crackles. ABDOMEN: Soft, nontender, nondistended, normoactive bowel sounds. No palpable organomegaly. MUSCULOSKELETAL: No joint swelling or deformity. EXTREMITIES: No cyanosis, clubbing, or pedal edema. NEUROLOGICAL: Gross neurological examination did not reveal any focal deficits. SKIN: No rashes. Assessmant and Plan -Probable sepsis with gram-positive cocci in clusters reported from [facility]. Final report pending. Blood cultures have been repeated and pending, continues on IV vancomycin Concern for dialysis catheter as source of infection. Pending final cultures could be contaminant species. Infectious disease following. -Hypotension during dialysis went to [facility] and transferred to [facility]. Patient's blood pressure is better. Will be followed closely. -Acute UTI with cystitis Patient started on Omnicef outpatient which has been resumed this hospital stay. -Chronic kidney disease minimal bone disease Sevelamer -Anemia of chronic kidney disease. Follow labs -Gastritis PPI -Essential hypertension with end-stage kidney disease Amlodipine 5 mg twice daily, Toprol XL -Hyperlipidemia Lipitor -Carotid artery stenosis: Moderate approaching severe stenosis right internal carotid artery 69%. 50-69% left internal carotid artery. Follows with Dr. Cassidy Aspirin. Lipitor. -End-stage renal disease(Saturday and Saturday, Right subclavian-dialysis access -Peripheral neuropathy Neurontin -Primary osteoarthritis, multiple joints Pain medications as needed -COPD, Symbicort. Albuterol when necessary. Singulair -Chronic hypoxic respiratory failure underlying COPD Has home oxygen -Full code Patient is continued on IV vancyomcin pending final blood cultures. Nephrology following. Hemodialysis per nephrology. Monitor renal function. The impression and plan of care has been dictated by Henny Wei, Nurse Practitioner as directed. Dr. Maynor MD I have performed a history and physical examination and medical decision making of this patient, discussed the same with the dictator, and agree with the dictators assessment and plan as written, documented as a scribe. Based on total visit time, I have performed more than 50% of this visit. Objective - Vital Signs Vital signs: Vital Signs Temp 98.3 F 04/30/24 13:44 Pulse 60 04/30/24 13:44 Resp 16 04/30/24 13:44 BP 133/77 04/30/24 13:44 Pulse Ox 96 04/30/24 13:44 FiO2 Intake & Output 04/29/24 04/30/24 04/30/24 18:59 06:59 18:59 Intake Total 500 700 Output Total 2500 Balance -2000 700 Intake: Oral 700 Hemodialysis 500 Output: Hemodialysis 1500 Hemodialysis Net Amount 1000 Other: Voiding Method Toilet Toilet Toilet # Voids 2 1 # Bowel Movements 1 1 - Labs CBC & Chem 7: 04/30/24 02:41 04/28/24 03:31 Labs: Abnormal Lab Results - Last 24 Hours (Table) 04/30/24 Range/Units 02:41 RBC 2.94 L (3.80-5.40) m/uL Hgb 8.9 L (11.4-16.0) gm/dL Hct 28.9 L (34.0-46.0) % Lymphocytes # 0.9 L (1.0-4.8) k/uL Assessment and Plan Time with Patient: Less than 30
--- NOTE | 2024-05-01 11:09 | P.PN ---
Subjective Patient is seen in follow-up for end-stage renal disease. She is maintained on hemodialysis on Saturday schedule. Blood cultures from [facility] positive for gram-positive cocci. Tolerating dialysis well. No active complaints. Vital signs are stable. General: No acute distress. HEENT: Head exam is unremarkable. LUNGS: No audible rhonchi or wheezes. HEART: Rate and Rhythm are regular. ABDOMEN: Nontender. EXTREMITITES: No edema. Objective - Vital Signs Vital signs: Vital Signs Temp 97.0 F L 05/01/24 10:07 Pulse 65 05/01/24 10:07 Resp 18 05/01/24 10:23 BP 130/80 05/01/24 10:07 Pulse Ox 96 05/01/24 07:28 FiO2 Intake & Output 04/30/24 05/01/24 05/01/24 18:59 06:59 18:59 Intake Total 540 400 Output Total 3600 Balance 540 -3200 Intake: Oral 540 Hemodialysis 400 Output: Hemodialysis 2000 Hemodialysis Net Amount 1600 Other: Voiding Method Toilet Toilet Toilet # Voids 3 2 # Bowel Movements 1 - Labs CBC & Chem 7: 04/30/24 02:41 04/28/24 03:31 Labs: Microbiology - Last 24 Hours (Table) 04/29/24 17:20 Blood Culture - Preliminary Blood 04/29/24 09:16 Blood Culture - Preliminary Blood Assessment and Plan Plan: Assessment: 1. End-stage renal disease maintained on hemodialysis on Saturday schedule. 2. Hypotension during dialysis. Resolved. 3. Chronic kidney disease mineral bone disease. Phosphorus level 6.1. On Renvela and Sensipar. 4. Anemia of chronic kidney disease. High ferritin noted. On Aranesp. 5. UTI maintained on antibiotics prior to admission. 6. Gram-positive bacteremia. Questionable source. Possibly permacath. Repeat cultures have been negative so far. Plan: Currently seen while undergoing hemodialysis. Next treatment Saturday. Follow-up cultures. Monitor vancomycin levels. Dose to be adjusted for renal function. Hold amlodipine for systolic blood pressure less than 120. Hold midodrine for systolic blood pressure greater than 110.
--- NOTE | 2024-05-01 14:58 | P.PN ---
Subjective Progress Note Date: 05/01/24 Principal diagnosis: Reason for follow-up is a positive blood culture Patient is a 63-year-old female with a past medical history significant for hypertension hyperlipidemia reflux osteoarthritis syncope COPD end-stage renal disease on dialysis through the right subclavian permacatheter sent to the ER and patient was noticed to be hypotensive at the end of dialysis subsequently blood culture done at [place] came back positive with gram- positive cocci prompting this consultation. On today's evaluation that is 05/01/2024,the patient denies any fever or any chills, patient is breathing comfortably on room air, the patient denies chest pain shortness of breath and no significant cough, patient denies abdominal pain, no nausea vomiting or diarrhea. Patient white count is 5.5 blood culture here so far negative Objective - Vital Signs Vital signs: Vital Signs Temp 98.3 F 05/01/24 14:14 Pulse 66 05/01/24 14:14 Resp 20 05/01/24 14:14 BP 138/78 05/01/24 14:14 Pulse Ox 98 05/01/24 14:14 FiO2 Intake & Output 04/30/24 05/01/24 05/01/24 18:59 06:59 18:59 Intake Total 540 675 Output Total 3600 Balance 540 -2925 Intake: Oral 540 275 Hemodialysis 400 Output: Hemodialysis 2000 Hemodialysis Net Amount 1600 Other: Voiding Method Toilet Toilet Toilet # Voids 3 2 # Bowel Movements 1 - Exam GENERAL DESCRIPTION: Middle-age female up in the chair in no distress RESPIRATORY SYSTEM: Unlabored breathing , decreased breath sounds at bases HEART: S1 S2 regular rate and rhythm , ABDOMEN: Soft , no tenderness EXTREMITIES: No edema feet - Labs CBC & Chem 7: 04/30/24 02:41 04/28/24 03:31 Labs: Microbiology - Last 24 Hours (Table) 04/29/24 17:20 Blood Culture - Preliminary Blood 04/29/24 09:16 Blood Culture - Preliminary Blood Assessment and Plan (1) Bacteremia Current Visit: Yes Status: Acute Code(s): R78.81 - BACTEREMIA SNOMED Code(s): 3541044 Plan: 1patient with presentation to the hospital with weakness and hypotension did have mild elevated white count and now with evidence of positive blood culture with gram-positive cocci high clinical suspicious for possible dialysis catheter infection as currently no evidence of any cellulitis chest x-ray was reported negative abdomen was soft medical examination 2-blood cultures has been repeated from dialysis catheter which are pending blood culture from [facility] currently growing gram-positive 3we will continue with the vancomycin while waiting for the culture to finalize, however keeping in mind the patient was symptomatic may consider short course of IV vancomycin through dialysis on discharge prescription provided to the hospice case manager Dictation was produced using [employer] dictation software. please excuse any grammatical, word or spelling errors. Time with Patient: Less than 30
--- NOTE | 2024-05-01 15:45 | P.PN ---
Subjective Progress Note Date: 05/01/24 Pleasant 63-year-old patient, follows with Dr. Calvin Gamez known end-stage kidney disease on hemodialysis Saturday and Saturday. Chronic medical conditions include mineral bone disease, anemia of chronic kidney disease, severe osteoarthritis with chronic pain, uses a walker Transferred to [facility] due to hypotension. Then she was transferred to [facility] for further workup. Patient had had 1 day of antibiotic for a UTI. Last dialysis was yesterday.. April 28: Sitting up in a chair. Breathing stable. Tolerating a lunch. Requesting her home antibiotic to be resumed. He said that is being started. Denies any edema. No fever no chills. Nephrology consulted. Due for dialysis tomorrow. April 29: Nurse called me this morning that [facility] showing gram- positive cocci in clusters. Vancomycin ordered per pharmacy. Repeat blood cultures ordered. Patient is somewhat tired. 04/30/2024 Assumed care of the patient today from Dr. Morocho. Blood cultures have been repeating here, preliminary negative so far. On IV vancomycin, with ID following. Patient reports feeling fatigued was also having dark and malodorous urine at home per patient. White blood cell count normalized to 5.5. 05/01/2024 Patient evaluated today in follow up on the medical floor. Sitting up in the chair. Having some lower extremity edema. Blood culture here negative so far. Patient will continue on IV vancomycin with hemodialysis for 2 weeks pending the final blood cultures here. ID following closely. Review of Systems Constitutional: Denied any fatigue denied any fever. Cardio vascular: denied any chest pain, palpitations Gastrointestinal: denied any nausea, vomiting, diarrhea Pulmonary: Denied any shortness of breath cough Neurologic denied any new focal deficits All inpatient medications were reviewed and appropriate changes in these medications as dictated in the interval history and assessment and plan. PHYSICAL EXAMINATION: GENERAL: The patient is alert and oriented x3, not in any acute distress. Well developed, well nourished. HEENT: Pupils are round and equally reacting to light. EOMI. No scleral icterus. No conjunctival pallor. Normocephalic, atraumatic. No pharyngeal erythema. No thyromegaly. CARDIOVASCULAR: S1 and S2 present. No murmurs, rubs, or gallops. PULMONARY: Chest is clear to auscultation, no wheezing or crackles. ABDOMEN: Soft, nontender, nondistended, normoactive bowel sounds. No palpable organomegaly. MUSCULOSKELETAL: No joint swelling or deformity. EXTREMITIES: No cyanosis, clubbing, or pedal edema. NEUROLOGICAL: Gross neurological examination did not reveal any focal deficits. SKIN: No rashes. Assessmant and Plan -Probable sepsis with gram-positive cocci in clusters reported from [facility]. Final report pending. Blood cultures have been repeated and pending, continues on IV vancomycin Concern for dialysis catheter as source of infection. Pending final cultures could be contaminant species. Infectious disease following. -Hypotension during dialysis went to [facility] and transferred to [facility]. Patient's blood pressure is better. Will be followed closely. -Acute UTI with cystitis Patient started on Omnicef outpatient which has been resumed this hospital stay. -Chronic kidney disease minimal bone disease Sevelamer -Anemia of chronic kidney disease. Follow labs -Gastritis PPI -Essential hypertension with end-stage kidney disease Amlodipine 5 mg twice daily, Toprol XL -Hyperlipidemia Lipitor -Carotid artery stenosis: Moderate approaching severe stenosis right internal carotid artery 69%. 50-69% left internal carotid artery. Follows with Dr. Cassidy Aspirin. Lipitor. -End-stage renal disease(Saturday and Saturday, Right subclavian-dialysis access -Peripheral neuropathy Neurontin -Primary osteoarthritis, multiple joints Pain medications as needed -COPD, Symbicort. Albuterol when necessary. Singulair -Chronic hypoxic respiratory failure underlying COPD Has home oxygen -Full code Patient is continued on IV vancyomcin pending final blood cultures. Nephrology following. Hemodialysis per nephrology. Monitor renal function. The impression and plan of care has been dictated by Henny Wei, Nurse Practitioner as directed. Dr. Maynor MD I have performed a history and physical examination and medical decision making of this patient, discussed the same with the dictator, and agree with the dictators assessment and plan as written, documented as a scribe. Based on total visit time, I have performed more than 50% of this visit. Objective - Vital Signs Vital signs: Vital Signs Temp 97.3 F L 05/01/24 07:28 Pulse 60 05/01/24 07:28 Resp 18 05/01/24 07:28 BP 124/98 05/01/24 07:28 Pulse Ox 96 05/01/24 07:28 FiO2 Intake & Output 04/30/24 05/01/24 05/01/24 18:59 06:59 18:59 Intake Total 540 Balance 540 Intake: Oral 540 Other: Voiding Method Toilet Toilet # Voids 3 2 # Bowel Movements 1 - Labs CBC & Chem 7: 04/30/24 02:41 04/28/24 03:31 Labs: Microbiology - Last 24 Hours (Table) 04/29/24 17:20 Blood Culture - Preliminary Blood 04/29/24 09:16 Blood Culture - Preliminary Blood Assessment and Plan Time with Patient: Less than 30
[2024-05-02 07:50] VITALS: RESP 20
[2024-05-02 10:52] LABS: BUN/Creat Ratio 9.03 Ratio (12.00-20.00); Blood Urea Nitrogen 33.4 mg/dL (9.0-27.0); Calcium 8.2 mg/dL (8.7-10.3); Carbon Dioxide 25.6 mmol/L (21.6-31.8); Chloride 93 mmol/L (96-109); Glucose 86 mg/dL (70-110); Sodium 133 mmol/L (135-145)
--- NOTE | 2024-05-02 13:10 | P.PN ---
Subjective Progress Note Date: 05/02/24 Principal diagnosis: Reason for follow-up is a positive blood culture Patient is a 63-year-old female with a past medical history significant for hypertension hyperlipidemia reflux osteoarthritis syncope COPD end-stage renal disease on dialysis through the right subclavian permacatheter sent to the ER and patient was noticed to be hypotensive at the end of dialysis subsequently blood culture done at [place] came back positive with gram- positive cocci prompting this consultation. On today's evaluation that is 05/02/2024,the patient remains to be afebrile, patient is on room air not requiring supplemental oxygen and denies any shortness of breath no chest pain or cough.Patient denies having any nausea or vomiting, no abdominal pain and no diarrhea has been reported, patient mention feeling better. Patient did have a creatinine 3.7 blood culture done here has been negative Objective - Vital Signs Vital signs: Vital Signs Temp 98.4 F 05/02/24 07:18 Pulse 63 05/02/24 07:18 Resp 20 05/02/24 07:18 BP 133/79 05/02/24 07:18 Pulse Ox 95 05/02/24 07:18 FiO2 Intake & Output 05/01/24 05/02/24 05/02/24 18:59 06:59 18:59 Intake Total 875 Output Total 3600 100 Balance -2725 -100 Intake: Oral 475 Hemodialysis 400 Output: Urine 100 Hemodialysis 2000 Hemodialysis Net Amount 1600 Other: Voiding Method Toilet Toilet # Voids 2 2 # Bowel Movements 3 1 - Exam GENERAL DESCRIPTION: Middle-age female up in the chair in no distress RESPIRATORY SYSTEM: Unlabored breathing , decreased breath sounds at bases HEART: S1 S2 regular rate and rhythm , ABDOMEN: Soft , no tenderness EXTREMITIES: No edema feet - Labs CBC & Chem 7: 04/30/24 02:41 05/02/24 02:55 Labs: Abnormal Lab Results - Last 24 Hours (Table) 05/02/24 Range/Units 02:55 Sodium 133 L (135-145) mmol/L Chloride 93 L (96-109) mmol/L Anion Gap 14.40 H (4.00-12.00) mmol/L BUN 33.4 H (9.0-27.0) mg/dL Creatinine 3.7 H (0.6-1.5) mg/dL Est GFR (CKD-EPI) 13 L (>=60) BUN/Creatinine Ratio 9.03 L (12.00-20.00) Ratio Calcium 8.2 L (8.7-10.3) mg/dL Microbiology - Last 24 Hours (Table) 04/29/24 17:20 Blood Culture - Preliminary Blood 04/29/24 09:16 Blood Culture - Preliminary Blood Assessment and Plan (1) Bacteremia Current Visit: Yes Status: Acute Code(s): R78.81 - BACTEREMIA SNOMED Code(s): 0215632 Plan: 1patient with presentation to the hospital with weakness and hypotension did have mild elevated white count and now with evidence of positive blood culture with gram-positive cocci high clinical suspicious for possible dialysis catheter infection as currently no evidence of any cellulitis chest x-ray was reported negative abdomen was soft medical examination 2-blood cultures has been repeated from dialysis catheter which are pending blood culture from [place] currently growing gram-positive, however blood cultures on this admission at this facility has been negative so far keeping in mind the patient was symptomatic with hypotension and outpatient blood culture positive we will suggest to be course of vancomycin through the dialysis prescription was provided to the pillowcase folder yesterday Dictation was produced using [employer] dictation software. please excuse any grammatical, word or spelling errors.
--- NOTE | 2024-05-02 13:52 | P.PN ---
Subjective patient is seen for follow-up for end-stage renal disease. No significant complaints today. Objective - Vital Signs Vital signs: Vital Signs Temp 98.4 F 05/02/24 07:18 Pulse 63 05/02/24 07:18 Resp 20 05/02/24 07:18 BP 133/79 05/02/24 07:18 Pulse Ox 95 05/02/24 07:18 FiO2 Intake & Output 05/01/24 05/02/24 05/02/24 18:59 06:59 18:59 Intake Total 875 Output Total 3600 100 Balance -2725 -100 Intake: Oral 475 Hemodialysis 400 Output: Urine 100 Hemodialysis 2000 Hemodialysis Net Amount 1600 Other: Voiding Method Toilet Toilet Toilet # Voids 2 2 # Bowel Movements 3 1 - Exam patient is awake, comfortable, no acute distress. Examination of the heart S1 and S2 Examination of the lungs bilateral breath sounds are heard Abdomen is soft nontender Examination of lower extremities shows chronic skin changes with chronic edema - Labs CBC & Chem 7: 04/30/24 02:41 05/02/24 02:55 Labs: Abnormal Lab Results - Last 24 Hours (Table) 05/02/24 Range/Units 02:55 Sodium 133 L (135-145) mmol/L Chloride 93 L (96-109) mmol/L Anion Gap 14.40 H (4.00-12.00) mmol/L BUN 33.4 H (9.0-27.0) mg/dL Creatinine 3.7 H (0.6-1.5) mg/dL Est GFR (CKD-EPI) 13 L (>=60) BUN/Creatinine Ratio 9.03 L (12.00-20.00) Ratio Calcium 8.2 L (8.7-10.3) mg/dL Microbiology - Last 24 Hours (Table) 04/29/24 17:20 Blood Culture - Preliminary Blood 04/29/24 09:16 Blood Culture - Preliminary Blood Assessment and Plan Assessment: 1. End-stage renal disease maintained on hemodialysis on Saturday schedule. 2. Hypotension during dialysis. Resolved. 3. Chronic kidney disease mineral bone disease. Phosphorus level 6.1. On Renvela and Sensipar. 4. Anemia of chronic kidney disease. High ferritin noted. On Aranesp. 5. UTI maintained on antibiotics prior to admission. 6. Gram-positive bacteremia. Questionable source. Possibly permacath. Repeat cultures have been negative so far. Plan: maintain hemodialysis on Saturday schedule Continue with antibiotics Follow-up on blood cultures
[2024-05-02 14:03] VITALS: BP 113/67; PULSE 66; TEMP 98.3
--- NOTE | 2024-05-03 14:10 | P.DS ---
Providers Date of admission: 04/27/24 14:26 Attending physician: Monroe Morocho Consults: 04/27/24 14:16 Consult Physician Urgent Consulting Provider: Jonas Brice Consult Reason/Comments: dialysis Do you want consulting provider notified?: Yes 04/29/24 09:48 Consult Physician Routine Consulting Provider: Jr Urbano Consult Reason/Comments: bacteremia Do you want consulting provider notified?: Yes 04/29/24 15:43 Consult Physician Routine Consulting Provider: Jr Urbano Consult Reason/Comments: Positive blood cultures from [place] Do you want consulting provider notified?: Yes Primary care physician: Andrez Scooby [facility] Course: Final Diagnosis -Probable sepsis with gram-positive cocci in clusters reported from [facility]. Final report pending. -Hypotension during dialysis went to [facility] and transferred to [facility]. -Acute UTI with cystitis from outpatient treated with omnicef. -Chronic kidney disease minimal bone disease -Anemia of chronic kidney disease. -Gastritis -Essential hypertension with end-stage kidney disease -Hyperlipidemia -Carotid artery stenosis: Moderate approaching severe stenosis right internal carotid artery 69%. 50-69% left internal carotid artery. -End-stage renal disease(Saturday and Saturday, -Peripheral neuropathy -Primary osteoarthritis, multiple joints -COPD, -Chronic hypoxic respiratory failure underlying COPD -Full code Discharge Disposition Patient stable for discharge home she will continue all same home medications. Patient will continue with hemodialysis as per usual and she will go Saturday this week to account for the holiday of . She will continue with IV vancomycin through hemodialysis for the next 2 weeks and they have the prescriptions. Hospital Course Pleasant 63-year-old patient, follows with Dr. Calvin Gamez, has known end-stage kidney disease on hemodialysis Saturday and Saturday. Chronic medical conditions include mineral bone disease, anemia of chronic kidney disease, severe osteoarthritis with chronic pain, uses a walker. Transferred to [facility] due to hypotension that happened during hemodialysis. Then she was transferred to [facility] for further workup. Patient had had 1 day of antibiotic for a UTI. Last dialysis was yesterday. She was recently started on omnicef as outpatient for the UTI not currently having any urinary symptoms. Nephrology was consulted for the renal disease. Patient's blood cultures here have been negative [facility] did call and notify that there was a positive blood culture of gram-positive cocci in clusters during that hospital stay prior to transfer to [facility] she was started on IV vancomycin. As her blood cultures here have been negative ID is recommending 2 weeks of IV vancomycin through her dialysis sessions. She has no acute complaints today will be discharged home. Please see medication reconciliation for a list of current medications. Thank you for allowing us to participate in the care of this patient. The impression and plan of care has been dictated by Henny Wei, Nurse Practitioner as directed. Dr. Maynor MD I have performed a history and physical examination and medical decision making of this patient, discussed the same with the dictator, and agree with the dictators assessment and plan as written, documented as a scribe. Based on total visit time, I have performed more than 50% of this visit. Patient Condition at Discharge: Fair Plan - Discharge Summary Discharge Rx Participant: No New Discharge Prescriptions: Continue Montelukast [Singulair] 10 mg PO DAILY Atorvastatin Calcium 20 mg PO DAILY Fluticasone Nasal [place] [Flonase Nasal [place]] 2 spray EA NOSTRIL DAILY Loperamide [Imodium] 4 mg PO QID PRN PRN Reason: Diarrhea Cholecalciferol (Vitamin D3) [Vitamin D3 (125 MCG = 5,000 IU)] 125 mcg PO DAILY Ascorbic Acid [Vitamin C] 500 mg PO DAILY Vitamin E (Dl,Tocopheryl Acet) [Vitamin E (400 Iu = 180 mg)] 400 unit PO DAILY Cranberry 15,000 Mg Tab 15,000 mg PO DAILY Midodrine [ProAmatine] 5 mg PO TID amLODIPine [Norvasc] 5 mg PO BID Sevelamer Carbonate 1,600 mg PO TID-W/MEALS Cinacalcet [Sensipar] 30 mg PO DIRECTED DULoxetine HCL [Cymbalta] 30 mg PO DAILY Ketoconazole 2% Shampoo [Nizoral] 1 applic TOPICAL WEEKLY Sevelamer [Renvela] 1,600 mg PO DAILY PRN PRN Reason: with snacks Sodium Polystyrene Sulfonate [Kayexalate] 15 gm PO DAILY Albuterol Sulfate [Albuterol Sulfate Hfa] 1 puff INHALATION RT-Q4H PRN PRN Reason: Shortness Of Breath Omeprazole [PriLOSEC] 20 mg PO AC-SUPPER Isosorbide Mononitrate ER [Imdur] 30 mg PO DAILY Metoprolol Succinate (ER) [Toprol XL] 25 mg PO BID Propylene Glycol [Systane Complete] 1 drop BOTH EYES HS Aspirin EC [Ecotrin Low Dose] 81 mg PO DAILY Multivit-Min/FA/Lycopen/Lutein [Centrum Silver Tablet] 1 tab PO DAILY Bumetanide [BUMEX] 2 mg PO Q4H PRN PRN Reason: Edema Dicyclomine [Bentyl] 10 mg PO TID Gabapentin [Neurontin] 100 mg PO QID Melatonin [Melatonin Tr] 5 - 10 mg PO HS PRN PRN Reason: Insomnia Metoprolol Succinate (ER) [Toprol XL] 50 mg PO DAILY Darbepoetin Ervin [Aranesp] 40 mcg SQ Q7D 30 Days #4 each Acetaminophen Tab [Tylenol] 650 mg PO Q6HR PRN tab PRN Reason: Mild Pain Or Fever > 100.5 Bismuth Subsalicylate 525mg/30ml 525 mg PO TID PRN PRN Reason: Gi Upset Vitamin B Complex W/Vitamin B-12 1 tab PO DAILY Discharge Medication List Albuterol Sulfate [Albuterol Sulfate Hfa] 1 puff INHALATION RT-Q4H PRN 01/21/23 [History] Atorvastatin Calcium 20 mg PO DAILY 01/21/23 [History] Fluticasone Nasal [place] [Flonase Nasal [place]] 2 spray EA NOSTRIL DAILY 01/21/23 [History] Isosorbide Mononitrate ER [Imdur] 30 mg PO DAILY 01/21/23 [History] Loperamide [Imodium] 4 mg PO QID PRN 01/21/23 [History] Metoprolol Succinate (ER) [Toprol XL] 25 mg PO BID 01/21/23 [History] Montelukast [Singulair] 10 mg PO DAILY 01/21/23 [History] Omeprazole [PriLOSEC] 20 mg PO AC-SUPPER 01/21/23 [History] Ascorbic Acid [Vitamin C] 500 mg PO DAILY 01/22/23 [History] Aspirin EC [Ecotrin Low Dose] 81 mg PO DAILY 01/22/23 [History] Cholecalciferol (Vitamin D3) [Vitamin D3 (125 MCG = 5,000 IU)] 125 mcg PO DAILY 01/22/23 [History] Cranberry 15,000 Mg Tab 15,000 mg PO DAILY 01/22/23 [History] Multivit-Min/FA/Lycopen/Lutein [Centrum Silver Tablet] 1 tab PO DAILY 01/22/23 [History] Propylene Glycol [Systane Complete] 1 drop BOTH EYES HS 01/22/23 [History] Vitamin E (Dl,Tocopheryl Acet) [Vitamin E (400 Iu = 180 mg)] 400 unit PO DAILY 01/22/23 [History] Bumetanide [BUMEX] 2 mg PO Q4H PRN 04/01/23 [History] Midodrine [ProAmatine] 5 mg PO TID 04/01/23 [History] Sevelamer Carbonate 1,600 mg PO TID-W/MEALS 04/01/23 [History] amLODIPine [Norvasc] 5 mg PO BID 04/01/23 [History] Cinacalcet [Sensipar] 30 mg PO DIRECTED 03/18/24 [History] DULoxetine HCL [Cymbalta] 30 mg PO DAILY 03/18/24 [History] Dicyclomine [Bentyl] 10 mg PO TID 03/18/24 [History] Gabapentin [Neurontin] 100 mg PO QID 03/18/24 [History] Ketoconazole 2% Shampoo [Nizoral] 1 applic TOPICAL WEEKLY 03/18/24 [History] Melatonin [Melatonin Tr] 5 - 10 mg PO HS PRN 03/18/24 [History] Metoprolol Succinate (ER) [Toprol XL] 50 mg PO DAILY 03/18/24 [History] Sevelamer [Renvela] 1,600 mg PO DAILY PRN 03/19/24 [History] Acetaminophen Tab [Tylenol] 650 mg PO Q6HR PRN tab 03/23/24 [Rx] Darbepoetin Ervin [Aranesp] 40 mcg SQ Q7D 30 Days #4 each 03/23/24 [Rx] Bismuth Subsalicylate 525mg/30ml 525 mg PO TID PRN 04/27/24 [History] Sodium Polystyrene Sulfonate [Kayexalate] 15 gm PO DAILY 04/27/24 [History] Vitamin B Complex W/Vitamin B-12 1 tab PO DAILY 04/27/24 [History] Follow up Appointment(s)/Referral(s): Andrez Almodovar MD [Primary Care Provider] - 1-2 days Jr Urbano MD [STAFF PHYSICIAN] - 1 Week Jonas Brice DO [STAFF PHYSICIAN] - 1 Week Ambulatory/Diagnostic Orders: Complete Blood Count w/diff [LAB.AMB] Location: None Selected Basic Metabolic Panel [LAB.AMB] Time Frame: 1 Week, Location: None Selected Patient Instructions/Handouts: Chronic Kidney Disease (DC) Activity/Diet/Wound Care/Special Instructions: *Remember - your dialysis days next week only are Saturday, Saturday, Saturday for the . Vancomyin IV through dialysis port for the next [address] up [address] Urbano in the next week. Discharge Disposition: HOME WITH HOME HEALTH SERVICES
--- NOTE | 2024-05-06 16:38 | CDI ---
Documentation Clarification Form Date: 05/06/2024 04:19:09 PM From: Dianelys Zazueta Phone: Admit Date: 04/27/2024 02:26:00 PM Patient Name: Lissa Gomez Visit Number: [id number] Discharge Date: 05/02/2024 05:09:00 PM ATTENTION: The Clinical Documentation Specialists (CDI) and [facility] Coding Staff appreciate your assistance in clarifying documentation. Please respond to the clarification below the line at the bottom and electronically sign. The CDI & [facility] Coding staff will review the response and follow-up if needed. Please note: Queries are made part of the Legal Health Record. If you have any questions, please contact the author of this message via ITS. Doctor/Provider: Robbie Carmenmclyle Sepsis is documented in DS on 05/02/2024 which may lack sufficient clinical evidence/support in the medical record. Additional clarification is requested. History/Risk Factors: Patient is a 63-year-old female presenting to the emergency department needing dialysis. Patient was transferred from [facility]. Patient states she feels fine and does not have complaints. Patient was atdialysisthis morning family discontinueddialysissecondary to low bloodpressures. Workup at [place] have concern forfluid overloadand wantedtransferfor patient to havedialysis. Clinical Indicators: Vitals on 04/27 - Temperature 98. 3 F Pulse Rate 79 Respiratory 18 OuelySttfiifu264/66 O2 Sat by Pulse 98 on 04/30 pn bacteremia -[facility] culture from [place] still not finalized 3we will continue with the vancomycin while waiting for the culture to finalize on 05/01 pn -Probablesepsiswith gram-positive cocci in clusters reported from [facility]. 05/02 DS- Patient had had 1 day of antibiotic for aUTI. Lastdialysiswas yesterday. She was recently started onomnicef as outpatient for theUTInot currently having any urinary symptoms. Nephrology was consulted for the renal disease. Patient's blood cultures here have been negative [facility] did call and notify that there was a positive blood cultureof gram-positive cocci in clusters during that [facility] she was started on IV vancomycin. As her blood cultures here have been negative ID is recommending 2 weeks of IV vancomycin through herdialysissessions. 05/02 ds -Probablesepsiswith gram-positive cocci in clusters reported from [facility]. Final report pending Treatment: patient will continue withhemodialysis She will continue with IV vancomycin throughhemodialysisfor the next 2 weeks and they have the prescriptions. After work up and study, please clarify which diagnosis is most appropriate? [ ] Sepsis ruled out [ x ] Sepsis treated prophylactically [ ] Sepsis is a valid diagnosis as evidence by the following: (Please add rationale): [ ] Non-Infectious SIRS due to (please specify) [ ] Non-infectious SIRS due to with organ dysfunction as evidenced by [list organ dysfunction] [ ] Other, please specify [ ] Unable to determine (Template Last Reviewed: June 2023) MTDD
== END 2024-05-02 17:09 | disposition home health service (06) | DRG 291 ==
LOC: EC 13:25 → 4SSUR 14:25 → OBSVTOIN 14:26 → 4SSUR 16:11
PROVIDERS: ADMIT Hospitalist; ATTEND Hospitalist
PROC: 5A1D70Z Performance of Urinary Filtration, Intermittent, Less than 6 Hours Per Day (ICD-10-PCS; principal; 2024-04-28)
DX: I13.2 Hypertensive heart and chronic kidney disease with heart failure and with stage 5 chronic kidney disease, or end stage renal disease (principal); N18.6 End stage renal disease; J96.11 Chronic respiratory failure with hypoxia; R78.81 Bacteremia; I95.3 Hypotension of hemodialysis; K21.9 Gastro-esophageal reflux disease without esophagitis; N30.90 Cystitis, unspecified without hematuria; D63.1 Anemia in chronic kidney disease; E78.5 Hyperlipidemia, unspecified; I65.21 Occlusion and stenosis of right carotid artery; G62.9 Polyneuropathy, unspecified; J44.9 Chronic obstructive pulmonary disease, unspecified; I50.9 Heart failure, unspecified; E07.9 Disorder of thyroid, unspecified; K29.70 Gastritis, unspecified, without bleeding; G89.29 Other chronic pain; M15.9 Polyosteoarthritis, unspecified; Z79.82 Long term (current) use of aspirin; Z88.0 Allergy status to penicillin; Z88.2 Allergy status to sulfonamides; Z91.018 Allergy to other foods; Z86.14 Personal history of Methicillin resistant Staphylococcus aureus infection; Z86.73 Personal history of transient ischemic attack (TIA), and cerebral infarction without residual deficits
CPT/HCPCS: 71045; 80048; 80053; 80202; 82728; 83540; 83550; 83735; 84100; 85025; 87040; 90935; 94640; 94760; 99285

== ENCOUNTER 2024-11-25 14:22 | Inpatient (IN) | payer MEDICARE, OTHER ==
--- NOTE | 2024-11-25 14:37 | ED ---
General Adult HPI - General Chief complaint: Recheck/Abnormal Lab/Rx Stated complaint: Labs Time Seen by Provider: 11/25/24 14:23 Source: patient, EMS Mode of arrival: EMS - History of Present Illness Initial comments: Dictation was produced using [employer] dictation software. please excuse any grammatical, word or spelling errors. Chief Complaint: 64-year-old female requesting hemodialysis History of Present Illness: Patient 64-year-old female she called EMS today because she needs to be brought to the ER for missed dialysis. She has not had dialysis since Saturday of last week. She gets dialysis Saturday. Her instructional support assistant Dr. Armstrong. States that she had missed her appointments because she has been too tired. She also missed her dialysis on Saturday because she states that she was post have an appointment to be evaluated for new kneecaps. Denies any chest pain. No shortness of breath. Denies any fever chills or night sweats. The ROS documented in this emergency department record has been reviewed and confirmed by me. Those systems with pertinent positive or negative responses have been documented in the HPI. All other systems are other negative and/or noncontributory. - Related Data Home Medications Medication Instructions Recorded Confirmed Albuterol Sulfate [Albuterol 1 puff INHALATION RT-Q4H PRN 01/21/23 04/27/24 Sulfate Hfa] Atorvastatin Calcium 20 mg PO DAILY 01/21/23 04/27/24 Fluticasone Nasal [place] [Flonase 2 spray EA NOSTRIL DAILY 01/21/23 04/27/24 Nasal [place]] Isosorbide Mononitrate ER [Imdur] 30 mg PO DAILY 01/21/23 04/27/24 Loperamide [Imodium] 4 mg PO QID PRN 01/21/23 04/27/24 Metoprolol Succinate (ER) [Toprol 25 mg PO BID 01/21/23 04/27/24 XL] Montelukast [Singulair] 10 mg PO DAILY 01/21/23 04/27/24 Omeprazole [PriLOSEC] 20 mg PO AC-SUPPER 01/21/23 04/27/24 Ascorbic Acid [Vitamin C] 500 mg PO DAILY 01/22/23 04/27/24 Aspirin EC [Ecotrin Low Dose] 81 mg PO DAILY 01/22/23 04/27/24 Cholecalciferol (Vitamin D3) 125 mcg PO DAILY 01/22/23 04/27/24 [Vitamin D3 (125 MCG = 5,000 IU)] Cranberry 15,000 Mg Tab 15,000 mg PO DAILY 01/22/23 04/27/24 Multivit-Min/FA/Lycopen/Lutein 1 tab PO DAILY 01/22/23 04/27/24 [Centrum Silver Tablet] Propylene Glycol [Systane Complete] 1 drop BOTH EYES HS 01/22/23 04/27/24 Vitamin E (Dl,Tocopheryl Acet) 400 unit PO DAILY 01/22/23 04/27/24 [Vitamin E (400 Iu = 180 mg)] Bumetanide [BUMEX] 2 mg PO Q4H PRN 04/01/23 04/27/24 Midodrine [ProAmatine] 5 mg PO TID 04/01/23 04/27/24 Sevelamer Carbonate 1,600 mg PO TID-W/MEALS 04/01/23 04/27/24 amLODIPine [Norvasc] 5 mg PO BID 04/01/23 04/27/24 Cinacalcet [Sensipar] 30 mg PO DIRECTED 03/18/24 04/27/24 DULoxetine HCL [Cymbalta] 30 mg PO DAILY 03/18/24 04/27/24 Dicyclomine [Bentyl] 10 mg PO TID 03/18/24 04/27/24 Gabapentin [Neurontin] 100 mg PO QID 03/18/24 04/27/24 Ketoconazole 2% Shampoo [Nizoral] 1 applic TOPICAL WEEKLY 03/18/24 04/27/24 Melatonin [Melatonin Tr] 5 - 10 mg PO HS PRN 03/18/24 04/27/24 Metoprolol Succinate (ER) [Toprol 50 mg PO DAILY 03/18/24 04/27/24 XL] Sevelamer [Renvela] 1,600 mg PO DAILY PRN 03/19/24 04/27/24 Bismuth Subsalicylate 525mg/30ml 525 mg PO TID PRN 04/27/24 04/27/24 Sodium Polystyrene Sulfonate 15 gm PO DAILY 04/27/24 04/27/24 [Kayexalate] Vitamin B Complex W/Vitamin B-12 1 tab PO DAILY 04/27/24 04/27/24 Previous Rx's Medication Instructions Recorded Acetaminophen Tab [Tylenol] 650 mg PO Q6HR PRN tab 03/23/24 Darbepoetin Ervin [Aranesp] 40 mcg SQ Q7D 30 Days #4 each 03/23/24 Allergies Allergy/AdvReac Type Severity Reaction Status Date / Time erythromycin base Allergy Rash/Hives Verified 11/25/24 14:35 furosemide [From Lasix] Allergy Unknown Verified 11/25/24 14:35 green tea Allergy Unknown Verified 11/25/24 14:35 Penicillins Allergy Rash/Hives Verified 11/25/24 14:35 Sulfa (Sulfonamide Allergy Anaphylaxis Verified 11/25/24 14:35 Antibiotics) sulfacetamide Allergy Unknown Verified 11/25/24 14:35 Review of Systems ROS Statement: Those systems with pertinent positive or pertinent negative responses have been documented in the HPI. ROS Other: All systems not noted in ROS Statement are negative. Past Medical History Past Medical History: Heart Failure, COPD, CVA/TIA, Dialysis, GERD/Reflux, Hyperlipidemia, Hypertension, Osteoarthritis (OA), Skin Disorder, Syncope, Thyroid Disorder Additional Past Medical History / Comment(s): CKD, endometriosis, gastritis, carotid artery stenosis, Hemodialysis for 7.5 years, shingles-recurrent, graves disease, History of Any Multi-Drug Resistant Organisms: MRSA Date of last positivie culture/infection: unk MDRO Source:: left arm Past Surgical History: Uterine Ablation Additional Past Surgical History / Comment(s): Dialysis cath placement right subclavian, old fistula left arm- not in use, Past Anesthesia/Blood Transfusion Reactions: No Reported Reaction Past Psychological History: No Psychological Hx Reported Smoking Status: Never smoker Past Alcohol Use History: None Reported Past Drug Use History: None Reported - Past Family History Father Family Medical History: Diabetes Mellitus Mother Family Medical History: Cancer, Congestive Heart Failure (CHF) Additional Family Medical History / Comment(s): thyroid CA, General Exam - General Exam Comments Initial Comments: PHYSICAL EXAM: General Impression: Alert and oriented x3, not in acute distress HEENT: Normocephalic atraumatic, extra-ocular movements intact, pupils equal and reactive to light bilaterally, mucous membranes moist. Cardiovascular: Heart regular rate and rhythm Chest: Able to complete full sentences, no retractions, no tachypnea Abdomen: abdomen soft, non-tender, non-distended, no organomegaly Musculoskeletal: Bilateral swollen lower extremities Motor: no focal deficits noted Neurological: CN II-XII grossly intact, no focal motor or sensory deficits noted Skin: Intact with no visualized rashes Psych: Normal affect and mood Course Vital Signs 11/25/24 11/25/24 11/25/24 14:26 15:20 16:25 Pulse Rate 76 82 Respiratory 18 22 18 Rate Blood Pressure 138/69 162/78 O2 Sat by Pulse 100 93 L 96 Oximetry EKG Findings - EKG Comments: EKG Findings:: My EKG interpretation: Ventricular rate 65, sinus rhythm, MO int erval 198, QRS 102, QTc 420. No MO prolongation, no QTC prolongation, no ST or T-wave changes noted. Overall, this EKG is unremarkable Medical Decision Making - Medical Decision Making Was pt. sent in by a medical professional or institution (, PA, SCIENTIFIC DIRECTOR, urgent care, hospital, or long-term...) When possible be specific @ -No Did you speak to anyone other than the patient for history (EMS, parent, family, police, friend...)? What history was obtained from this source @ -No Did you review nursing and triage notes (agree or disagree)? Why? @ -I reviewed and agree with nursing and triage notes Were old charts reviewed (outside hosp., previous admission, EMS record, old EKG, old radiological studies, urgent care reports/EKG's, long-term records)? Report findings @ -No old charts were reviewed Differential Diagnosis (chest pain, altered mental status, abdominal pain women, abdominal pain men, vaginal bleeding, musculoskeletal, weakness, fever, dyspnea, syncope, headache, dizziness, GI bleed, back pain, seizure, CVA, palpatations, mental health)? @ -Differential Weakness: Hypoglycemia, shock, sepsis, hyponatremia, anemia, infection, AR, ETOH, adverse medicine reaction, overdose, stroke, this is not meant to be an all-inclusive list. EKG interpreted by me (3pts min.). @ -See above X-rays interpreted by me (1pt min.). @ -X-ray shows slight volume overload CT interpreted by me (1pt min.). @ -None done U/S interpreted by me (1pt. min.). @ -None done What testing was considered but not performed or refused? (CT, X-rays, U/S, labs)? Why? @ -None What meds were considered but not given or refused? Why? @ -None Was smoking cessation discussed for >3mins.? @ -No Were there social determinants of health that impacted care today? How? (Homelessness, low income, unemployed, alcoholism, drug addiction, transport ation, low edu. Level, literacy, decrease access to med. care, [place] [facility], rehab)? @ -No Was there de-escalation of care discussed even if they declined (Discuss DNR or withdrawal of care, Hospice)? DNR status @ -No What co-morbidities impacted this encounter? (DM, HTN, Smoking, COPD, CAD, Cancer, CVA, ARF, Chemo, Hep., AIDS, mental health diagnosis, sleep apnea, morbid obesity)? @ -ESRD Was patient admitted / discharged? Hospital course, mention meds given and route, prescriptions, significant lab abnormalities, going to OR and other pertinent info. @ -64-year-old female presents emergency department missed HD. Patient otherwise has no complaints. Patient slightly hypoxic on room air. Placed on nasal cannula oxygen. X-ray shows slight volume overload. Laboratory evaluation obtained. Hyperkalemia of 8.1, elevated renal markers. Case discussed with on-call instructional support assistant, Dr. Wolf who will arrange for dialysis. Case discussed with hospitalist for admission. Patient given hyperkalemia cocktail Did you discuss the management of the patient with other professionals (professionals i.e. , PA, SCIENTIFIC DIRECTOR, lab, RT, psych nurse, psych social worker, table cut off saw operator, teacher, code enforcement officer, case liner)? Give summary @ -See above Was critical care preformed (if so, how long)? @ -Yes, 33 minutes Undiagnosed new problem with uncertain prognosis? @ -No Drug Therapy requiring intensive monitoring for toxicity (Heparin, Nitro, Insulin, Cardizem)? @ -No Were any procedures done? @ -No Diagnosis/symptom? Acute, or Chronic, or Acute on Chronic? Uncomplicated (without systemic symptoms) or Complicated (systemic symptoms)? @ -Hyperkalemia and fluid overload secondary to missed HD Side effects of treatment? @ -No Exacerbation, Progression, or Severe Exacerbation? @ -No Poses a threat to life or bodily function? How? (Chest pain, USA, AR, pneumonia, PE, COPD, DKA, ARF, appy, cholecystitis, CVA, Diverticulitis, Homicidal, Suicidal, threat to staff... and all critical care pts) @ -yes - Lab Data Result diagrams: 11/25/24 15:12 11/25/24 15:12 Lab Results 11/25/24 11/25/24 11/25/24 Range/Units 15:12 15:12 16:48 WBC 10.35 H (4.50-10.00) 10*3/uL RBC 3.18 L (4.10-5.20) 10*6/uL Hgb 9.1 L (12.0-15.0) g/dL Hct 29.6 L (37.2-46.3) % MCV 93.1 (80.0-97.0) fL MCH 28.6 (27.0-32.0) pg MCHC 30.7 L (32.0-37.0) g/dL Plt Count 162 (140-440) 10*3/uL MPV 11.9 (9.5-12.2) fL Immature Gran % (Auto) 0.6 % Neutrophils % 81.9 % Lymphocytes % 8.2 % Monocytes % 6.9 % Eosinophils % 1.6 % Basophils % 0.8 % Immature Gran # 0.06 H (0.00-0.04) 10*3/uL Neutrophils # 8.48 H (1.80-7.70) 10*3/uL Lymphocytes # 0.85 L (0.90-5.00) 10*3/uL Monocytes # 0.71 (0.20-1.00) 10*3/uL Eosinophils # 0.17 (0.04-0.35) 10*3/uL Basophils # 0.08 (0.00-0.10) 10*3/uL Manual Slide Review Performed Immature Plt Fraction 2.9 (1.1-6.1) % Sodium 136 L (137-145) mmol/L Potassium 8.1 H* (3.5-5.1) mmol/L Chloride 102 (98-107) mmol/L Carbon Dioxide 14 L (22-30) mmol/L Anion Gap 20 mmol/L BUN 77 H (7-17) mg/dL Creatinine 8.23 H* (0.52-1.04) mg/dL Est GFR (CKD-EPI)AfAm 5 (>60 ml/min/1.73 sqM) Est GFR (CKD-EPI)NonAf 5 (>60 ml/min/1.73 sqM) Glucose 53 L (74-99) mg/dL POC Glucose (mg/dL) 67 L (70-110) mg/dL POC Glu Meat Pickler ID [place] Markus Calcium 8.7 (8.4-10.2) mg/dL Magnesium 3.1 H (1.6-2.3) mg/dL Total Bilirubin 1.0 (0.2-1.3) mg/dL AST 27 (14-36) U/L ALT 17 (4-34) U/L Alkaline Phosphatase 102 (38-126) U/L Total Protein 6.8 (6.3-8.2) g/dL Albumin 4.0 (3.5-5.0) g/dL Disposition Clinical Impression: Missed dialysis Disposition: ADMITTED IP TO THIS [facility] Condition: Critical Referrals: Andrez Almodovar MD [Primary Care Provider] - 1-2 days Decision Time: 16:59
[2024-11-25 15:22] LABS: Basophils # (A) 0.08 10*3/uL (0.00-0.10); Basophils % (A) 0.8 %; Eosinophils # (A) 0.17 10*3/uL (0.04-0.35); Eosinophils % (A) 1.6 %; HCT 29.6 % (37.2-46.3); HGB 9.1 g/dL (12.0-15.0); Immature Platelet Fraction 2.9 % (1.1-6.1); Lymphocytes # (A) 0.85 10*3/uL (0.90-5.00); Lymphocytes % (A) 8.2 %; MCH 28.6 pg (27.0-32.0); MCHC 30.7 g/dL (32.0-37.0); MCV 93.1 fL (80.0-97.0); Monocytes # (A) 0.71 10*3/uL (0.20-1.00); Monocytes % (A) 6.9 %; Neutrophils # (A) 8.48 10*3/uL (1.80-7.70); Neutrophils % (A) 81.9 %; Platelet Count 162 10*3/uL (140-440); RBC 3.18 10*6/uL (4.10-5.20); RDW 17.8 % (11.5-14.5); WBC 10.35 10*3/uL (4.50-10.00)
[2024-11-25 15:31] LABS: ALT 17 U/L (4-34); AST 27 U/L (14-36); African American GFR (CKD) 5 (>60 ml/min/1.73 sqM); Albumin 4.0 g/dL (3.5-5.0); Alkaline Phosphatase 102 U/L (38-126); Anion Gap 20 mmol/L; Blood Urea Nitrogen 77 mg/dL (7-17); Calcium 8.7 mg/dL (8.4-10.2); Carbon Dioxide 14 mmol/L (22-30); Chloride 102 mmol/L (98-107); Glucose 53 mg/dL (74-99); Magnesium 3.1 mg/dL (1.6-2.3); Non-African American GFR(CKD) 5 (>60 ml/min/1.73 sqM); Sodium 136 mmol/L (137-145); Total Protein 6.8 g/dL (6.3-8.2)
--- NOTE | 2024-11-25 15:38 | XR ---
EXAMINATION TYPE: XR chest 2V DATE OF EXAM: 11/25/2024 3:25 PM COMPARISON: 04/27/2024 CLINICAL INDICATION: Female, 64 years old with history of missed HD, TECHNIQUE: XR chest 2V view(s) obtained. FINDINGS: The heart size is mildly prominent. The pulmonary vasculature is somewhat prominent. Minimal increased lung markings may be present. Double-lumen catheter is present on the right with t he tips in the right atrium. IMPRESSION: 1. Correlate for early congestive heart failure or volume overload. [facility], , 11/25/2024 3:36 PM
[2024-11-25 16:32] LABS: Potassium 8.1 mmol/L (3.5-5.1)
[2024-11-25] MEDS ORDERED: NALOXONE 0.4 MG/ML 1 ML VIAL IV PRN (16:52)
[2024-11-25 16:55] LABS: Glucose,Whole Blood 67 mg/dL (70-110)
[2024-11-25] MEDS: INSULIN REGULAR 100 UNIT/ML VIAL (IV) IV ONE (17:04)
[2024-11-25] MEDS: DEXTROSE 50% SYRINGE 50 ML IVP ONE (17:05)
[2024-11-25] MEDS: SODIUM BICARB 8.4% 50 ML SYR (1 MEQ/ML) IV ONE (17:06)
[2024-11-25] MEDS: CALCIUM GLUCONATE IN NACL 1 GM in SALINE 1 100ML.BAG IVPB ONE (17:11)
[2024-11-25] MEDS: DEXTROSE 10% IN WATER 500 ML IV SCH (17:14)
[2024-11-25] MEDS: SODIUM ZIRCONIUM CYCLOSILICATE 10 GM PACKET PO ONE (17:14)
[2024-11-25] MEDS: ALBUTEROL NEB (CONC) 2.5 MG/0.5 ML INHALATION ONE (17:36)
[2024-11-25 18:37] LABS: Glucose,Whole Blood 77 mg/dL (70-110)
[2024-11-25] MEDS: DEXTROSE 50% SYRINGE 50 ML IVP STA (18:41)
[2024-11-25] MEDS: SODIUM CHLORIDE 0.9% 1,000 ML IV SCH (21:06)
[2024-11-26 00:11] LABS: Glucose,Whole Blood 80 mg/dL (70-110)
[2024-11-26 03:42] LABS: Hepatitis B Surface Antigen Nonreactive (Nonreactive)
[2024-11-26 03:55] LABS: Hepatitis B Surface AB- Quant 490.0 mIU/mL
[2024-11-26] MEDS: ACETAMINOPHEN TAB 500 MG TAB PO PRN (09:55)
[2024-11-26] MEDS: METOCLOPRAMIDE 5 MG/ML 2 ML VIAL IVP STA (09:56)
--- NOTE | 2024-11-26 10:36 | P.NPCON ---
History of Present Illness - Reason for Consult end stage renal disease - History of Present Illness Reason for consultation: End-stage renal disease History of present illness: Patient is a 64-year-old female seen in renal consultation for end-stage renal disease. Patient was seen and examined in emergency room. She is maintained on hemodialysis on Saturday schedule. Patient missed hemodialysis Saturday and Saturday. Patient states she had an appointment with orthopedic surgery on Saturday and that is why she missed dialysis. She came to the hospital due to missing multiple dialysis treatments. Patient's potassium on admission was 8.1 and improved to 5.2 postdialysis. She is requesting an extra treatment of dialysis today. She has a permacath for access. Currently on 2 L nasal cannula. Hemodynamically stable. She states she makes little urine. She does take Bumex outpatient. Chest x-ray suggestive of fluid overload. Vital signs are stable. General: No acute distress. HEENT: Head exam is unremarkable. On nasal cannula. LUNGS: No audible rhonchi or wheezes. HEART: Rate and Rhythm are regular. ABDOMEN: Nontender. EXTREMITITES: 2+ edema. Past Medical History Past Medical History: Heart Failure, COPD, CVA/TIA, Dialysis, GERD/Reflux, Hyperlipidemia, Hypertension, Osteoarthritis (OA), Skin Disorder, Syncope, Thyroid Disorder Additional Past Medical History / Comment(s): CKD, endometriosis, gastritis, carotid artery stenosis, Hemodialysis for 7.5 years, shingles-recurrent, graves disease, History of Any Multi-Drug Resistant Organisms: MRSA Date of last positivie culture/infection: unk MDRO Source:: left arm Past Surgical History: Uterine Ablation Additional Past Surgical History / Comment(s): Dialysis cath placement right subclavian, old fistula left arm- not in use, Past Anesthesia/Blood Transfusion Reactions: No Reported Reaction Past Psychological History: No Psychological Hx Reported Smoking Status: Never smoker Past Alcohol Use History: None Reported Past Drug Use History: None Reported - Past Family History Father Family Medical History: Diabetes Mellitus Mother Family Medical History: Cancer, Congestive Heart Failure (CHF) Additional Family Medical History / Comment(s): thyroid CA, Medications and Allergies Home Medications Medication Instructions Recorded Confirmed Type Albuterol Sulfate [Albuterol 2 puff INHALATION RT-QID PRN 01/21/23 11/25/24 His tory Sulfate Hfa] Atorvastatin Calcium 20 mg PO HS 01/21/23 11/25/24 History Fluticasone Nasal [place] [Flonase 2 spray EA NOSTRIL BID PRN 01/21/23 11/25/24 History Nasal [place]] Isosorbide Mononitrate ER [Imdur] 30 mg PO DAILY 01/21/23 11/25/24 History Loperamide [Imodium] 2 mg PO QID PRN 01/21/23 11/25/24 History Metoprolol Succinate (ER) [Toprol 25 mg PO BID@1200,2200 01/21/23 11/25/24 History XL] Montelukast [Singulair] 10 mg PO DAILY 01/21/23 11/25/24 History Omeprazole [PriLOSEC] 20 mg PO DAILY 01/21/23 11/25/24 History Cholecalciferol (Vitamin D3) 125 mcg PO DAILY 01/22/23 11/25/24 History [Vitamin D3 (125 MCG = 5,000 IU)] Bumetanide [BUMEX] 4 mg PO BID 04/01/23 11/25/24 History Midodrine [ProAmatine] 5 mg PO TID PRN 04/01/23 11/25/24 History Sevelamer Carbonate 2,400 mg PO TID-W/MEALS 04/01/23 11/25/24 History amLODIPine [Norvasc] 5 mg PO DAILY 04/01/23 11/25/24 History DULoxetine HCL [Cymbalta] 30 mg PO DAILY 03/18/24 11/25/24 History Dicyclomine [Bentyl] 10 mg PO TID 03/18/24 11/25/24 History Gabapentin [Neurontin] 200 mg PO BID PRN 03/18/24 11/25/24 History Sevelamer [Renvela] 1,600 mg PO DAILY PRN 03/19/24 11/25/24 History Sodium Polystyrene Sulfonate 15 gm PO DAILY 04/27/24 11/25/24 History [Kayexalate] Ascorbic Acid [Vitamin C chew] 500 mg PO DAILY 11/25/24 11/25/24 History Aspirin 81 mg PO BID 11/25/24 11/25/24 History Benzonatate [Tessalon Perles] 100 mg PO TID PRN 11/25/24 11/25/24 History Cetirizine HCl 10 mg PO DAILY 11/25/24 11/25/24 History Cranberry Fruit Extract [Cranberry] 500 mg PO BID 11/25/24 11/25/24 History Vitamin B Complex 1 cap PO DAILY 11/25/24 11/25/24 History Vitamin E 670mg 670 mg PO DAILY 11/25/24 11/25/24 History Zinc Gluconate [Zinc] 50 mg PO DAILY 11/25/24 11/25/24 History Allergies Allergy/AdvReac Type Severity Reaction Status Date / Time erythromycin base Allergy Rash/Hives Verified 11/25/24 19:05 furosemide [From Lasix] Allergy Unknown Verified 11/25/24 19:05 green tea Allergy Unknown Verified 11/25/24 19:05 Penicillins Allergy Rash/Hives Verified 11/25/24 19:05 Sulfa (Sulfonamide Allergy Anaphylaxis Verified 11/25/24 19:05 Antibiotics) sulfacetamide Allergy Unknown Verified 11/25/24 19:05 Physical Exam Vitals: Vital Signs Temp Pulse Pulse Resp BP BP Pulse Ox 11/26/24 08:10 91 20 132/70 95 11/26/24 06:22 89 16 138/67 95 11/26/24 05:00 70 18 141/76 97 11/26/24 03:25 90 16 131/86 98 11/26/24 01:44 85 16 126/71 99 11/26/24 00:02 80 18 120/58 97 11/25/24 23:48 97.2 F L 75 18 139/70 11/25/24 21:20 75 18 116/59 98 11/25/24 18:07 98.1 F 92 20 140/66 99 11/25/24 17:51 76 11/25/24 17:37 72 11/25/24 16:25 82 18 162/78 96 11/25/24 15:20 22 93 L 11/25/24 14:26 76 18 138/69 100 Intake and Output 11/25/24 11/26/24 11/26/24 22:59 06:59 14:59 Intake Total 400 Output Total 3600 Balance -3200 Intake: Hemodialysis 400 Output: Hemodialysis 2000 Hemodialysis Net Amount 1600 Results - Lab Results Most recent lab results Calcium 8.7 mg/dL (8.4-10.2) 11/25/24 15:12 Magnesium 3.1 mg/dL (1.6-2.3) H 11/25/24 15:12 11/25/24 15:12 11/25/24 20:52 Assessment and Plan Plan: Assessment: 1. End-stage renal disease maintained on hemodialysis on Saturday schedule via permacath. 2. Hyperkalemia secondary to chronic kidney disease and missed dialysis treatments. 3. Chronic kidney disease mineral bone disease. 4. Anemia of chronic kidney disease. 5. Metabolic acidosis secondary to chronic kidney disease. Plan: Extra treatment of hemodialysis today and another treatment tomorrow per her outpatient schedule. Renal diet. Check phosphorus level. Check iron studies. Stressed compliance with hemodialysis treatments outpatient. Life-threatening effects of noncompliance have been discussed with the patient multiple times. Thank you for the consultation. I will continue to follow the patient with you during her hospital stay.
--- NOTE | 2024-11-26 11:02 | P.CONS ---
History of Present Illness - Reason for Consult Consult date: 11/26/24 wound care - History of Present Illness This is a 64-year-old patient being seen in the ER for nonhealing ulcerations to bilateral lower extremities. Patient states that she follows with [facility] weekly for wound treatment. Patient does not know what type of dressings that are applied to her legs. She does state that they do wrap them for her. Patient has history of hemodialysis, CHF, COPD, CVA and venous insufficiency. Patient has a nonpressure ulceration to the right anterior and posterior lower extremity measuring approximately 4 x 6 x 0.1 cm with significant amount of slough and nonviable tissue present. Minimal granulation seen no tunneling or undermining noted wound edges are attached to the wound base. The periwound does show scaling and irritation. Left lower extremity has multiple open ulcerations anterior and posterior the largest measuring approximately 3 x 5 x 0.2 Centimeters with slough and nonviable tissue present. Minimal granulation noted no tunneling or undermining noted. Wound edges are attached to the wound base. The lower extremity periwound shows excoriation and irritation. Patient has moderate serous drainage from all open ulcerations. Review Of Systems: Constitutional: No fever, no chills, no night sweats. No weight change. No weakness, fatigue or lethargy. No daytime sleepiness. Integumentary:reports wounds, no lesions. No rash or pruritus. No unusual bruising. No change in hair or nails. Physical exam: General Appearance: Alert, cooperative, no distress, appears stated age. Skin: See HPI all other Skin color, texture, tugor normal, no rashes or lesions. Neurologic: Alert oriented x3 Assessment: 1. Nonhealing ulceration other parts of right lower extremity with fat layer exposed 2. Nonpressure ulceration other site of left lower extremity with fat layer exposed 3. Chronic venous insufficiency with inflammation and ulceration bilateral lower extremities 4. Hemodialysis Plan: 1. Apply absorptive silver dry to open ulcerations ABDs wrap with rolled gauze and secure with tape. Wrap with John wrap in a [id number] configuration for compression elevate legs 3 times a day over the heart for 30 minutes. Do not sit with legs dependent. Patient to continue to see [facility] for treatment upon discharge. Thank you for the consultation any questions please contact the wound care center DNP note has been reviewed and discussed with Dr. Zamora and the impression and plan of care has been directed as dictated. Past Medical History Past Medical History: Heart Failure, COPD, CVA/TIA, Dialysis, GERD/Reflux, Hyperlipidemia, Hypertension, Osteoarthritis (OA), Skin Disorder, Syncope, Thyroid Disorder Additional Past Medical History / Comment(s): CKD, endometriosis, gastritis, carotid artery stenosis, Hemodialysis for 7.5 years, shingles-recurrent, graves disease, History of Any Multi-Drug Resistant Organisms: MRSA Year Discovered:: unk MDRO Source:: left arm Past Surgical History: Uterine Ablation Additional Past Surgical History / Comment(s): Dialysis cath placement right subclavian, old fistula left arm- not in use, Past Anesthesia/Blood Transfusion Reactions: No Reported Reaction Past Psychological History: No Psychological Hx Reported Smoking Status: Never smoker Past Alcohol Use History: None Reported Past Drug Use History: None Reported - Past Family History Father Family Medical History: Diabetes Mellitus Mother Family Medical History: Cancer, Congestive Heart Failure (CHF) Additional Family Medical History / Comment(s): thyroid CA, Medications and Allergies Home Medications Medication Instructions Recorded Confirmed Type Albuterol Sulfate [Albuterol 2 puff INHALATION RT-QID PRN 01/21/23 11/25/24 History Sulfate Hfa] Atorvastatin Calcium 20 mg PO HS 01/21/23 11/25/24 History Fluticasone Nasal [place] [Flonase 2 spray EA NOSTRIL BID PRN 01/21/23 11/25/24 History Nasal [place]] Isosorbide Mononitrate ER [Imdur] 30 mg PO DAILY 01/21/23 11/25/24 History Loperamide [Imodium] 2 mg PO QID PRN 01/21/23 11/25/24 History Metoprolol Succinate (ER) [Toprol 25 mg PO BID@1200,2200 01/21/23 11/25/24 History XL] Montelukast [Singulair] 10 mg PO DAILY 01/21/23 11/25/24 History Omeprazole [PriLOSEC] 20 mg PO DAILY 01/21/23 11/25/24 History Cholecalciferol (Vitamin D3) 125 mcg PO DAILY 01/22/23 11/25/24 History [Vitamin D3 (125 MCG = 5,000 IU)] Bumetanide [BUMEX] 4 mg PO BID 04/01/23 11/25/24 History Midodrine [ProAmatine] 5 mg PO TID PRN 04/01/23 11/25/24 History Sevelamer Carbonate 2,400 mg PO TID-W/MEALS 04/01/23 11/25/24 History amLODIPine [Norvasc] 5 mg PO DAILY 04/01/23 11/25/24 History DULoxetine HCL [Cymbalta] 30 mg PO DAILY 03/18/24 11/25/24 History Dicyclomine [Bentyl] 10 mg PO TID 03/18/24 11/25/24 History Gabapentin [Neurontin] 200 mg PO BID PRN 03/18/24 11/25/24 History Sevelamer [Renvela] 1,600 mg PO DAILY PRN 03/19/24 11/25/24 History Sodium Polystyrene Sulfonate 15 gm PO DAILY 04/27/24 11/25/24 History [Kayexalate] Ascorbic Acid [Vitamin C chew] 500 mg PO DAILY 11/25/24 11/25/24 History Aspirin 81 mg PO BID 11/25/24 11/25/24 History Benzonatate [Tessalon Perles] 100 mg PO TID PRN 11/25/24 11/25/24 History Cetirizine HCl 10 mg PO DAILY 11/25/24 11/25/24 History Cranberry Fruit Extract [Cranberry] 500 mg PO BID 11/25/24 11/25/24 History Vitamin B Complex 1 cap PO DAILY 11/25/24 11/25/24 History Vitamin E 670mg 670 mg PO DAILY 11/25/24 11/25/24 History Zinc Gluconate [Zinc] 50 mg PO DAILY 11/25/24 11/25/24 History Allergies Allergy/AdvReac Type Severity Reaction Status Date / Time erythromycin base Allergy Rash/Hives Verified 11/25/24 19:05 furosemide [From Lasix] Allergy Unknown Verified 11/25/24 19:05 green tea Allergy Unknown Verified 11/25/24 19:05 Penicillins Allergy Rash/Hives Verified 11/25/24 19:05 Sulfa (Sulfonamide Allergy Anaphylaxis Verified 11/25/24 19:05 Antibiotics) sulfacetamide Allergy Unknown Verified 11/25/24 19:05 Physical Exam Vitals: Vital Signs Temp Pulse Pulse Resp BP BP Pulse Ox 11/26/24 08:10 91 20 132/70 95 11/26/24 06:22 89 16 138/67 95 11/26/24 05:00 70 18 141/76 97 11/26/24 03:25 90 16 131/86 98 11/26/24 01:44 85 16 126/71 99 11/26/24 00:02 80 18 120/58 97 11/25/24 23:48 97.2 F L 75 18 139/70 11/25/24 21:20 75 18 116/59 98 11/25/24 18:07 98.1 F 92 20 140/66 99 11/25/24 17:51 76 11/25/24 17:37 72 11/25/24 16:25 82 18 162/78 96 11/25/24 15:20 22 93 L 11/25/24 14:26 76 18 138/69 100 Intake and Output 11/25/24 11/26/24 11/26/24 22:59 06:59 14:59 Intake Total 400 Output Total 3600 Balance -3200 Intake: Hemodialysis 400 Output: Hemodialysis 2000 Hemodialysis Net Amount 1600 Results CBC & Chem 7: 11/25/24 15:12 11/25/24 20:52 Labs: Abnormal Lab Results - Last 24 Hours (Table) 11/25/24 11/25/24 11/25/24 Range/Units 15:12 15:12 16:48 WBC 10.35 H (4.50-10.00) 10*3/uL RBC 3.18 L (4.10-5.20) 10*6/uL Hgb 9.1 L (12.0-15.0) g/dL Hct 29.6 L (37.2-46.3) % MCHC 30.7 L (32.0-37.0) g/dL Immature Gran # 0.06 H (0.00-0.04) 10*3/uL Neutrophils # 8.48 H (1.80-7.70) 10*3/uL Lymphocytes # 0.85 L (0.90-5.00) 10*3/uL Sodium 136 L (137-145) mmol/L Potassium 8.1 H* (3.5-5.1) mmol/L Carbon Dioxide 14 L (22-30) mmol/L BUN 77 H (7-17) mg/dL Creatinine 8.23 H* (0.52-1.04) mg/dL Glucose 53 L (74-99) mg/dL POC Glucose (mg/dL) 67 L (70-110) mg/dL Magnesium 3.1 H (1.6-2.3) mg/dL Hep Bs Antibody (Negative) 11/25/24 11/25/24 Range/Units 20:52 20:52 WBC (4.50-10.00) 10*3/uL RBC (4.10-5.20) 10*6/uL Hgb (12.0-15.0) g/dL Hct (37.2-46.3) % MCHC (32.0-37.0) g/dL Immature Gran # (0.00-0.04) 10*3/uL Neutrophils # (1.80-7.70) 10*3/uL Lymphocytes # (0.90-5.00) 10*3/uL Sodium (137-145) mmol/L Potassium 5.2 H (3.5-5.1) mmol/L Carbon Dioxide (22-30) mmol/L BUN (7-17) mg/dL Creatinine (0.52-1.04) mg/dL Glucose (74-99) mg/dL POC Glucose (mg/dL) (70-110) mg/dL Magnesium (1.6-2.3) mg/dL Hep Bs Antibody A (Negative) Assessment and Plan (1) Non-pressure chronic ulcer of other part of left lower leg with fat layer exposed Current Visit: Yes Status: Acute Code(s): L97.822 - NON-PRS CHRONIC ULCER OTH PRT L LOW LEG W FAT LAYER EXPOSED SNOMED Code(s): 41108094810337615 (2) Non-pressure chronic ulcer of other part of right lower leg with fat layer exposed Current Visit: Yes Status: Acute Code(s): L97.812 - NON-PRS CHRONIC ULCER OTH PRT R LOW LEG W FAT LAYER EXPOSED SNOMED Code(s): 49562968324998757 (3) Chronic venous hypertension with ulcer and inflammation involving both sides Current Visit: Yes Status: Acute Code(s): I87.333 - CHRONIC VENOUS HTN W ULCER AND INFLAM OF BILATERAL LOW EXTRM SNOMED Code(s): 663592025
[2024-11-26 13:02] LABS: Glucose,Whole Blood 102 mg/dL (70-110)
[2024-11-26] MEDS ORDERED: MIDODRINE 5 MG TAB PO PRN (18:16)
[2024-11-26] MEDS ORDERED: LOPERAMIDE 2 MG CAP PO PRN (18:16)
[2024-11-26] MEDS ORDERED: SEVELAMER 800 MG TAB PO PRN (18:16)
[2024-11-26 18:33] LABS: Glucose,Whole Blood 114 mg/dL (70-110)
[2024-11-26] MEDS: ONDANSETRON 4 MG/2 ML VIAL IVP PRN (18:39)
[2024-11-26] MEDS: MONTELUKAST 10 MG TAB PO SCH (18:48)
[2024-11-26] MEDS: DICYCLOMINE 10 MG CAP PO SCH (18:48)
[2024-11-26] MEDS: ISOSORBIDE MONONITRATE ER 30 MG TAB.ER.24H PO SCH (18:48)
[2024-11-26] MEDS: SEVELAMER 800 MG TAB PO SCH (18:48)
[2024-11-26] MEDS: PANTOPRAZOLE 40 MG TABLET PO SCH (18:48)
[2024-11-26] MEDS: amLODIPine 5 MG TAB PO SCH (18:48)
[2024-11-26] MEDS: ASCORBIC ACID 500 MG TAB PO SCH (19:08)
--- NOTE | 2024-11-26 19:42 | P.HPIM ---
History of Present Illness H&P Date: 11/25/24 Chief Complaint: Short of breath [id number] patient, follows with Dr. Kali Almodovar. known end-stage kidney disease on hemodialysis Saturday and Saturday. Chronic medical conditions include mineral bone disease, anemia of chronic kidney disease, severe osteoarthritis with chronic pain, uses a walker Patient missed a course of hemodialysis on Saturday and Saturday. She said she had appointment with orthopedic doctor. But orthopedic doctor was out of town. She became more short of breath. Decided to call 911. Denies any fever and chills. Nephrology was called from the ER. Patient will be getting dialyzed. Has some nausea. Decreased appetite. Edema. Patient does use a rollator Review of systems: GEN.: Tired decreased appetite EYES: [None] HEENT: [None] NECK: [None] RESPIRATORY: [None] CARDIOVASCULAR: [None] GASTROINTESTINAL: [Some nausea] GENITOURINARY: [None] MUSCULOSKELETAL: [Joint pains] LYMPHATICS: [None] HEMATOLOGICAL: [None] PSYCHIATRY: [None] NEUROLOGICAL: Does use a rollator] Social history: Lives alone. Her niece checks in on from Saturday through Saturday. Does have a rollator. Denies alcohol history of smoking Past medical history to include: Chronic kidney disease minimal bone disease, anemia of chronic kidney disease, gastritis, carotid artery stenosis, end-stage kidney disease on hemodialysis Saturday t and Saturday COPD, osteoarthritis Physical examination: VITAL SIGNS: 76, 18, 138 x 39, 86% room GENERAL: Sitting up in bed a bit short of breath tired. Right upper chest wall dialysis catheter EYES: [Bilateral proptosis, pupils equal. Conjunctiva pale . HEENT: External appearance of nose and ears normal, oral cavity grossly normal. Scanty scalp hair NECK: JVD unable to assess; masses not palpable. HEART: First and second heart sounds are normal; edema present LUNGS: Respiratory rate increased; decreased breath sounds. ABDOMEN: Soft, nontender, liver spleen not palpable, no masses palpable. PSYCH: Able to answer simple questions. A bit anxious MUSCULOSKELETAL:No Clubbing/cyanosis;muscles-grossly intact. OA, and several joints, kyphotic Neurological: Cranial nerves grossly intact. Power sensation grossly intact INVESTIGATIONS, reviewed in the clinical context: November 25, 2024: White count 10.3 hemoglobin 9.1 platelets 162 sodium 136 potassium 8.1 BUN 37 creatinine 8.23 EKG tracing personally reviewed by me-normal sinus rhythm. Some prominent T waves Chest x-ray film personally reviewed by me-cardiomegaly. Prominent vasculature Assessment and plan: - Acute pulmonary edema secondary to missed hemodialysis Patient will be getting hemodialysis today - Acute hypoxic respiratory failure from pulmonary edema Supplemental oxygen. Hemodialysis -End-stage kidney disease on hemodialysis Saturday and Saturday Patient missed dialysis on Saturday and today. Nephrology consulted for dialysis . Right subclavian dialysis access -Chronic kidney disease minimal bone disease Sevelamer -Anemia of chronic kidney disease. Follow labs -Gastritis PPI -Essential hypertension with end-stage kidney disease Amlodipine , Toprol XL -Hyperlipidemia Lipitor -Carotid artery stenosis: Moderate approaching severe stenosis right internal carotid artery 69%. 50-69% left internal carotid artery. Follows with Dr. Cassidy Aspirin. Lipitor. -Peripheral neuropathy Neurontin -Primary osteoarthritis, multiple joints Pain medications as needed -COPD, Symbicort. Albuterol when necessary. Singulair -Chronic hypoxic respiratory failure underlying COPD Has home oxygen - Chronic medical debility. Does use a rollator at baseline -Full code Care was discussed with the patient. Given the complexity and severity of patient's condition expect the patient to be in the hospital at least for 2 overnights Past Medical History Past Medical History: Heart Failure, COPD, CVA/TIA, Dialysis, GERD/Reflux, Hyperlipidemia, Hypertension, Osteoarthritis (OA), Skin Disorder, Syncope, Thyroid Disorder Additional Past Medical History / Comment(s): CKD, endometriosis, gastritis, carotid artery stenosis, Hemodialysis for 7.5 years, shingles-recurrent, graves disease, History of Any Multi-Drug Resistant Organisms: MRSA Date of last positivie culture/infection: unk MDRO Source:: left arm Past Surgical History: Uterine Ablation Additional Past Surgical History / Comment(s): Dialysis cath placement right subclavian, old fistula left arm- not in use, Past Anesthesia/Blood Transfusion Reactions: No Reported Reaction Past Psychological History: No Psychological Hx Reported Smoking Status: Never smoker Past Alcohol Use History: None Reported Past Drug Use History: None Reported - Past Family History Father Family Medical History: Diabetes Mellitus Mother Family Medical History: Cancer, Congestive Heart Failure (CHF) Additional Family Medical History / Comment(s): thyroid CA, Medications and Allergies Home Medications Medication Instructions Recorded Confirmed Type Albuterol Sulfate [Albuterol 2 puff INHALATION RT-QID PRN 01/21/23 11/25/24 History Sulfate Hfa] Atorvastatin Calcium 20 mg PO HS 01/21/23 11/25/24 History Fluticasone Nasal [place] [Flonase 2 spray EA NOSTRIL BID PRN 01/21/23 11/25/24 History Nasal [place]] Isosorbide Mononitrate ER [Imdur] 30 mg PO DAILY 01/21/23 11/25/24 History Loperamide [Imodium] 2 mg PO QID PRN 01/21/23 11/25/24 History Metoprolol Succinate (ER) [Toprol 25 mg PO BID@1200,2200 01/21/23 11/25/24 History XL] Montelukast [Singulair] 10 mg PO DAILY 01/21/23 11/25/24 History Omeprazole [PriLOSEC] 20 mg PO DAILY 01/21/23 11/25/24 History Cholecalciferol (Vitamin D3) 125 mcg PO DAILY 01/22/23 11/25/24 History [Vitamin D3 (125 MCG = 5,000 IU)] Bumetanide [BUMEX] 4 mg PO BID 04/01/23 11/25/24 History Midodrine [ProAmatine] 5 mg PO TID PRN 04/01/23 11/25/24 History Sevelamer Carbonate 2,400 mg PO TID-W/MEALS 04/01/23 11/25/24 History amLODIPine [Norvasc] 5 mg PO DAILY 04/01/23 11/25/24 History DULoxetine HCL [Cymbalta] 30 mg PO DAILY 03/18/24 11/25/24 History Dicyclomine [Bentyl] 10 mg PO TID 03/18/24 11/25/24 History Gabapentin [Neurontin] 200 mg PO BID PRN 03/18/24 11/25/24 History Sevelamer [Renvela] 1,600 mg PO DAILY PRN 03/19/24 11/25/24 History Sodium Polystyrene Sulfonate 15 gm PO DAILY 04/27/24 11/25/24 History [Kayexalate] Ascorbic Acid [Vitamin C chew] 500 mg PO DAILY 11/25/24 11/25/24 History Aspirin 81 mg PO BID 11/25/24 11/25/24 History Benzonatate [Tessalon Perles] 100 mg PO TID PRN 11/25/24 11/25/24 History Cetirizine HCl 10 mg PO DAILY 11/25/24 11/25/24 History Cranberry Fruit Extract [Cranberry] 500 mg PO BID 11/25/24 11/25/24 History Vitamin B Complex 1 cap PO DAILY 11/25/24 11/25/24 History Vitamin E 670mg 670 mg PO DAILY 11/25/24 11/25/24 History Zinc Gluconate [Zinc] 50 mg PO DAILY 11/25/24 11/25/24 History Allergies Allergy/AdvReac Type Severity Reaction Status Date / Time erythromycin base Allergy Rash/Hives Verified 11/25/24 19:05 furosemide [From Lasix] Allergy Unknown Verified 11/25/24 19:05 green tea Allergy Unknown Verified 11/25/24 19:05 Penicillins Allergy Rash/Hives Verified 11/25/24 19:05 Sulfa (Sulfonamide Allergy Anaphylaxis Verified 11/25/24 19:05 Antibiotics) sulfacetamide Allergy Unknown Verified 11/25/24 19:05 Physical Exam Vitals: Vital Signs Temp Pulse Resp BP Pulse Ox 11/25/24 18:07 98.1 F 92 20 140/66 99 11/25/24 17:51 76 11/25/24 17:37 72 11/25/24 16:25 82 18 162/78 96 11/25/24 15:20 22 93 L 11/25/24 14:26 76 18 138/69 100 Intake and Output 11/25/24 11/25/24 11/25/24 06:59 14:59 22:59 Other: Weight 76 kg Results CBC & Chem 7: 11/25/24 15:12 11/25/24 20:52 Labs: Abnormal Lab Results - Last 24 Hours (Table) 11/25/24 11/25/24 11/25/24 Range/Units 15:12 15:12 16:48 WBC 10.35 H (4.50-10.00) 10*3/uL RBC 3.18 L (4.10-5.20) 10*6/uL Hgb 9.1 L (12.0-15.0) g/dL Hct 29.6 L (37.2-46.3) % MCHC 30.7 L (32.0-37.0) g/dL Immature Gran # 0.06 H (0.00-0.04) 10*3/uL Neutrophils # 8.48 H (1.80-7.70) 10*3/uL Lymphocytes # 0.85 L (0.90-5.00) 10*3/uL Sodium 136 L (137-145) mmol/L Potassium 8.1 H* (3.5-5.1) mmol/L Carbon Dioxide 14 L (22-30) mmol/L BUN 77 H (7-17) mg/dL Creatinine 8.23 H* (0.52-1.04) mg/dL Glucose 53 L (74-99) mg/dL POC Glucose (mg/dL) 67 L (70-110) mg/dL Magnesium 3.1 H (1.6-2.3) mg/dL
--- NOTE | 2024-11-26 19:46 | P.PN ---
Progress Note - Text Progress Note Date: 11/26/24 Chief Complaint: Short of breath [id number] patient, follows with Dr. Kali Almodovar. known end-stage kidney disease on hemodialysis Saturday and Saturday. Chronic medical conditions include mineral bone disease, anemia of chronic kidney disease, severe osteoarthritis with chronic pain, uses a walker Patient missed a course of hemodialysis on Saturday and Saturday. She said she had appointment with orthopedic doctor. But orthopedic doctor was out of town. She became more short of breath. Decided to call 911. Denies any fever and chills. Nephrology was called from the ER. Patient will be getting dialyzed. Has some nausea. Decreased appetite. Edema. Patient does use a rollator November 26: Patient mated with fluid overload from having missed hemodialysis. Had hemodialysis done in the ER yesterday 2 L removed. This afternoon again 2 more liters being removed. Patient did eat some. Followed by nephrology. Plan is for another 2 more liters removed tomorrow. Some shortness of breath still present. Active Medications Acetaminophen (Acetaminophen Tab 500 Mg Tab) 500 mg PO Q6HR PRN PRN Reason: Fever and/ or Pain Last Admin: 11/26/24 09:55 Dose: 500 mg Albuterol Sulfate (Albuterol Nebulized 2.5 Mg/3 Ml) 2.5 mg INHALATION RT-QID PRN PRN Reason: Shortness Of Breath Amlodipine Besylate (Amlodipine 5 Mg Tab) 5 mg PO DAILY [facility] Last Admin: 11/26/24 18:48 Dose: 5 mg Ascorbic Acid (Ascorbic Acid 500 Mg Tab) 500 mg PO DAILY [facility] Last Admin: 11/26/24 19:08 Dose: 500 mg Aspirin (Aspirin 81 Mg) 81 mg PO BID [facility] Atorvastatin Calcium (Atorvastatin 20 Mg Tab) 20 mg PO HS [facility] Benzonatate (Benzonatate 100 Mg Cap) 100 mg PO TID PRN PRN Reason: Cough Bumetanide (Bumetanide 1 Mg Tab) 4 mg PO BID [facility] Cholecalciferol (Cholecalciferol 125 Mcg (5000 Iu) Tablet) 125 mcg PO DAILY [facility] Dicyclomine HCl (Dicyclomine 10 Mg Cap) 10 mg PO TID [facility] Last Admin: 11/26/24 18:48 Dose: 10 mg Duloxetine HCl (Duloxetine Hcl 30 Mg Capsule.) 30 mg PO DAILY [facility] Last Admin: 11/26/24 18:48 Dose: 30 mg Gabapentin (Gabapentin 100 Mg Cap) 200 mg PO BID PRN PRN Reason: Pain Dextrose/Water (Dextrose 10%-Water Iv Soln) 500 mls @ 50 mls/hr IV .Q10H [facility] Last Admin: 11/26/24 16:17 Dose: 50 mls/hr Sodium Chloride (Saline 0.9%) 1,000 mls @ 20 mls/hr IV .Q24H [facility] Last Admin: 11/26/24 18:26 Dose: Not Given Isosorbide Mononitrate (Isosorbide Mononitrate Er 30 Mg Tab.Er.24h) 30 mg PO DAILY [facility] Last Admin: 11/26/24 18:48 Dose: 30 mg Loperamide HCl (Loperamide 2 Mg Cap) 2 mg PO QID PRN PRN Reason: Diarrhea Loratadine (Loratadine 10 Mg Tab) 10 mg PO DAILY [facility] Metoprolol Succinate (Metoprolol Succinate (Er) 25 Mg Tab.Er.24h) 25 mg PO BID@1200,2200 [facility] Midodrine (Midodrine 5 Mg Tab) 5 mg PO TID PRN PRN Reason: SBP<100 Montelukast Sodium (Montelukast 10 Mg Tab) 10 mg PO DAILY [facility] Last Admin: 11/26/24 18:48 Dose: 10 mg Naloxone HCl (Naloxone 0.4 Mg/Ml 1 Ml Vial) 0.2 mg IV Q2M PRN PRN Reason: Opioid Reversal Non-Formulary Medication (Vitamin B Complex [Vitamin B Complex]) 1 cap PO DAILY [facility] Ondansetron HCl (Ondansetron 4 Mg/2 Ml Vial) 4 mg IVP Q8HR PRN PRN Reason: Nausea And Vomiting Last Admin: 11/26/24 18:39 Dose: 4 mg Pantoprazole Sodium (Pantoprazole 40 Mg Tablet) 40 mg PO DAILY [facility] Last Admin: 11/26/24 18:48 Dose: 40 mg Sevelamer Carbonate (Sevelamer 800 Mg Tab) 2,400 mg PO TID-W/MEALS [facility] Last Admin: 11/26/24 18:48 Dose: 2,400 mg Sevelamer Carbonate (Sevelamer 800 Mg Tab) 1,600 mg PO DAILY PRN PRN Reason: WITH SNACKS Sodium Polystyrene Sulfonate (Sodium Polystyrene Sulfonate 15 Gm/60 Ml Bottle) 15 gm PO DAILY [facility] Social history: Lives alone. Her niece checks in on from Saturday through Saturday. Does have a rollator. Denies alcohol history of smoking Past medical history to include: Chronic kidney disease minimal bone disease, anemia of chronic kidney disease, gastritis, carotid artery stenosis, end-stage kidney disease on hemodialysis Saturday t and Saturday COPD, osteoarthritis Physical examination: VITAL SIGNS: 97.6, 82, 18, 136 x 73, 96% on 3 L GENERAL: Reclining bed, but short of breath. Right upper chest wall dialysis catheter EYES: [Bilateral proptosis, pupils equal. Conjunctiva pale . HEENT: External appearance of nose and ears normal, oral cavity grossly normal. Scanty scalp hair NECK: JVD unable to assess; masses not palpable. HEART: First and second heart sounds are normal; edema present LUNGS: Respiratory rate increased; decreased breath sounds. ABDOMEN: Soft, nontender, liver spleen not palpable, no masses palpable. PSYCH: Able to answer simple questions. Tired MUSCULOSKELETAL:No Clubbing/cyanosis;muscles-grossly intact. OA, and several joints, kyphotic Neurological: Cranial nerves grossly intact. Power sensation grossly intact INVESTIGATIONS, reviewed in the clinical context: Phosphorus 5.6 November 25, 2024: White count 10.3 hemoglobin 9.1 platelets 162 sodium 136 potassium 8.1 BUN 37 creatinine 8.23 EKG tracing personally reviewed by me-normal sinus rhythm. Some prominent T waves Chest x-ray film personally reviewed by me-cardiomegaly. Prominent vasculature Assessment and plan: - Acute pulmonary edema secondary to missed hemodialysis: Slow to respond Hemodialysis yesterday 2 L removed. 2 L being removed today. Another hemodialysis scheduled tomorrow - Acute hypoxic respiratory failure from pulmonary edema Supplemental oxygen. Hemodialysis -End-stage kidney disease on hemodialysis Saturday and Saturday Patient missed dialysis on Saturday and today. Nephrology following . Right subclavian dialysis access -Chronic kidney disease minimal bone disease Sevelamer -Anemia of chronic kidney disease. Follow labs -Gastritis PPI -Essential hypertension with end-stage kidney disease Amlodipine , Toprol XL -Hyperlipidemia Lipitor -Carotid artery stenosis: Moderate approaching severe stenosis right internal carotid artery 69%. 50-69% left internal carotid artery. Follows with Dr. Cassidy Aspirin. Lipitor. -Peripheral neuropathy Neurontin -Primary osteoarthritis, multiple joints Pain medications as needed -COPD, Symbicort. Albuterol when necessary. Singulair -Chronic hypoxic respiratory failure underlying COPD Has home oxygen - Chronic medical debility. Does use a rollator at baseline -Full code Hemodialysis today and tomorrow. 2D echo Past Medical History Past Medical History: Heart Failure, COPD, CVA/TIA, Dialysis, GERD/Reflux, Hyperlipidemia, Hypertension, Osteoarthritis (OA), Skin Disorder, Syncope, Thyroid Disorder Additional Past Medical History / Comment(s): CKD, endometriosis, gastritis, carotid artery stenosis, Hemodialysis for 7.5 years, shingles-recurrent, graves disease, History of Any Multi-Drug Resistant Organisms: MRSA Date of last positivie culture/infection: unk MDRO Source:: left arm Past Surgical History: Uterine Ablation Additional Past Surgical History / Comment(s): Dialysis cath placement right subclavian, old fistula left arm- not in use, Past Anesthesia/Blood Transfusion Reactions: No Reported Reaction Past Psychological History: No Psychological Hx Reported Smoking Status: Never smoker Past Alcohol Use History: None Reported Past Drug Use History: None Reported
[2024-11-26 19:52] LABS: Iron 50.0 UG/DL (50-170); Total Iron Binding Capacity 182.0 UG/DL (228-460)
[2024-11-26 20:00] LABS: Glucose,Whole Blood 114 mg/dL (70-110)
[2024-11-26 20:21] LABS: Ferritin 2412.0 ng/mL (10.0-291.0)
[2024-11-26] MEDS: BUMETANIDE 1 MG TAB PO SCH (21:17)
[2024-11-26] MEDS: ATORVASTATIN 20 MG TAB PO SCH (21:17)
[2024-11-26] MEDS: ASPIRIN 81 MG PO SCH (21:17)
[2024-11-26] MEDS: METOPROLOL SUCCINATE (ER) 25 MG TAB.ER.24H PO SCH (21:18)
[2024-11-26] MEDS: SODIUM POLYSTYRENE SULFONATE 15 GM/60 ML BOTTLE PO SCH (21:33)
[2024-11-26] MEDS: GABAPENTIN 100 MG CAP PO PRN (23:49)
[2024-11-27 04:12] LABS: Glucose,Whole Blood 124 mg/dL (70-110)
[2024-11-27 06:00] LABS: Glucose,Whole Blood 110 mg/dL (70-110)
[2024-11-27] MEDS ORDERED: LORATADINE 10 MG TAB PO SCH (09:00)
--- NOTE | 2024-11-27 10:21 | P.PN ---
Subjective Patient is seen in follow-up for end-stage renal disease. She is maintained on hemodialysis on Saturday schedule. Tolerating dialysis well. Hemodynamically stable. Complains of sinus congestion. Vital signs are stable. General: No acute distress. HEENT: Head exam is unremarkable. LUNGS: No audible rhonchi or wheezes. HEART: Rate and Rhythm are regular. ABDOMEN: Nontender. EXTREMITITES: 1+ edema. Objective - Vital Signs Vital signs: Vital Signs Temp 98.3 F 11/27/24 08:10 Pulse 81 11/27/24 08:10 Resp 16 11/27/24 08:10 BP 119/72 11/27/24 08:10 Pulse Ox 95 11/27/24 08:48 FiO2 Intake & Output 11/26/24 11/27/24 11/27/24 18:59 06:59 18:59 Intake Total 510 707 Output Total 4500 Balance -3990 707 Weight 69.5 kg Intake: IV 10 20 Invasive Line 1 10 20 Oral 687 Hemodialysis 500 Output: Hemodialysis 2500 Hemodialysis Net Amount 2000 Other: Voiding Method External Catheter External Catheter # Bowel Movements 0 - Labs CBC & Chem 7: 11/25/24 15:12 11/25/24 20:52 Labs: Abnormal Lab Results - Last 24 Hours (Table) 11/26/24 11/26/24 11/26/24 Range/Units 10:45 18:31 19:58 POC Glucose (mg/dL) 114 H 114 H (70-110) mg/dL Phosphorus 5.6 H (2.5-4.5) mg/dL TIBC 182 L (228-460) UG/DL Transferrin 130.0 L (204.0-354.0) mg/dL Ferritin 2412.0 H (10.0-291.0) ng/mL 11/27/24 Range/Units 04:11 POC Glucose (mg/dL) 124 H (70-110) mg/dL Phosphorus (2.5-4.5) mg/dL TIBC (228-460) UG/DL Transferrin (204.0-354.0) mg/dL Ferritin (10.0-291.0) ng/mL Assessment and Plan Plan: Assessment: 1. End-stage renal disease maintained on hemodialysis on Saturday riday schedule via permacath. 2. Hyperkalemia secondary to chronic kidney disease and missed dialysis treatments. Improved postdialysis. 3. Chronic kidney disease mineral bone disease. Phosphorus level 5.6 this admission. On Renvela. 4. Anemia of chronic kidney disease. Iron replete. 5. Metabolic acidosis secondary to chronic kidney disease. Expect improvement postdialysis. Plan: Currently seen while undergoing hemodialysis. Renal diet. CESAR outpatient. Stressed compliance with hemodialysis treatments outpatient. Life-threatening effects of noncompliance have been discussed with the patient multiple times.
[2024-11-27] MEDS: CHOLECALCIFEROL 125 MCG (5000 IU) TABLET PO SCH (13:24)
[2024-11-27] MEDS: NON FORMULARY DRUG (Vitamin B Complex [Vitamin B Complex] 1 EACH Capsule) PO SCH (13:42)
--- NOTE | 2024-11-27 14:41 | CDI ---
Documentation Clarification Form Date: 11/27/2024 02:25:24 PM From: Shanda Wong RN CCDS Phone: [phone] Admit Date: 11/25/2024 04:53:00 PM Patient Name: Lissa Gomez Visit Number: [id number] Discharge Date: ATTENTION: The Clinical Documentation Specialists (CDI) and [facility] Coding Staff appreciate your assistance in clarifying documentation. Please respond to the clarification below the line at the bottom and electronically sign. The CDI & [facility] Coding staff will review the response and follow-up if needed. Please note: Queries are made part of the Legal Health Record. If you have any questions, please contact the author of this message via ITS. Doctor: Monroe Morocho Your patient has the documented diagnosis of unspecified CHF 11/25, HP. Additional information regarding the type, acuity of CHF is requested. History/Risk Factors: 64 year old female presents to the ED after missing a course of hemodialysis. Medical History: ESRD Hemodialysis Mon, Wed, Sat, and anemia of chronic disease. 11/25, HP. Clinical Indicators: VS/Pulse OX, 11/25: B/P 139/69, HR 76, RR 18, SpO2 100% ra Echocardiogram Results:01/24/2023: EF 50-55% Normal LV fcn, Moderate mitral regurgitation Chest X Ray: 11/25 Correlate for early congestive heart failure or volume overload Treatment: 11/25 Lokelma po x 1, 11/26 Bumex po bid, 11/26 Toprol Xl po bid, In your professional opinion, can you please clarify the acuity and type of CHF if known? [ ] Chronic Systolic Heart Failure (reduced EF) [ ] Chronic Diastolic Heart Failure (preserved EF) [ ] Chronic Systolic & Diastolic Heart Failure [+] Other, please specify___, 2D echocardiogram pending, [ ] Unable to determine (Template Last Revised: July 2020) MTDD
[2024-11-27] MEDS: MECLIZINE 12.5 MG TAB PO SCH (16:00)
[2024-11-27 16:32] LABS: Glucose,Whole Blood 116 mg/dL (70-110)
--- NOTE | 2024-11-27 17:58 | P.PN ---
Progress Note - Text Progress Note Date: 11/27/24 Chief Complaint: Short of breath [id number] patient, follows with Dr. Kali Almodovar. known end-stage kidney disease on hemodialysis Saturday and Saturday. Chronic medical conditions include mineral bone disease, anemia of chronic kidney disease, severe osteoarthritis with chronic pain, uses a walker Patient missed a course of hemodialysis on Saturday and Saturday. She said she had appointment with orthopedic doctor. But orthopedic doctor was out of town. She became more short of breath. Decided to call 911. Denies any fever and chills. Nephrology was called from the ER. Patient will be getting dialyzed. Has some nausea. Decreased appetite. Edema. Patient does use a rollator November 26: Patient mated with fluid overload from having missed hemodialysis. Had hemodialysis done in the ER yesterday 2 L removed. This afternoon again 2 more liters being removed. Patient did eat some. Followed by nephrology. Plan is for another 2 more liters removed tomorrow. Some shortness of breath still present. November 27: Underwent hemodialysis today. Complaining of dizziness. Tingling in the ears and's throat irritation. Patient be placed on Antivert. Eating some. Patient apparently has been noncompliant because of social issues. Change her diet to a chopped diet. Active Medications Acetaminophen (Acetaminophen Tab 500 Mg Tab) 500 mg PO Q6HR PRN PRN Reason: Fever and/ or Pain Last Admin: 11/27/24 13:33 Dose: 500 mg Albuterol Sulfate (Albuterol Nebulized 2.5 Mg/3 Ml) 2.5 mg INHALATION RT-QID PRN PRN Reason: Shortness Of Breath Amlodipine Besylate (Amlodipine 5 Mg Tab) 5 mg PO DAILY [facility] Last Admin: 11/27/24 13:25 Dose: 5 mg Ascorbic Acid (Ascorbic Acid 500 Mg Tab) 500 mg PO DAILY [facility] Last Admin: 11/27/24 13:25 Dose: 500 mg Aspirin (Aspirin 81 Mg) 81 mg PO BID [facility] Last Admin: 11/27/24 13:24 Dose: 81 mg Atorvastatin Calcium (Atorvastatin 20 Mg Tab) 20 mg PO HS [facility] Last Admin: 11/26/24 21:17 Dose: 20 mg Benzonatate (Benzonatate 100 Mg Cap) 100 mg PO TID PRN PRN Reason: Cough Bumetanide (Bumetanide 1 Mg Tab) 4 mg PO BID [facility] Last Admin: 11/27/24 13:24 Dose: 4 mg Cholecalciferol (Cholecalciferol 125 Mcg (5000 Iu) Tablet) 125 mcg PO DAILY [facility] Last Admin: 11/27/24 13:24 Dose: 125 mcg Dicyclomine HCl (Dicyclomine 10 Mg Cap) 10 mg PO TID [facility] Last Admin: 11/27/24 16:00 Dose: 10 mg Duloxetine HCl (Duloxetine Hcl 30 Mg Capsule.Dr) 30 mg PO DAILY [facility] Last Admin: 11/27/24 13:25 Dose: 30 mg Gabapentin (Gabapentin 100 Mg Cap) 200 mg PO BID PRN PRN Reason: Pain Last Admin: 11/27/24 13:33 Dose: 200 mg Sodium Chloride (Saline 0.9%) 1,000 mls @ 20 mls/hr IV .Q24H [facility] Last Admin: 11/27/24 16:00 Dose: Not Given Isosorbide Mononitrate (Isosorbide Mononitrate Er 30 Mg Tab.Er.24h) 30 mg PO DAILY [facility] Last Admin: 11/27/24 13:24 Dose: 30 mg Loperamide HCl (Loperamide 2 Mg Cap) 2 mg PO QID PRN PRN Reason: Diarrhea Meclizine HCl (Meclizine 12.5 Mg Tab) 12.5 mg PO TID [facility] Last Admin: 11/27/24 16:00 Dose: 12.5 mg Metoprolol Succinate (Metoprolol Succinate (Er) 25 Mg Tab.Er.24h) 25 mg PO BID@1200,2200 [facility] Last Admin: 11/27/24 13:25 Dose: 25 mg Midodrine (Midodrine 5 Mg Tab) 5 mg PO TID PRN PRN Reason: SBP<100 Montelukast Sodium (Montelukast 10 Mg Tab) 10 mg PO DAILY [facility] Last Admin: 11/27/24 13:24 Dose: 10 mg Naloxone HCl (Naloxone 0.4 Mg/Ml 1 Ml Vial) 0.2 mg IV Q2M PRN PRN Reason: Opioid Reversal Non-Formulary Medication (Vitamin B Complex [Vitamin B Complex]) 1 cap PO DAILY [facility] Last Admin: 11/27/24 13:42 Dose: Not Given Ondansetron HCl (Ondansetron 4 Mg/2 Ml Vial) 4 mg IVP Q8HR PRN PRN Reason: Nausea And Vomiting Last Admin: 11/26/24 18:39 Dose: 4 mg Pantoprazole Sodium (Pantoprazole 40 Mg Tablet) 40 mg PO DAILY [facility] Last Admin: 11/27/24 13:24 Dose: 40 mg Sevelamer Carbonate (Sevelamer 800 Mg Tab) 2,400 mg PO TID-W/MEALS [facility] Last Admin: 11/27/24 16:50 Dose: 2,400 mg Sevelamer Carbonate (Sevelamer 800 Mg Tab) 1,600 mg PO DAILY PRN PRN Reason: WITH SNACKS Sodium Polystyrene Sulfonate (Sodium Polystyrene Sulfonate 15 Gm/60 Ml Bottle) 15 gm PO DAILY [facility] Last Admin: 11/27/24 13:25 Dose: 15 gm Social history: Lives alone. Her niece checks in on from Saturday through Saturday. Does have a rollator. Denies alcohol history of smoking Past medical history to include: Chronic kidney disease minimal bone disease, anemia of chronic kidney disease, gastritis, carotid artery stenosis, end-stage kidney disease on hemodialysis Saturday t and Saturday COPD, osteoarthritis Physical examination: VITAL SIGNS: 97.4, 72, 18, 123 x 71, 96% 2 L GENERAL: Reclining bed, tired sleepy. Right upper chest wall dialysis catheter EYES: [Bilateral proptosis, pupils equal. Conjunctiva pale . HEENT: External appearance of nose and ears normal, oral cavity grossly normal. Scanty scalp hair NECK: JVD unable to assess; masses not palpable. HEART: First and second heart sounds are normal; edema present LUNGS: Respiratory rate increased; decreased breath sounds. ABDOMEN: Soft, nontender, liver spleen not palpable, no masses palpable. PSYCH: Will wake up to answer questions. But then doses of. Tired MUSCULOSKELETAL:No Clubbing/cyanosis;muscles-grossly intact. OA, and several joints, kyphotic Neurological: Cranial nerves grossly intact. Power sensation grossly intact INVESTIGATIONS, reviewed in the clinical context: Phosphorus 5.6 November 25, 2024: White count 10.3 hemoglobin 9.1 platelets 162 sodium 136 potassium 8.1 BUN 37 creatinine 8.23 EKG tracing personally reviewed by me-normal sinus rhythm. Some prominent T waves Chest x-ray film personally reviewed by me-cardiomegaly. Prominent vasculature Assessment and plan: - Acute pulmonary edema secondary to missed hemodialysis: Improving Hemodialysis initially 2 L removed. 2 L being removed yesterday. Hemodialyzed again today - Acute hypoxic respiratory failure from pulmonary edema: Much better Supplemental oxygen. Currently on 2 L hemodialysis -End-stage kidney disease on hemodialysis Saturday and Saturday Patient missed dialysis on Saturday and Saturday Nephrology following . Right subclavian dialysis access -Chronic kidney disease minimal bone disease Sevelamer -Anemia of chronic kidney disease. Follow labs -Gastritis PPI -Essential hypertension with end-stage kidney disease Amlodipine , Toprol XL -Hyperlipidemia Lipitor -Carotid artery stenosis: Moderate approaching severe stenosis right internal carotid artery 69%. 50-69% left internal carotid artery. Follows with Dr. Cassidy Aspirin. Lipitor. -Peripheral neuropathy Neurontin -Primary osteoarthritis, multiple joints Pain medications as needed -COPD, Symbicort. Albuterol when necessary. Singulair -Chronic hypoxic respiratory failure underlying COPD Has home oxygen - Chronic medical debility. Does use a rollator at baseline -Full code For dizziness Antivert has been added. Also has antihistaminic. Diet has been changed to soft. Follow-up prognosis guarded Past Medical History Past Medical History: Heart Failure, COPD, CVA/TIA, Dialysis, GERD/Reflux, Hyperlipidemia, Hypertension, Osteoarthritis (OA), Skin Disorder, Syncope, Thyroid Disorder Additional Past Medical History / Comment(s): CKD, endometriosis, gastritis, carotid artery stenosis, Hemodialysis for 7.5 years, shingles-recurrent, graves disease, History of Any Multi-Drug Resistant Organisms: MRSA Date of last positivie culture/infection: unk MDRO Source:: left arm Past Surgical History: Uterine Ablation Additional Past Surgical History / Comment(s): Dialysis cath placement right subclavian, old fistula left arm- not in use, Past Anesthesia/Blood Transfusion Reactions: No Reported Reaction Past Psychological History: No Psychological Hx Reported Smoking Status: Never smoker Past Alcohol Use History: None Reported Past Drug Use History: None Reported
[2024-11-28] MEDS: BENZOCAINE/MENTHOL LOZENG 1 EACH LOZENGE MUCOUS MEM PRN (08:37)
--- NOTE | 2024-11-28 10:11 | P.PN ---
Subjective Patient is seen in follow-up for end-stage renal disease. She is maintained on hemodialysis on Saturday schedule. Tolerated 2.5 L u ltrafiltration yesterday. Hemodynamically stable. Complains of sinus congestion. Vital signs are stable. General: No acute distress. HEENT: Head exam is unremarkable. LUNGS: No audible rhonchi or wheezes. HEART: Rate and Rhythm are regular. ABDOMEN: Nontender. EXTREMITITES: 1+ edema. Objective - Vital Signs Vital signs: Vital Signs Temp 98.1 F 11/28/24 08:06 Pulse 72 11/28/24 08:06 Resp 18 11/28/24 08:06 BP 131/72 11/28/24 08:06 Pulse Ox 95 11/28/24 08:06 FiO2 Intake & Output 11/27/24 11/28/24 11/28/24 18:59 06:59 18:59 Intake Total 500 160 Output Total 5500 250 Balance -5000 -250 160 Weight 69.5 kg 70 kg Intake: IV 10 Invasive Line 1 10 Oral 150 Hemodialysis 500 Output: Urine 250 Hemodialysis 3000 Hemodialysis Net Amount 2500 Other: Voiding Method External Catheter Bedside Commode # Bowel Movements 0 1 - Labs CBC & Chem 7: 11/25/24 15:12 11/25/24 20:52 Labs: Abnormal Lab Results - Last 24 Hours (Table) 11/27/24 Range/Units 16:29 POC Glucose (mg/dL) 116 H (70-110) mg/dL Assessment and Plan Plan: Assessment: 1. End-stage renal disease maintained on hemodialysis on Saturday schedule via permacath. 2. Hyperkalemia secondary to chronic kidney disease and missed dialysis treatments. Improved postdialysis. 3. Chronic kidney disease mineral bone disease. Phosphorus level 5.6 this admission. On Renvela. 4. Anemia of chronic kidney disease. Iron replete. 5. Metabolic acidosis secondary to chronic kidney disease. Expect improvement postdialysis. Plan: Hemodialysis Saturday. Renal diet. CESAR outpatient. Stressed compliance with hemodialysis treatments outpatient. Life-threatening effects of noncompliance have been discussed with the patient multiple times.
[2024-11-28] MEDS: IPRATROPIUM-ALBUTEROL 3 ML NEB INHALATION PRN (15:57)
[2024-11-28] MEDS: FLUTICASONE NASAL 50MCG/SPRAY 16GM BTL EA NOSTRIL SCH (16:31)
[2024-11-28 17:46] LABS: RSV Not Detected (Not Detectd)
[2024-11-29 08:11] LABS: HCT 29.9 % (37.2-46.3); HGB 9.0 g/dL (12.0-15.0); MCH 28.2 pg (27.0-32.0); MCHC 30.1 g/dL (32.0-37.0); MCV 93.7 fL (80.0-97.0); Platelet Count 220 10*3/uL (140-440); RBC 3.19 10*6/uL (4.10-5.20); RDW 16.2 % (11.5-14.5); WBC 9.48 10*3/uL (4.50-10.00)
[2024-11-29 08:31] LABS: African American GFR (CKD) 13 (>60 ml/min/1.73 sqM); Anion Gap 11 mmol/L; Blood Urea Nitrogen 26 mg/dL (7-17); Calcium 8.8 mg/dL (8.4-10.2); Carbon Dioxide 33 mmol/L (22-30); Chloride 89 mmol/L (98-107); Glucose 98 mg/dL (74-99); Non-African American GFR(CKD) 11 (>60 ml/min/1.73 sqM); Potassium 3.7 mmol/L (3.5-5.1); Sodium 133 mmol/L (137-145)
[2024-11-29 09:25] LABS: ABG HCO3 34 mmol/L (21-25); ABG PCO2 56 mmHg (35-45); ABG PH 7.39 (7.35-7.45); ABG TCO2 36 mmol/L (19-24)
[2024-11-29 09:31] LABS: ABG PO2 55 mmHg (83-108); Allen Test Performed? yes
--- NOTE | 2024-11-29 11:03 | P.PN ---
Subjective Patient is seen in follow-up for end-stage renal disease. She is maintained on hemodialysis on Saturday schedule. Resting in bed. No active complaints. Vital signs are stable. General: No acute distress. HEENT: Head exam is unremarkable. LUNGS: No audible rhonchi or wheezes. HEART: Rate and Rhythm are regular. ABDOMEN: Nontender. EXTREMITITES: 1+ edema. Objective - Vital Signs Vital signs: Vital Signs Temp 97.6 F 11/29/24 08:34 Pulse 72 11/29/24 08:34 Resp 20 11/29/24 08:34 BP 149/80 11/29/24 08:34 Pulse Ox 95 11/29/24 08:34 FiO2 Intake & Output 11/28/24 11/29/24 11/29/24 18:59 06:59 18:59 Intake Total 490 360 128 Balance 490 360 128 Intake: IV 10 10 Invasive Line 1 10 10 Oral 480 360 118 Other: Voiding Method Bedside Commode Bedside Commode Bedside Commode # Voids 0 1 # Bowel Movements 1 - Labs CBC & Chem 7: 11/29/24 07:47 11/29/24 07:47 Labs: Abnormal Lab Results - Last 24 Hours (Table) 11/29/24 11/29/24 11/29/24 Range/Units 07:47 07:47 09:18 RBC 3.19 L (4.10-5.20) 10*6/uL Hgb 9.0 L (12.0-15.0) g/dL Hct 29.9 L (37.2-46.3) % MCHC 30.1 L (32.0-37.0) g/dL ABG pCO2 56 H (35-45) mmHg ABG pO2 55 L* (83-108) mmHg ABG HCO3 34 H (21-25) mmol/L ABG Total CO2 36 H (19-24) mmol/L ABG O2 Saturation 88.2 L (94-97) % Hemoglobin 8.7 L (11.4-16.0) gm/dL Sodium 133 L (137-145) mmol/L Chloride 89 L (98-107) mmol/L Carbon Dioxide 33 H (22-30) mmol/L BUN 26 H (7-17) mg/dL Creatinine 4.06 H (0.52-1.04) mg/dL Assessment and Plan Plan: Assessment: 1. End-stage renal disease maintained on hemodialysis on Saturday schedule via permacath. 2. Hyperkalemia secondary to chronic kidney disease and missed dialysis treatments. Improved postdialysis. 3. Chronic kidney disease mineral bone disease. Phosphorus level 5.6 this admission. On Renvela. 4. Anemia of chronic kidney disease. Iron replete. 5. Metabolic acidosis secondary to chronic kidney disease. Expect improvement postdialysis. Plan: Hemodialysis Saturday. Renal diet. Add Aranesp. Stressed compliance with hemodialysis treatments outpatient. Life-threatening effects of noncompliance have been discussed with the patient multiple times.
[2024-11-29 11:44] LABS: Glucose,Whole Blood 119 mg/dL (70-110)
--- NOTE | 2024-11-29 12:34 | XR ---
EXAMINATION TYPE: XR chest 1V DATE OF EXAM: 11/29/2024 COMPARISON: 04/27/2024 CLINICAL INDICATION: Female, 64 years old with history of CHF; TECHNIQUE: Single frontal view of the chest is obtained. FINDINGS: There is no change in the position of the dialysis catheter. There are small patchy opacities in the left retrocardiac region which could represent pneumonia or e katiana. There is no pleural effusion or pneumothorax. The heart is mildly prominent in size. Interstitial markings are mildly prominent but unchanged master red to the prior study. IMPRESSION: 1. Mild cardiomegaly. 2. Persistent mild interstitial prominence which could be chronic in nature and is unchanged compared to prior study. 3. development of a few small patchy opacities in the retrocardiac region which could represent pulmo nary edema or pneumonia. [facility], , 11/29/2024 12:31 PM
[2024-11-29] MEDS: DARBEPOETIN ALFA 40 MCG/0.4 ML SYRINGE SQ SCH (12:45)
--- NOTE | 2024-11-29 15:38 | P.PN ---
Subjective Progress Note Date: 11/28/24 [id number] patient, follows with Dr. Kali Almodovar. known end-stage kidney disease on hemodialysis Saturday and Saturday. Chronic medical conditions include mineral bone disease, anemia of chronic kidney disease, severe osteoarthritis with chronic pain, uses a walker Patient missed a course of hemodialysis on Saturday and Saturday. She said she had appointment with orthopedic doctor. But orthopedic doctor was out of town. She became more short of breath. Decided to call 911. Denies any fever and chills. Nephrology was called from the ER. Patient will be getting dialyzed. Has some nausea. Decreased appetite. Edema. Patient does use a rollator November 26: Patient mated with fluid overload from having missed hemodialysis. Had hemodialysis done in the ER yesterday 2 L removed. This afternoon again 2 more liters being removed. Patient did eat some. Followed by nephrology. Plan is for another 2 more liters removed tomorrow. Some shortness of breath still present. November 27: Underwent hemodialysis today. Complaining of dizziness. Tingling in the ears and's throat irritation. Patient be placed on Antivert. Eating some. Patient apparently has been noncompliant because of social issues. Change her diet to a chopped diet. 11/28/2024 Patient is lying in bed. Awake alert and oriented. Complains of itching in the eyes and also tingling sensation in the throat. No fever no chills. No complaints of chest pain or worsening Shortness of breath . Patient is on 2 L oxygen via nasal cannula. No new laboratory data today. Nephrology is on board. Hemodialysis as per schedule. Social history: Lives alone. Her niece checks in on from Saturday through Saturday. Does have a rollator. Denies alcohol history of smoking Past medical history to include: Chronic kidney disease minimal bone disease, anemia of chronic kidney disease, gastritis, carotid artery stenosis, end-stage kidney disease on hemodialysis Saturday t and Saturday COPD, osteoarthritis Physical examination: VITAL SIGNS: 97.4, 72, 18, 123 x 71, 96% 2 L GENERAL: Reclining bed, tired sleepy. Right upper chest wall dialysis catheter EYES: [Bilateral proptosis, pupils equal. Conjunctiva pale . HEENT: External appearance of nose and ears normal, oral cavity grossly normal. Scanty scalp hair NECK: JVD unable to assess; masses not palpable. HEART: First and second heart sounds are normal; edema present LUNGS: Respiratory rate increased; decreased breath sounds. ABDOMEN: Soft, nontender, liver spleen not palpable, no masses palpable. PSYCH: Will wake up to answer questions. But then doses of. Tired MUSCULOSKELETAL:No Clubbing/cyanosis;muscles-grossly intact. OA, and several joints, kyphotic Neurological: Cranial nerves grossly intact. Power sensation grossly intact Assessment and plan: - Acute pulmonary edema secondary to missed hemodialysis: Improving Hemodialysis initially 2 L removed. 2 L being removed yesterday. Hemodialyzed again today - Acute hypoxic respiratory failure from pulmonary edema: Improving Supplemental oxygen. Currently on 2 L hemodialysis -End-stage kidney disease on hemodialysis Saturday and Saturday Patient missed dialysis on Saturday and Saturday Nephrology following . Right subclavian dialysis access -Chronic kidney disease minimal bone disease Sevelamer -Anemia of chronic kidney disease. Follow labs -Gastritis PPI -Essential hypertension with end-stage kidney disease Amlodipine , Toprol XL -Hyperlipidemia Lipitor -Carotid artery stenosis: Moderate approaching severe stenosis right internal carotid artery 69%. 50-69% left internal carotid artery. Follows with Dr. Cassidy Aspirin. Lipitor. -Peripheral neuropathy Neurontin -Primary osteoarthritis, multiple joints Pain medications as needed -COPD, Symbicort. Albuterol when necessary. Singulair -Chronic hypoxic respiratory failure underlying COPD Has home oxygen - Chronic medical debility. Does use a rollator at baseline -Full code Prognosis is guarded. Objective - Vital Signs Vital signs: Vital Signs Temp 98.1 F 11/28/24 12:12 Pulse 67 11/28/24 12:12 Resp 18 11/28/24 12:12 BP 131/72 11/28/24 12:12 Pulse Ox 94 L 11/28/24 12:12 FiO2 Intake & Output 11/27/24 11/28/24 11/28/24 18:59 06:59 18:59 Intake Total 500 250 Output Total 5500 250 Balance -5000 -250 250 Weight 69.5 kg 70 kg Intake: IV 10 Invasive Line 1 10 Oral 240 Hemodialysis 500 Output: Urine 250 Hemodialysis 3000 Hemodialysis Net Amount 2500 Other: Voiding Method External Catheter Bedside Commode # Voids 0 # Bowel Movements 0 1 - Labs CBC & Chem 7: 11/29/24 07:47 11/29/24 07:47 Labs: Abnormal Lab Results - Last 24 Hours (Table) 11/27/24 Range/Units 16:29 POC Glucose (mg/dL) 116 H (70-110) mg/dL
--- NOTE | 2024-11-29 15:48 | P.PN ---
Subjective Progress Note Date: 11/29/24 [id number] patient, follows with Dr. Kali Almodovar. known end-stage kidney disease on hemodialysis Saturday and Saturday. Chronic medical conditions include mineral bone disease, anemia of chronic kidney disease, severe osteoarthritis with chronic pain, uses a walker Patient missed a course of hemodialysis on Saturday and Saturday. She said she had appointment with orthopedic doctor. But orthopedic doctor was out of town. She became more short of breath. Decided to call 911. Denies any fever and chills. Nephrology was called from the ER. Patient will be getting dialyzed. Has some nausea. Decreased appetite. Edema. Patient does use a rollator November 26: Patient mated with fluid overload from having missed hemodialysis. Had hemodialysis done in the ER yesterday 2 L removed. This afternoon again 2 more liters being removed. Patient did eat some. Followed by nephrology. Plan is for another 2 more liters removed tomorrow. Some shortness of breath still present. November 27: Underwent hemodialysis today. Complaining of dizziness. Tingling in the ears and's throat irritation. Patient be placed on Antivert. Eating some. Patient apparently has been noncompliant because of social issues. Change her diet to a chopped diet. 11/28/2024 Patient is lying in bed. Awake alert and oriented. Complains of itching in the eyes and also tingling sensation in the throat. No fever no chills. No complaints of chest pain or worsening Shortness of breath . Patient is on 2 L oxygen via nasal cannula. No new laboratory data today. Nephrology is on board. Hemodialysis as per schedule. 11/29/2024 Patient is awake and alert and arousable with verbal stimuli. Was lethargic this morning. Oxygen requirement increased to 4 L via nasal cannula. Patient has been afebrile. No complaints of chest pain or worsening shortness of breath. ABG showed pH 7.39 [id number] and PO255 Lab data showed WBC 9.4 hemoglobin 9.0 and platelets 220, sodium 133 potassium 3.7 chloride 89 bicarb is 33 BUN 26 and creatinine 4.06 and blood sugar 98. Repeat chest x-ray done today showed mild cardiomegaly, persistent mild interstitial prominence which could be chronic in nature and is unchanged. Development of a few small patchy opacities in the retrocardiac region which could represent pulmonary edema or pneumonia. Patient is more awake and alert. Able to eat by herself at lunchtime. Social history: Lives alone. Her niece checks in on from Saturday through Saturday. Does have a rollator. Denies alcohol history of smoking Past medical history to include: Chronic kidney disease minimal bone disease, anemia of chronic kidney disease, gastritis, carotid artery stenosis, end-stage kidney disease on hemodialysis Saturday t and Saturday COPD, osteoarthritis Physical examination: VITAL SIGNS: 97.4, 72, 18, 123 x 71, 96% 2 L GENERAL: Reclining bed, tired sleepy. Right upper chest wall dialysis catheter EYES: [Bilateral proptosis, pupils equal. Conjunctiva pale . HEENT: External appearance of nose and ears normal, oral cavity grossly normal. Scanty scalp hair NECK: JVD unable to assess; masses not palpable. HEART: First and second heart sounds are normal; edema present LUNGS: Respiratory rate increased; decreased breath sounds. ABDOMEN: Soft, nontender, liver spleen not palpable, no masses palpable. PSYCH: Will wake up to answer questions. But then doses of. Tired MUSCULOSKELETAL:No Clubbing/cyanosis;muscles-grossly intact. OA, and several joints, kyphotic Neurological: Cranial nerves grossly intact. Power sensation grossly intact Assessment and plan: - Acute pulmonary edema secondary to missed hemodialysis: Improving Hemodialysis initially 2 L removed. Hemodialysis was scheduled Saturday and Saturday. - Acute hypoxic respiratory failure from pulmonary edema: Improving Supplemental oxygen. Currently on 2 L via nasal cannula. Increased to 4 L. Repeat chest x-ray showed patchy retrocardiac infiltrates. Procalcitonin level was ordered. Encourage incentive spirometry. -End-stage kidney disease on hemodialysis Saturday and Saturday Patient missed dialysis on Saturday and Saturday Nephrology following . Right subclavian dialysis access -Chronic kidney disease minimal bone disease Sevelamer -Anemia of chronic kidney disease. Follow labs -Gastritis PPI -Essential hypertension with end-stage kidney disease Amlodipine , Toprol XL -Hyperlipidemia Lipitor -Carotid artery stenosis: Moderate approaching severe stenosis right internal carotid artery 69%. 50-69% left internal carotid artery. Follows with Dr. Cassidy Aspirin. Lipitor. -Peripheral neuropathy Neurontin -Primary osteoarthritis, multiple joints Pain medications as needed -COPD, Symbicort. Albuterol when necessary. Singulair -Chronic hypoxic respiratory failure underlying COPD Has home oxygen - Chronic medical debility. Does use a rollator at baseline -Full code Prognosis is guarded. Objective - Vital Signs Vital signs: Vital Signs Temp 98.6 F 11/29/24 11:55 Pulse 71 11/29/24 11:55 Resp 14 11/29/24 11:55 BP 129/79 11/29/24 11:55 Pulse Ox 96 11/29/24 11:55 FiO2 Intake & Output 11/28/24 11/29/24 11/29/24 18:59 06:59 18:59 Intake Total 490 360 128 Balance 490 360 128 Intake: IV 10 10 Invasive Line 1 10 10 Oral 480 360 118 Other: Voiding Method Bedside Commode Bedside Commode Bedside Commode # Voids 0 1 # Bowel Movements 1 - Labs CBC & Chem 7: 11/29/24 07:47 11/29/24 07:47 Labs: Abnormal Lab Results - Last 24 Hours (Table) 11/29/24 11/29/24 11/29/24 Range/Units 07:47 07:47 09:18 RBC 3.19 L (4.10-5.20) 10*6/uL Hgb 9.0 L (12.0-15.0) g/dL Hct 29.9 L (37.2-46.3) % MCHC 30.1 L (32.0-37.0) g/dL ABG pCO2 56 H (35-45) mmHg ABG pO2 55 L* (83-108) mmHg ABG HCO3 34 H (21-25) mmol/L ABG Total CO2 36 H (19-24) mmol/L ABG O2 Saturation 88.2 L (94-97) % Hemoglobin 8.7 L (11.4-16.0) gm/dL Sodium 133 L (137-145) mmol/L Chloride 89 L (98-107) mmol/L Carbon Dioxide 33 H (22-30) mmol/L BUN 26 H (7-17) mg/dL Creatinine 4.06 H (0.52-1.04) mg/dL POC Glucose (mg/dL) (70-110) mg/dL 11/29/24 Range/Units 11:42 RBC (4.10-5.20) 10*6/uL Hgb (12.0-15.0) g/dL Hct (37.2-46.3) % MCHC (32.0-37.0) g/dL ABG pCO2 (35-45) mmHg ABG pO2 (83-108) mmHg ABG HCO3 (21-25) mmol/L ABG Total CO2 (19-24) mmol/L ABG O2 Saturation (94-97) % Hemoglobin (11.4-16.0) gm/dL Sodium (137-145) mmol/L Chloride (98-107) mmol/L Carbon Dioxide (22-30) mmol/L BUN (7-17) mg/dL Creatinine (0.52-1.04) mg/dL POC Glucose (mg/dL) 119 H (70-110) mg/dL
[2024-11-29] MEDS: ALBUTEROL NEBULIZED 2.5 MG/3 ML INHALATION PRN (21:23)
[2024-11-30] MEDS: BENZONATATE 100 MG CAP PO PRN (01:45)
[2024-11-30 08:53] LABS: African American GFR (CKD) 9 (>60 ml/min/1.73 sqM); Anion Gap 9 mmol/L; Blood Urea Nitrogen 41 mg/dL (7-17); Calcium 8.7 mg/dL (8.4-10.2); Carbon Dioxide 34 mmol/L (22-30); Chloride 91 mmol/L (98-107); Glucose 113 mg/dL (74-99); Non-African American GFR(CKD) 7 (>60 ml/min/1.73 sqM); Potassium 3.7 mmol/L (3.5-5.1); Sodium 134 mmol/L (137-145)
--- NOTE | 2024-11-30 15:42 | P.PN ---
Subjective Progress Note Date: 11/30/24 Pleasant 64-year-old patient, follows with Dr. Kali Almodovar. known end-stage kidney disease on hemodialysis Saturday and Saturday. Chronic medical conditions include mineral bone disease, anemia of chronic kidney disease, severe osteoarthritis with chronic pain, uses a walker Patient missed a course of hemodialysis on Saturday and Saturday. She said she had appointment with orthopedic doctor. But orthopedic doctor was out of town. She became more short of breath. Decided to call 911. Denies any fever and chills. Nephrology was called from the ER. Patient will be getting dialyzed. Has some nausea. Decreased appetite. Edema. Patient does use a rollator November 26: Patient mated with fluid overload from having missed hemodialysis. Had hemodialysis done in the ER yesterday 2 L removed. This afternoon again 2 more liters being removed. Patient did eat some. Followed by nephrology. Plan is for another 2 more liters removed tomorrow. Some shortness of breath still present. November 27: Underwent hemodialysis today. Complaining of dizziness. Tingling in the ears and's throat irritation. Patient be placed on Antivert. Eating some. Patient apparently has been noncompliant because of social issues. Change her diet to a chopped diet. 11/28/2024 Patient is lying in bed. Awake alert and oriented. Complains of itching in the eyes and also tingling sensation in the throat. No fever no chills. No complaints of chest pain or worsening Shortness of breath Patient is on 2 L oxygen via nasal cannula. No new laboratory data today. Nephrology is on board. Hemodialysis as per schedule. 11/29/2024 Patient is awake and alert and arousable with verbal stimuli. Was lethargic this morning. Oxygen requirement increased to 4 L via nasal cannula. Patient has been afebrile. No complaints of chest pain or worsening shortness of breath. ABG showed pH 7.39 [id number] and PO255 Lab data showed WBC 9.4 hemoglobin 9.0 and platelets 220, sodium 133 potassium 3.7 chloride 89 bicarb is 33 BUN 26 and creatinine 4.06 and blood sugar 98. Repeat chest x-ray done today showed mild cardiomegaly, persistent mild interstitial prominence which could be chronic in nature and is unchanged. Development of a few small patchy opacities in the retrocardiac region which could represent pulmonary edema or pneumonia. Patient is more awake and alert. Able to eat by herself at lunchtime. 11/30/2024 Patient evaluated today in follow up on the medical floor. Resting comfortably and currently undergoing hemodialysis. Patient concerned as she has not gotten out of bed over the weekend and she uses the bus for transportation and does need to be able to ambulate to get to her outpatient hemodialysis sessions. PT has evaluated the patient and recommending [facility] which social work is working on an accepting facility. Review of Systems Constitutional: Denied any fatigue denied any fever. Cardio vascular: denied any chest pain, palpitations Gastrointestinal: denied any nausea, vomiting, diarrhea Pulmonary: Denied any shortness of breath cough Neurologic denied any new focal deficits All inpatient medications were reviewed and appropriate changes in these medications as dictated in the interval history and assessment and plan. PHYSICAL EXAMINATION: GENERAL: The patient is alert and oriented x3, not in any acute distress. Well developed, well nourished. HEENT: Pupils are round and equally reacting to light. EOMI. No scleral icterus. No conjunctival pallor. Normocephalic, atraumatic. No pharyngeal erythema. No thyromegaly. CARDIOVASCULAR: S1 and S2 present. No murmurs, rubs, or gallops. PULMONARY: Chest is clear to auscultation, no wheezing or crackles. ABDOMEN: Soft, nontender, nondistended, normoactive bowel sounds. No palpable organomegaly. MUSCULOSKELETAL: No joint swelling or deformity. EXTREMITIES: No cyanosis, clubbing, or pedal edema. NEUROLOGICAL: Gross neurological examination did not reveal any focal deficits. SKIN: No rashes. Assessment -Acute pulmonary edema secondary to missed hemodialysis: Improving -Acute hypoxic respiratory failure from pulmonary edema: Improving -End-stage kidney disease on hemodialysis Saturday and Saturday; Right subclavian dialysis access -Chronic kidney disease minimal bone disease -Anemia of chronic kidney disease. -Gastritis -Essential hypertension with end-stage kidney disease -Hyperlipidemia -Carotid artery stenosis: Moderate approaching severe stenosis right internal carotid artery 69%. 50-69% left internal carotid artery. -Peripheral neuropathy -Primary osteoarthritis, multiple joints -COPD, -Chronic hypoxic respiratory failure underlying COPD -Chronic medical debility. Does use a rollator at baseline -Full code Plan Hemodialysis MWF Continue oral bumex Continue aranesp Continue renvela PT/OT consultation Social work on for discharge planning and PT recommending [facility] on discharge The impression and plan of care has been dictated by Henny Wei Nurse Practitioner as directed. Dr. Maynor MD I have performed a history and physical examination and medical decision making of this patient, discussed the same with the dictator, and agree with the dictators assessment and plan as written, documented as a scribe. Based on total visit time, I have performed more than 50% of this visit. Objective - Vital Signs Vital signs: Vital Signs Temp 98.2 F 11/30/24 12:19 Pulse 68 11/30/24 12:19 Resp 14 11/30/24 12:19 BP 113/67 11/30/24 13:18 Pulse Ox 97 11/30/24 12:19 FiO2 Intake & Output 11/29/24 11/30/24 11/30/24 18:59 06:59 18:59 Intake Total 678 257 128 Output Total 0 Balance 678 257 128 Weight 70.6 kg Intake: IV 20 20 10 Invasive Line 1 10 Invasive Line 3 10 20 10 Oral 658 237 118 Output: Urine 0 Other: Voiding Method Bedside Commode Bedside Commode Bedside Commode # Voids 0 1 # Bowel Movements 1 1 - Labs CBC & Chem 7: 11/29/24 07:47 11/30/24 08:23 Labs: Abnormal Lab Results - Last 24 Hours (Table) 11/30/24 Range/Units 08:23 Sodium 134 L (137-145) mmol/L Chloride 91 L (98-107) mmol/L Carbon Dioxide 34 H (22-30) mmol/L BUN 41 H (7-17) mg/dL Creatinine 5.59 H (0.52-1.04) mg/dL Glucose 113 H (74-99) mg/dL Assessment and Plan Time with Patient: Less than 30
[2024-11-30] MEDS: LIDOCAINE 4% PATCH TOPICAL SCH (16:51)
--- NOTE | 2024-11-30 17:41 | P.PN ---
Subjective Patient is seen for follow-up for end-stage renal disease. Currently seen on hemodialysis. Ate well this morning Blood pressure is stable Goal UF about 2 L. Objective - Vital Signs Vital signs: Vital Signs Temp 98.1 F 11/30/24 16:46 Pulse 73 11/30/24 16:46 Resp 18 11/30/24 16:46 BP 142/76 11/30/24 16:46 Pulse Ox 95 11/30/24 16:46 FiO2 Intake & Output 11/29/24 11/30/24 11/30/24 18:59 06:59 18:59 Intake Total 678 257 628 Output Total 4500 Balance 678 257 -3872 Weight 70.6 kg Intake: IV 20 20 10 Invasive Line 1 10 Invasive Line 3 10 20 10 Oral 658 237 118 Hemodialysis 500 Output: Urine 0 Hemodialysis 2500 Hemodialysis Net Amount 2000 Other: Voiding Method Bedside Commode Bedside Commode Bedside Commode # Voids 0 1 # Bowel Movements 1 1 - Exam Patient is comfortable no acute distress Examination of the heart S1 and S2 Examination of the lungs bilateral breath sounds are heard Abdomen is soft nontender Examination lower extremity shows both legs to be wrapped, significant edema noted - Labs CBC & Chem 7: 11/29/24 07:47 11/30/24 08:23 Labs: Abnormal Lab Results - Last 24 Hours (Table) 11/30/24 Range/Units 08:23 Sodium 134 L (137-145) mmol/L Chloride 91 L (98-107) mmol/L Carbon Dioxide 34 H (22-30) mmol/L BUN 41 H (7-17) mg/dL Creatinine 5.59 H (0.52-1.04) mg/dL Glucose 113 H (74-99) mg/dL Assessment and Plan Assessment: 1. End-stage renal disease maintained on hemodialysis on Saturday schedule via permacath. 2. Hyperkalemia secondary to chronic kidney disease and missed dialysis treatments. Improved postdialysis. 3. Chronic kidney disease mineral bone disease. Phosphorus level 5.6 this admission. On Renvela. 4. Anemia of chronic kidney disease. Iron replete. 5. Metabolic acidosis secondary to chronic kidney disease. Expect improvement postdialysis. 6. Volume overload Plan: Hemodialysis today with goal UF about 2 L Increase goal with next treatment Encourage increase oral intake
[2024-12-01] MEDS: CALCIUM CARBONATE 500 MG CHEWABLE PO PRN (08:55)
--- NOTE | 2024-12-01 10:53 | CA ---
Transthoracic Echo Report Name: Lissa Gomez Age: 64 Gender: F : 1960 Exam Date: 11/30/2024 12:53 Exam Location: [facility] Ht (in): 61 Wt (lb): 167 Ordering Physician: Monroe Morocho MD Attending/Referring Phys: Coordinator Of Library Services eRnu Gallegos RDCS Procedure CPT: Indications: pulm edema Cardiac Hx: Technical Quality: Fair Contrast 1: Total Dose (mL): Contrast 2: Total Dose (mL): MEASUREMENTS (Male / Female) Normal Values 2D ECHO LV Diastolic Diameter PLAX 4.2 cm 4.2 - 5.9 / 3.9 - 5.3 cm LV Systolic Diameter PLAX 2.4 cm IVS Diastolic Thickness 0.9 cm 0.6 - 1.0 / 0.6 - 0.9 cm LVPW Diastolic Thickness 1.1 cm 0.6 - 1.0 / 0.6 - 0.9 cm LV Relative Wall Thickness 0.5 RV Internal Dim ED PLAX 2.6 cm LVOT Diameter 1.9 cm LA Systolic Diameter LX 4.9 cm 3.0 - 4.0 / 2.7 - 3.8 cm LV Diastolic Volume MOD BP 57.0 cm??? 67 - 155 / 56 - 104 cm??? LV Systolic Volume MOD BP 20.2 cm??? 22 - 58 / 19 - 49 cm??? LV Ejection Fraction MOD BP 64.6 % >= 55 % LV Cardiac Index MOD BP 1322.3 cm???/min???m??? LV Diastolic Volume MOD 4C 78.5 cm??? LV Systolic Volume MOD 4C 25.3 cm??? LV Ejection Fraction MOD 4C 67.8 % LV Cardiac Index MOD 4C 1914.5 cm???/min???m??? LV Diastolic Length 4C 7.3 cm LV Systolic Length 4C 5.3 cm LV Diastolic Volume MOD 2C 41.9 cm??? LV Systolic Volume MOD 2C 15.7 cm??? LV Ejection Fraction MOD 2C 62.5 % LV Cardiac Index MOD 2C 941.2 cm???/min???m??? LV Diastolic Length 2C 7.0 cm LV Systolic Length 2C 5.5 cm LA Volume 65.7 cm??? 18 - 58 / 22 - 52 cm??? LA Volume Index 35.8 cm???/m??? 16 - 28 cm???/m??? M-MODE Aortic Root Diameter MM 2.7 cm LA Systolic Diameter MM 4.2 cm LA Ao Ratio MM 1.5 AV Cusp Separation MM 1.6 cm DOPPLER MV Area PHT 2.3 cm??? Mitral E Point Velocity 103.3 cm/s Mitral A Point Velocity 106.8 cm/s Mitral E to A Ratio 1.0 MV Deceleration Time 331.1 ms TR Peak Velocity 304.1 cm/s TR Peak Gradient 37.0 mmHg Right Atrial Pressure 5.0 mmHg Pulmonary Artery Systolic Pressu 42.0 mmHg Right Ventricular Systolic Press 42.0 mmHg FINDINGS Left Ventricle Left ventricular ejection fraction is estimated at 55-60 %. Mildly increased posterior wall thickness. Normal left ventricular systolic function with no obvious regional wall motion abnormalities. Right Ventricle Mild right ventricular dilatation. Mild pulmonary hypertension. Right Atrium Mild right atrial dilatation. Catheter/pacemaker wire in the right atrial cavity. Left Atrium Severely increased left atrial diameter. Moderately increased left atrial volume. Mitral Valve Structurally normal mitral valve. Moderate mitral regurgitation. No mitral stenosis. Aortic Valve Trileaflet aortic valve. No aortic stenosis. No aortic regurgitation. Tricuspid Valve Structurally normal tricuspid valve. Moderate tricuspid regurgitation. Pulmonic Valve Structurally normal pulmonic valve. Trace pulmonic regurgitation. No pulmonic stenosis. Pericardium No pericardial effusion. Left pleural effusion. Aorta Normal size aortic root and proximal ascending aorta. CONCLUSIONS Normal LV size and systolic function. Mildly enlarged atria prominent right ventricle moderate mitral and tricuspid regurgitation. No pericardial effusion mild pulmonary hypertension Previewed by: Dr. Fletcher Lucero MD (Electronically Signed) Final Date: 01 December 2024 10:52
[2024-12-01 11:11] LABS: Glucose,Whole Blood 83 mg/dL (70-110)
[2024-12-01 15:24] VITALS: BMI 30.2
--- NOTE | 2024-12-01 16:36 | P.PN ---
Subjective Patient is seen for follow-up for end-stage renal disease. Complaining of abdominal discomfort. No nausea or vomiting Blood pressure is stable Status post hemodialysis yesterday with UF of 2 L Objective - Vital Signs Vital signs: Vital Signs Temp 98.5 F 12/01/24 08:00 Pulse 69 12/01/24 14:00 Resp 20 12/01/24 14:00 BP 121/70 12/01/24 12:00 Pulse Ox 94 L 12/01/24 12:00 FiO2 Intake & Output 11/30/24 12/01/24 12/01/24 18:59 06:59 18:59 Intake Total 868 900 Output Total 4500 100 Balance -3632 800 Weight 72.5 kg 72.5 kg Intake: IV 10 Invasive Line 3 10 Oral 358 900 Hemodialysis 500 Output: Urine 0 100 Hemodialysis 2500 Hemodialysis Net Amount 2000 Other: Voiding Method Bedside Commode Bedside Commode Bedside Commode # Voids 1 # Bowel Movements 1 1 - Exam Patient is comfortable no acute distress Examination of the heart S1 and S2 Examination of the lungs bilateral breath sounds are heard Abdomen is soft nontender Examination lower extremity shows both legs to be wrapped, chronic edema noted - Labs CBC & Chem 7: 11/29/24 07:47 11/30/24 08:23 Assessment and Plan Assessment: 1. End-stage renal disease maintained on hemodialysis on Saturday schedule via permacath. 2. Hyperkalemia secondary to chronic kidney disease and missed dialysis treatments. Improved postdialysis. 3. Chronic kidney disease mineral bone disease. Phosphorus level 5.6 this admission. On Renvela. 4. Anemia of chronic kidney disease. Iron replete. 5. Metabolic acidosis secondary to chronic kidney disease. Expect improvement postdialysis. 6. Volume overload Plan: Hemodialysis in a.m. Increase goal UF to about 2 to 3 L as tolerated Encourage increase oral intake
--- NOTE | 2024-12-01 23:16 | P.PN ---
Subjective Progress Note Date: 12/01/24 Pleasant 64-year-old patient, follows with Dr. Kali Almodovar. known end-stage kidney disease on hemodialysis Saturday and Saturday. Chronic medical conditions include mineral bone disease, anemia of chronic kidney disease, severe osteoarthritis with chronic pain, uses a walker Patient missed a course of hemodialysis on Saturday and Saturday. She said she had appointment with orthopedic doctor. But orthopedic doctor was out of town. She became more short of breath. Decided to call 911. Denies any fever and chills. Nephrology was called from the ER. Patient will be getting dialyzed. Has some nausea. Decreased appetite. Edema. Patient does use a rollator November 26: Patient mated with fluid overload from having missed hemodialysis. Had hemodialysis done in the ER yesterday 2 L removed. This afternoon again 2 more liters being removed. Patient did eat some. Followed by nephrology. Plan is for another 2 more liters removed tomorrow. Some shortness of breath still present. November 27: Underwent hemodialysis today. Complaining of dizziness. Tingling in the ears and's throat irritation. Patient be placed on Antivert. Eating some. Patient apparently has been noncompliant because of social issues. Change her diet to a chopped diet. 11/28/2024 Patient is lying in bed. Awake alert and oriented. Complains of itching in the eyes and also tingling sensation in the throat. No fever no chills. No complaints of chest pain or worsening Shortness of breath Patient is on 2 L oxygen via nasal cannula. No new laboratory data today. Nephrology is on board. Hemodialysis as per schedule. 11/29/2024 Patient is awake and alert and arousable with verbal stimuli. Was lethargic this morning. Oxygen requirement increased to 4 L via nasal cannula. Patient has been afebrile. No complaints of chest pain or worsening shortness of breath. ABG showed pH 7.39 [id number] and PO255 Lab data showed WBC 9.4 hemoglobin 9.0 and platelets 220, sodium 133 potassium 3.7 chloride 89 bicarb is 33 BUN 26 and creatinine 4.06 and blood sugar 98. Repeat chest x-ray done today showed mild cardiomegaly, persistent mild interstitial prominence which could be chronic in nature and is unchanged. Development of a few small patchy opacities in the retrocardiac region which could represent pulmonary edema or pneumonia. Patient is more awake and alert. Able to eat by herself at lunchtime. 11/30/2024 Patient evaluated today in follow up on the medical floor. Resting comfortably and currently undergoing hemodialysis. Patient concerned as she has not gotten out of bed over the weekend and she uses the bus for transportation and does need to be able to ambulate to get to her outpatient hemodialysis sessions. PT has evaluated the patient and recommending [facility] which social work is working on an accepting facility. 12/01/2024 Patient evaluated today in follow up resting in bed comfortably. Pending authorization for [facility] discharge. Patient has no acute complaints. Review of Systems Constitutional: Denied any fatigue denied any fever. Cardio vascular: denied any chest pain, palpitations Gastrointestinal: denied any nausea, vomiting, diarrhea Pulmonary: Denied any shortness of breath cough Neurologic denied any new focal deficits All inpatient medications were reviewed and appropriate changes in these medications as dictated in the interval history and assessment and plan. PHYSICAL EXAMINATION: GENERAL: The patient is alert and oriented x3, not in any acute distress. Well d eveloped, well nourished. HEENT: Pupils are round and equally reacting to light. EOMI. No scleral icterus. No conjunctival pallor. Normocephalic, atraumatic. No pharyngeal erythema. No thyromegaly. CARDIOVASCULAR: S1 and S2 present. No murmurs, rubs, or gallops. PULMONARY: Chest is clear to auscultation, no wheezing or crackles. ABDOMEN: Soft, nontender, nondistended, normoactive bowel sounds. No palpable organomegaly. MUSCULOSKELETAL: No joint swelling or deformity. EXTREMITIES: No cyanosis, clubbing, or pedal edema. NEUROLOGICAL: Gross neurological examination did not reveal any focal deficits. SKIN: No rashes. Assessment -Acute pulmonary edema secondary to missed hemodialysis: Improving -Acute hypoxic respiratory failure from pulmonary edema: Improving -End-stage kidney disease on hemodialysis Saturday and Saturday; Right subclavian dialysis access -Chronic kidney disease minimal bone disease -Anemia of chronic kidney disease. -Gastritis -Essential hypertension with end-stage kidney disease -Hyperlipidemia -Carotid artery stenosis: Moderate approaching severe stenosis right internal carotid artery 69%. 50-69% left internal carotid artery. -Peripheral neuropathy -Primary osteoarthritis, multiple joints -COPD, -Chronic hypoxic respiratory failure underlying COPD -Chronic medical debility. Does use a rollator at baseline -Full code Plan Hemodialysis MWF Continue oral bumex Continue aranesp Continue renvela PT/OT consultation Social work on for discharge planning and PT recommending [facility] on discharge Authorization is currently pending The impression and plan of care has been dictated by Henny Wei, Nurse Practitioner as directed. Dr. Maynor MD I have performed a history and physical examination and medical decision making of this patient, discussed the same with the dictator, and agree with the dictators assessment and plan as written, documented as a scribe. Based on total visit time, I have performed more than 50% of this visit. Objective - Vital Signs Vital signs: Vital Signs Temp 99.7 F H 12/01/24 18:59 Pulse 72 12/01/24 18:59 Resp 18 12/01/24 18:59 BP 110/65 12/01/24 18:59 Pulse Ox 93 L 12/01/24 18:59 FiO2 Intake & Output 12/01/24 12/01/24 12/02/24 06:59 18:59 06:59 Intake Total 900 150 Output Total 100 Balance 800 150 Weight 72.5 kg 72.5 kg Intake: Oral 900 150 Output: Urine 100 Other: Voiding Method Bedside Commode Bedside Commode Bedside Commode # Voids 1 1 # Bowel Movements 1 1 - Labs CBC & Chem 7: 11/29/24 07:47 11/30/24 08:23 Assessment and Plan Time with Patient: Less than 30
--- NOTE | 2024-12-02 13:39 | P.PN ---
Subjective Patient is seen for follow-up for end-stage renal disease. Complaining of cough Seen on hemodialysis. Goal UF about 3 L. Blood pressure is stable Objective - Vital Signs Vital signs: Vital Signs Temp 98.1 F 12/02/24 08:00 Pulse 60 12/02/24 08:00 Resp 17 12/02/24 08:00 BP 147/82 12/02/24 08:00 Pulse Ox 94 L 12/02/24 08:00 FiO2 Intake & Output 12/01/24 12/02/24 12/02/24 18:59 06:59 18:59 Intake Total 150 Balance 150 Weight 72.5 kg Intake: Oral 150 Other: Voiding Method Bedside Commode Bedside Commode Bedside Commode # Voids 1 1 # Bowel Movements 1 1 - Exam Patient is comfortable no acute distress Examination of the heart S1 and S2 Examination of the lungs bilateral breath sounds are heard Abdomen is soft nontender Examination lower extremity shows both legs to be wrapped, chronic edema noted - Labs CBC & Chem 7: 11/29/24 07:47 11/30/24 08:23 Assessment and Plan Assessment: 1. End-stage renal disease maintained on hemodialysis on Saturday schedule via permacath. 2. Hyperkalemia secondary to chronic kidney disease and missed dialysis treatments. Improved postdialysis. 3. Chronic kidney disease mineral bone disease. Phosphorus level 5.6 this adm ission. On Renvela. 4. Anemia of chronic kidney disease. Iron replete. 5. Metabolic acidosis secondary to chronic kidney disease. Expect improvement postdialysis. 6. Volume overload, improved Plan: Hemodialysis Saturday Increase goal UF to about 2 to 3 L as tolerated Encourage increase oral intake
--- NOTE | 2024-12-02 16:02 | P.PN ---
Subjective Progress Note Date: 12/02/24 Pleasant 64-year-old patient, follows with Dr. Kali Almodovar. known end-stage kidney disease on hemodialysis Saturday and Saturday. Chronic medical conditions include mineral bone disease, anemia of chronic kidney disease, severe osteoarthritis with chronic pain, uses a walker Patient missed a course of hemodialysis on Saturday and Saturday. She said she had appointment with orthopedic doctor. But orthopedic doctor was out of town. She became more short of breath. Decided to call 911. Denies any fever and chills. Nephrology was called from the ER. Patient will be getting dialyzed. Has some nausea. Decreased appetite. Edema. Patient does use a rollator November 26: Patient mated with fluid overload from having missed hemodialysis. Had hemodialysis done in the ER yesterday 2 L removed. This afternoon again 2 more liters being removed. Patient did eat some. Followed by nephrology. Plan is for another 2 more liters removed tomorrow. Some shortness of breath still present. November 27: Underwent hemodialysis today. Complaining of dizziness. Tingling in the ears and's throat irritation. Patient be placed on Antivert. Eating some. Patient apparently has been noncompliant because of social issues. Change her diet to a chopped diet. 11/28/2024 Patient is lying in bed. Awake alert and oriented. Complains of itching in the eyes and also tingling sensation in the throat. No fever no chills. No complaints of chest pain or worsening Shortness of breath Patient is on 2 L oxygen via nasal cannula. No new laboratory data today. Nephrology is on board. Hemodialysis as per schedule. 11/29/2024 Patient is awake and alert and arousable with verbal stimuli. Was lethargic this morning. Oxygen requirement increased to 4 L via nasal cannula. Patient has been afebrile. No complaints of chest pain or worsening shortness of breath. ABG showed pH 7.39 [id number] and PO255 Lab data showed WBC 9.4 hemoglobin 9.0 and platelets 220, sodium 133 potassium 3.7 chloride 89 bicarb is 33 BUN 26 and creatinine 4.06 and blood sugar 98. Repeat chest x-ray done today showed mild cardiomegaly, persistent mild interstitial prominence which could be chronic in nature and is unchanged. Development of a few small patchy opacities in the retrocardiac region which could represent pulmonary edema or pneumonia. Patient is more awake and alert. Able to eat by herself at lunchtime. 11/30/2024 Patient evaluated today in follow up on the medical floor. Resting comfortably and currently undergoing hemodialysis. Patient concerned as she has not gotten out of bed over the weekend and she uses the bus for transportation and does need to be able to ambulate to get to her outpatient hemodialysis sessions. PT has evaluated the patient and recommending [facility] which social work is working on an accepting facility. 12/01/2024 Patient evaluated today in follow up resting in bed comfortably. Pending authorization for [facility] discharge. Patient has no acute complaints. 12/02/2024 Patient evaluated in follow up resting comfortably PT recommending subacute rehab although patient is refusing and states that she wants to go home. We are currently pending authorization for discharge to rehab. She is essentially unable to get up and ambulate at this time and states that she has her family t hat comes and helps her Saturday through Saturday from the hours of 4-7. She has been requiring oxygen via nasal cannula at 3 to 4 L and does not wear any oxygen at home. We will continue monitor the patient and attempt to wean off oxygen and follow-up with for discharge planning tomorrow. Review of Systems Constitutional: Denied any fatigue denied any fever. Cardio vascular: denied any chest pain, palpitations Gastrointestinal: denied any nausea, vomiting, diarrhea Pulmonary: Denied any shortness of breath cough Neurologic denied any new focal deficits All inpatient medications were reviewed and appropriate changes in these medications as dictated in the interval history and assessment and plan. PHYSICAL EXAMINATION: GENERAL: The patient is alert and oriented x3, not in any acute distress. Well developed, well nourished. HEENT: Pupils are round and equally reacting to light. EOMI. No scleral icterus. No conjunctival pallor. Normocephalic, atraumatic. No pharyngeal erythema. No thyromegaly. CARDIOVASCULAR: S1 and S2 present. No murmurs, rubs, or gallops. PULMONARY: Chest is clear to auscultation, no wheezing or crackles. ABDOMEN: Soft, nontender, nondistended, normoactive bowel sounds. No palpable organomegaly. MUSCULOSKELETAL: No joint swelling or deformity. EXTREMITIES: No cyanosis, clubbing, or pedal edema. NEUROLOGICAL: Gross neurological examination did not reveal any focal deficits. SKIN: No rashes. Assessment -Acute pulmonary edema secondary to missed hemodialysis: Improving -Acute hypoxic respiratory failure from pulmonary edema: Improving -End-stage kidney disease on hemodialysis Saturday and Saturday; Right subclavian dialysis access -Chronic kidney disease minimal bone disease -Anemia of chronic kidney disease. -Gastritis -Essential hypertension with end-stage kidney disease -Hyperlipidemia -Carotid artery stenosis: Moderate approaching severe stenosis right internal carotid artery 69%. 50-69% left internal carotid artery. -Peripheral neuropathy -Primary osteoarthritis, multiple joints -COPD, -Chronic hypoxic respiratory failure underlying COPD -Chronic medical debility. Does use a rollator at baseline -Full code Plan Hemodialysis MWF Continue oral bumex Continue aranesp Continue renvela PT/OT consultation Social work on for discharge planning and PT recommending [facility] on discharge Authorization is currently pending. Patient refusing rehab and wants to go home although she is unable to get up out of bed. PT to follow up. Home oxygen test ordered and pending. The impression and plan of care has been dictated by Henny Wei, Nurse Practitioner as directed. Dr. Maynor MD I have performed a history and physical examination and medical decision making of this patient, discussed the same with the dictator, and agree with the dictators assessment and plan as written, documented as a scribe. Based on total visit time, I have performed more than 50% of this visit. Objective - Vital Signs Vital signs: Vital Signs Temp 98.1 F 12/02/24 08:00 Pulse 60 12/02/24 08:00 Resp 17 12/02/24 08:00 BP 147/82 12/02/24 08:00 Pulse Ox 94 L 12/02/24 08:00 FiO2 Intake & Output 12/01/24 12/02/24 12/02/24 18:59 06:59 18:59 Intake Total 150 Balance 150 Weight 72.5 kg Intake: Oral 150 Other: Voiding Method Bedside Commode Bedside Commode Bedside Commode # Voids 1 1 # Bowel Movements 1 1 - Labs CBC & Chem 7: 11/29/24 07:47 11/30/24 08:23 Assessment and Plan Time with Patient: Less than 30
--- NOTE | 2024-12-03 13:03 | P.PN ---
Subjective Patient is seen for follow-up for end-stage renal disease. Resting comfortably. Status post hemodialysis yesterday with UF of 3 L Objective - Vital Signs Vital signs: Vital Signs Temp 99.0 F 12/03/24 06:51 Pulse 74 12/03/24 11:30 Resp 18 12/03/24 11:30 BP 162/82 12/03/24 06:51 Pulse Ox 96 12/03/24 06:51 FiO2 Intake & Output 12/02/24 12/03/24 12/03/24 18:59 06:59 18:59 Intake Total 400 250 Output Total 6400 Balance -6000 250 Intake: Oral 250 Hemodialysis 400 Output: Hemodialysis 3400 Hemodialysis Net Amount 3000 Other: Voiding Method Bedside Commode Bedside Commode Bedside Commode # Voids 2 3 # Bowel Movements 1 3 - Exam Patient is comfortable no acute distress Examination of the heart S1 and S2 Examination of the lungs bilateral breath sounds are heard Abdomen is soft nontender Examination lower extremity shows both legs to be wrapped, chronic edema noted - Labs CBC & Chem 7: 11/29/24 07:47 11/30/24 08:23 Assessment and Plan Assessment: 1. End-stage renal disease maintained on hemodialysis on Saturday schedule via permacath. 2. Hyperkalemia secondary to chronic kidney disease and missed dialysis treatments. Improved postdialysis. 3. Chronic kidney disease mineral bone disease. Phosphorus level 5.6 this admission. On Renvela. 4. Anemia of chronic kidney disease. Iron replete. 5. Metabolic acidosis secondary to chronic kidney disease. Expect improvement postdialysis. 6. Volume overload, improved Plan: Hemodialysis Saturday Increase goal UF to about 2 to 3 L as tolerated Encourage increase oral intake
[2024-12-03] MEDS: FLUCONAZOLE 100 MG TAB PO ONE (15:50)
[2024-12-03] MEDS: NYSTATIN 100,000 UNIT/ML SUSP 500,000 UNIT/5 ML CUP PO SCH (17:36)
--- NOTE | 2024-12-03 23:28 | P.PN ---
Subjective Progress Note Date: 12/03/24 Pleasant 64-year-old patient, follows with Dr. Kali Almodovar. known end-stage kidney disease on hemodialysis Saturday and Saturday. Chronic medical conditions include mineral bone disease, anemia of chronic kidney disease, severe osteoarthritis with chronic pain, uses a walker Patient missed a course of hemodialysis on Saturday and Saturday. She said she had appointment with orthopedic doctor. But orthopedic doctor was out of town. She became more short of breath. Decided to call 911. Denies any fever and chills. Nephrology was called from the ER. Patient will be getting dialyzed. Has some nausea. Decreased appetite. Edema. Patient does use a rollator November 26: Patient mated with fluid overload from having missed hemodialysis. Had hemodialysis done in the ER yesterday 2 L removed. This afternoon again 2 more liters being removed. Patient did eat some. Followed by nephrology. Plan is for another 2 more liters removed tomorrow. Some shortness of breath still present. November 27: Underwent hemodialysis today. Complaining of dizziness. Tingling in the ears and's throat irritation. Patient be placed on Antivert. Eating some. Patient apparently has been noncompliant because of social issues. Change her diet to a chopped diet. 11/28/2024 Patient is lying in bed. Awake alert and oriented. Complains of itching in the eyes and also tingling sensation in the throat. No fever no chills. No complaints of chest pain or worsening Shortness of breath Patient is on 2 L oxygen via nasal cannula. No new laboratory data today. Nephrology is on board. Hemodialysis as per schedule. 11/29/2024 Patient is awake and alert and arousable with verbal stimuli. Was lethargic this morning. Oxygen requirement increased to 4 L via nasal cannula. Patient has been afebrile. No complaints of chest pain or worsening shortness of breath. ABG showed pH 7.39 [id number] and PO255 Lab data showed WBC 9.4 hemoglobin 9.0 and platelets 220, sodium 133 potassium 3.7 chloride 89 bicarb is 33 BUN 26 and creatinine 4.06 and blood sugar 98. Repeat chest x-ray done today showed mild cardiomegaly, persistent mild interstitial prominence which could be chronic in nature and is unchanged. Development of a few small patchy opacities in the retrocardiac region which could represent pulmonary edema or pneumonia. Patient is more awake and alert. Able to eat by herself at lunchtime. 11/30/2024 Patient evaluated today in follow up on the medical floor. Resting comfortably and currently undergoing hemodialysis. Patient concerned as she has not gotten out of bed over the weekend and she uses the bus for transportation and does need to be able to ambulate to get to her outpatient hemodialysis sessions. PT has evaluated the patient and recommending [facility] which social work is working on an accepting facility. 12/01/2024 Patient evaluated today in follow up resting in bed comfortably. Pending authorization for [facility] discharge. Patient has no acute complaints. 12/02/2024 Patient evaluated in follow up resting comfortably PT recommending subacute rehab although patient is refusing and states that she wants to go home. We are currently pending authorization for discharge to rehab. She is essentially unable to get up and ambulate at this time and states that she has her family that comes and helps her Saturday through Saturday from the hours of 4-7. She has been requiring oxygen via nasal cannula at 3 to 4 L and does not wear any oxygen at home. We will continue monitor the patient and attempt to wean off oxygen and follow-up with for discharge planning tomorrow. 12/03/2024 Patient is seen in follow-up today and reports to feeling weak although reports is feeling better today. Patient is maintained on hemodialysis Saturday/Saturday/Saturday and is scheduled to receive dialysis in the morning. Patient is wearing oxygen although does not wear this at home and per nursing staff did not qualify yesterday. Will wean as tolerated and instructed her to follow-up with primary care provider as well as pulmonary outpatient to discuss further need for oxygen on discharge. Patient reports she does not want to go to rehab although initially physical therapy recommending going to rehab for strength and mobility. Will ask PT/OT therapy to reevaluate and discuss disch arge planning. Review of Systems Constitutional: Denied any fatigue denied any fever. Cardio vascular: denied any chest pain, palpitations Gastrointestinal: denied any nausea, vomiting, diarrhea Pulmonary: Denied any shortness of breath cough Neurologic denied any new focal deficits All inpatient medications were reviewed and appropriate changes in these medications as dictated in the interval history and assessment and plan. PHYSICAL EXAMINATION: GENERAL: The patient is alert and oriented x3, not in any acute distress. Well developed, well nourished. HEENT: Pupils are round and equally reacting to light. EOMI. No scleral icterus. No conjunctival pallor. Normocephalic, atraumatic. No pharyngeal erythema. No thyromegaly. Mouth and sides of the cheeks appear candidal CARDIOVASCULAR: S1 and S2 present. No murmurs, rubs, or gallops. PULMONARY: Chest is clear to auscultation, no wheezing or crackles. ABDOMEN: Soft, nontender, nondistended, normoactive bowel sounds. No palpable organomegaly. MUSCULOSKELETAL: No joint swelling or deformity. EXTREMITIES: No cyanosis, clubbing, or pedal edema. NEUROLOGICAL: Gross neurological examination did not reveal any focal deficits. SKIN: No rashes. Assessment: -Acute pulmonary edema secondary to missed hemodialysis: Improving -Acute hypoxic respiratory failure from pulmonary edema: Improving -End-stage kidney disease on hemodialysis Saturday and Saturday; Right subclavian dialysis access -Chronic kidney disease minimal bone disease -Anemia of chronic kidney disease. -Gastritis -Essential hypertension with end-stage kidney disease -Hyperlipidemia -Carotid artery stenosis: Moderate approaching severe stenosis right internal carotid artery 69%. 50-69% left internal carotid artery. -Peripheral neuropathy -Primary osteoarthritis, multiple joints -COPD, not in exacerbation -Chronic hypoxic respiratory failure underlying COPD -Chronic medical debility. Does use a rollator at baseline -Full code Plan: Hemodialysis MWF with nephrology following and will continue current medications, plan is for dialysis tomorrow on Saturday and then would like to discharge Patient was evaluated by PT/OT therapy recommending rehab and patient is adamant to go to rehab. Will have physical therapy reevaluate the patient for input and recommendations of any improvements. Patient reports she has caregivers in the home a few times a week that help care for her and she reports she takes the bus to dialysis. Will await insurance au thorization to be submitted and reevaluation by PT/OT therapy PT/OT Daily Social work on for discharge planning and PT recommending [facility] on discharge Authorization is currently pending. Patient refusing rehab and wants to go home although she is unable to get up out of bed. PT to follow up. Patient did slightly improve with working with PT/OT today and recommend follow-up in the a.m. and also social work following to arrange for home care if needed. Home oxygen test to be performed and wean FiO2 as tolerated. Plan is for discharge to [facility]CF and/or home with home care tomorrow. The impression and plan of care has been dictated by Kenia Montano, Nurse Practitioner as directed. Dr. Maynor MD I have performed a history and physical examination and medical decision making of this patient, discussed the same with the dictator, and agree with the dictators assessment and plan as written, documented as a scribe. Based on total visit time, I have performed more than 50% of this visit. Objective - Vital Signs Vital signs: Vital Signs Temp 99.0 F 12/03/24 06:51 Pulse 74 12/03/24 06:51 Resp 18 12/03/24 06:51 BP 162/82 12/03/24 06:51 Pulse Ox 96 12/03/24 06:51 FiO2 Intake & Output 12/02/24 12/03/24 12/03/24 18:59 06:59 18:59 Intake Total 400 Output Total 6400 Balance -6000 Intake: Hemodialysis 400 Output: Hemodialysis 3400 Hemodialysis Net Amount 3000 Other: Voiding Method Bedside Commode Bedside Commode # Voids 2 3 # Bowel Movements 1 3 - Labs CBC & Chem 7: 11/29/24 07:47 11/30/24 08:23
--- NOTE | 2024-12-04 16:18 | P.PN ---
Subjective Patient is seen for follow-up for end-stage renal disease. Resting comfortably. Seen on hemodialysis. Tolerating treatment well with goal UF of about 3 L. Objective - Vital Signs Vital signs: Vital Signs Temp 98.1 F 12/04/24 13:52 Pulse 68 12/04/24 13:52 Resp 18 12/04/24 13:52 BP 128/74 12/04/24 13:52 Pulse Ox 96 12/04/24 13:52 FiO2 Intake & Output 12/03/24 12/04/24 12/04/24 18:59 06:59 18:59 Intake Total 950 400 Output Total 6400 Balance 950 -6000 Intake: Oral 950 Hemodialysis 400 Output: Hemodialysis 3400 Hemodialysis Net Amount 3000 Other: Voiding Method Bedside Commode # Voids 0 3 # Bowel Movements 2 - Exam Patient is comfortable no acute distress Examination lower extremity shows both legs to be wrapped, chronic edema noted - Labs CBC & Chem 7: 11/29/24 07:47 11/30/24 08:23 Assessment and Plan Assessment: 1. End-stage renal disease maintained on hemodialysis on Saturday schedule via permacath. 2. Hyperkalemia secondary to chronic kidney disease and missed dialysis treatments. Improved postdialysis. 3. Chronic kidney disease mineral bone disease. Phosphorus level 5.6 this admission. On Renvela. 4. Anemia of chronic kidney disease. Iron replete. 5. Metabolic acidosis secondary to chronic kidney disease. Expect improvement postdialysis. 6. Volume overload, improved Plan: Hemodialysis Saturday Increased goal UF to about 3 L as tolerated Encourage increased oral intake
--- NOTE | 2024-12-05 07:27 | P.PN ---
Subjective Progress Note Date: 12/04/24 Pleasant 64-year-old patient, follows with Dr. Kali Almodovar. known end-stage kidney disease on hemodialysis Saturday and Saturday. Chronic medical conditions include mineral bone disease, anemia of chronic kidney disease, severe osteoarthritis with chronic pain, uses a walker Patient missed a course of hemodialysis on Saturday and Saturday. She said she had appointment with orthopedic doctor. But orthopedic doctor was out of town. She became more short of breath. Decided to call 911. Denies any fever and chills. Nephrology was called from the ER. Patient will be getting dialyzed. Has some nausea. Decreased appetite. Edema. Patient does use a rollator November 26: Patient mated with fluid overload from having missed hemodialysis. Had hemodialysis done in the ER yesterday 2 L removed. This afternoon again 2 more liters being removed. Patient did eat some. Followed by nephrology. Plan is for another 2 more liters removed tomorrow. Some shortness of breath still present. November 27: Underwent hemodialysis today. Complaining of dizziness. Tingling in the ears and's throat irritation. Patient be placed on Antivert. Eating some. Patient apparently has been noncompliant because of social issues. Change her diet to a chopped diet. 11/28/2024 Patient is lying in bed. Awake alert and oriented. Complains of itching in the eyes and also tingling sensation in the throat. No fever no chills. No complaints of chest pain or worsening Shortness of breath Patient is on 2 L oxygen via nasal cannula. No new laboratory data today. Nephrology is on board. Hemodialysis as per schedule. 11/29/2024 Patient is awake and alert and arousable with verbal stimuli. Was lethargic this morning. Oxygen requirement increased to 4 L via nasal cannula. Patient has been afebrile. No complaints of chest pain or worsening shortness of breath. ABG showed pH 7.39 [id number] and PO255 Lab data showed WBC 9.4 hemoglobin 9.0 and platelets 220, sodium 133 potassium 3.7 chloride 89 bicarb is 33 BUN 26 and creatinine 4.06 and blood sugar 98. Repeat chest x-ray done today showed mild cardiomegaly, persistent mild interstitial prominence which could be chronic in nature and is unchanged. Development of a few small patchy opacities in the retrocardiac region which could represent pulmonary edema or pneumonia. Patient is more awake and alert. Able to eat by herself at lunchtime. 11/30/2024 Patient evaluated today in follow up on the medical floor. Resting comfortably and currently undergoing hemodialysis. Patient concerned as she has not gotten out of bed over the weekend and she uses the bus for transportation and does need to be able to ambulate to get to her outpatient hemodialysis sessions. PT has evaluated the patient and recommending [facility] which social work is working on an accepting facility. 12/01/2024 Patient evaluated today in follow up resting in bed comfortably. Pending authorization for [facility] discharge. Patient has no acute complaints. 12/02/2024 Patient evaluated in follow up resting comfortably PT recommending subacute rehab although patient is refusing and states that she wants to go home. We are currently pending authorization for discharge to rehab. She is essentially unable to get up and ambulate at this time and states that she has her family that comes and helps her Saturday through Saturday from the hours of 4-7. She has been requiring oxygen via nasal cannula at 3 to 4 L and does not wear any oxygen at home. We will continue monitor the patient and attempt to wean off oxygen and follow-up with for discharge planning tomorrow. 12/03/2024 Patient is seen in follow-up today and reports to feeling weak although reports is feeling better today. Patient is maintained on hemodialysis Saturday/Saturday/Saturday and is scheduled to receive dialysis in the morning. Patient is wearing oxygen although does not wear this at home and per nursing staff did not qualify yesterday. Will wean as tolerated and instructed her to follow-up with primary care provider as well as pulmonary outpatient to discuss further need for oxygen on discharge. Patient reports she does not want to go to rehab although initially physical therapy recommending going to rehab for strength and mobility. Will ask PT/OT therapy to reevaluate and discuss disch arge planning. 12/04/2024 Patient is seen in follow-up today currently undergoing hemodialysis as patient is maintained on Saturday/Saturday/Saturday. Patient continues with significant weakness and is agreeable to rehab although awaiting final determination from ECF. Patient will require insurance authorization also if accepted. Recommend PT/OT therapy daily and patient has not been evaluated by them yet today. Recommend assessing patient on room air and weaning FiO2 as tolerated as patient does not wear oxygen outpatient. Plan will be for patient to return home with home care and outpatient rehab if not excepted by ECF. Review of Systems Constitutional: Denied any fatigue denied any fever. Cardio vascular: denied any chest pain, palpitations Gastrointestinal: denied any nausea, vomiting, diarrhea Pulmonary: Denied any shortness of breath cough Neurologic: Denied any new focal deficits, reports of continued weakness All inpatient medications were reviewed and appropriate changes in these medications as dictated in the interval history and assessment and plan. PHYSICAL EXAMINATION: GENERAL: The patient is alert and oriented x3, not in any acute distress. Well developed, well nourished. Elderly appearing, obese HEENT: Pupils are round and equally reacting to light. EOMI. No scleral icterus. No conjunctival pallor. Normocephalic, atraumatic. No pharyngeal erythema. No th yromegaly. Mouth and sides of the cheeks appear candidal CARDIOVASCULAR: S1 and S2 present. No murmurs, rubs, or gallops. PULMONARY: Chest is clear to auscultation, no wheezing or crackles. ABDOMEN: Soft, nontender, nondistended, normoactive bowel sounds. No palpable organomegaly. MUSCULOSKELETAL: No joint swelling or deformity. EXTREMITIES: No cyanosis, clubbing, or pedal edema. NEUROLOGICAL: Gross neurological examination did not reveal any focal deficits. Diffusely weak SKIN: No rashes. Assessment: -Acute pulmonary edema secondary to missed hemodialysis: Improving -Acute hypoxic respiratory failure from pulmonary edema: Improving -End-stage kidney disease on hemodialysis Saturday and Saturday; Right subclavian dialysis access -Chronic kidney disease minimal bone disease -Anemia of chronic kidney disease. -Gastritis -Essential hypertension with end-stage kidney disease -Hyperlipidemia -Carotid artery stenosis: Moderate approaching severe stenosis right internal carotid artery 69%. 50-69% left internal carotid artery. -Peripheral neuropathy -Primary osteoarthritis, multiple joints -COPD, not in exacerbation -Chronic hypoxic respiratory failure underlying COPD -Chronic medical debility. Does use a rollator at baseline -Full code Plan: Hemodialysis MWF with nephrology following and will continue current medications, plan is for dialysis today Saturday and then possible discharge Patient was evaluated by PT/OT therapy recommending rehab and patient is reporting she remains extremely weak. Will have physical therapy reevaluate the patient for input and recommendations of any improvements. Patient reports she has caregivers in the home a few times a week that help care for her and she reports she takes the bus to dialysis. Awaiting callback from [facility] to determine if patient has been accepted and would also require insurance authorization to be submitted and reevaluation by PT/OT therapy PT/OT Daily Evaluate for home oxygen test to be performed and wean FiO2 as tolerated. Patient will likely not qualify for home oxygen as patient is maintaining oxygen saturations above 94% The impression and plan of care has been dictated by Kenia Montano, Nurse Practitioner as directed. Dr. Maynor MD I have performed a history and physical examination and medical decision making of this patient, discussed the same with the dictator, and agree with the dictators assessment and plan as written, documented as a scribe. Based on total visit time, I have performed more than 50% of this visit. Objective - Vital Signs Vital signs: Vital Signs Temp 99.1 F 12/05/24 00:10 Pulse 64 12/05/24 00:10 Resp 18 12/05/24 00:10 BP 123/74 12/05/24 00:10 Pulse Ox 96 12/05/24 00:10 FiO2 Intake & Output 12/04/24 12/05/24 12/05/24 18:59 06:59 18:59 Intake Total 400 360 Output Total 6400 Balance -6000 360 Intake: Oral 360 Hemodialysis 400 Output: Hemodialysis 3400 Hemodialysis Net Amount 3000 Other: # Voids 1 1 # Bowel Movements 1 1 - Labs CBC & Chem 7: 11/29/24 07:47 11/30/24 08:23
[2024-12-05 10:06] LABS: Anion Gap 14.40 mmol/L (4.00-12.00); BUN/Creat Ratio 8.60 Ratio (12.00-20.00); Blood Urea Nitrogen 30.1 mg/dL (9.0-27.0); Calcium 8.9 mg/dL (8.7-10.3); Carbon Dioxide 25.6 mmol/L (21.6-31.8); Chloride 98 mmol/L (96-109); Glucose 74 mg/dL (70-110); Magnesium 2.0 mg/dL (1.5-2.4); Potassium 4.9 mmol/L (3.5-5.5); Sodium 138 mmol/L (135-145)
[2024-12-05 10:10] LABS: HCT 27.9 % (37.2-46.3); HGB 8.2 g/dL (12.0-15.0); Immature Platelet Fraction 11.4 % (1.1-6.1); MCH 28.4 pg (27.0-32.0); MCHC 29.4 g/dL (32.0-37.0); MCV 96.5 FL (80.0-97.0); NRBC Per 100 WBC 0 X 10*3/uL (0.00-0.01); Platelet Count 145 X 10*3/uL (140-440); RBC 2.89 X 10*6/uL (4.10-5.20); RDW 15.9 % (11.5-14.5); WBC 6.12 X 10*3/uL (4.50-10.00)
[2024-12-05 10:11] LABS: Basophils # (A) 0.06 X 10*3/uL (0.00-0.10); Basophils % (A) 1.0 %; Eosinophils # (A) 0.35 X 10*3/uL (0.04-0.35); Eosinophils % (A) 5.7 %; Immature Grans, Automated 0.50 %; Lymphocytes # (A) 0.97 X 10*3/uL (0.90-5.00); Lymphocytes % (A) 15.8 %; Monocytes # (A) 0.69 X 10*3/uL (0.20-1.00); Monocytes % (A) 11.3 %; Neutrophils # (A) 4.02 X 10*3/uL (1.80-7.70); Neutrophils % (A) 65.7 %
--- NOTE | 2024-12-05 12:39 | P.PN ---
Subjective Patient is seen for follow-up for end-stage renal disease. Resting comfortably. complaining of back pain. Patient is able to get out of bed and walk with a walker. Objective - Vital Signs Vital signs: Vital Signs Temp 97.8 F 12/05/24 07:57 Pulse 74 12/05/24 12:27 Resp 18 12/05/24 07:57 BP 152/78 12/05/24 07:57 Pulse Ox 98 12/05/24 09:01 FiO2 Intake & Output 12/04/24 12/05/24 12/05/24 18:59 06:59 18:59 Intake Total 400 360 Output Total 6400 Balance -6000 360 Intake: Oral 360 Hemodialysis 400 Output: Hemodialysis 3400 Hemodialysis Net Amount 3000 Other: # Voids 1 1 # Bowel Movements 1 1 - Exam Patient is comfortable no acute distress Alert oriented 3 abdomen is soft nontender Examination lower extremity shows both legs to be wrapped, chronic edema noted - Labs CBC & Chem 7: 12/05/24 04:44 12/05/24 04:44 Labs: Abnormal Lab Results - Last 24 Hours (Table) 12/05/24 12/05/24 Range/Units 04:44 04:44 RBC 2.89 L (4.10-5.20) X 10*6/uL Hgb 8.2 L (12.0-15.0) g/dL Hct 27.9 L (37.2-46.3) % MCHC 29.4 L (32.0-37.0) g/dL RDW 15.9 H (11.5-14.5) % MPV 12.9 H (9.5-12.2) FL Immature Plt Fraction 11.4 H (1.1-6.1) % Anion Gap 14.40 H (4.00-12.00) mmol/L BUN 30.1 H (9.0-27.0) mg/dL Creatinine 3.5 H (0.6-1.5) mg/dL Est GFR (CKD-EPI) 14 L (>=60) BUN/Creatinine Ratio 8.60 L (12.00-20.00) Ratio Assessment and Plan Assessment: 1. End-stage renal disease maintained on hemodialysis on Saturday schedule via permacath. 2. Hyperkalemia secondary to chronic kidney disease and missed dialysis treatments. Improved postdialysis. 3. Chronic kidney disease mineral bone disease. Phosphorus level 5.6 this admission. On Renvela. 4. Anemia of chronic kidney disease. Iron replete. 5. Metabolic acidosis secondary to chronic kidney disease. Expect improvement postdialysis. 6. Volume overload, improved Plan: Hemodialysis Saturday Increased goal UF to about 3 L as tolerated Encourage increased oral intake
--- NOTE | 2024-12-05 13:10 | XR ---
EXAMINATION TYPE: XR chest 1V portable DATE OF EXAM: 12/05/2024 12:28 PM COMPARISON: Chest radiographs from 11/29/2024. CLINICAL INDICATION: Female, 64 years old with history of SOB; [facility] TECHNIQUE: XR chest 1V portable Frontal view of the chest. FINDINGS: Lungs/Pleura: There is no evidence of pleural effusion, focal consolidation, or pneumothorax. Pulmonary vascularity: Unremarkable. Heart/mediastinum: Cardiomediastinal silhouette is unremarkable. Musculoskeletal: No acute osseous pathology. Other findings: Left axillary surgical clips. Lines/Tubes: Right internal jugular central venous catheter with distal tip at the cavoatrial junction. IMPRESSION: Cardiomegaly and mild pulmonary vascular congestion. Correlate with BNP for congestive heart failure. [facility], , 12/05/2024 1:08 PM
--- NOTE | 2024-12-05 14:45 | PN ---
PROGRESS NOTE DATE OF SERVICE: 12/05/2024 SUBJECTIVE: This is a 64-year-old woman who was admitted with a missed hemodialysis session and pulmonary edema secondary to fluid overload. She is still complaining of some shortness of breath. The patient also COPD also, recommend optimize bronchodilator treatment at this time. PAST MEDICAL HISTORY: Reviewed. REVIEW OF SYSTEMS: A 14-point review of systems negative except as mentioned earlier. CURRENT MEDICATIONS: Reviewed. PHYSICAL EXAMINATION: VITAL SIGNS: Pulse is 71, blood pressure 109/60, and respirations 18. CHEST: Few scattered rhonchi and crackles. ABDOMEN: Soft. NERVOUS SYSTEM: Nonfocal. LABORATORY DATA: Reviewed. ASSESSMENT: 1. Acute pulmonary edema secondary to missed hemodialysis and fluid overload. 2. Chronic obstructive pulmonary disease acute exacerbation. 3. Acute hypoxic respiratory failure. 4. Chronic kidney disease and end-stage renal disease. 5. Gastritis. 6. Hypertension. 7. Hyperlipidemia. 8. Carotid stenosis. 9. Multiple complex medical issues. RECOMMENDATIONS AND DISCUSSION: Recommend to continue current management and continue symptomatic treatment. Optimize bronchodilators. I would also recommend incentive spirometry. Increase ambulation. Closely follow. Repeat labs. Closely follow with Nephrology. Guarded prognosis. Further recommendations to follow. MMODL / IJN: [id number] /
[2024-12-05] MEDS: IPRATROPIUM-ALBUTEROL 3 ML NEB INHALATION SCH (15:30)
[2024-12-05] MEDS: SYMBICORT 160-4.5 MCG INHALER INHALATION SCH (15:30)
[2024-12-05] MEDS: HYDROcodone/APAP 5-325MG 1 EACH TAB PO PRN (21:34)
[2024-12-06] MEDS: ZINC SULFATE 220 MG CAP PO SCH (08:00)
[2024-12-06 10:14] LABS: BUN/Creat Ratio 8.35 Ratio (12.00-20.00); Blood Urea Nitrogen 43.4 mg/dL (9.0-27.0); Chloride 99 mmol/L (96-109); Glucose 109 mg/dL (70-110); Potassium 5.0 mmol/L (3.5-5.5); Sodium 138 mmol/L (135-145)
[2024-12-06 10:15] LABS: Anion Gap 13.40 mmol/L (4.00-12.00); Calcium 9.2 mg/dL (8.7-10.3); Carbon Dioxide 25.6 mmol/L (21.6-31.8)
[2024-12-06 11:02] LABS: Basophils # (A) 0.06 X 10*3/uL (0.00-0.10); Basophils % (A) 0.9 %; Eosinophils # (A) 0.35 X 10*3/uL (0.04-0.35); Eosinophils % (A) 5.1 %; HCT 27.5 % (37.2-46.3); HGB 8.2 g/dL (12.0-15.0); Immature Grans, Automated 0.40 %; Immature Platelet Fraction 11.1 % (1.1-6.1); Lymphocytes # (A) 1.29 X 10*3/uL (0.90-5.00); Lymphocytes % (A) 18.9 %; MCH 29.0 pg (27.0-32.0); MCHC 29.8 g/dL (32.0-37.0); MCV 97.2 FL (80.0-97.0); Monocytes # (A) 0.85 X 10*3/uL (0.20-1.00); Monocytes % (A) 12.4 %; NRBC Per 100 WBC 0 X 10*3/uL (0.00-0.01); Neutrophils # (A) 4.25 X 10*3/uL (1.80-7.70); Neutrophils % (A) 62.3 %; Platelet Count 149 X 10*3/uL (140-440); RBC 2.83 X 10*6/uL (4.10-5.20); RDW 16.2 % (11.5-14.5); WBC 6.83 X 10*3/uL (4.50-10.00)
--- NOTE | 2024-12-06 12:42 | P.PN ---
Subjective Patient is seen for follow-up for end-stage renal disease. Complaining of cough today. Scheduled for hemodialysis in a.m. Objective - Vital Signs Vital signs: Vital Signs Temp 98.2 F 12/06/24 07:06 Pulse 73 12/06/24 12:01 Resp 18 12/06/24 09:48 BP 154/82 12/06/24 07:06 Pulse Ox 96 12/06/24 09:33 FiO2 Intake & Output 12/05/24 12/06/24 12/06/24 18:59 06:59 18:59 Intake Total 1020 Balance 1020 Intake: Oral 1020 Other: # Voids 1 1 # Bowel Movements 0 - Exam Patient is comfortable no acute distress Alert oriented 3 Examination of the heart S1 and S2 Examination of the lungs bilateral wheezing heard abdomen is soft nontender Examination lower extremity shows both legs to be wrapped, chronic edema noted - Labs CBC & Chem 7: 12/06/24 02:47 12/06/24 02:47 Labs: Abnormal Lab Results - Last 24 Hours (Table) 12/06/24 12/06/24 Range/Units 02:47 02:47 RBC 2.83 L (4.10-5.20) X 10*6/uL Hgb 8.2 L (12.0-15.0) g/dL Hct 27.5 L (37.2-46.3) % MCV 97.2 H (80.0-97.0) FL MCHC 29.8 L (32.0-37.0) g/dL RDW 16.2 H (11.5-14.5) % Immature Plt Fraction 11.1 H (1.1-6.1) % Anion Gap 13.40 H (4.00-12.00) mmol/L BUN 43.4 H (9.0-27.0) mg/dL Creatinine 5.2 H (0.6-1.5) mg/dL Est GFR (CKD-EPI) 9 L (>=60) BUN/Creatinine Ratio 8.35 L (12.00-20.00) Ratio Assessment and Plan Assessment: 1. End-stage renal disease maintained on hemodialysis on Saturday schedule via permacath. 2. Hyperkalemia secondary to chronic kidney disease and missed dialysis treatments. Improved postdialysis. 3. Chronic kidney disease mineral bone disease. Phosphorus level 5.6 this admission. On Renvela. 4. Anemia of chronic kidney disease. Iron replete. 5. Metabolic acidosis secondary to chronic kidney disease. Expect improvement postdialysis. 6. Volume overload, improved Plan: Hemodialysis in a.m. with increased UF of 3 to 4 L as tolerated IV Lasix x 1 as patient still has fairly good urine output Encourage increased oral intake
[2024-12-06] MEDS: FUROSEMIDE 10 MG/ML 10 ML VIAL IV STA (13:39)
[2024-12-06] MEDS: methylPREDNISolone SOD SUCCI 125 MG/2 ML VIAL IV SCH (13:40)
[2024-12-06 16:37] LABS: Glucose,Whole Blood 133 mg/dL (70-110)
[2024-12-06 21:28] LABS: Glucose,Whole Blood 207 mg/dL (70-110)
--- NOTE | 2024-12-06 23:51 | PN ---
PROGRESS NOTE DATE OF SERVICE: 12/06/2024 SUBJECTIVE: This is a 64-year-old woman, who was admitted with fluid overload, also had features of COPD acute exacerbation, also complaining of thick, slimy, mucopurulent, and greenish sputum at this time. Chest x-ray was reviewed. The patient is being closely monitored. PAST MEDICAL HISTORY: Reviewed. REVIEW OF SYSTEMS: A 14-point review of systems is negative except as mentioned earlier. CURRENT MEDICATIONS: Reviewed. PHYSICAL EXAMINATION: VITAL SIGNS: Pulse 73, blood pressure 107/67, respirations 18. CHEST: A few scattered rhonchi and crackles. ABDOMEN: Soft. CARDIOVASCULAR: S1, S2 normal. LABORATORY DATA: Reviewed. ASSESSMENT: 1. Acute pulmonary edema secondary to missed hemodialysis and fluid overload. 2. Chronic obstructive pulmonary disease acute exacerbation with acute purulent tracheobronchitis. 3. Acute hypoxic respiratory failure. 4. Chronic kidney disease, end-stage renal disease. 5. Gastritis. 6. Hypertension. 7. Hyperlipidemia. 8. History of carotid stenosis. 9. Multiple complex medical issues. RECOMMENDATIONS AND DISCUSSION: Recommend to continue current management and continue symptomatic treatment. The patient is set on hemodialysis. I would recommend intensive bronchodilator treatment and a course of antibiotics and as well as steroids because of the COPD acute exacerbation, otherwise repeat labs. Possible discharge within the next 24 to 48 hours. Further recommendations to follow. MMODL / IJN: [id number] /
[2024-12-07 06:09] LABS: Glucose,Whole Blood 155 mg/dL (70-110)
[2024-12-07 08:26] LABS: Basophils # (A) 0.01 X 10*3/uL (0.00-0.10); Basophils % (A) 0.2 %; Eosinophils # (A) 0 X 10*3/uL (0.04-0.35); Eosinophils % (A) 0 %; HCT 26.7 % (37.2-46.3); HGB 8.0 g/dL (12.0-15.0); Immature Grans, Automated 2.10 %; Lymphocytes # (A) 0.72 X 10*3/uL (0.90-5.00); Lymphocytes % (A) 15.4 %; MCH 28.6 pg (27.0-32.0); MCHC 30.0 g/dL (32.0-37.0); MCV 95.4 FL (80.0-97.0); Monocytes # (A) 0.07 X 10*3/uL (0.20-1.00); Monocytes % (A) 1.5 %; NRBC Per 100 WBC 0 X 10*3/uL (0.00-0.01); Neutrophils # (A) 3.79 X 10*3/uL (1.80-7.70); Neutrophils % (A) 80.8 %; Platelet Count 92 X 10*3/uL (140-440); RBC 2.80 X 10*6/uL (4.10-5.20); RDW 16.0 % (11.5-14.5); WBC 4.69 X 10*3/uL (4.50-10.00)
--- NOTE | 2024-12-07 11:16 | P.PN ---
Subjective Patient is seen in follow-up for end-stage renal disease. She is maintained on hemodialysis on Saturday schedule. Resting in bed. Tolerating dialysis well. Vital signs are stable. General: No acute distress. HEENT: Head exam is unremarkable. LUNGS: No audible rhonchi or wheezes. HEART: Rate and Rhythm are regular. ABDOMEN: Nontender. EXTREMITITES: 1+ edema. Objective - Vital Signs Vital signs: Vital Signs Temp 97.7 F 12/07/24 07:00 Pulse 66 12/07/24 07:00 Resp 18 12/07/24 07:00 BP 136/70 12/07/24 07:00 Pulse Ox 96 12/07/24 09:22 FiO2 Intake & Output 12/06/24 12/07/24 12/07/24 18:59 06:59 18:59 Intake Total 2400 Balance 2400 Intake: Oral 2400 Other: Voiding Method Bedside Commode # Voids 0 5 # Bowel Movements 0 1 - Labs CBC & Chem 7: 12/07/24 02:59 12/06/24 02:47 Labs: Abnormal Lab Results - Last 24 Hours (Table) 12/06/24 12/06/24 12/07/24 Range/Units 16:27 21:24 02:59 RBC 2.80 L (4.10-5.20) X 10*6/uL Hgb 8.0 L (12.0-15.0) g/dL Hct 26.7 L (37.2-46.3) % MCHC 30.0 L (32.0-37.0) g/dL RDW 16.0 H (11.5-14.5) % Plt Count 92 L (140-440) X 10*3/uL MPV 13.2 H (9.5-12.2) FL Immature Gran # 0.10 H (0.00-0.04) X 10*3/uL Lymphocytes # 0.72 L (0.90-5.00) X 10*3/uL Monocytes # 0.07 L (0.20-1.00) X 10*3/uL Eosinophils # 0 L (0.04-0.35) X 10*3/uL POC Glucose (mg/dL) 133 H 207 H (70-110) mg/dL 06/30/25 Range/Units 06:07 RBC (4.10-5.20) X 10*6/uL Hgb (12.0-15.0) g/dL Hct (37.2-46.3) % MCHC (32.0-37.0) g/dL RDW (11.5-14.5) % Plt Count (140-440) X 10*3/uL MPV (9.5-12.2) FL Immature Gran # (0.00-0.04) X 10*3/uL Lymphocytes # (0.90-5.00) X 10*3/uL Monocytes # (0.20-1.00) X 10*3/uL Eosinophils # (0.04-0.35) X 10*3/uL POC Glucose (mg/dL) 155 H (70-110) mg/dL Assessment and Plan Plan: Assessment: 1. End-stage renal disease maintained on hemodialysis on Saturday schedule via permacath. 2. Hyperkalemia secondary to chronic kidney disease and missed dialysis treatments. Improved postdialysis. 3. Chronic kidney disease mineral bone disease. Phosphorus level 5.6 this admission. On Renvela. 4. Anemia of chronic kidney disease. Iron replete. On Aranesp. 5. Metabolic acidosis secondary to chronic kidney disease. Improved postdialysis. Plan: Currently seen while undergoing hemodialysis. Renal diet. Stressed compliance with hemodialysis treatments outpatient. Life-threatening effects of noncompliance have been discussed with the patient multiple times.
[2024-12-07 11:52] LABS: Glucose,Whole Blood 138 mg/dL (70-110)
--- NOTE | 2024-12-07 20:45 | CDI ---
Documentation Clarification Form Date: 12/07/2024 08:35:39 PM From: Shanda Wong RN CCDS Phone: [phone] Admit Date: 11/25/2024 04:53:00 PM Patient Name: Lissa Gomez Visit Number: [id number] Discharge Date: ATTENTION: The Clinical Documentation Specialists (CDI) and [facility] Coding Staff appreciate your assistance in clarifying documentation. Please respond to the clarification below the line at the bottom and electronically sign. The CDI & [facility] Coding staff will review the response and follow-up if needed. Please note: Queries are made part of the Legal Health Record. If you have any questions, please contact the author of this message via ITS. Doctor: Cheyanne Aranda Your patient has the documented diagnosis of unspecified CHF 11/26. HP. Additional information regarding the type, acuity of CHF is requested. History/Risk Factors: 64 year old female presents to the ED after missing a course of hemodialysis. Medical History: ESRD Hemodialysis Mon, Sat, Sat, and anemia of chronic disease. 11/25, HP. Clinical Indicators: VS/Pulse OX, 11/25: B/P 139/69, HR 76, RR 18, SpO2 100% ra Echocardiogram Results:11/30: EF 55-60% Normal LV size and systolic function. Mildly enlarged atria prominent right ventricle moderate mitral and tricuspid regurgitation. Mild to pulmonary hypertension. Chest X Ray: 11/25 Correlate for early congestive heart failure or volume overload Treatment: 11/25 - Lokelma po x 1, 11/26 - Bumex po bid, 11/26 - Toprol Xl po bid, 12/06 Lasix IV x 1 In your professional opinion, can you please clarify the acuity and type of CHF if known? [ ] Chronic Diastolic Heart Failure (preserved EF) [ ] Acute on Chronic Diastolic Heart Failure (preserved EF) [ ] Other, please specify [ ] Unable to determine query answered in discharge summary, 12/07: by Zaid Montano NP "chronic congestive heart failure, with preserved EF, not in exacerbation .' (Template Last Revised: July 2020) MTDD
[2024-12-08 00:27] VITALS: RESP 16
--- NOTE | 2024-12-08 04:21 | P.DS ---
Providers Date of admission: 11/25/24 16:53 Expected date of discharge: 12/07/24 Attending physician: Monroe Morocho Consults: 11/25/24 16:36 Consult Physician Routine Consulting Provider: Arianna Brice Consult Reason/Comments: missed HD Do you want consulting provider notified?: Yes 11/26/24 09:25 Consult Physician Stat Consulting Provider: Jonas Brice Consult Reason/Comments: dialysis pt Do you want consulting provider notified?: Yes Primary care physician: Andrez Almodovar Hospital Course: Final diagnosis -Acute pulmonary edema secondary to missed hemodialysis: Improving -Acute hypoxic respiratory failure from pulmonary edema: Improving -, Acute exacerbation with acute purulent tracheobronchitis -End-stage kidney disease on hemodialysis Saturday and Saturday; Right subclavian dialysis access -Chronic kidney disease minimal bone disease -Anemia of chronic kidney disease. -Chronic congestive heart failure, with preserved EF, not in exacerbation -Gastritis -Essential hypertension with end-stage kidney disease -Hyperlipidemia -Carotid artery stenosis: Moderate approaching severe stenosis right internal carotid artery 69%. 50-69% left internal carotid artery. -Peripheral neuropathy -Primary osteoarthritis, multiple joints -Chronic medical debility. Does use a rollator at baseline -Full code Discharge disposition Patient is being discharged in a stable condition with guarded prognosis to home. Patient will follow-up with Dr. Almodovar in the outpatient setting upon discharge. Patient is to continue with hemodialysis as scheduled on Mo /Saturday/Saturday. Recommend continued home care and outpatient follow-up with nephrology. Total time taken is greater than 35 minutes. Hospital course This is a 64-year-old female who was recently admitted with acute pulmonary edema secondary to a few sessions of missed hemodialysis being closely monitored with nephrology following. Patient also with cough and congestion with purulent mucus maintained on breathing treatments along with IV steroids and antibiotics empirically for tracheobronchitis. Patient showing some clinical improvement and will be continued on hemodialysis outpatient on Saturday/Saturday/Saturday with close outpatient follow-up. Patient to continue a prednisone taper along with breathing treatments and a short course of oral Ceftin. Would recommend outpatient follow-up with pulmonary. Patient was evaluated by physical therapy as patient reported significant weakness although later reported wanted to return home and did not want to go to rehab. Case management was following and patient was not accepted at [facility] and will be going home and having home care arranged. Please refer to other consultation notes for further HPI. Currently no reports of chest pain, shortness of breath, or palpitations. Patient is afebrile. No reports of nausea or vomiting and patient is tolerating diet. Patient will be discharged home today. Guarded prognosis and high risk for readmissions given significant comorbidities. Patient is noncompliant with poor social support. Physical exam: Gen: This is a 64-year-old female who is awake, alert and oriented x 2-3, base line, well-developed, elderly appearing, chronically ill-appearing, obese HEENT: Head is atraumatic, normocephalic. Pupils equal, round. Sclerae is anicteric. NECK: Supple. No JVD. No lymphadenopathy. No thyromegaly. LUNGS: Diminished breath sounds bilaterally otherwise clear to auscultation. No wheezes, scattered rhonchi noted. No intercostal retractions. HEART: S1, S2 are muffled ABDOMEN: Soft. Bowel sounds are present. No masses. No tenderness. EXTREMITIES: No pedal edema. No calf tenderness. NEUROLOGICAL: Patient is awake, alert and oriented x 2-3. Cranial nerves 2 through 12 are grossly intact. Diffusely weak Please refer to medication reconciliation sheet for a list of medications. The impression and plan of care has been dictated by Kenia Montano, Nurse Practitioner as directed. Dr. Manoj MD I have performed a history and examination and MDM of this patient, discussed the same with the dictator, and agree with the dictator's assessment and plan as written ,documented as a scribe. Based on total visit time, I have performed more than 50% of the visit. Patient Condition at Discharge: Fair Plan - Discharge Summary Discharge Rx Participant: No New Discharge Prescriptions: New Meclizine [Antivert] 12.5 mg PO TID #30 tab Cefuroxime [Ceftin] 250 mg PO BID 5 Days #10 tab Ipratropium-Albuterol Nebulize [Duoneb 0.5 mg-3 mg/3 ml Soln] 3 ml INHALATION RT-QID #100 each Ipratropium-Albuterol Nebulize [Duoneb 0.5 mg-3 mg/3 ml Soln] 3 ml INHALATION RT-QID PRN each PRN Reason: Shortness Of Breath Or Wheezing Nystatin 100,000 Unit/ml Susp [Mycostatin Oral Susp] 500,000 unit PO QID 7 Days #140 ml predniSONE See Taper PO DIRECTED #30 tab Budesonide-Formot 160-4.5 Mcg [Symbicort 160-4.5 Mcg Inhaler] 2 puff INHALATION RT-BID #1 each Calcium Carbonate [Tums] 500 mg PO QID PRN tab PRN Reason: Heartburn Darbepoetin Ervin [Aranesp] 40 mcg SQ Q7D 30 Days #4 each Benzocaine/Menthol Lozeng [Cepacol lozenge] 1 each MUCOUS MEM Q4HR PRN #0 lozenge PRN Reason: Sore Throat Lidocaine 4% Patch 1 patch TOPICAL DAILY #30 patch Acetaminophen Tab [Tylenol] 500 mg PO Q6HR PRN tab PRN Reason: Fever And/ Or Pain Continue Montelukast [Singulair] 10 mg PO DAILY Atorvastatin Calcium 20 mg PO HS Fluticasone Nasal [place]con[place] [Flonase Nasal Concon[place]] 2 spray EA NOSTRIL BID PRN PRN Reason: Allergy Symptoms Loperamide [Imodium] 2 mg PO QID PRN PRN Reason: Diarrhea Cholecalciferol (Vitamin D3) [Vitamin D3 (125 MCG = 5,000 IU)] 125 mcg PO DAILY Midodrine [ProAmatine] 5 mg PO TID PRN PRN Reason: LOW BP amLODIPine [Norvasc] 5 mg PO DAILY Sevelamer Carbonate 2,400 mg PO TID-W/MEALS DULoxetine HCL [Cymbalta] 30 mg PO DAILY Sevelamer [Renvela] 1,600 mg PO DAILY PRN PRN Reason: WITH SNACKS Sodium Polystyrene Sulfonate [Kayexalate] 15 gm PO DAILY Vitamin B Complex 1 cap PO DAILY Benzonatate [Tessalon Perles] 100 mg PO TID PRN PRN Reason: Cough Zinc Gluconate [Zinc] 50 mg PO DAILY Ascorbic Acid [Vitamin C chew] 500 mg PO DAILY Cetirizine HCl 10 mg PO DAILY Albuterol Sulfate [Albuterol Sulfate Hfa] 2 puff INHALATION RT-QID PRN PRN Reason: Shortness Of Breath Omeprazole [PriLOSEC] 20 mg PO DAILY Isosorbide Mononitrate ER [Imdur] 30 mg PO DAILY Metoprolol Succinate (ER) [Toprol XL] 25 mg PO BID@1200,2200 Bumetanide [BUMEX] 4 mg PO BID Dicyclomine [Bentyl] 10 mg PO TID Gabapentin [Neurontin] 200 mg PO BID PRN PRN Reason: Pain Vitamin E 670mg 670 mg PO DAILY Aspirin 81 mg PO BID Cranberry Fruit Extract [Cranberry] 500 mg PO BID Discharge Medication List Albuterol Sulfate [Albuterol Sulfate Hfa] 2 puff INHALATION RT-QID PRN 01/21/23 [History] Atorvastatin Calcium 20 mg PO HS 01/21/23 [History] Fluticasone Nasal [place] [Flonase Nasal [place]] 2 spray EA NOSTRIL BID PRN 01/21/23 [History] Isosorbide Mononitrate ER [Imdur] 30 mg PO DAILY 01/21/23 [History] Loperamide [Imodium] 2 mg PO QID PRN 01/21/23 [History] Metoprolol Succinate (ER) [Toprol XL] 25 mg PO BID@1200,2200 01/21/23 [History] Montelukast [Singulair] 10 mg PO DAILY 01/21/23 [History] Omeprazole [PriLOSEC] 20 mg PO DAILY 01/21/23 [History] Cholecalciferol (Vitamin D3) [Vitamin D3 (125 MCG = 5,000 IU)] 125 mcg PO DAILY 01/22/23 [History] Bumetanide [BUMEX] 4 mg PO BID 04/01/23 [History] Midodrine [ProAmatine] 5 mg PO TID PRN 04/01/23 [History] Sevelamer Carbonate 2,400 mg PO TID-W/MEALS 04/01/23 [History] amLODIPine [Norvasc] 5 mg PO DAILY 04/01/23 [History] DULoxetine HCL [Cymbalta] 30 mg PO DAILY 03/18/24 [History] Dicyclomine [Bentyl] 10 mg PO TID 03/18/24 [History] Gabapentin [Neurontin] 200 mg PO BID PRN 03/18/24 [History] Sevelamer [Renvela] 1,600 mg PO DAILY PRN 03/19/24 [History] Sodium Polystyrene Sulfonate [Kayexalate] 15 gm PO DAILY 04/27/24 [History] Ascorbic Acid [Vitamin C chew] 500 mg PO DAILY 11/25/24 [History] Aspirin 81 mg PO BID 11/25/24 [History] Benzonatate [Tessalon Perles] 100 mg PO TID PRN 11/25/24 [History] Cetirizine HCl 10 mg PO DAILY 11/25/24 [History] Cranberry Fruit Extract [Cranberry] 500 mg PO BID 11/25/24 [History] Vitamin B Complex 1 cap PO DAILY 11/25/24 [History] Vitamin E 670mg 670 mg PO DAILY 11/25/24 [History] Zinc Gluconate [Zinc] 50 mg PO DAILY 11/25/24 [History] Acetaminophen Tab [Tylenol] 500 mg PO Q6HR PRN tab 12/07/24 [Rx] Benzocaine/Menthol Lozeng [Cepacol lozenge] 1 each MUCOUS MEM Q4HR PRN #0 lozenge 12/07/24 [Rx] Budesonide-Formot 160-4.5 Mcg [Symbicort 160-4.5 Mcg Inhaler] 2 puff INHALATION RT-BID #1 each 12/07/24 [Rx] Calcium Carbonate [Tums] 500 mg PO QID PRN tab 12/07/24 [Rx] Cefuroxime [Ceftin] 250 mg PO BID 5 Days #10 tab 12/07/24 [Rx] Darbepoetin Ervin [Aranesp] 40 mcg SQ Q7D 30 Days #4 each 12/07/24 [Rx] Ipratropium-Albuterol Nebulize [Duoneb 0.5 mg-3 mg/3 ml Soln] 3 ml INHALATION RT-QID #100 each 12/07/24 [Rx] Ipratropium-Albuterol Nebulize [Duoneb 0.5 mg-3 mg/3 ml Soln] 3 ml INHALATION RT-QID PRN each 12/07/24 [Rx] Lidocaine 4% Patch 1 patch TOPICAL DAILY #30 patch 12/07/24 [Rx] Meclizine [Antivert] 12.5 mg PO TID #30 tab 12/07/24 [Rx] Nystatin 100,000 Unit/ml Susp [Mycostatin Oral Susp] 500,000 unit PO QID 7 Days #140 ml 12/07/24 [Rx] predniSONE See Taper PO DIRECTED #30 tab 12/07/24 [Rx] Follow up Appointment(s)/Referral(s): Elvia Armstrong MD [STAFF PHYSICIAN] - 1 Week [facility], [NON-STAFF] - 1 Week Andrez Almodovar MD [Primary Care Provider] - 1-2 days Malena Moser MD [STAFF PHYSICIAN] - 1 Week Activity/Diet/Wound Care/Special Instructions: Activity limited until follow-up Follow-up with primary care provider Continue hemodialysis as scheduled sessions Continue with antibiotics and breathing treatments with outpatient follow-up with pulmonary Continue to follow-up with nephrology outpatient Discharge Disposition: HOME WITH HOME HEALTH SERVICES
[2024-12-08 06:08] LABS: Glucose,Whole Blood 137 mg/dL (70-110)
[2024-12-08 08:19] VITALS: BP 122/75; TEMP 98.1
--- NOTE | 2024-12-08 10:51 | P.PN ---
Subjective Patient is seen in follow-up for end-stage renal disease. She is maintained on hemodialysis on Saturday schedule. Resting in bed. No problems with dialysis yesterday. Vital signs are stable. General: No acute distress. HEENT: Head exam is unremarkable. LUNGS: No audible rhonchi or wheezes. HEART: Rate and Rhythm are regular. ABDOMEN: Nontender. EXTREMITITES: 1+ edema. Objective - Vital Signs Vital signs: Vital Signs Temp 98.1 F 12/08/24 07:00 Pulse 70 12/08/24 07:56 Resp 16 12/08/24 07:00 BP 122/75 12/08/24 07:00 Pulse Ox 97 12/08/24 08:00 FiO2 Intake & Output 12/07/24 12/08/24 12/08/24 18:59 06:59 18:59 Intake Total 500 Output Total 7500 Balance -7000 Intake: Hemodialysis 500 Output: Hemodialysis 4000 Hemodialysis Net Amount 3500 Other: Voiding Method Bedside Commode Bedside Commode # Voids 1 1 # Bowel Movements 1 1 - Labs CBC & Chem 7: 12/07/24 02:59 12/06/24 02:47 Labs: Abnormal Lab Results - Last 24 Hours (Table) 12/07/24 12/08/24 Range/Units 11:51 06:06 POC Glucose (mg/dL) 138 H 137 H (70-110) mg/dL Assessment and Plan Plan: Assessment: 1. End-stage renal disease maintained on hemodialysis on Saturday schedule via permacath. 2. Hyperkalemia secondary to chronic kidney disease and missed dialysis treatments. Improved postdialysis. 3. Chronic kidney disease mineral bone disease. Phosphorus level 5.6 this admission. On Renvela. 4. Anemia of chronic kidney disease. Iron replete. On Aranesp. 5. Metabolic acidosis secondary to chronic kidney disease. Improved postdialysis. Plan: Hemodialysis tomorrow. Renal diet. Stressed compliance with hemodialysis treatments outpatient. Life-threatening effects of noncompliance have been discussed with the patient multiple times.
[2024-12-08 11:27] LABS: Glucose,Whole Blood 155 mg/dL (70-110)
[2024-12-08 11:42] VITALS: PULSE 72
--- NOTE | 2024-12-08 13:51 | XR ---
EXAMINATION TYPE: XR chest 1V portable DATE OF EXAM: 12/08/2024 1:25 PM COMPARISON: 12/05/2024 CLINICAL INDICATION: Female, 64 years old with history of sob, TECHNIQUE: XR chest 1V portable views of the chest are obtained. FINDINGS: Demonstrated are scattered senescent parenchymal change. There is no evidence for focal infiltrate. The heart is stable. Hilar and mediastinal structures are within normal limits. Degenerative changes are seen of the dorsal spine. IMPRESSION: 1. Chronic changes without evidence for acute pulmonary disease. [facility], , 12/08/2024 1:48 PM
[2024-12-08 15:23] LABS: Anion Gap 17.80 mmol/L (4.00-12.00); BUN/Creat Ratio 15.33 Ratio (12.00-20.00); Blood Urea Nitrogen 73.6 mg/dL (9.0-27.0); Calcium 9.4 mg/dL (8.7-10.3); Carbon Dioxide 25.2 mmol/L (21.6-31.8); Chloride 92 mmol/L (96-109); Glucose 140 mg/dL (70-110); Potassium 4.5 mmol/L (3.5-5.5); Sodium 135 mmol/L (135-145)
--- NOTE | 2024-12-10 01:10 | P.DS ---
Providers Date of admission: 11/25/24 16:53 Expected date of discharge: 12/08/24 Attending physician: Monroe Morocho Consults: 11/25/24 16:36 Consult Physician Routine Consulting Provider: Arianna Brice Consult Reason/Comments: missed HD Do you want consulting provider notified?: Yes 11/26/24 09:25 Consult Physician Stat Consulting Provider: Jonas Brice Consult Reason/Comments: dialysis pt Do you want consulting provider notified?: Yes Primary care physician: Andrez Almodovar Hospital Course: Final diagnosis -Acute pulmonary edema secondary to missed hemodialysis: Improving -Acute hypoxic respiratory failure from pulmonary edema: Improving -COPD acute exacerbation with acute purulent tracheobronchitis -End-stage kidney disease on hemodialysis Saturday and Saturday; Right subclavian dialysis access -Chronic kidney disease minimal bone disease -Anemia of chronic kidney disease. -Chronic congestive heart failure, with preserved EF, not in exacerbation -Gastritis -Essential hypertension with end-stage kidney disease -Hyperlipidemia -Carotid artery stenosis: Moderate approaching severe stenosis right internal carotid artery 69%. 50-69% left internal carotid artery. -Peripheral neuropathy -Primary osteoarthritis, multiple joints -Chronic medical debility. Does use a rollator at baseline -Full code Discharge disposition Patient is being discharged in a stable condition with guarded prognosis to home. Patient will follow-up with Dr. Almodovar in the outpatient setting upon discharge. Patient is to continue with hemodialysis as scheduled on Saturday/Saturday/Saturday. Recommend continued home care and outpatient follow-up with nephrology. Total time taken is greater than 35 minutes. Hospital course This is a 64-year-old female who was recently admitted with acute pulmonary edema secondary to a few sessions of missed hemodialysis being closely monitored with nephrology following. Patient also with cough and congestion with purulent mucus maintained on breathing treatments along with IV steroids and antibiotics empirically for tracheobronchitis. Patient showing some clinical improvement and will be continued on hemodialysis outpatient on Saturday/Saturday/Saturday with close outpatient follow-up. Patient to continue a prednisone taper along with breathing treatments and a short course of oral Ceftin. Would recommend outpatient follow-up with pulmonary. Patient was evaluated by physical therapy as patient reported significant weakness although later reported wanted to return home and did not want to go to rehab. Case management was following and patient was not accepted at [facility] and will be going home and having home care arranged. Please refer to other consultation notes for further HPI. Currently no reports of chest pain, shortness of breath, or palpitations. Patient is afebrile. No reports of nausea or vomiting and patient is tolerating diet. Patient will be discharged home today. Guarded prognosis and high risk for readmissions given significant comorbidities. Patient is noncompliant with poor social support. 12/08/2024 Patient seen and evaluated in follow-up and awaiting a ride for safe discharge planning home as yesterday patient was able to get her medications and had no ride home and per nursing staff has no phone. Case management followed up this morning made arrangements for discharge planning. Physical exam: Gen: This is a 64-year-old female who is awake, alert and oriented x 2-3, baseline, well-developed, elderly appearing, chronically ill-appearing, obese HEENT: Head is atraumatic, normocephalic. Pupils equal, round. Sclerae is anicteric. NECK: Supple. No JVD. No lymphadenopathy. No thyromegaly. LUNGS: Diminished breath sounds bilaterally otherwise clear to auscultation. No wheezes, scattered rhonchi noted. No intercostal retractions. HEART: S1, S2 are muffled ABDOMEN: Soft. Bowel sounds are present. No masses. No tenderness. EXTREMITIES: No pedal edema. No calf tenderness. NEUROLOGICAL: Patient is awake, alert and oriented x 2-3. Cranial nerves 2 through 12 are grossly intact. Diffusely weak Please refer to medication reconciliation sheet for a list of medications. The impression and plan of care has been dictated by Kenia Montano, Nurse Practitioner as directed. Dr. Manoj MD I have performed a history and examination and MDM of this patient, discussed the same with the dictator, and agree with the dictator's assessment and plan as written ,documented as a scribe. Based on total visit time, I have performed more than 50% of the visit. Patient Condition at Discharge: Fair Plan - Discharge Summary Discharge Rx Participant: No New Discharge Prescriptions: New Meclizine [Antivert] 12.5 mg PO TID #30 tab Cefuroxime [Ceftin] 250 mg PO BID 5 Days #10 tab Ipratropium-Albuterol Nebulize [Duoneb 0.5 mg-3 mg/3 ml Soln] 3 ml INHALATION RT-QID #100 each Ipratropium-Albuterol Nebulize [Duoneb 0.5 mg-3 mg/3 ml Soln] 3 ml INHALATION RT-QID PRN each PRN Reason: Shortness Of Breath Or Wheezing Nystatin 100,000 Unit/ml Susp [Mycostatin Oral Susp] 500,000 unit PO QID 7 Days #140 ml predniSONE See Taper PO DIRECTED #30 tab Budesonide-Formot 160-4.5 Mcg [Symbicort 160-4.5 Mcg Inhaler] 2 puff INHALATION RT-BID #1 each Calcium Carbonate [Tums] 500 mg PO QID PRN tab PRN Reason: Heartburn Darbepoetin Ervin [Aranesp] 40 mcg SQ Q7D 30 Days #4 each Benzocaine/Menthol Lozeng [Cepacol lozenge] 1 each MUCOUS MEM Q4HR PRN #0 lozenge PRN Reason: Sore Throat Lidocaine 4% Patch 1 patch TOPICAL DAILY #30 patch Acetaminophen Tab [Tylenol] 500 mg PO Q6HR PRN tab PRN Reason: Fever And/ Or Pain Continue Montelukast [Singulair] 10 mg PO DAILY Atorvastatin Calcium 20 mg PO HS Fluticasone Nasal [place] [Flonase Nasal [place]] 2 spray EA NOSTRIL BID PRN PRN Reason: Allergy Symptoms Loperamide [Imodium] 2 mg PO QID PRN PRN Reason: Diarrhea Cholecalciferol (Vitamin D3) [Vitamin D3 (125 MCG = 5,000 IU)] 125 mcg PO DAILY Midodrine [ProAmatine] 5 mg PO TID PRN PRN Reason: LOW BP amLODIPine [Norvasc] 5 mg PO DAILY Sevelamer Carbonate 2,400 mg PO TID-W/MEALS DULoxetine HCL [Cymbalta] 30 mg PO DAILY Sevelamer [Renvela] 1,600 mg PO DAILY PRN PRN Reason: WITH SNACKS Sodium Polystyrene Sulfonate [Kayexalate] 15 gm PO DAILY Vitamin B Complex 1 cap PO DAILY Benzonatate [Tessalon Perles] 100 mg PO TID PRN PRN Reason: Cough Zinc Gluconate [Zinc] 50 mg PO DAILY Ascorbic Acid [Vitamin C chew] 500 mg PO DAILY Cetirizine HCl 10 mg PO DAILY Albuterol Sulfate [Albuterol Sulfate Hfa] 2 puff INHALATION RT-QID PRN PRN Reason: Shortness Of Breath Omeprazole [PriLOSEC] 20 mg PO DAILY Isosorbide Mononitrate ER [Imdur] 30 mg PO DAILY Metoprolol Succinate (ER) [Toprol XL] 25 mg PO BID@1200,2200 Bumetanide [BUMEX] 4 mg PO BID Dicyclomine [Bentyl] 10 mg PO TID Gabapentin [Neurontin] 200 mg PO BID PRN PRN Reason: Pain Vitamin E 670mg 670 mg PO DAILY Aspirin 81 mg PO BID Cranberry Fruit Extract [Cranberry] 500 mg PO BID Discharge Medication List Albuterol Sulfate [Albuterol Sulfate Hfa] 2 puff INHALATION RT-QID PRN 01/21/23 [History] Atorvastatin Calcium 20 mg PO HS 01/21/23 [History] Fluticasone Nasal [place] [Flonase Nasal [place]] 2 spray EA NOSTRIL BID PRN 01/21/23 [History] Isosorbide Mononitrate ER [Imdur] 30 mg PO DAILY 01/21/23 [History] Loperamide [Imodium] 2 mg PO QID PRN 01/21/23 [History] Metoprolol Succinate (ER) [Toprol XL] 25 mg PO BID@1200,2200 01/21/23 [History] Montelukast [Singulair] 10 mg PO DAILY 01/21/23 [History] Omeprazole [PriLOSEC] 20 mg PO DAILY 01/21/23 [History] Cholecalciferol (Vitamin D3) [Vitamin D3 (125 MCG = 5,000 IU)] 125 mcg PO DAILY 01/22/23 [History] Bumetanide [BUMEX] 4 mg PO BID 04/01/23 [History] Midodrine [ProAmatine] 5 mg PO TID PRN 04/01/23 [History] Sevelamer Carbonate 2,400 mg PO TID-W/MEALS 04/01/23 [History] amLODIPine [Norvasc] 5 mg PO DAILY 04/01/23 [History] DULoxetine HCL [Cymbalta] 30 mg PO DAILY 03/18/24 [History] Dicyclomine [Bentyl] 10 mg PO TID 03/18/24 [History] Gabapentin [Neurontin] 200 mg PO BID PRN 03/18/24 [History] Sevelamer [Renvela] 1,600 mg PO DAILY PRN 03/19/24 [History] Sodium Polystyrene Sulfonate [Kayexalate] 15 gm PO DAILY 04/27/24 [History] Ascorbic Acid [Vitamin C chew] 500 mg PO DAILY 11/25/24 [History] Aspirin 81 mg PO BID 11/25/24 [History] Benzonatate [Tessalon Perles] 100 mg PO TID PRN 11/25/24 [History] Cetirizine HCl 10 mg PO DAILY 11/25/24 [History] Cranberry Fruit Extract [Cranberry] 500 mg PO BID 11/25/24 [History] Vitamin B Complex 1 cap PO DAILY 11/25/24 [History] Vitamin E 670mg 670 mg PO DAILY 11/25/24 [History] Zinc Gluconate [Zinc] 50 mg PO DAILY 11/25/24 [History] Acetaminophen Tab [Tylenol] 500 mg PO Q6HR PRN tab 12/07/24 [Rx] Benzocaine/Menthol Lozeng [Cepacol lozenge] 1 each MUCOUS MEM Q4HR PRN #0 lozenge 12/07/24 [Rx] Budesonide-Formot 160-4.5 Mcg [Symbicort 160-4.5 Mcg Inhaler] 2 puff INHALATION RT-BID #1 each 12/07/24 [Rx] Calcium Carbonate [Tums] 500 mg PO QID PRN tab 12/07/24 [Rx] Cefuroxime [Ceftin] 250 mg PO BID 5 Days #10 tab 12/07/24 [Rx] Darbepoetin Ervin [Aranesp] 40 mcg SQ Q7D 30 Days #4 each 12/07/24 [Rx] Ipratropium-Albuterol Nebulize [Duoneb 0.5 mg-3 mg/3 ml Soln] 3 ml INHALATION RT-QID #100 each 12/07/24 [Rx] Ipratropium-Albuterol Nebulize [Duoneb 0.5 mg-3 mg/3 ml Soln] 3 ml INHALATION RT-QID PRN each 12/07/24 [Rx] Lidocaine 4% Patch 1 patch TOPICAL DAILY #30 patch 06/30/25 [Rx] Meclizine [Antivert] 12.5 mg PO TID #30 tab 12/07/24 [Rx] Nystatin 100,000 Unit/ml Susp [Mycostatin Oral Susp] 500,000 unit PO QID 7 Days #140 ml 12/07/24 [Rx] predniSONE See Taper PO DIRECTED #30 tab 12/07/24 [Rx] Follow up Appointment(s)/Referral(s): Elvia Armstrong MD [STAFF PHYSICIAN] - 1 Week [facility],Equipment [NON-STAFF] - As Needed (nebulizer) [facility], [NON-STAFF] - 1 Week Andrez Almodovar MD [Primary Care Provider] - 1-2 days Malena Moser MD [STAFF PHYSICIAN] - 1 Week Activity/Diet/Wound Care/Special Instructions: Activity limited until follow-up Follow-up with primary care provider Continue hemodialysis as scheduled sessions Continue with antibiotics and breathing treatments with outpatient follow-up with pulmonary Continue to follow-up with nephrology outpatient Discharge Disposition: HOME WITH HOME HEALTH SERVICES
== END 2024-12-08 14:57 | disposition home health service (06) | DRG 640 ==
LOC: EC 14:22 → OBSVTOIN 16:53 → 3SCARD 16:53 → 4SSUR 12-01 15:25
PROVIDERS: ADMIT Hospitalist; ATTEND Hospitalist
PROC: 5A1D70Z Performance of Urinary Filtration, Intermittent, Less than 6 Hours Per Day (ICD-10-PCS; principal; 2024-11-26)
DX: E87.5 Hyperkalemia (principal); J96.21 Acute and chronic respiratory failure with hypoxia; N18.6 End stage renal disease; I13.2 Hypertensive heart and chronic kidney disease with heart failure and with stage 5 chronic kidney disease, or end stage renal disease; E87.20 Acidosis, unspecified; Z99.2 Dependence on renal dialysis; J44.1 Chronic obstructive pulmonary disease with (acute) exacerbation; D63.1 Anemia in chronic kidney disease; I65.21 Occlusion and stenosis of right carotid artery; L97.812 Non-pressure chronic ulcer of other part of right lower leg with fat layer exposed; L97.822 Non-pressure chronic ulcer of other part of left lower leg with fat layer exposed; I50.32 Chronic diastolic (congestive) heart failure; I87.333 Chronic venous hypertension (idiopathic) with ulcer and inflammation of bilateral lower extremity; J44.0 Chronic obstructive pulmonary disease with (acute) lower respiratory infection; J20.9 Acute bronchitis, unspecified; I65.23 Occlusion and stenosis of bilateral carotid arteries; L29.9 Pruritus, unspecified; K29.70 Gastritis, unspecified, without bleeding; G62.9 Polyneuropathy, unspecified; E78.5 Hyperlipidemia, unspecified; M89.8X8 Other specified disorders of bone, other site; R53.81 Other malaise; M19.91 Primary osteoarthritis, unspecified site; Z91.158 Patient's noncompliance with renal dialysis for other reason; G89.29 Other chronic pain; I87.2 Venous insufficiency (chronic) (peripheral); Z79.52 Long term (current) use of systemic steroids; Z79.82 Long term (current) use of aspirin; Z79.899 Other long term (current) drug therapy; Z82.49 Family history of ischemic heart disease and other diseases of the circulatory system; Z86.73 Personal history of transient ischemic attack (TIA), and cerebral infarction without residual deficits; Z88.0 Allergy status to penicillin; Z88.1 Allergy status to other antibiotic agents
CPT/HCPCS: 36415; 36600; 71045; 71046; 80048; 80053; 82728; 82805; 83540; 83550; 83735; 84100; 84132; 84145; 85025; 85027; 86706; 87340; 87636; 90935; 93005; 93306; 94640; 94760; 96374; 96375; 96376; 99291